=== PATIENT | female | born 1970 | race Caucasian/White ===

== ENCOUNTER 2020-04-03 06:41 | Outpatient (REF) | payer OTHER, SELFPAY | END 2020-04-03 06:42 | disposition home or self-care (01) | LOC: HO.LAB 06:41 | PROVIDERS: Visit Provider Internal Medicine | DX: Z20.828 Contact with and (suspected) exposure to other viral communicable diseases (principal) | CPT/HCPCS: C9803; U0003 ==

== ENCOUNTER 2020-08-16 10:03 | Outpatient (REF) | payer OTHER, SELFPAY ==
[2020-08-16 10:22] LABS: COVID-19 Test Negative (Negative); IDNOW Serial# 55D5AD1C
== END 2020-08-16 10:04 | disposition home or self-care (01) ==
LOC: HO.LAB 10:03
PROVIDERS: Visit Provider Internal Medicine
DX: Z20.822 Contact with and (suspected) exposure to COVID-19 (principal)
CPT/HCPCS: 36415; 87635; C9803

== ENCOUNTER 2020-08-17 08:47 | Outpatient (REF) | payer OTHER, SELFPAY | END 2020-08-17 08:48 | disposition home or self-care (01) | LOC: HO.LAB 08:47 | PROVIDERS: Visit Provider Internal Medicine | DX: Z20.822 Contact with and (suspected) exposure to COVID-19 (principal) | CPT/HCPCS: C9803; U0003; U0005 ==

== ENCOUNTER 2020-10-10 08:03 | Outpatient (REF) | payer OTHER, SELFPAY | END 2020-10-10 08:04 | disposition home or self-care (01) | LOC: HO.LAB 08:03 | PROVIDERS: PCP Internal Medicine; Visit Provider Internal Medicine | DX: Z20.822 Contact with and (suspected) exposure to COVID-19 (principal) | CPT/HCPCS: C9803; U0003; U0005 ==

== ENCOUNTER 2021-03-04 10:47 | Outpatient (REF) | payer MEDICARE, OTHER, SELFPAY ==
--- NOTE | ~2021-03-04 | XR_ITS ---
EXAMINATION: XR CHEST CLINICAL INFORMATION: Shortness of breath COMPARISON: 11/10/2017 TECHNIQUE: 2 views of the chest were obtained. FINDINGS: The lungs are well expanded. There is no focal consolidation, edema, or effusion. No pneumothorax. The cardiomediastinal silhouette is within normal limits. No acute osseous abnormality. Mild degenerative changes throughout the spine. XR/XR chest 2V IMPRESSION: No acute pulmonary finding.
== END 2021-03-04 10:48 | disposition home or self-care (01) ==
LOC: HO.XRAY 10:47
PROVIDERS: PCP Internal Medicine; Visit Provider Internal Medicine
DX: Z13.89 Encounter for screening for other disorder (principal)
CPT/HCPCS: 71046

== ENCOUNTER 2021-03-04 10:50 | Outpatient (REF) | payer MEDICARE, OTHER, SELFPAY ==
[2021-03-04 11:32] LABS: COVID-19 Test Negative (Negative)
== END 2021-03-04 10:51 | disposition home or self-care (01) ==
LOC: HO.LAB 10:50
PROVIDERS: PCP Internal Medicine; Visit Provider Internal Medicine
DX: Z20.822 Contact with and (suspected) exposure to COVID-19 (principal)
CPT/HCPCS: 36415; 71046; 87635; C9803

== ENCOUNTER 2021-05-14 10:01 | Outpatient (REF) | payer MEDICARE, OTHER, SELFPAY ==
--- NOTE | ~2021-05-14 | XR_ITS ---
EXAMINATION: XR CHEST CLINICAL INFORMATION: Cough COMPARISON: Previous chest x-rays most recent March 2021 TECHNIQUE: 2 views of the chest were obtained. FINDINGS: The cardiac and mediastinal contours are stable. There is new subsegmental atelectasis at the left lung base. The lungs are otherwise clear. There is no pleural effusion or pneumothorax. There are mild degenerative changes of the thoracic spine and increased kyphosis. XR/XR chest 2V IMPRESSION: New subsegmental atelectasis at the left lung base.
== END 2021-05-14 10:02 | disposition home or self-care (01) ==
LOC: HO.XRAY 10:01
PROVIDERS: PCP Internal Medicine; Visit Provider Internal Medicine
DX: R05.9 Cough, unspecified (principal); R06.02 Shortness of breath; Z86.16 Personal history of COVID-19
CPT/HCPCS: 71046

== ENCOUNTER 2021-05-20 10:46 | Outpatient (REF) | payer MEDICARE, OTHER, SELFPAY ==
--- NOTE | ~2021-05-20 | XR_ITS ---
EXAMINATION: XR CHEST CLINICAL INFORMATION: Follow-up pneumonia COMPARISON: 05/14/2021 TECHNIQUE: 2 views of the chest were obtained. FINDINGS: No significant interval change is noted involving the heart, lungs, mediastinum, bony thorax or soft tissues. XR/XR chest 2V IMPRESSION: Minor left-sided subsegmental atelectasis. No infiltrate.
== END 2021-05-20 10:47 | disposition home or self-care (01) ==
LOC: HO.XRAY 10:46
PROVIDERS: PCP Internal Medicine; Visit Provider Internal Medicine
DX: J18.9 Pneumonia, unspecified organism (principal)
CPT/HCPCS: 71046

== ENCOUNTER 2021-08-12 07:54 | Day surgery (SDC) | payer MEDICARE, OTHER, SELFPAY ==
[2021-08-06 16:50] VITALS: BMI 37.2
--- NOTE | 2021-08-08 14:18 | P.CONAN_ITS ---
Documented by User: Diya Wynne NP 08/08/21 14:19 HPI - Anesthesia Eval Consult details Narrative: 51yo F for Colonoscopy PMFSH Past Medical History Medical History Arthritis Asthma Fibromyalgia GERD (gastroesophageal reflux disease) Hypothyroidism Irritable bowel syndrome (IBS) Low back pain Osteoporosis Personal history of COVID-19 Smoker Surgical History Surgical History (Updated 08/06/21 @ 16:23 by Demetria Nagy RN) History of History of esophagogastroduodenoscopy (EGD) Hx of colonoscopy Social History Social History Are you a primary adult daycare coordinator to a significant other at home: No Patient Tobacco Use Status: Current everyday Tobacco user Tobacco use type: Cigarette Cigarettes Per Day: 10 Use of substances other than those prescribed or required for medical reasons: Yes Substance Use Frequency: Weekly Are you DNR?: No Advance Directives: No Advance Directives Information Provided: Yes Advance Directives on File: No Patient : No FDLMP: 03/30/2021 Meds Allergies Allergy/AdvReac Type Severity Reaction Status Date / Time No Known Allergies Allergy Verified 08/06/21 16:48 [No Known Allergies*] Home Medications Medication Instructions Recorded Confirmed Last Taken Type Flovent HFA DAILY 08/06/21 Unknown History albuterol sulfate 90 mcg/actuation 2 puff INHALATION Q4-6H PRN 08/06/21 08/06/21 08/12/21 History aerosol inhaler 2 puff dicyclomine 20 mg tablet 1 tab PO QID 08/06/21 08/06/21 Unknown History ibuprofen 800 mg tablet 800 mg PO TID PRN 08/06/21 08/06/21 Unknown History levofloxacin 500 mg tablet 1 tab PO DAILY 08/06/21 08/06/21 Unknown History omeprazole 20 mg tablet,delayed 20 mg PO BEDTIME 08/06/21 08/06/21 Unknown History release pregabalin 200 mg capsule 200 mg PO TID 08/06/21 08/06/21 08/12/21 History 200 mg Exam Exam Date and Time: August 08, 2021 1418 Height,Weight and Vital Signs: Height 5 ft 1 in Weight 89.358 kg Assessment and Plan Assessment Anesthesia Assessment: Chart Reviewed Documented by User: Mian Christian MD 08/12/21 09:21 [facility] Past Medical History Medical History Arthritis Asthma Fibromyalgia GERD (gastroesophageal reflux disease) Hypothyroidism Irritable bowel syndrome (IBS) Low back pain Osteoporosis Personal history of COVID-19 Smoker Family History Family history of problems with anesthesia: No Surgical History Surgical History (Updated 08/06/21 @ 16:23 by Demetria Nagy RN) History of History of esophagogastroduodenoscopy (EGD) Hx of colonoscopy History of Problems with Anesthesia: No Social History Social History Are you a primary adult daycare coordinator to a significant other at home: No Patient Tobacco Use Status: Current everyday Tobacco user Tobacco use type: Cigarette Cigarettes Per Day: 10 Use of substances other than those prescribed or required for medical reasons: Yes Substance Use Frequency: Weekly Are you DNR?: No Advance Directives: No Advance Directives Information Provided: Yes Advance Directives on File: No Patient : No FDLMP: 03/30/2021 Meds Allergies Allergy/AdvReac Type Severity Reaction Status Date / Time No Known Allergies Allergy Verified 08/06/21 16:48 [No Known Allergies*] Home Medications Medication Instructions Recorded Confirmed Last Taken Type Flovent HFA DAILY 08/06/21 Unknown History albuterol sulfate 90 mcg/actuation 2 puff INHALATION Q4-6H PRN 08/06/21 08/06/21 08/12/21 History aerosol inhaler 2 puff dicyclomine 20 mg tablet 1 tab PO QID 08/06/21 08/06/21 Unknown History ibuprofen 800 mg tablet 800 mg PO TID PRN 08/06/21 08/06/21 Unknown History levofloxacin 500 mg tablet 1 tab PO DAILY 08/06/21 08/06/21 Unknown History omeprazole 20 mg tablet,delayed 20 mg PO BEDTIME 08/06/21 08/06/21 Unknown History release pregabalin 200 mg capsule 200 mg PO TID 08/06/21 08/06/21 08/12/21 History 200 mg Exam Airway Mallampati Class: II TM Dist: >3cm Neck ROM: Full Loose/Missing/Broken Teeth: No Heart: [id number] Lungs: cta b/l Assessment and Plan Assessment Anesthesia Assessment: Anesthesia Plan Discussed Final Anesthetic Review Family History of Problems with Anesthesia: No History of Problems with Anesthesia: No NPO: Yes ASA Class: II Final Preanesthetic Review: No Changes in Pt Med Stat, Meds/Allgs Chart Reviewed, Consent Obtained/Reviewed and Anes Risks/Benef Reviewed Patient Risk: Intermediate Procedure Risk: Low Assessment/Block/Sedation in SS: Assess/Block/Sedation-SS Anesthetic Plan Anesthetic Plan: MAC: and Agree w/ Assess. and Plan Disposition: Standard PACU
[2021-08-12 08:48] VITALS: BP 145/78; PULSE 54; RESP 18; TEMP 36.2; O2SAT 96; BMI 37.2
[2021-08-12] MEDS: Lactated Ringers 1,000 ML 100 ML IVCONT (09:05)
[2021-08-12 10:25] VITALS: BP 98/50; PULSE 58; RESP 16; TEMP 36.1; O2SAT 97
--- NOTE | 2021-08-12 10:27 | PM.OP ---
Brief Operative Note Date of Service: 08/12/21 Pre-op diagnosis: Screening Post-op diagnosis: other (Colon polyp) Procedure: Colonoscopy to the cecum with hot snare polypectomy Surgeon: Brett Baker Anesthesia: MAC Was an Supervisor Throwing Department used for this Procedure?: No Estimated blood loss (mL): 0 Pathology: other (A. Polyp at 40cm) Condition: stable Disposition: PACU
[2021-08-12 10:40] VITALS: BP 119/74; PULSE 57; RESP 18; O2SAT 97
[2021-08-12 11:01] VITALS: BP 153/87; PULSE 48; RESP 18; TEMP 36.2; O2SAT 97
--- NOTE | 2021-08-12 12:59 | OP_ITS ---
SURGEON: Brett Baker MD INDICATIONS: The patient presents for evaluation of colorectal cancer screening. Full consent was obtained from her for this, including risks of bleeding and perforation. PREOPERATIVE DIAGNOSIS: Colorectal cancer screening. POSTOPERATIVE DIAGNOSIS: PROCEDURE PERFORMED: Colonoscopy to the cecum with hot snare polypectomy. ESTIMATED BLOOD LOSS: COMPLICATIONS: ANESTHESIA: Monitored anesthesia care. ASSISTANTS: SPECIMENS: POSTOPERATIVE DIAGNOSES: Colorectal cancer screening, colon polyp, diverticulosis and internal hemorrhoids. DESCRIPTION OF PROCEDURE: The patient was placed in the left lateral decubitus position. The digital rectal exam revealed no abnormalities. The Olympus video pediatric colonoscope was entered into the rectum and advanced easily to the cecum. Once in the cecum, I did identify normal-appearing cecal pouch with appendiceal orifice and a normal-appearing ileocecal valve. The entire cecum and ileocecal valve appeared normal. There was transillumination of light deep in the right lower quadrant. The scope was slowly withdrawn assessing all mucosal surfaces carefully. Preparation was excellent. At 40 cm was an approximately 10 mm grossly adenomatous polyp, which was removed with hot snare polypectomy. A small piece may have been recovered, although not completely cleared if it is polyp tissue. The polypectomy site appeared clean, without any sign of residual polyp nor bleeding. I did not visualize any other polyps, colitis, or angiodysplasia. There was a mild amount of sigmoid diverticulosis. In the rectum, scope was retroflexed visualizing internal hemorrhoids, but no other pathology. The rectal mucosa appeared normal. The scope was straightened and withdrawn from the patient. She tolerated the procedure well and was returned to the recovery area in stable condition. IMPRESSION: 1. Colon polyp, status post hot snare polypectomy. 2. Diverticulosis. 3. Internal hemorrhoids. PLAN: The results of the pathology will be checked. Even if there is no polyp tissue found, I would recommend a repeat colonoscopy in 5 years given its gross appearance. She was advised not to use any aspirin and NSAIDs for 1 week. She will otherwise see me on a p.r.n. basis. MD GIL Marin/KATHY / [id number]
== END 2021-08-12 11:46 | disposition home or self-care (01) ==
PROVIDERS: PCP Internal Medicine; Visit Provider Internal Medicine
PROC: 0DJD8ZZ Inspection of Lower Intestinal Tract, Via Natural or Artificial Opening Endoscopic (ICD-10-PCS; CPT 45378; principal; 2021-08-12 09:10)
DX: Z12.11 Encounter for screening for malignant neoplasm of colon (principal); K63.5 Polyp of colon; K57.30 Diverticulosis of large intestine without perforation or abscess without bleeding; K64.8 Other hemorrhoids; K58.0 Irritable bowel syndrome with diarrhea; E03.9 Hypothyroidism, unspecified; Z79.899 Other long term (current) drug therapy
CPT/HCPCS: 45385; 88305

== ENCOUNTER 2022-05-22 16:45 | Outpatient (REF) | payer MEDICARE, OTHER, SELFPAY ==
--- NOTE | ~2022-05-22 | XR_ITS ---
EXAMINATION: XR RIBS, RIGHT CLINICAL INFORMATION: Fell, injured ribs. COMPARISON: None TECHNIQUE: 3 views of the right ribs were obtained. Chest PA 1 view FINDINGS: Lungs are clear. No consolidation, pneumothorax, or pleural effusion. The cardiomediastinal silhouette and pulmonary vasculature are normal. No gross bony or the body. Multiple views of right ribs reveal no visible acute fracture or bony abnormality. XR/XR ribs RT min 3V w CXR1V IMPRESSION: 1. Unremarkable chest exam. 2. Unremarkable right rib exam.
== END 2022-05-22 16:46 | disposition home or self-care (01) ==
LOC: HO.XRAY 16:45
PROVIDERS: PCP Internal Medicine; Visit Provider Internal Medicine
DX: R07.81 Pleurodynia (principal); Z91.81 History of falling
CPT/HCPCS: 71101

== ENCOUNTER 2022-07-30 14:18 | Outpatient (REF) | payer MEDICARE, OTHER, SELFPAY ==
--- NOTE | ~2022-07-30 | XR_ITS ---
EXAMINATION: XR RIBS, RIGHT CLINICAL INFORMATION: Fall on Thursday. Right rib pain. COMPARISON: None available. TECHNIQUE: 3 views of the right ribs were obtained. FINDINGS: Chest: The lungs are well-expanded and clear. The heart size and pulmonary vascularity is normal. No gross bony abnormality seen. Multiple views of right ribs reveal mild deformity involving right posterior fifth, sixth and seventh ribs suspicious for nondisplaced fractures. XR/XR ribs RT min 3V w CXR1V IMPRESSION: 1. Unremarkable chest exam. 2. Suspect nondisplaced fractures involving right posterior fifth, sixth and seventh ribs.
== END 2022-07-30 14:19 | disposition home or self-care (01) ==
LOC: HO.XRAY 14:18
PROVIDERS: PCP Internal Medicine; Visit Provider Internal Medicine
DX: R07.81 Pleurodynia (principal); Z91.81 History of falling
CPT/HCPCS: 71101

== ENCOUNTER 2022-09-15 14:57 | Outpatient (REF) | payer MEDICARE, OTHER, SELFPAY ==
--- NOTE | ~2022-09-15 | XR_ITS ---
EXAMINATION: XR RIBS, RIGHT CLINICAL INFORMATION: Fall, trauma, pain COMPARISON: Chest and right ribs 07/30/2022, 05/22/2022 TECHNIQUE: Frontal view of the chest and 4 views of the right ribs are obtained for a total of 5 views. FINDINGS: As noted on prior exam, there are multiple right rib fractures, estimated at the posterior lateral sixth, seventh, eighth, and ninth ribs, possibly the 10th. There is no interval new right rib fractures seen from prior exam 07/30/2022. There is mild pleural reaction adjacent to the rib fractures. Probable trace right effusion. No pneumothorax. No interval airspace consolidation. Left lung clear. The cardiac and mediastinal contours are similar to prior exams. XR/XR ribs RT min 3V w CXR1V IMPRESSION: - Multiple right rib fractures as noted on prior exam, likely 6th - 9th, possibly 10th. - Interval smooth right pleural reaction with trace effusion. - No pneumothorax. No airspace consolidation.
== END 2022-09-15 14:58 | disposition home or self-care (01) ==
LOC: HO.XRAY 14:57
PROVIDERS: PCP Internal Medicine; Visit Provider Internal Medicine
DX: R07.81 Pleurodynia (principal); Z91.81 History of falling
CPT/HCPCS: 71101

== ENCOUNTER 2022-11-06 14:57 | Outpatient (REF) | payer MEDICARE, OTHER, SELFPAY | END 2022-11-06 14:58 | disposition home or self-care (01) | LOC: HO.HMGCX 14:57 | PROVIDERS: PCP Internal Medicine; Visit Provider Internal Medicine | DX: S22.31XA Fracture of one rib, right side, initial encounter for closed fracture (principal); M79.672 Pain in left foot | CPT/HCPCS: 71101; 73630 ==

== ENCOUNTER 2023-07-07 11:25 | Outpatient (REF) | payer MEDICARE, OTHER, SELFPAY ==
--- NOTE | ~2023-07-07 | US_ITS ---
EXAMINATION: US VENOUS ULTRASOUND WITH DOPPLER LOWER EXTREMITY, LEFT CLINICAL INFORMATION: Left leg pain. COMPARISON: None available. TECHNIQUE: Ultrasound of the deep veins is performed from the hip to the calf with compression sonography and color and pulse Doppler assessment. Spectral analysis with color-flow imaging is performed. FINDINGS: There is normal venous compression and respiratory variation and augmented flow. The visualized common femoral vein, superficial femoral vein, profunda femoral vein, popliteal vein, and the trifurcation region shows no evidence of deep venous thrombosis. The posterior tibial and peroneal veins are not visualized. There is no significant popliteal fossa cyst. If the patient's symptoms persist, followup ultrasound in 5 days 7 days might be of value to exclude proximal propagation from a non-visualized calf vein. US/US venous duplex LE IMPRESSION: No DVT demonstrated in the left lower extremity.
== END 2023-07-07 11:26 | disposition home or self-care (01) ==
LOC: HO.US 11:25
PROVIDERS: PCP Internal Medicine; Visit Provider Internal Medicine
DX: M79.605 Pain in left leg (principal); R60.0 Localized edema
CPT/HCPCS: 93971

== ENCOUNTER 2023-07-22 07:00 | Outpatient (REF) | payer MEDICARE, OTHER, SELFPAY ==
[2023-07-22 11:35] LABS: MANUAL DIFF FLAG NO
[2023-07-22 11:47] LABS: Basophils Percent Auto 0.6 % (0-2); Eosinophils Absolute Auto 0.4 X10*3/uL (0.0-0.4); Eosinophils Percent Auto 7.5 % (0-4); Hematocrit 37.8 % (37.0-47.0); Hemoglobin 12.1 g/dl (12.0-16.0); Imm Gran Abs Auto 0.01 X10*3/uL (0.00-0.03); Imm Gran Pct Auto 0.2 % (0.0-0.4); Lymphocytes Absolute Auto 1.9 X10*3/uL (1.2-4.9); Lymphocytes Percent Auto 40.3 % (20-40); Mean Corpuscular Hemoglobin 29.2 pg (27.0-33.0); Mean Corpuscular Volume 91.1 fL (80.0-98.0); Mean Platelet Volume 9.6 fL (9.4-12.3); Monocytes Absolute Auto 0.4 X10*3/uL (0.1-1.2); Monocytes Percent Auto 7.7 % (2-11); Neutrophils Absolute Auto 2.1 x10*3/uL (2.0-8.3); Neutrophils Percent Auto 43.7 % (45-73); Platelet Count 204 X10*3/uL (160-400); Red Blood Count 4.15 X10*6/uL (4.20-5.50); White Blood Count 4.7 X10*3/uL (4.8-10.8)
[2023-07-22 12:34] LABS: Alanine Aminotransferase 17 U/L (0-31); Albumin Level 3.3 g/dL (3.5-5.0); Alkaline Phosphatase 82 U/L (39-117); Anion Gap 9 (12-20); Aspartate Amino Transferase 20 U/L (5-31); Bilirubin Total 0.2 mg/dL (0.0-1.0); Blood Urea Nitrogen 12 mg/dL (9-16); Calcium 8.5 mg/dL (8.4-10.2); Carbon Dioxide 30 mmol/L (22-29); Chloride 105 mmol/L (96-108); Cholesterol 116 mg/dL (<200); Estimated Glomerular Filt Rate > 60; Glucose Fasting 116 mg/dL (60-99); HDL Cholesterol 43 mg/dL (>40); LDL Cholesterol Calculated 61 mg/dL (<100); Potassium 3.3 mmol/L (3.3-5.1); Sodium 141 mmol/L (135-145); Total Protein 6.6 g/dL (6.5-8.0); Triglycerides 63 mg/dL (<150)
[2023-07-22 12:40] LABS: Free T4 (Free Thyroxine) 0.82 ng/dL (0.71-1.85); Thyroid Stimulating Hormone 5.51 uIU/mL (0.32-4.0)
== END 2023-07-22 07:01 | disposition home or self-care (01) ==
LOC: HO.HMGCLDS 07:00
PROVIDERS: PCP Internal Medicine; Visit Provider Internal Medicine
DX: Z00.00 Encounter for general adult medical examination without abnormal findings (principal); R53.83 Other fatigue; E78.5 Hyperlipidemia, unspecified
CPT/HCPCS: 36415; 80053; 80061; 84439; 84443; 85025

== ENCOUNTER 2023-07-29 09:48 | Outpatient (REF) | payer MEDICARE, OTHER, SELFPAY ==
--- NOTE | ~2023-07-29 | XR_ITS ---
EXAMINATION: XR THORACIC SPINE, RIBS CLINICAL INFORMATION: Pain. COMPARISON: Ribs 11/06/2022, chest and ribs 09/15/2022, chest 05/20/2021. TECHNIQUE: 2 views of the chest. 4 views of bilateral ribs. FINDINGS: Thoracic Spine: Cardiac silhouette borderline enlarged. There is no gross pneumothorax. Advanced multilevel degenerative changes in the thoracic spine with dextroscoliosis. Bones are diffusely demineralized. Mild left pleural reaction/pleural effusion. Patchy left lower lung opacities may represent atelectasis and/or an infectious/inflammatory process. Bilateral Ribs: Redemonstration of multiple old right rib fractures involving at least ribs 5 through 10 and deformity along the posterior aspect of at least the left 10th rib characteristic of old fracture. There are multiple bilateral displaced fractures involving at least left ribs 5, 6, 7 and 8 and right ribs 5, 7, 8 and 9. XR/XR thoracic spine 2V IMPRESSION: Multiple bilateral rib fractures superimposed on background of old rib fractures. Mild left pleural reaction/pleural effusion. Patchy left lower lung opacities may represent atelectasis and/or an infectious/inflammatory process. Advanced multilevel degenerative changes in the thoracic spine with dextroscoliosis. This study was presented today 08/04/2023 for interpretation. STAT results provided at this time as requested by referring provider.
--- NOTE | ~2023-07-29 | XR_ITS ---
EXAMINATION: XR THORACIC SPINE, RIBS CLINICAL INFORMATION: Pain. COMPARISON: Ribs 11/06/2022, chest and ribs 09/15/2022, chest 05/20/2021. TECHNIQUE: 2 views of the chest. 4 views of bilateral ribs. FINDINGS: Thoracic Spine: Cardiac silhouette borderline enlarged. There is no gross pneumothorax. Advanced multilevel degenerative changes in the thoracic spine with dextroscoliosis. Bones are diffusely demineralized. Mild left pleural reaction/pleural effusion. Patchy left lower lung opacities may represent atelectasis and/or an infectious/inflammatory process. Bilateral Ribs: Redemonstration of multiple old right rib fractures involving at least ribs 5 through 10 and deformity along the posterior aspect of at least the left 10th rib characteristic of old fracture. There are multiple bilateral displaced fractures involving at least left ribs 5, 6, 7 and 8 and right ribs 5, 7, 8 and 9. XR/XR ribs BI 3V IMPRESSION: Multiple bilateral rib fractures superimposed on background of old rib fractures. Mild left pleural reaction/pleural effusion. Patchy left lower lung opacities may represent atelectasis and/or an infectious/inflammatory process. Advanced multilevel degenerative changes in the thoracic spine with dextroscoliosis. This study was presented today 08/04/2023 for interpretation. STAT results provided at this time as requested by referring provider.
== END 2023-07-29 09:49 | disposition home or self-care (01) ==
LOC: HO.HMGCX 09:48
PROVIDERS: PCP Internal Medicine; Visit Provider Internal Medicine
DX: R07.81 Pleurodynia (principal); M54.6 Pain in thoracic spine
CPT/HCPCS: 71110; 72070

== ENCOUNTER 2023-08-20 15:31 | Outpatient (AMB) | payer MEDICARE, OTHER, SELFPAY ==
--- NOTE | 2023-08-20 15:33 | A.OFFVIS_ITS ---
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 States she has a wound that started around July 18, says she was using a callous scraper on her foot and cut herself. Says she loses feeling in her left big toe where the wound is. 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 This has been present for some time. She reports it began as a callus and when she shaved it down a became an open ulcer. It has been slow to heal. She is quite concerned about this now presents to us for vascular evaluation. Of note she has a prior history of osteoporosis fibromyalgia and peripheral neuropathy. She is a nondiabetic and does have significant peripheral neuropathy. In addition she smokes about a half a pack per day. [facility] Medical History Smoker Arthritis Asthma Low back pain Osteoporosis GERD (gastroesophageal reflux disease) Irritable bowel syndrome (IBS) Hypothyroidism Fibromyalgia Personal history of COVID-19 Surgical History History of Hx of colonoscopy History of esophagogastroduodenoscopy (EGD) Social History Are you a primary rental boats caretaker to a significant other at home: No Patient Tobacco Use Status: Current everyday Tobacco user Tobacco use type: Cigarette Cigarettes Per Day: 10 Review of Systems Const All systems reviewed & are unremarkable except as noted in HPI and below Reports no additional complaints ENT Reports Normal hearing present Card Denies chest pain, Denies chest pain at rest, Denies chest pain with activity and Denies pedal edema Resp Denies cough GI Denies abdominal pain Musc Denies abnormal gait, Denies muscle cramps and Denies radiating pain into limb Skin/Breast Denies skin ulcer and Denies wounds Neuro Reports Normal hearing present and Denies abnormal gait Psych Reports no additional complaints Physical Exam Vital Signs: BMI result Body Mass Index 31.6 Const General: cooperative, healthy appearing and comfortable Orientation/consciousness: oriented to person, oriented to place and oriented to time HEENT Head: Yes normal to inspection Neck Neck: Yes normal visual inspection Carotids: no bruits Chest Chest palpation & inspection: normal inspection of the chest Resp Effort & Inspection: normal respiratory effort and able to speak in complete sentences Auscultation: clear to auscultation bilaterally, no crackles, no rales, no rhonchi and no wheezes Cardio Rate: regular rate Rhythm: regular rhythm Heart sounds: S1 normal heart sound present and S2 normal heart sound present Bruits: no carotid bruits Peripheral pulses: Peripheral pulses 2+ throughout GI Inspection: Yes normal to inspection Skin Other: Left great toe ulcer measuring 1 x 1.5 x 0.2 cm. Wounds: no wounds Hair: normal Neuro General: oriented to person, oriented to place and oriented to time Cranial nerves: Yes CN's II-XII intact bilaterally and Yes Normal hearing present Cognition (Neuro): normal cognition Motor exam (neuro): 5/5 motor strength present throughout Extrem Other: venous exam: No significant superficial varicosities or spider telangiectasias, minimal edema General: No clubbing, No cyanosis and No edema Psych Appearance: grossly normal Mental Status: mental status grossly normal Speech and movement: Normal speech and movement present Assessment & Plan Assessment & Plan (1) Varicose veins of left lower extremity with inflammation: Code(s): I83.12 - Varicose veins of left lower extremity with inflammation Category: Medical Plan: In short patient has significant swelling of the lower extremities. Unclear etiology of the swelling. I have taken the liberty of ordering venous insufficiency testing. I did review DVT study from 07/07/2023 which was negative for DVT. We will get reflux study and have her follow-up. 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 I do believe that some of this is pressure related secondary to her neuropathy. We did discuss offloading. In addition she will continue with Silvadene dressings. Should there be no significant improvement may need operative debridement. We will continue to monitor this as well. Thank you for allowing us to assist in her care. (3) Back pain: Code(s): M54.9 - Dorsalgia, unspecified Category: Medical Qualifiers: Back pain location: low back pain Chronicity: chronic Back pain laterality: bilateral Sciatica presence: unspecified whether sciatica present Qualified Code(s): M54.50 - Low back pain, unspecified; G89.29 - Other chronic pain Plan: In short patient has significant back issues. I do believe this may be contribu ting to her neuropathy. She on x-ray on 07/28 demonstrated multiple rib fractures along with multi-level degenerative spinal changes and dextroscoliosis. I do think evaluation by pain management might be helpful. Might need further evaluation and workup regarding this. Thank you for allowing us to assist in her care. If there are any questions or concerns please do not hesitate to contact us. Orders: Orders US venous insuf bilat 1 Week I83.12 - Varicose veins of left lower extremity with inflammation
[2023-08-20 15:39] VITALS: BMI 31.6
== END 2023-08-21 07:31 | disposition home or self-care (01) ==
PROVIDERS: PCP Internal Medicine; Visit Provider Surgery Vascular Surgery
DX: I83.12 Varicose veins of left lower extremity with inflammation (principal); L97.523 Non-pressure chronic ulcer of other part of left foot with necrosis of muscle; M54.50 Low back pain, unspecified; G89.29 Other chronic pain
CPT/HCPCS: 99204

== ENCOUNTER 2023-08-23 12:38 | Inpatient (IN) | payer MEDICARE, OTHER, SELFPAY ==
[2023-08-23] VITALS (8 sets, daily range): BP systolic 122–172; BP diastolic 71–96; PULSE 97–120; RESP 20–26; TEMP 36.8–38.7; O2SAT 88–95; BMI 29.3
--- NOTE | ~2023-08-23 | XR_ITS ---
EXAMINATION: XR FOOT, LEFT CLINICAL INFORMATION: Question osteomyelitis of great toe. COMPARISON: Radiographs dated 11/06/2022. TECHNIQUE: AP, lateral, and oblique views of the left foot. FINDINGS: Bony alignment and mineralization are normal. No fracture, dislocation or left ankle joint effusion is seen. Boehler's angle is normal. There are small posterior and plantar calcaneal spurs. There is soft tissue gas in the medial plantar aspect of the great toe. No adjacent periosteal thickening or cortical erosion is noted. No foreign body is seen. XR/XR foot LT 2V IMPRESSION: There is soft tissue gas in the medial plantar aspect of the left great toe, which can be associated with a soft tissue infection. No periosteal thickening or cortical erosion is seen of the great toe to suggest osteomyelitis. If a clinical suspicion of acute osteomyelitis persists, MRI evaluation can be performed as a more sensitive imaging modality.
--- NOTE | ~2023-08-23 | CT_ITS ---
EXAMINATION: CT HEAD WITHOUT CONTRAST CLINICAL INFORMATION: Mental status change. COMPARISON: None. TECHNIQUE: Contiguous axial imaging was performed from the skullbase to vertex without intravenous administration of contrast. This CT examination was performed using dose optimization techniques as appropriate, variously including the following: *Automated exposure control *Adjustment of mA and/or kV according to patient size (this includes techniques or standardized protocols for targeted exams where dose is matched to indication/reason for exam; i.e. extremities or head) *Use of iterative reconstruction technique DLP: 784 mGy-cm. FINDINGS: There is no evidence of acute intracranial hemorrhage or territorial infarction. No abnormal mass effect or midline shift is seen. Guillaume to white matter differentiation is well preserved. No extra-axial fluid collections are identified. No evidence of hydrocephalus. Mild to moderate bilateral temporoparietal lobe parenchymal volume loss noted. The osseous structures and soft tissues are normal. The mastoid air cells are well aerated. There is tghj-te-asjvedai mucosal thickening with aerosolized secretions in the maxillary sinuses. CT/CT head/brain wo IV con IMPRESSION: No acute intracranial pathology. Jocg-np-[id number] bilateral temporoparietal lobe volume loss. Nktj-uu-rhvmbkcn aerosolized mucosal secretions in the maxillary sinus cavities; correlate for any acute symptomatology.
--- NOTE | ~2023-08-23 | US_ITS ---
EXAMINATION: US VENOUS ULTRASOUND WITH DOPPLER LOWER EXTREMITY, LEFT CLINICAL INFORMATION: Left leg edema, erythema and tenderness COMPARISON: None available. TECHNIQUE: Ultrasound of the deep veins is performed from the hip to the calf with compression sonography and color and pulse Doppler assessment. Spectral analysis with color-flow imaging is performed. Technically Limited study. The patient was unable to tolerate compression. FINDINGS: There is respiratory variation and normal color flow. The visualized common femoral vein, superficial femoral vein, profunda femoral vein, popliteal vein, and the posterior tibial and peroneal veins shows no evidence of deep venous thrombosis. Benign-appearing lymph node at the left proximal thigh measures 2.4 x 1.0 x 4.2 cm. Marked edema was seen in the calf. US/US venous duplex LE LT IMPRESSION: No DVT demonstrated in the left lower extremity.
--- NOTE | ~2023-08-23 | XR_ITS ---
EXAMINATION: XR FOREARM, LEFT XR HAND, LEFT CLINICAL INFORMATION: Fall. Swelling. COMPARISON: None. TECHNIQUE: AP and lateral views of the left forearm. AP, oblique, and lateral views of the left hand. FINDINGS: Left forearm: Circumferential subcutaneous edema and soft tissue swelling. No acute fracture or dislocation. No cortical erosion or periosteal reaction. No abnormal soft tissue calcification. Left hand: Circumferential soft tissue swelling. No acute fracture or dislocation. Normal carpal alignment. Tiny marginal osteophytes at the triscaphe and first carpometacarpal joints. No osseous erosion. No abnormal soft tissue calcification. XR/XR forearm LT 2V IMPRESSION: LEFT FOREARM: Circumferential soft tissue swelling without acute osseous abnormality. LEFT HAND: Circumferential soft tissue swelling without acute osseous abnormality. Mild degenerative arthritis at the triscaphe and first carpometacarpal joints.
--- NOTE | ~2023-08-23 | CT_ITS ---
EXAMINATION: CT CHEST, ABDOMEN AND PELVIS WITHOUT CONTRAST. CLINICAL INFORMATION: mental status change with multiple rib fracture. COMPARISON: 07/29/2023 rib films and 07/16/2018 CT scan. TECHNIQUE: Multidetector volumetric imaging was performed from the thoracic inlet through the pubic symphysis without intravenous contrast. Sagittal and coronal reformatted images were obtained on the technologist workstation. This CT examination was performed using dose optimization techniques as appropriate, variously including the following: *Automated exposure control *Adjustment of mA and/or kV according to patient size (this includes techniques or standardized protocols for targeted exams where dose is matched to indication/reason for exam; i.e. extremities or head) *Use of iterative reconstruction technique DLP: 1432 mGy-cm FINDINGS: CHEST: Lungs: Dependent airspace changes more likely reflecting a component of atelectasis although infiltrate/aspiration could have a similar appearance especially in the left base. Clinical correlation will be needed. Small bilateral pleural effusions are noted. Mediastinum: Vascular structures are grossly unremarkable in this noncontrast study. No bulky adenopathy. Coronary Artery Calcification: Absent Pericardium/Pleura: Small left greater than right pleural effusions. No significant pericardial effusion Chest Wall/Axilla: No bulky axillary adenopathy. Asymmetric soft tissue along the inferomedial aspect of the right scapula difficult to separate from the adjacent soft tissues but this measures approximately 3.8 cm in diameter. This cannot be defined further on this noncontrast. Fibroblastoma dorsi could be seen in this location but that would be somewhat atypical in a 53-year-old patient. ABDOMEN/PELVIS: Peritoneal Space:No significant free air or free fluid identified. Liver, Gallbladder, Biliary Tree: The non contrast liver is normal in size, shape, and attenuation. No focal hepatic lesion or biliary ductal dilatation is present. The gallbladder is unremarkable with no evidence of radiopaque gallstones, gallbladder wall thickening, or obvious pericholecystic inflammatory changes. Pancreas: Unremarkable. Spleen: Unremarkable. Adrenal Glands: Unremarkable. Kidneys and Ureters: The kidneys are normal in size, shape, and attenuation. No hydronephrosis, hydroureter, or perinephric stranding. Tiny nonobstructing bilateral intrarenal calculi.. Bladder: Unremarkable. Gastrointestinal Tract: The small and large bowel are unremarkable. The appendix is unremarkable. Abdominal Wall: Colon is mostly decompressed which limits assessment for colonic wall thickening. No obstructive changes seen. Visualized small bowel unremarkable. Stomach is decompressed Lymphovascular Structures: Mild vascular calcification within the aorta iliac system. No bulky adenopathy in the retroperitoneum or mesentery. Prominent bilateral inguinal lymph nodes are seen measuring up to 1.4 cm on the left and 1.1 cm on the right.. Pelvic Viscera: Unremarkable. Osseus Structures: Extensive bilateral rib fractures are again noted. The study demonstrated evidence for interval healing with periosteal changes well-corticated irregularity at the fracture line. There are additional more chronic rib fractures at demonstrate near complete bony fusion. Right transverse process fractures of L1, L2, and L3 are noted. CT/CT abdomen pelvis wo IV con IMPRESSION: 1. Extensive bilateral rib fractures and right transverse process fractures are noted. There is evidence for interval healing with periosteal changes and well-corticated fracture lines with additional more chronic appearing healed fractures. 2. There is asymmetric soft tissue mass along the inferomedial aspect of the right scapula difficult to separate from the adjacent soft tissues but this measures approximately 3.8 cm in diameter. Fibroblastoma dorsi could be seen in this location but that would be somewhat atypical in a 53-year-old patient. This cannot be defined further on this noncontrast study. Clinical correlation would be needed. MRI would be more sensitive to evaluate this nonspecific soft tissue asymmetric mass further. 3. Small bilateral pleural effusions with dependent airspace changes more likely due to atelectasis although infiltrate/aspiration could have a similar appearance especially in the left base.
--- NOTE | ~2023-08-23 | XR_ITS ---
EXAMINATION: XR FOREARM, LEFT XR HAND, LEFT CLINICAL INFORMATION: Fall. Swelling. COMPARISON: None. TECHNIQUE: AP and lateral views of the left forearm. AP, oblique, and lateral views of the left hand. FINDINGS: Left forearm: Circumferential subcutaneous edema and soft tissue swelling. No acute fracture or dislocation. No cortical erosion or periosteal reaction. No abnormal soft tissue calcification. Left hand: Circumferential soft tissue swelling. No acute fracture or dislocation. Normal carpal alignment. Tiny marginal osteophytes at the triscaphe and first carpometacarpal joints. No osseous erosion. No abnormal soft tissue calcification. XR/XR hand LT min 3V IMPRESSION: LEFT FOREARM: Circumferential soft tissue swelling without acute osseous abnormality. LEFT HAND: Circumferential soft tissue swelling without acute osseous abnormality. Mild degenerative arthritis at the triscaphe and first carpometacarpal joints.
--- NOTE | ~2023-08-23 | CT_ITS ---
EXAMINATION: Procedure not performed INDICATION: Reason for Exam great toe tip ulcer, r o osteomyelitis COMPARISON: Left foot radiograph dated 08/23/2023 TECHNIQUE: Initial a p supervisor images were obtained through the left foot. During the administration of 41 mL of Omnipaque 350, difficulties with the IV access were experienced. Attempt to place a new IV access were unsuccessful. The patient refused to continue with the examination due to discomfort. No diagnostic CT images were obtained. The patient will try again tomorrow. CT/CT foot LT w IV con FINDINGS/ IMPRESSION: Examination performed due to difficulties with IV access and subsequent patient refusal to continue.
--- NOTE | ~2023-08-23 | US_ITS ---
EXAMINATION: US VENOUS WITH DOPPLER UPPER EXTREMITY, LEFT CLINICAL INFORMATION: Swelling. Evaluate for venous thrombosis. COMPARISON: Radiographs of the left hand and forearm from 08/27/2023. TECHNIQUE: Ultrasound of the left upper extremity is performed using compression sonography and color and pulse Doppler flow with assessment of augmentation of flow. There is also imaging and Doppler assessment of the jugular and subclavian veins. Spectral analysis with color-flow imaging is performed. FINDINGS: The left subclavian and internal jugular veins are normal. Normal pulsatile flow is seen within these vessels on color Doppler imaging. The left axillary, brachial and cephalic veins are normal. There is occlusive thrombus within the basilic vein in the lower aspect of the arm near the level of the elbow. The radial and ulnar veins within the forearm are compressible. US/US venous duplex UE LT IMPRESSION: * No evidence of deep vein thrombosis in the left upper extremity. * However, there is thrombosis of a superficial vein (the basilic vein) in the lower aspect of the arm near the level of the elbow.
--- NOTE | ~2023-08-23 | XR_ITS ---
EXAMINATION: XR CHEST CLINICAL INFORMATION: Hypoxia COMPARISON: Previous chest x-ray and chest CT 08/23/2023 TECHNIQUE: Frontal view of the chest was obtained. FINDINGS: The patient is rotated to the left. The cardiac and mediastinal contours are stable. There is patchy airspace disease greatest at the left lung base suggestive of pneumonia. This appears increased from prior exam. There are small bilateral pleural effusions or pleural thickening left greater than right. There is evidence of old bilateral rib fractures. XR/XR chest 1V IMPRESSION: Patchy airspace disease greatest at the left lung base suggestive of pneumonia.
--- NOTE | ~2023-08-23 | XR_ITS ---
EXAMINATION: XR CHEST CLINICAL INFORMATION: Altered mental status. COMPARISON: Prior radiographs, most recently chest and rib radiographs dated 07/29/2023. TECHNIQUE: 2 AP views of the chest were obtained. FINDINGS: There is stable mild cardiomegaly. Lung volumes are diminished. There is pulmonary vascular congestion, without overt congestive heart failure. There are again multiple bilateral rib fractures, with adjacent pleural thickening. There is mild linear atelectasis at the left base. No focal infiltrate is seen. There is no pleural effusion or pneumothorax. XR/XR chest 1V IMPRESSION: 1. Multiple bilateral rib fractures are redemonstrated. No pneumothorax or pleural effusion is seen. 2. There is mild left base linear atelectasis. 3. There is pulmonary vascular congestion, without overt congestive heart failure.
--- NOTE | ~2023-08-23 | CT_ITS ---
EXAMINATION: CT FOOT WITH CONTRAST, LEFT CLINICAL INFORMATION: Osteomyelitis. COMPARISON: Left foot radiographs dated 08/23/2023. TECHNIQUE: Contiguous axial CT images of the left foot were obtained following the IV administration of 85 mL Omnipaque 350 contrast. Multiplanar reformats were provided and reviewed. This CT examination was performed using dose optimization techniques as appropriate, variously including the following: *Automated exposure control *Adjustment of mA and/or kV according to patient size (this includes techniques or standardized protocols for targeted exams where dose is matched to indication/reason for exam; i.e. extremities or head) *Use of iterative reconstruction technique. DOSE: 173 mGy-cm. FINDINGS: Soft tissue ulceration along the plantar/medial aspect of the great toe, measuring approximately 1.4 x 1.2 cm (AP x ML). Adjacent skin thickening and subcutaneous edema, consistent with acute cellulitis. No definite abscess formation or peripherally enhancing fluid collection. No adjacent cortical erosion or periosteal reaction to suggest acute osteomyelitis. Early osteomyelitis may be occult on CT examination. No acute fracture or dislocation. No concerning lytic or blastic osseous lesion. Mild subchondral cystic change at the tibial plafond. No talar osteochondral lesion. The visualized flexor and extensor tendons are grossly intact; however, evaluation is limited on CT examination. No soft tissue mass. CT/CT foot LT w IV con IMPRESSION: Soft tissue ulceration along the plantar/medial aspect of the great toe, with adjacent skin thickening and subcutaneous edema, consistent with acute cellulitis. No definite abscess formation or peripherally enhancing fluid collection. No adjacent cortical erosion or periosteal reaction to suggest acute osteomyelitis. Early osteomyelitis may be occult on CT examination.
--- NOTE | 2023-08-23 12:48 | ECG_ITS ---
Test Reason : AMS Blood Pressure : / mmHG Vent. Rate : 118 BPM Atrial Rate : 118 BPM P-R Int : 134 ms QRS Dur : 062 ms QT Int : 326 ms P-R-T Axes : 090 041 022 degrees QTc Int : 456 ms Sinus tachycardia with Premature supraventricular complexes Low voltage QRS Borderline ECG No previous ECGs available Referred By: Loki Nunez Electronically Signed By:TORSTEN GROSS MD
--- NOTE | 2023-08-23 12:56 | ED_ITS ---
HPI - Altered Mental Status General Chief Complaint: Altered Mental Status Stated Complaint: AMS ALL MORNING PER HUSB,BLE WOUNDS PER EMS Time Seen by Provider: 08/23/23 12:47 Source: family ( significant other), EMS and old records reviewed Mode of arrival: EMS Limitations: altered mental status History of Present Illness HPI narrative: this is a 53-year-old female brought in by ambulance from home for acute mental status change, patient lives home with her significant other for 20 years who found her walking naked in the house acting in bizarre behavior that not typical for this patient, 2 days ago patient was evaluated by vascular surgeon for left great toe ulcer that is started by using a callus scraper, patient had lower extremity swelling with ultrasound to rule out DVT back in July, significant other who does not know much about her medical condition stated that patient had a 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 otherwise unable to obtain any further history from the patient. no photophobia, no neck stiffness. Related Data Home Medications ?Medication ?Instructions ?Recorded ?Confirmed Flovent HFA DAILY 08/06/21 albuterol sulfate 90 mcg/actuation 2 puff inhalation Q4-6H PRN 08/06/21 08/06/21 aerosol inhaler Shortness Of Breath Or Wheezing ibuprofen 800 mg tablet 800 mg PO TID PRN Pain 08/06/21 08/06/21 omeprazole 20 mg tablet,delayed 20 mg PO BEDTIME 08/06/21 08/06/21 release pregabalin 200 mg capsule 200 mg PO TID 08/06/21 08/06/21 Allergies Allergy/AdvReac Type Severity Reaction Status Date / Time No Known Allergies Allergy Verified 08/23/23 12:47 [No Known Allergies*] Review of Systems 2 Review of Systems: Yes Unobtainable due to mental status PMFSH Past Medical History Medical History Smoker Arthritis Asthma Low back pain Osteoporosis GERD (gastroesophageal reflux disease) Irritable bowel syndrome (IBS) Hypothyroidism Fibromyalgia Personal history of COVID-19 Surgical History History of Hx of colonoscopy History of esophagogastroduodenoscopy (EGD) Social History Social History Are you a primary lawn care professional to a significant other at home: No Patient Tobacco Use Status: Current everyday Tobacco user Tobacco use type: Cigarette Cigarettes Per Day: 10 Advance Directives: No Advance Directives Information Provided: No Physical Exam ED Vital Signs: Vital Signs - 24 hr 08/23/23 12:45 08/23/23 12:57 08/23/23 15:29 Temperature 101.4 F H 101.7 F H Pulse Rate 102 H 114 H Respiratory Rate 20 24 H Blood Pressure 150/83 H 145/75 H Pulse Oximetry 88 L 91 L Oxygen Delivery Method Room Air Nasal Cannula Oxygen Flow Rate 2 BMI result Body Mass Index 29.3 Vital signs have been reviewed and appear to be correct. Blood pressure elevated. Heart rate normal. Respiratory rate normal. Temperature normal. Oxygen saturation normal. Appearance: Alert, incoherent, No acute distress. Head: Normal external exam. Normocephalic. Atraumatic. No Harden signs noted. No raccoon eyes noted Eyes: PERRLA. EOMI. Conjunctiva and sclera normal. Eyelids normal. ENT: TM's Normal. Pharynx normal. Uvula midline. Moist mucous membranes. No trismus noted. No drooling noted. No muffled voice noted. Neck: Normal inspection. Neck supple. FROM. No adenopathy. Thyroid Normal. No meningeal signs. No neck mass noted. CVS: Normal heart rate and rhythm. Heart sound normal. No murmurs noted. Pulses normal throughout. Respiratory: No respiratory distress. Painless inspiration. Breath sounds normal. No wheezes/rales/rhonchi noted. Chest nontender. No accessory muscle usage noted or decreased air movement noted. Abdomen: Soft and nontender. Bowel sounds normal in all 4 quadrants. No distention noted. No organomegaly noted. No visible injury noted. Back: No CVA tenderness. Full range of motion noted. Skin: Skin warm and dry. Normal skin color. Normal skin turgor. No rashes/lesions/lacerations noted. Extremities: No lower extremity edema. Extremities exhibit normal range of motion. Extremities nontender. Neuro: Cranial nerve exam: II-XII are grossly intact No motor deficit. No sensory deficit. Reflexes normal. Course Reevaluation(s) Reevaluation #1: 53-year-old female came in initially for change in mental status and found to be febrile with meeting sepsis criteria, patient required multiple medication for sedation in order to get the workup done, patient initially received Zosyn and vancomycin for broad coverage antibiotic for left lower extremity cellulitis, x-ray of the left foot is raising suspicion soft tissue infection with the presence of gas in the medial plantar aspect of the left great toe finding will be discussed with Dr. Layton, chest x-ray is raising concern of multiple rib fracture which is old, unknown history of trauma however CT chest and abdomen was ordered to rule out intrathoracic or intra-abdominal injuries. Case was signed out to Dr. Leroy. Time: 16:13 Medications Administered Generic Name Dose Route Start Last Admin Trade Name Freq PRN Reason Stop Dose Admin Vancomycin HCl 1,000 mg/ 270 mls @ 270 mls/hr 08/23/23 15:28 08/23/23 15:48 Sodium Chloride IV 08/23/23 16:27 270 mls/hr ONCE ONE Administration Discontinued Medications Generic Name Dose Route Start Last Admin Trade Name Freq PRN Reason Stop Dose Admin Acetaminophen 650 mg 08/23/23 13:01 08/23/23 13:59 Acetaminophen Supp 650 Mg Supp.Rect AR 08/23/23 13:02 650 mg ONCE ONE Administration Sodium Chloride 1,000 mls @ 999 mls/hr 08/23/23 12:47 08/23/23 15:20 Ns IV 08/23/23 13:47 Infused .Q1H1M ONE Infusion Piperacillin Sod/Tazobactam 50 mls @ 100 mls/hr 08/23/23 12:50 08/23/23 15:20 Sod 3.375 gm/ Sodium Chloride IV 08/23/23 13:19 Infused ONCE ONE Infusion Ketamine HCl 50 mg 08/23/23 12:54 08/23/23 12:59 Ketamine Hcl/Ns 50 Mg/5 Ml Syringe IVPUSH 08/23/23 12:55 50 mg ONCE ONE Administration Lorazepam 2 mg 08/23/23 13:44 08/23/23 13:50 Lorazepam 2 Mg/Ml Vial IVPUSH 08/23/23 13:45 2 mg ONCE ONE Administration Medical Decision Making Differential Diagnosis Differential Diagnoses: The differential diagnosis associated with the presentation includes (Sepsis, left lower extremity cellulitis, multiple rib fracture, intracranial bleed, intrathoracic injury, intra-abdominal injuries, pneumonia, pneumothorax, drug intoxication,) Admission/Observation Consideration of admission/observation: Escalation of care including admission/observation considered Consult Healthcare Provider Management of the patient was discussed with: Hospitalist (Lauri) and Account Services Manager (Dr. Layton) Lab Data MDM Lab Attestation statement: I reviewed the patient's lab results. 08/23/23 13:34 08/23/23 13:34 Labs: Lab Results 08/23/23 08/23/23 08/23/23 Range/Units 13:34 13:36 14:09 WBC 11.9 H (4.8-10.8) X10*3/uL RBC 3.87 L (4.20-5.50) X10*6/uL Hgb 11.1 L (12.0-16.0) g/dl Hct 34.6 L (37.0-47.0) % MCV 89.4 (80.0-98.0) fL MCH 28.7 (27.0-33.0) pg MCHC 32.1 (31.0-35.0) g/dl RDW 14.5 (11.0-16.0) % Plt Count 155 L (160-400) X10*3/uL MPV 10.4 (9.4-12.3) fL Immature Gran % (Auto) Cancelled Neut % (Auto) Cancelled Lymph % (Auto) Cancelled [place] % (Auto) Cancelled Eos % (Auto) Cancelled Baso % (Auto) Cancelled Lymph # (Auto) Cancelled [place] # (Auto) Cancelled Eos # (Auto) Cancelled Baso # (Auto) Cancelled Abs Immat Gran (auto) Cancelled Absolute Neuts (auto) Cancelled Absolute Nucleated RBC 0.000 (0.0-0.012) X10*3/uL Nucleated RBC % (auto) 0.0 (0.0-0.2) /100WBC Neutrophils % (Manual) 66 (45-73) % Band Neutrophils % 30 H (3-5) % Lymphocytes % (Manual) 2 L (20-40) % Monocytes % (Manual) 2 (2-11) % Abs Neuts (Manual) 11.4 H (2.0-8.3) X10*3/uL Lymphocytes # (Manual) 0.2 L (1.2-4.9) X10*3/uL Monocytes # (Manual) 0.2 (0.1-1.2) X10*3/uL Toxic Vacuolation PRESENT Platelet Estimate SLIGHTLY DECREASED (NORMAL) Large Platelets PRESENT Plt Morphology Comment NOTED RBC Morphology NORMAL Sodium 140 (135-145) mmol/L Potassium 3.4 (3.3-5.1) mmol/L Chloride 102 (96-108) mmol/L Carbon Dioxide 28 (22-29) mmol/L Anion Gap 13 (12-20) BUN 16 (9-16) mg/dL Creatinine 0.65 (0.5-1.4) mg/dL Estim Creat Clear Calc 94.9 Estimated GFR > 60 Random Glucose 114 (60-115) mg/dL Lactic Acid 2.6 H* (0.5-2.0) mmol/L Calcium 8.7 (8.4-10.2) mg/dL Total Bilirubin 1.2 H (0.0-1.0) mg/dL Direct Bilirubin 0.6 H (0.0-0.5) mg/dL AST 266 H (5-31) U/L ALT 84 H (0-31) U/L Alkaline Phosphatase 36 L (39-117) U/L Ammonia 36 (13-55) umol/L Troponin I High Sens 71.5 H* (<3.5-17.0) ng/L B-Natriuretic Peptide 482 H (<100) pg/mL Total Protein 7.1 (6.5-8.0) g/dL Albumin 3.4 L (3.5-5.0) g/dL Lipase 5 L (8-78) U/L Urine Color Dark Yellow Urine Appearance Clear Urine pH 6.0 (5.0-9.0) Ur Specific [place] 1.025 (1.005-1.025) Urine Protein 100 (2+) H (Neg-Trace) mg/dL Urine Glucose (UA) Negative (Negative) mg/dL Urine Ketones 15 (Negative) mg/dL Urine Blood Large (3+) H (Negative) Urine Nitrite Negative (Negative) Ur Leukocyte Esterase Trace H (Negative) Urine RBC 11-20 H (0-2) /HPF Urine WBC 0-5 (0-5) /HPF Ur Squamous Epith Cells 0-2 (0-2) /HPF Urine Bacteria None Seen (None Seen) Hyaline Casts 0-2 (0-2) /LPF Ethyl Alcohol < 10 mg/dL Influenza Type A (PCR) NEGATIVE (Negative) Influenza Type B (PCR) NEGATIVE (Negative) RSV RNA Qual (PCR) NEGATIVE (Negative) SARS-CoV-2 RNA (RT-PCR) NEGATIVE (Negative) Independent Interpretation I performed an independent interpretation of an: Plain X-Ray ( Left foot:There is soft tissue gas in the medial plantar aspect of the left great toe, which can be associated with a soft tissue infection. No periosteal thickening or cortical erosion is seen of the great toe to suggest osteomyelitis. If a clinical suspicion of acute osteomyelitis persists, MRI ) and CT Scan ( head:No acute intracranial pathology. Sleg-iu-fjbsimcu bilateral temporoparietal lobe volume loss. Sqci-sz-igiqunyj aerosolized mucosal secretions in the maxillary sinus cavities; correlate for any acute symptomatology.) Interpretation: Abdomen and pelvis and chest CT without contrast has been ordered and to be followed up by Dr. Leroy. Radiology Impression Discussion of test interpretation with radiology: I have reviewed the radiologist's reading. Critical Care Time Critical Care Time Critical Care Time: Yes Total Critical Care Time: 60 Attestation: The patient was critically ill with a high probability of imminent or life- threatening deterioration. I spent greater than 30 minutes of discontinuous time evaluating the patient, delivering critical care at the bedside, discussing evaluating data with consultants. Critical care time does not include time spent performing separately billable procedures or teaching. Time spent performing critical care was 60 minutes. Discharge Plan Discharge Clinical Impression: Altered mental status, Cellulitis of left leg Patient Disposition: Admitted As Inpatient Prescriptions: No Action ibuprofen 800 mg Tablet 800 mg PO TID PRN (Reason: Pain) pregabalin 200 mg Capsule 200 mg PO TID omeprazole 20 mg Tablet,Delayed Release (Dr/Ec) 20 mg PO BEDTIME albuterol sulfate 90 mcg/actuation Hfa Aerosol Inhaler 2 puff INHALATION Q4-6H PRN (Reason: Shortness Of Breath Or Wheezing) Flovent HFA DAILY Print Language: Yoruba
[2023-08-23] MEDS: Ketamine HCl/NS 50 MG/5 ML SYRINGE IVPUSH (12:59)
--- NOTE | 2023-08-23 13:00 | PC.NURSE ---
PT FROM HOME VIA AMBULANCE ACCOMPANIED BY HER . PT'S REPORTED THAT HE GOT UP YESTERDAY MORNING AND FOUND HER ALTERED, WHICH IS NOT HER BASELINE. HE SAID SHE COULDN'T GET HERSELF UP FROM THE BED AND SHE KEPT SCREAMING AND YELLING WITHOUT CAUSE. PT INCOHERENT IN THE ED, SHE CONTINUED YELLING AND SCREAMING, NO ABILITY TO FOLLOW COMMANDS. PT WAS STRAIGHT CATH, 20G IV INSERTED RAC LABS DRAWN. ALL MEDS GIVEN ORDERED AND DOCUMENTED. PT'S REMAINS AT BEDSIDE.
[2023-08-23 13:44] LABS: Hemoglobin 11.1 g/dl (12.0-16.0)
[2023-08-23] MEDS: Piperacillin Sodium/Tazobactam 3.375 GM in 0.9 % Sodium Chloride 50 ML IV ×2 (13:50→20:20)
[2023-08-23] MEDS: LORazepam 2 MG/ML VIAL IVPUSH (13:50)
[2023-08-23] MEDS: 0.9 % Sodium Chloride 1,000 ML 999 ML IV (13:51)
[2023-08-23] MEDS: Acetaminophen Supp 650 MG SUPP.RECT PR (13:59)
[2023-08-23 14:02] LABS: Ammonia 36 umol/L (13-55)
[2023-08-23 14:04] LABS: Hematocrit 34.6 % (37.0-47.0); Mean Corpuscular HGB Conc 32.1 g/dl (31.0-35.0); Mean Corpuscular Hemoglobin 28.7 pg (27.0-33.0); Mean Corpuscular Volume 89.4 fL (80.0-98.0); Mean Platelet Volume 10.4 fL (9.4-12.3); Platelet Count 155 X10*3/uL (160-400); Red Blood Count 3.87 X10*6/uL (4.20-5.50); Red Cell Distribution Width 14.5 % (11.0-16.0); White Blood Count 11.9 X10*3/uL (4.8-10.8)
[2023-08-23 14:07] LABS: Lactic Acid 2.6 mmol/L (0.5-2.0)
[2023-08-23 14:08] LABS: Neutrophils Percent Manual 66 % (45-73)
[2023-08-23 14:09] LABS: Band Neutrophils Percent 30 % (3-5); Lymphocytes Absolute Manual 0.2 X10*3/uL (1.2-4.9); Lymphocytes Percent Manual 2 % (20-40); Monocytes Absolute Manual 0.2 X10*3/uL (0.1-1.2); Monocytes Percent Manual 2 % (2-11); Neutrophils Absolute Manual 11.4 X10*3/uL (2.0-8.3)
[2023-08-23 14:10] LABS: Large Platelet PRESENT; Platelet Estimate SLIGHTLY DECREASED (NORMAL); Platelet Morphology Comment NOTED; RBC Morphology NORMAL; Toxic Vacuolation PRESENT
[2023-08-23 14:15] LABS: Ethanol < 10 mg/dL
[2023-08-23 14:19] LABS: Appearance Urine Clear; Color Urine Dark Yellow; Glucose Urine UA Negative (Negative); Leukocyte Esterase Urine Trace (Negative); Nitrite Urine Negative (Negative); Specific Gravity - Urine 1.025 (1.005-1.025); UMIC TRIGGER UACC YES; Urine Blood Large (3+) (Negative); Urine Ketones 15 mg/dL (Negative); Urine Protein 100 (2+) mg/dL (Neg-Trace)
[2023-08-23 14:21] LABS: Alanine Aminotransferase 84 U/L (0-31); Albumin Level 3.4 g/dL (3.5-5.0); Alkaline Phosphatase 36 U/L (39-117); Anion Gap 13 (12-20); Aspartate Amino Transferase 266 U/L (5-31); Bilirubin Direct 0.6 mg/dL (0.0-0.5); Blood Urea Nitrogen 16 mg/dL (9-16); Calcium 8.7 mg/dL (8.4-10.2); Carbon Dioxide 28 mmol/L (22-29); Chloride 102 mmol/L (96-108); Creatinine Clr Calc Pharmacy 94.9; Estimated Glomerular Filt Rate > 60; Glucose Random 114 mg/dL (60-115); Lipase 5 U/L (8-78); Potassium 3.4 mmol/L (3.3-5.1); Sodium 140 mmol/L (135-145); Total Protein 7.1 g/dL (6.5-8.0)
[2023-08-23 14:22] LABS: Bacteria Urine None Seen (None Seen); Hyaline Casts Urine 0-2 /LPF (0-2); Squamous Epithelial Cell Urine 0-2 /HPF (0-2); WBC Urine 0-5 /HPF (0-5)
[2023-08-23 14:25] LABS: Troponin-I High Sensitivity 71.5 ng/L (<3.5-17.0)
[2023-08-23 14:32] LABS: Influenza A PCR NEGATIVE (Negative); Influenza B PCR NEGATIVE (Negative); Resp Syncy Virus RNA Qual PCR NEGATIVE (Negative); SARS COV2 PCR INHOUSE NEGATIVE (Negative)
[2023-08-23 14:38] LABS: Bilirubin Total 1.2 mg/dL (0.0-1.0)
[2023-08-23 14:39] LABS: B Type Natriuretic Peptide 482 pg/mL (<100)
--- NOTE | 2023-08-23 15:32 | MHC.EDTECH ---
THIS PCT ASSUMED CARE OF PATIENT AT 1500 ,VITALS TAKEN ,ANTONIO CALZADA IS AWARE OF PATIENT HIGH TEMP ,HIGH RESP AND LOW O2 SAT ,PATIENT SLEEPING ,FAMILY MEMBER AT BEDSIDE .,CALL AWAD WITHIN PATIENT REACH .
[2023-08-23 15:39] LABS: Reflex Lactate? Lactic Acid Added
[2023-08-23] MEDS: vancomycin HCL 1,000 MG in 0.9 % Sodium Chloride 250 ML 270 MG IV (15:48)
--- NOTE | 2023-08-23 15:55 | P.HPHOSP_ITS ---
History of Present Illness Date of Service: 08/23/23 Attending physician on admission: Hung Carreon Chief Complaint: AMS Pt is a 53-year-old female with a PMH significant for?IBS, GERD, osteoporosis, fibromyalgia, and peripheral neuropathy who presents to the ED for evaluation of altered mental status. Patient not alert or oriented and incapable of providing HPI, which is instead obtained from chart and provider review, as well as patient's partner who is at bedside. Patient's partner reports she was in her normal state of health on Thursday night. When she awoke on Thursday morning patient was altered, combative, and ?tsx-un-yxpcjqq?. Has been screaming, less communicative than normal, and difficult to control. At one point patient was found sitting on the ground having urinated and defecated all over the floor. Partner is unaware of any recent falls. Patient has chronic musculoskeletal pain, especially and back. Partner has not been aware of patient complaining of any new or different symptoms. Of note, patient has had nonhealing ulcer on left 1st digit of foot since around 07/18 when she attempted to scrape off a callus and cut herself. Saw Dr. Layton in vascular 3 days prior on 08/19 who believed it was secondary to neuropathy with no current surgical interventions warranted at this time. Patient also has had longstanding rib fractures of unclear etiology. Patient's partner denies any known history of falls or trauma to the area. Patient has had x-rays that show new rib fractures on 07/30/2022, 09/15/2022, and 07/29/2023. Apparently patient has a remote history of substance abuse, but partner unaware of any recent substance use.? In the ED pt was febrile up to 101.7, tachycardic up to 114, tachypneic up to 24, hypertensive up to 150/83, and hypoxic as low as 88% on RA. Labs were significant for leukocytosis of 11.9 with 30% bands, H&H 11.1/34.6, lactic acid 2.6, bilirubin 1.2, AST 266, ALT 84, alk-phos 36, initial troponin 71.5, and BNP 482. UA likely negative for UTI. Tox screen pending. CXR showed redemonstration of multiple bilateral rib fractures, mild left base linear atelectasis, and pulmonary vascular congestion without overt CHF. X-ray of left foot showed soft tissue gas suggestive of soft tissue infection without evidence acute osteomyelitis. CT?of head showed no acute intracranial pathology, but did show wona-lq-srwxivel bilateral temporoparietal lobe volume loss. CT of chest found extensive bilateral rib fractures and right transverse process fractures with evidence of interval healing as well as chronic fractures. 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 Additionally found small bilateral pleural effusions likely atelectasis, although infiltrate/aspiration can not be excluded. CT of abdomen/pelvis negative for acute abdomen. EKG demonstrated sinus tachycardia of 118 with PVCs and T-wave inversions in leads V1 and V2, but no evidence of ST elevations or depressions. Pt was treated with ketamine, lorazepam, IVF, Tylenol, Zosyn and vancomycin. Pt will be admitted to the hospital for treatment and further evaluation of acute metabolic encephalopathy in the setting of left lower leg cellulitis with sepsis. Review of Systems 2 Review of Systems: Unable obtain due to patient's mentation. [facility] Medical History Smoker Arthritis Asthma Low back pain Osteoporosis GERD (gastroesophageal reflux disease) Irritable bowel syndrome (IBS) Hypothyroidism Fibromyalgia Personal history of COVID-19 Surgical History History of Hx of colonoscopy History of esophagogastroduodenoscopy (EGD) Social History Household Members: Significant Other Housing: Unknown / Unable to assess Are you a primary home care giver to a significant other at home: No Do you presently have visiting nurse or other home services: No Patient Tobacco Use Status: Tobacco use Unknown Tobacco use type: Cigarette Cigarettes Per Day: 10 Use of substances other than those prescribed or required for medical reasons: Unknown Currently Displaying Signs/Symptoms of Drug Intoxication Withdrawal: No Advance Directives: No Advance Directives Information Provided: No Patient : No : No Poor oral hygiene: No service: No Meds Allergies Allergy/AdvReac Type Severity Reaction Status Date / Time No Known Allergies Allergy Verified 08/23/23 12:47 [No Known Allergies*] Active Medications: Current Medications Vancomycin HCl 1,000 mg/ (Sodium Chloride) 270 mls @ 270 mls/hr IV ONCE ONE Stop: 08/23/23 16:27 Home Medications ?Medication ?Instructions ?Recorded ?Confirmed ?Last Taken ?Type albuterol sulfate 90 mcg/actuation 2 puff inhalation Q6H PRN 08/06/21 08/23/23 08/12/21 History aerosol inhaler Shortness Of Breath Or Wheezing 2 puff ibuprofen 800 mg tablet 800 mg PO TID PRN Pain 08/06/21 08/23/23 Unknown History omeprazole 20 mg tablet,delayed 20 mg PO BEDTIME 08/06/21 08/23/23 08/21/23 History release pregabalin 200 mg capsule 200 mg PO TID 08/06/21 08/23/23 08/21/23 History alendronate 70 mg tablet 70 mg PO QWEEK 08/23/23 08/23/23 Unknown History escitalopram oxalate 10 mg tablet 10 mg PO DAILY 08/23/23 08/23/23 08/21/23 History escitalopram oxalate 20 mg tablet 20 mg PO DAILY 08/23/23 08/23/23 08/21/23 History levothyroxine 50 mcg tablet 50 mcg PO DAILY@0600 08/23/23 08/23/23 08/21/23 History silver sulfadiazine 1 % topical 1 appl topical DAILY 08/23/23 08/23/23 08/21/23 History cream Physical Exam 2 Vital Signs and Narrative: Vital Signs: Last Vital Signs Temp 101.7 F H 08/23/23 15:29 Pulse 114 H 08/23/23 15:29 Resp 24 H 08/23/23 15:29 BP 145/75 H 08/23/23 15:29 Pulse Ox 91 L 08/23/23 15:29 O2 Del Method Nasal Cannula 08/23/23 15:29 O2 Flow Rate 2 08/23/23 15:29 BMI result Body Mass Index 29.3 Constitutional: Pt obtunded, difficult to arouse. In no acute distress. Eyes: Pupils are equal, round, and reactive to light. Respiratory: Clear to auscultation bilaterally, though difficult to fully evaluate given pt's obtundation. Cardiovascular: S1, S2, tachy. No murmurs, rubs, or gallops. Gastrointestinal: Abdomen soft, non-tender, non-distended. Normal bowel sounds. Neurologic: Cranial nerves II-XII are grossly intact bilaterally. Moves all extremities spontaneously. Skin: Warm, dry. Extremities: 3+ bilateral pitting edema. Non-healing left great toe ulcer on pedal aspect, as pictured below. Area of erythema and warmth of left lower extremity, as pictured below. Results Labs 08/24/23 06:22 08/24/23 06:22 Labs: Laboratory Results - last 24 hr 08/23/23 08/23/23 08/23/23 13:34 13:36 14:09 MCV 89.4 MCH 28.7 MCHC 32.1 RDW 14.5 Plt Count 155 L MPV 10.4 Immature Gran % (Auto) Cancelled Neut % (Auto) Cancelled Lymph % (Auto) Cancelled [place] % (Auto) Cancelled Eos % (Auto) Cancelled Baso % (Auto) Cancelled Lymph # (Auto) Cancelled [place] # (Auto) Cancelled Eos # (Auto) Cancelled Baso # (Auto) Cancelled Abs Immat Gran (auto) Cancelled Absolute Neuts (auto) Cancelled Absolute Nucleated RBC 0.000 Nucleated RBC % (auto) 0.0 Neutrophils % (Manual) 66 Band Neutrophils % 30 H Lymphocytes % (Manual) 2 L Monocytes % (Manual) 2 Abs Neuts (Manual) 11.4 H Lymphocytes # (Manual) 0.2 L Monocytes # (Manual) 0.2 Toxic Vacuolation PRESENT Platelet Estimate SLIGHTLY DECREASED Large Platelets PRESENT Plt Morphology Comment NOTED RBC Morphology NORMAL Anion Gap 13 Estim Creat Clear Calc 94.9 Estimated GFR > 60 Random Glucose 114 Lactic Acid 2.6 H* Calcium 8.7 Total Bilirubin 1.2 H Direct Bilirubin 0.6 H AST 266 H ALT 84 H Alkaline Phosphatase 36 L Ammonia 36 Troponin I High Sens 71.5 H* B-Natriuretic Peptide 482 H Total Protein 7.1 Albumin 3.4 L Lipase 5 L Urine Color Dark Yellow Urine Appearance Clear Urine pH 6.0 Ur Specific [place] 1.025 Urine Protein 100 (2+) H Urine Glucose (UA) Negative Urine Ketones 15 Urine Blood Large (3+) H Urine Nitrite Negative Ur Leukocyte Esterase Trace H Urine RBC 11-20 H Urine WBC 0-5 Ur Squamous Epith Cells 0-2 Urine Bacteria None Seen Hyaline Casts 0-2 Ethyl Alcohol < 10 Influenza Type A (PCR) NEGATIVE Influenza Type B (PCR) NEGATIVE RSV RNA Qual (PCR) NEGATIVE SARS-CoV-2 RNA (RT-PCR) NEGATIVE Imaging Radiologist's Impressions: Impressions Head CT 08/23/23 13:24 IMPRESSION: No acute intracranial pathology. Xelw-lj-zbrpsvfk bilateral temporoparietal lobe volume loss. Lzto-aq-uljtgwyx aerosolized mucosal secretions in the maxillary sinus cavities; correlate for any acute symptomatology. Assessment and Plan (1) Cellulitis of left leg: Status: Acute (2) Sepsis: Status: Acute (3) Elevated troponin: Status: Acute (4) Gram-positive cocci bacteremia: Status: Acute (5) Altered mental status: Status: Acute Plan Pt is a 53-year-old female with a PMH significant for?IBS, GERD, osteoporosis, hypothyroidism, fibromyalgia, and peripheral neuropathy who presents to the ED for evaluation of altered mental status. Pt will be admitted to the hospital for treatment and further evaluation of acute metabolic encephalopathy in the setting of left lower leg cellulitis with sepsis. Left lower extremity cellulitis with nonhealing ulcer of left great toe with sepsis Ulcer appeared after callous scraping around 07/19/2023; unclear when erythema Left foot x-ray found soft tissue gas likely associated with soft tissue infection, but no evidence acute osteomyelitis No diagnosis of diabetes Pt meets sepsis criteria: fever, tachycardia, tachypnea; lactic acid 2.6 with repeat 1.1 Patient given IVF and started on broad-spectrum antibiotics in the ED Will treat with vancomycin and Zosyn, started 08/23/2023 Will check ESR, CRP, A1c Follow cultures Acute metabolic encephalopathy Patient with altered mental status, agitation, and combativeness since yesterday a.m. CT of head negative for acute intracranial pathology Likely in the setting of cellulitis with sepsis Treat as above Will check tox screen Consider lumbar puncture Monitor mentation Elevated troponins Initial troponin 71.5 with repeat 123.8 Patient not reported to have been complaining of chest pain or pressure EKG showing sinus tachycardia of 118 without evidence of significant ST elevations or depressions Will treat with therapeutic Lovenox for now Aspirin, statin Trend troponins Check lipid profile Echocardiogram Cardiology consult Monitor on telemetry Elevated BNP BNP elevated at 482; CT of chest with small bilateral pleural effusions; chronic bilateral pitting edema No hx of CHF Will treat with Lasix 20 mg IV daily for now Will get echocardiogram Follow Mag lópez, I/O Low-salt diet, daily weights Cardiology consult Monitor on telemetry Acute hypoxic respiratory failure Patient desatting to 88% on RA Current smoker of 1 pack daily, though no COPD or asthma diagnosis, not on home O2 Likely in the setting of above Check respiratory panel Titrate supplemental O2>92, wean as tolerated Monitor respiratory status Hypothyroidism Continue levothyroxine GERD PPI Peripheral neuropathy Continue pregabalin Mood disorder Continue home meds Full Code Attending:?Dr. Carreon DVT Prophylaxis: On therapeutic Lovenox Pt will require a hospitalization of at least two nights for treatment of?acute metabolic encephalopathy and acute hypoxic respiratory failure in the setting of lower leg cellulitis with sepsis. Patient will require hospitalization for the administration of IV antibiotics, supplemental oxygen, and therapeutic Lovenox, as well as close monitoring of cardiac and respiratory status, as well as labs. Patient will also require specialist consultation with Cardiology with additional workup for elevated troponins. Quality Stroke Does the patient have a stroke diagnosis?: No VTE Prior VTE?: No VTE Risk Level:: Medical - moderate - high VTE Device Contraindication: Treatment Not Indicated VTE Drug Contraindication: N/A - Med Ordered
--- NOTE | 2023-08-23 16:18 | MHC.EDTECH ---
PATIENT 2ND TROP AND REPEATED LACTIC DRAWN AND SENT TO LAB .
[2023-08-23 16:55] LABS: Troponin-I High Sensitivity 123.8 ng/L (<3.5-17.0); ~Lactic Acid-LAB USE ONLY 1.1 mmol/L (0.5-2.0)
[2023-08-23] MEDS: Enoxaparin Sodium 80 MG/0.8 ML SYRINGE SUBCUT (17:46)
--- NOTE | 2023-08-23 18:16 | MHC.EDTECH ---
1800 ROUNDING DONE ,VITALS TAKEN ,PT STILL ALTERED ,RECTAL TEMP TAKEN ,PTINR DRAWN AND SENT TO LAB ,PATIENT IS CLEAN AND DRY ,AND WAS REPOSITION IN BED ,CALL AWAD WITHIN PATIENT REACH .
--- NOTE | 2023-08-23 18:21 | PHA.MEDREC ---
Pharmacy Consult ? Medication Reconciliation Pharmacy has completed the medication reconciliation. Spoke to spouse on phone to confirm meds.
[2023-08-23 18:31] LABS: INTERNATIONAL NORM RATIO 2.7 (0.9-1.1); Prothrombin Time 33.2 SEC (11.1-13.3)
--- NOTE | 2023-08-23 18:31 | PC.NURSE ---
SWALLOW EVAL NOT DONE ON THIS SHIFT DUE TO PT NOT ABLE TO FOLLOW COMMANDS. WILL REPORT TO ONCOMING RN. PT RESTING QUIETLY AT THIS TIME.
[2023-08-23 18:33] LABS: Estimated Average Glucose 94 mg/dL; Hemoglobin A1c % 4.9 % (<6.0)
[2023-08-23 18:39] LABS: Amphetamine Screen Urine Not Detected (Not Detect); Barbiturates, Urine Not Detected (Not Detect); Benzodiazepines Screen Urine Not Detected (Not Detect); Buprenorphine Scr Positive (Not Detect); Cannabinoid Screen Urine Not Detected (Not Detect); Cocaine Screen Urine Not Detected (Not Detect); Fentanyl, urine Not Detected (Not Detect); Methadone Screen, Urine Not Detected (Not Detect); Opiate Screen Urine Not Detected (Not Detect); Oxycodone Screen Urine Not Detected (Not Detect); Phencyclidine Screen Urine Not Detected (Not Detect)
[2023-08-23 19:04] LABS: Erythrocyte Sedimentation Rate 44 MM/HR (0-20)
[2023-08-23 19:12] LABS: Cholesterol 106 mg/dL (<200); HDL Cholesterol 34 mg/dL (>40); LDL Cholesterol Calculated 51 mg/dL (<100); Triglycerides 108 mg/dL (<150)
--- NOTE | 2023-08-23 19:48 | PC.NURSE ---
ASSUMED CARE OF PATIENT AT 1945.. WORKLIST NOT COMPLETE BY PREVIOUS RN'S. PT ASLEEP RESTING COMFORTABLY ON STRETCHER. RESPIRATIONS EVEN AND UNLABORED. BED ASSIGNMENT GIVEN
[2023-08-23 20:12] LABS: Troponin-I High Sensitivity 100.5 ng/L (<3.5-17.0)
[2023-08-23] MEDS: Aspirin 300 MG SUPP.RECT PR (20:19)
[2023-08-23] MEDS: Furosemide 20 MG/2 ML VIAL IVPUSH (20:20)
--- NOTE | 2023-08-23 20:24 | PC.NURSE ---
pt medicated per mar with MA aspirin, iv zosyn, and iv lasix. pt awakes and arousable to verbal, physical stimuli but is very sleepy, lethargic , moaning, not answering questions appropriately. vital signs updated and entered. pt wearing 3L o2 via nasal cannula in no apparent respiratory distress.
[2023-08-23] MEDS: LORazepam 2 MG/ML VIAL 1 MG IVPUSH (21:24)
--- NOTE | 2023-08-23 22:06 | PM.EVENT ---
Event Note Date of Service: 08/24/23 Event Note: 9:08 pm - Contacted to notify patient is screaming and altered. I evaluated patient. She seems quite lethargic but opening eyes to verbal stimuli. Patient is able to tell me she has pain everywhere including her head and neck. VS remarkable for hypertension, tachycardia, tachypnea. On 3L/min of supplemental oxygen via nasal cannula with O2 sats of 90%. Left 1st toe: 1 cm plantar ulcer. Left leg: Erythematous, tender and erythematous. Cardiopulmonary exam showed tachycardia, poor expiratory effort and decreased sound at bases without crackles, wheezing or rhonchi. Abdomen is soft and nontender. Chart reviewed: Leukocytosis, markedly elevated CRP and mild thrombocytopenia. LFTs an INR elevated (normal last month). Troponin is elevated but trending down. BNP is 482. TSH was 5.51 last month. UA is remarkable for microscopic hematuria. Urine drug screen and alcohol level -nondetected. Viral testing for influenza, COVID-19 and RSV is negative. Head, chest, abdomen and pelvis CT scan results were reviewed. Blood cultures were obtained in ED. LP has not been obtained. Patient currently receiving empiric IV antibiotic therapy with Zosyn and vancomycin. Impressions: Acute encephalopathy likely sepsis 2/2 to left lower left cellulitis. Rule out osteomyelitis of the 1st left toe. ? Meningitis Interventions: -Isolation precautions. -Aspiration precautions. -Ativan and Dilaudid for comfort. -Check labs stat: venous blood gas, CBC, CMP, lactic acid, tick-borne disease panel, HIV, RPR and hepatitis profile. -Chest TSH and free T4. -Hold atorvastatin. -Start IVFs. -Will add tx with ceftriaxone 2 g IV q12h. -Dexamethasone has not been started as the pt already received IV antibiotic therapy. -Protonix for DVT prophylaxis. -ID consult. -LP unable to perform: elevated INR, pt received Lovenox recently. Time Spent With Patient Time: Total time managing care of this patient today ____ minutes.
[2023-08-23 22:13] LABS: Basophils Percent Auto 0.1 % (0-2); Eosinophils Percent Auto 0.1 % (0-4); Hematocrit 31.9 % (37.0-47.0); Hemoglobin 10.3 g/dl (12.0-16.0); Imm Gran Abs Auto 0.04 X10*3/uL (0.00-0.03); Imm Gran Pct Auto 0.4 % (0.0-0.4); Lymphocytes Absolute Auto 0.5 X10*3/uL (1.2-4.9); Lymphocytes Percent Auto 4.5 % (20-40); MANUAL DIFF FLAG SCAN; Mean Corpuscular HGB Conc 32.3 g/dl (31.0-35.0); Mean Corpuscular Hemoglobin 28.2 pg (27.0-33.0); Mean Corpuscular Volume 87.4 fL (80.0-98.0); Mean Platelet Volume 10.3 fL (9.4-12.3); Monocytes Absolute Auto 0.5 X10*3/uL (0.1-1.2); Monocytes Percent Auto 4.4 % (2-11); Neutrophils Absolute Auto 10.1 x10*3/uL (2.0-8.3); Neutrophils Percent Auto 90.5 % (45-73); Platelet Count 129 X10*3/uL (160-400); Red Blood Count 3.65 X10*6/uL (4.20-5.50); Red Cell Distribution Width 14.4 % (11.0-16.0); SCAN SMEAR FLAG 1; White Blood Count 11.1 X10*3/uL (4.8-10.8)
[2023-08-23 22:17] LABS: VBG Base Excess 6.2 mmol/L; VBG HCO3 29 mmol/L (22-26); VBG pCO2 36 mmHg; VBG pH 7.51 (7.32-7.43); VBG pO2 109 mmHg
[2023-08-23 22:22] LABS: Lactic Acid 0.9 mmol/L (0.5-2.0)
[2023-08-23 22:27] LABS: Venous Blood Gas Refer to POC result
[2023-08-23 22:34] LABS: SLIDE REVIEW VERIFIED
[2023-08-23 22:39] LABS: Alanine Aminotransferase 74 U/L (0-31); Albumin Level 2.9 g/dL (3.5-5.0); Alkaline Phosphatase 31 U/L (39-117); Anion Gap 10 (12-20); Aspartate Amino Transferase 199 U/L (5-31); Bilirubin Total 1.1 mg/dL (0.0-1.0); Blood Urea Nitrogen 14 mg/dL (9-16); Calcium 8.1 mg/dL (8.4-10.2); Carbon Dioxide 27 mmol/L (22-29); Chloride 106 mmol/L (96-108); Estimated Glomerular Filt Rate > 60; Glucose Random 102 mg/dL (60-115); Potassium 2.8 mmol/L (3.3-5.1); Sodium 140 mmol/L (135-145); Total Protein 5.9 g/dL (6.5-8.0)
[2023-08-23] MEDS: cefTRIAXone sodium 2 GM in 0.9 % Sodium Chloride 50 ML IV (23:07)
[2023-08-23 23:13] LABS: Free T4 (Free Thyroxine) 0.64 ng/dL (0.71-1.85); Thyroid Stimulating Hormone 2.03 uIU/mL (0.32-4.0)
[2023-08-23] MEDS: Potassium Chloride/H20 10 MEQ/100 ML PIGGYBACK 100 MEQ IV (23:46)
[2023-08-23] MEDS: 0.9 % Sodium Chloride Flush 3 ML SYRINGE IVFLUSH (23:47)
[2023-08-24] VITALS (7 sets, daily range): BP systolic 136–163; BP diastolic 67–96; PULSE 84–99; RESP 16–20; TEMP 36.1–36.8; O2SAT 94–98
[2023-08-24] MEDS: Potassium Chloride/H20 10 MEQ/100 ML PIGGYBACK 100 MEQ IV ×3 (00:54→03:39)
[2023-08-24 01:43] LABS: Gamma Glutamyl Transpeptidase 12 U/L (7-33)
[2023-08-24] MEDS: Piperacillin Sodium/Tazobactam 3.375 GM in 0.9 % Sodium Chloride 50 ML IV ×3 (02:23→13:16)
[2023-08-24] MEDS: Lactated Ringers 1,000 ML 125 ML IVCONT ×2 (03:39→13:56)
[2023-08-24] MEDS: Pantoprazole Sodium 40 MG/10 ML VIAL IVPUSH (05:34)
[2023-08-24] MEDS: vancomycin HCL 1,000 MG in 0.9 % Sodium Chloride 250 ML 270 MG IV ×3 (05:34→19:31)
[2023-08-24 06:41] LABS: Hemoglobin 10.6 g/dl (12.0-16.0); Mean Corpuscular HGB Conc 31.2 g/dl (31.0-35.0); Mean Corpuscular Hemoglobin 27.6 pg (27.0-33.0); Mean Corpuscular Volume 88.5 fL (80.0-98.0); Mean Platelet Volume 10.8 fL (9.4-12.3); Platelet Count 142 X10*3/uL (160-400); Red Blood Count 3.84 X10*6/uL (4.20-5.50); Red Cell Distribution Width 14.5 % (11.0-16.0); White Blood Count 11.2 X10*3/uL (4.8-10.8)
[2023-08-24 06:57] LABS: Anion Gap 9 (12-20); Blood Urea Nitrogen 14 mg/dL (9-16); Calcium 8.1 mg/dL (8.4-10.2); Carbon Dioxide 29 mmol/L (22-29); Chloride 106 mmol/L (96-108); Creatinine Clr Calc Pharmacy 131.2; Estimated Glomerular Filt Rate > 60; Glucose Random 87 mg/dL (60-115); Potassium 3.3 mmol/L (3.3-5.1); Sodium 141 mmol/L (135-145)
--- NOTE | 2023-08-24 07:00 | CA_ITS ---
Transthoracic Echocardiogram Patient (Last, First, Middle): Antoinette Jeter, Gender: Female Date of : 1970 Age: 53 Procedure Date: 08/24/2023 Procedure Type: Transthoracic [place] [facility] [place]: 160.02 cm Weight: 74.84 kg BSA: 1.78 m2 Heart Rate: 99 bpm BP: 145 / 78 mmHg Storage Wharfage Clerk: YEIMY Benson MD: Gary VILLA Desizing Machine Operator: Wyatt Hart MD Symptoms: Elevated BNP and troponins Study Quality: Adequate ECG Rhythm: Sinus Conclusions: - Essentially normal study Findings Left Ventricle Normal left ventricular size, thickness, and systolic function. The visually estimated ejection fraction is between 60-65%. Spectral Doppler is indicative of a normal filling pattern. There is mild septal asymmetric hypertrophy. Right Ventricle Normal right ventricular cavity size and systolic function. Atria Both atria are normal in size. There is lipomatous hypertrophy of the interatrial septum. There is no evidence of interatrial shunt. There is a prominent Chiari network. Aortic Valve Normal aortic valve structure and function. There is no aortic valve stenosis. There is no aortic valve regurgitation. Mitral Valve Normal mitral valve structure and function. There is trace mitral valve regurgitation. There is no mitral valve stenosis. Pulmonic Valve The pulmonic valve is likely normal. There is trace pulmonic valve regurgitation. Tricuspid Valve Normal tricuspid valve structure. There is mild tricuspid valve regurgitation. The right ventricular systolic pressure is normal. The right ventricular systolic pressure is 34 mmHg. Normal right atrial pressure. There is no evidence of pulmonary hypertension. Great Vessels All visible segments of the aorta are normal in size. The pulmonary artery was not well visualized. Pericardium/Pleural There is no evidence of pericardial effusion. Prior Study Comparison No prior study available for comparison. Measurements 2D Linear Measurements IVSd: 1.41 0.6-0.9/0.6-1.0 cm LVIDd: 4.33 3.9-5.3/4.2-5.9 cm LVIDd Index: 2.43 2.4-3.2/2.2-3.1 cm/m2 LVIDs: 2.73 2.0-3.6 cm LVPWd: 1.03 0.7-1.1 cm LA Diam: 3.10 2.7-3.8/3.0-4.0 cm LAIDs Index: 1.74 1.5-2.3 cm/m2 LV Mass: 238.27 67-162/88-224 g LV Mass Index: 133.86 43-95/49-115 g/m2 LVOT Diam: 2.00 3.0+(-)1.3 cm 2D Systolic Function EF 4C: 61.00 >55% EF 2C: 57.30 >55% EF BiP: 59.60 >55% Mitral Valve MV Pk E: 1.14 MV PK A: 0.81 MV Decel Time: 186.00 E/A: 1.40 E'Lateral: 10.80 E'Medial: 10.00 E/E' Med: 11.40 E/E' Lat: 10.60 PHT: 54.00 MVA PHT: 4.07 Decel [place]: 6.16 Aortic Valve AoV Pk Samir: 1.73 AoV Mn Samir: 1.20 AoV VTI: 0.29 AoV Pk Grad: 12.00 Aov Mn Grad: 6.00 SAL Cont.VTI: 2.72 LVOT LVOT Pk Samir: 1.42 LVOT Mn Samir: 0.92 LVOT VTI: 0.25 LVOT Pk Grad: 8.00 LVOT Mn Grad: 4.00 LVOT Diam: 2.00 LVOT Area: 3.14 Diastolic Function MV Pk E: 1.14 MV Pk A: 0.81 E/A: 1.40 E'Medial: 10.00 E/E' Med: 11.40 E' Laterial: 10.80 E/E' Lat: 10.60 Right Ventricle TAPSE (mm): 24.30 TVS' Samir: 16.60 Tricuspid Valve TR Pk Samir: 2.80 TR Pk Grad: 31.00 RA Press: 3.00 RVSP: 34.00 Great Vessels Aorta Sinus of Valsalva: 3.60 2.0-3.5 cm Ao Asc: 3.50 2.1-3.4 cm Pulmonary Valve PV Pk Samir: 1.13 Peak PV Grad: 5.00 Updated in Other Vendor System with Status of Final Wyatt Hart MD electronically signed on 08/24/2023 12:12:37 PM with status of Final
[2023-08-24 07:08] LABS: Troponin-I High Sensitivity 51.8 ng/L (<3.5-17.0)
[2023-08-24 07:17] LABS: HBS Num1 0.36 mIU/mL (0-7.99); HBc Num1 0.09 S/CO (0.00-0.79); HBsAGNum1 0.31 S/CO (0.00-0.99); Hepatitis A Antibody IgM 0.12 Index (0-0.79); Hepatitis B Core Antibody Nonreactive (Nonreactive); Hepatitis B Surface Antigen Negative (Negative); ~HepC Num1 0.14 S/CO (0.00-0.79); ~Hepatitis A Antibody IgM Nonreactive (Nonreactive); ~Hepatitis B Surface Antibody NONREACTIVE (Nonreactive); ~Hepatitis C Antibody Nonreactive (Nonreactive)
[2023-08-24 07:17] LABS: Syphilis Screen Nonreactive (Nonreactive)
[2023-08-24] MEDS: 0.9 % Sodium Chloride Flush 3 ML SYRINGE IVFLUSH (07:42)
[2023-08-24] MEDS: HYDROmorphone HCl 0.5 MG/0.5 ML SYRINGE IVPUSH ×3 (08:15→23:09)
[2023-08-24 08:45] LABS: INTERNATIONAL NORM RATIO 2.2 (0.9-1.1); Prothrombin Time 27.2 SEC (11.1-13.3)
--- NOTE | 2023-08-24 09:01 | HO.WOUND ---
Wound Consult: Initial 53yr old?F admitted to [facility] [place] on 08/23/23 - See progress notes and H&P for detailed history.? Wound consult placed for Left Great Toe wound.? Patient agreeable to assessment and photo documentation.? Left Great Toe Left Leg Etiology: ?Neuropathic wound per chart review - seen by Dr Layton outpatient recently Wound Bed: dry red pink wound bed Drainage / Odor: None Edges: ? unattached Zina wound: ? Intact No Induration, Fluctuance or Warmth noted Of Note Left leg has scattered areas of dried scabbed cuts, intact dark purple nonblanchable tissue, swelling and warmth noted. Pain: painful and tender to touch Goals of Treatment: ? xeroform and gauze to allow for moist wound healing Recommendations: 1. Turn and Reposition every 2 hours and as needed for patient comfort.? Use pillows or wedges to support off loading positions. 2. Off Load all bony prominences with use of pillows and heel boots if needed.? Apply Preventative foams where needed. ? 3. Monitor for incontinence and moisture control, use barrier creams when needed for prevention and treatment. 4. Provide adequate and supplemental nutrition.? 5. When applicable maintain blood glucose levels per Providers order. 6. Left Great Toe - Cleanse with NS wash, pat dry. Lightly pack with xeroform gauze, cover with dry gauze and wrap. Change Daily. Re-consult wound care Nurse for wound deterioration or wound changes.
[2023-08-24 10:13] LABS: Total Protein 5.8 g/dL (6.5-8.0)
[2023-08-24 10:15] LABS: Alanine Aminotransferase 67 U/L (0-31); Albumin Level 2.7 g/dL (3.5-5.0); Alkaline Phosphatase 34 U/L (39-117); Aspartate Amino Transferase 154 U/L (5-31); Bilirubin Direct 0.4 mg/dL (0.0-0.5); Bilirubin Total 0.8 mg/dL (0.0-1.0)
--- NOTE | 2023-08-24 10:49 | PM.CNCAR ---
History of Present Illness History of Present Illness Date of Service: 08/24/23 Requesting physician: Hung Carreon Consult reason: troponin elevation Chief complaint: AMS, left lower extremity cellulitis with sepsis Narrative: I was consulted to see Antoinette in cardiology consultation today for elevated cardiac biomarkers. She is a 53-year-old female brought to the hospital with altered mental status and foot ulcer and cellulitis. She came in and was noted to be tachycardic and febrile with sepsis syndrome. Subsequently manage aggressively for sepsis syndrome with IV fluids, antibiotics. Subsequent blood cultures showing Gram-positive cocci bacteremia. Cardiology consult was sought as troponins were drawn for her for unclear reason. There is clear rise and fall of troponins. Also elevated BNP. No cardiac symptoms reported. EKG shows sinus tachycardia without acute ST T wave changes. Patient currently not giving much history. History obtained from the chart. Patient is moaning. Significant other present bedside says she has fibromyalgia and diffuse muscle pain. She is denying any chest pain at this point time. Echocardiogram is pending. Review of Systems Review of Systems: Yes Unobtainable due to mental status Neurologic: Reports confusion Psychiatric: Psychiatric: Reports confusion [facility] Past Medical History Medical History Smoker Arthritis Asthma Low back pain Osteoporosis GERD (gastroesophageal reflux disease) Irritable bowel syndrome (IBS) Hypothyroidism Fibromyalgia Personal history of COVID-19 Surgical History Surgical History History of Hx of colonoscopy History of esophagogastroduodenoscopy (EGD) Social History Social History Household Members: Significant Other Housing: Unknown / Unable to assess Are you a primary care director rn to a significant other at home: No Do you presently have visiting nurse or other home services: No Patient Tobacco Use Status: Tobacco use Unknown Tobacco use type: Cigarette Cigarettes Per Day: 10 Use of substances other than those prescribed or required for medical reasons: Unknown Currently Displaying Signs/Symptoms of Drug Intoxication Withdrawal: No Advance Directives: No Advance Directives Information Provided: No Patient : No : No Poor oral hygiene: No Meds Allergies Allergy/AdvReac Type Severity Reaction Status Date / Time No Known Allergies Allergy Verified 08/23/23 12:47 [No Known Allergies*] Active Medications: Current Medications Albuterol Sulfate (Albuterol Sulfate 90 Mcg 8 Gm Inhaler) 2 puff INHALE Q6H PRN PRN Reason: Shortness Of Breath Or Wheezing Aspirin (Aspirin Enteric Coated 81 Mg Tablet.Dr) 81 mg PO DAILY [facility] Last Admin: 08/24/23 10:06 Dose: Not Given Benzonatate (Benzonatate 100 Mg Capsule) 100 mg PO TID PRN PRN Reason: Cough Docusate Sodium (Docusate Sodium 100 Mg Capsule) 100 mg PO DAILY PRN PRN Reason: Constipation Escitalopram Oxalate (Escitalopram Oxalate 10 Mg Tablet) 10 mg PO DAILY [facility] Last Admin: 08/24/23 10:06 Dose: Not Given Escitalopram Oxalate (Escitalopram Oxalate 20 Mg Tablet) 20 mg PO DAILY [facility] Last Admin: 08/24/23 10:06 Dose: Not Given Furosemide (Furosemide 20 Mg/2 Ml Vial) 20 mg IVPUSH DAILY [facility]; Protocol Last Admin: 08/24/23 10:06 Dose: Not Given Hydromorphone HCl (Hydromorphone Hcl 0.5 Mg/0.5 Ml Syringe) 0.5 mg IVPUSH Q4H PRN; Protocol PRN Reason: Pain, Severe (Pain Scale 7-10) Last Admin: 08/24/23 08:15 Dose: 0.5 mg Piperacillin Sod/Tazobactam (Sod 3.375 gm/ Sodium Chloride) 50 mls @ 100 mls/hr IV Q6H [facility] Last Infusion: 08/24/23 08:16 Dose: Infused Vancomycin HCl 1,000 mg/ (Sodium Chloride) 270 mls @ 270 mls/hr IV Q12H [facility] Last Infusion: 08/24/23 06:34 Dose: Infused Lactated Ringer's (Lr) 1,000 mls @ 125 mls/hr IVCONT .Q8H [facility] Last Admin: 08/24/23 06:56 Dose: Not Given Ceftriaxone Sodium 2 gm/ (Sodium Chloride) 50 mls @ 100 mls/hr IV Q12H [facility] Last Infusion: 08/23/23 23:37 Dose: Infused Ibuprofen (Ibuprofen 800 Mg Tablet) 800 mg PO TID PRN PRN Reason: Pain, Mild (Pain Scale 1-3) Levothyroxine Sodium (Levothyroxine Sodium 50 Mcg Tablet) 50 mcg PO DAILY@0600 [facility] Last Admin: 08/24/23 05:35 Dose: Not Given Melatonin (Melatonin 3 Mg Tablet) 6 mg PO BEDTIME PRN PRN Reason: Insomnia Ondansetron HCl (Ondansetron Hcl 4 Mg/2 Ml Vial) 4 mg IVPUSH Q8H PRN PRN Reason: Nausea and Vomiting Pantoprazole Sodium (Pantoprazole Sodium 40 Mg/10 Ml Vial) 40 mg IVPUSH DAILY@0630 [facility] Last Admin: 08/24/23 05:50 Dose: Not Given Pharmacy Consult (Consult Rx Vancomycin Dosing) 1 each MISCELLANE DAILY PRN PRN Reason: Consult order Pregabalin (Pregabalin 200 Mg Capsule) 200 mg PO TID [facility] Last Admin: 08/24/23 10:07 Dose: Not Given Silver Sulfadiazine (Silver Sulfadiazine 1 % Cream 20 Gm Tube) 1 appl TOPICAL DAILY [facility] Last Admin: 08/24/23 10:08 Dose: Not Given Sodium Chloride (0.9 % Sodium Chloride Flush 3 Ml Syringe) 3 ml IVFLUSH QSHIFT [facility] Last Admin: 08/24/23 07:42 Dose: 3 ml Home Medications ?Medication ?Instructions ?Recorded ?Confirmed ?Last Taken ?Type albuterol sulfate 90 mcg/actuation 2 puff inhalation Q6H PRN 08/06/21 08/23/23 08/12/21 History aerosol inhaler Shortness Of Breath Or Wheezing 2 puff ibuprofen 800 mg tablet 800 mg PO TID PRN Pain 08/06/21 08/23/23 Unknown History omeprazole 20 mg tablet,delayed 20 mg PO BEDTIME 08/06/21 08/23/23 08/21/23 History release pregabalin 200 mg capsule 200 mg PO TID 08/06/21 08/23/23 08/21/23 History alendronate 70 mg tablet 70 mg PO QWEEK 08/23/23 08/23/23 Unknown History escitalopram oxalate 10 mg tablet 10 mg PO DAILY 08/23/23 08/23/23 08/21/23 History escitalopram oxalate 20 mg tablet 20 mg PO DAILY 08/23/23 08/23/23 08/21/23 History levothyroxine 50 mcg tablet 50 mcg PO DAILY@0600 08/23/23 08/23/23 08/21/23 History silver sulfadiazine 1 % topical 1 appl topical DAILY 08/23/23 08/23/23 08/21/23 History cream Physical Exam Vital Signs: Vital Signs: Last Vital Signs Temp 97.2 F 08/24/23 07:37 Pulse 97 08/24/23 07:37 Resp 20 08/24/23 07:37 BP 163/96 H 08/24/23 07:37 Pulse Ox 96 08/24/23 07:37 O2 Del Method Nasal Cannula 08/24/23 07:37 O2 Flow Rate 3 08/24/23 07:37 BMI result Body Mass Index 29.3 Const: General: cooperative, no acute distress, alert, awake, confusion and other (Morning) Nutritional Appearance: overweight Orientation/consciousness: confusion HEENT: Head: Yes normocephalic and Yes atraumatic Neck: Neck: Yes trachea midline, Yes supple and Yes no JVD Resp: Effort & Inspection: decreased respiratory effort Auscultation: clear to auscultation bilaterally Cardio: Jugular venous distension: no JVD Rate: regular rate Rhythm: regular rhythm Heart sounds: S1 normal heart sound present, S2 normal heart sound present, no click, no gallops, no murmurs and no rubs GI: Auscultation: normal bowel sounds Skin: General skin exam: no rashes or lesions noted Neuro: General: no focal motor deficits and confusion Extrem: General: Yes no clubbing, cyanosis or edema Objective Labs and Meds 08/24/23 06:22 08/24/23 06:22 Lab results: Laboratory Results - last 24 hr 08/23/23 08/23/23 08/23/23 13:34 13:36 14:09 WBC 11.9 H RBC 3.87 L Hgb 11.1 L Hct 34.6 L MCV 89.4 MCH 28.7 MCHC 32.1 RDW 14.5 Plt Count 155 L MPV 10.4 Immature Gran % (Auto) Cancelled Neut % (Auto) Cancelled Lymph % (Auto) Cancelled [place] % (Auto) Cancelled Eos % (Auto) Cancelled Baso % (Auto) Cancelled Lymph # (Auto) Cancelled [place] # (Auto) Cancelled Eos # (Auto) Cancelled Baso # (Auto) Cancelled Abs Immat Gran (auto) Cancelled Absolute Neuts (auto) Cancelled Absolute Nucleated RBC 0.000 Nucleated RBC % (auto) 0.0 Neutrophils % (Manual) 66 Band Neutrophils % 30 H Lymphocytes % (Manual) 2 L Monocytes % (Manual) 2 Abs Neuts (Manual) 11.4 H Lymphocytes # (Manual) 0.2 L Monocytes # (Manual) 0.2 Toxic Vacuolation PRESENT Platelet Estimate SLIGHTLY DECREASED Large Platelets PRESENT Plt Morphology Comment NOTED RBC Morphology NORMAL Smear Tech's Comments ESR 44 H PT INR VBG pH VBG pCO2 VBG pO2 VBG HCO3 VBG O2 Saturation VBG Base Excess Sodium 140 Potassium 3.4 Chloride 102 Carbon Dioxide 28 Anion Gap 13 BUN 16 Creatinine 0.65 Estim Creat Clear Calc 94.9 Estimated GFR > 60 Random Glucose 114 Estimat Average Glucose 94 Hemoglobin A1c % 4.9 Lactic Acid 2.6 H* Lactic Acid F/U @ 2Hr Calcium 8.7 Total Bilirubin 1.2 H Direct Bilirubin 0.6 H GGT AST 266 H ALT 84 H Alkaline Phosphatase 36 L Ammonia 36 Troponin I High Sens 71.5 H* C-Reactive Protein 26.60 H B-Natriuretic Peptide 482 H Total Protein 7.1 Albumin 3.4 L Triglycerides 108 Cholesterol 106 LDL Cholesterol, Calc 51 HDL Cholesterol 34 L Lipase 5 L TSH Free T4 Urine Color Dark Yellow Urine Appearance Clear Urine pH 6.0 Ur Specific [place] 1.025 Urine Protein 100 (2+) H Urine Glucose (UA) Negative Urine Ketones 15 Urine Blood Large (3+) H Urine Nitrite Negative Ur Leukocyte Esterase Trace H Urine RBC 11-20 H Urine WBC 0-5 Ur Squamous Epith Cells 0-2 Urine Bacteria None Seen Hyaline Casts 0-2 Urine Opiates Screen Not Detected Ur Buprenorphine Scrn Positive Ur Oxycodone Screen Not Detected Urine Methadone Screen Not Detected Urine Fentanyl Screen Not Detected Ur Barbiturates Screen Not Detected Ur Phencyclidine Scrn Not Detected Ur Amphetamines Screen Not Detected U Benzodiazepines Scrn Not Detected Urine Cocaine Screen Not Detected U Marijuana (THC) Screen Not Detected Ethyl Alcohol < 10 T.pallidum Ab (EIA) Hepatitis A IgM Ab Hep Bs Antigen Hep Bs Antibody Hep B Core Total Ab Hepatitis C Ab (EIA) Influenza Type A (PCR) NEGATIVE Influenza Type B (PCR) NEGATIVE RSV RNA Qual (PCR) NEGATIVE SARS-CoV-2 RNA (RT-PCR) NEGATIVE 08/23/23 08/23/23 08/23/23 16:16 18:16 19:31 WBC RBC Hgb Hct MCV MCH MCHC RDW Plt Count MPV Immature Gran % (Auto) Neut % (Auto) Lymph % (Auto) [place] % (Auto) Eos % (Auto) Baso % (Auto) Lymph # (Auto) [place] # (Auto) Eos # (Auto) Baso # (Auto) Abs Immat Gran (auto) Absolute Neuts (auto) Absolute Nucleated RBC Nucleated RBC % (auto) Neutrophils % (Manual) Band Neutrophils % Lymphocytes % (Manual) Monocytes % (Manual) Abs Neuts (Manual) Lymphocytes # (Manual) Monocytes # (Manual) Toxic Vacuolation Platelet Estimate Large Platelets Plt Morphology Comment RBC Morphology Smear Tech's Comments ESR PT 33.2 H INR 2.7 H VBG pH VBG pCO2 VBG pO2 VBG HCO3 VBG O2 Saturation VBG Base Excess Sodium Potassium Chloride Carbon Dioxide Anion Gap BUN Creatinine Estim Creat Clear Calc Estimated GFR Random Glucose Estimat Average Glucose Hemoglobin A1c % Lactic Acid Lactic Acid F/U @ 2Hr 1.1 Calcium Total Bilirubin Direct Bilirubin GGT AST ALT Alkaline Phosphatase Ammonia Troponin I High Sens 123.8 H* D 100.5 H* C-Reactive Protein B-Natriuretic Peptide Total Protein Albumin Triglycerides Cholesterol LDL Cholesterol, Calc HDL Cholesterol Lipase TSH Free T4 Urine Color Urine Appearance Urine pH Ur Specific [place] Urine Protein Urine Glucose (UA) Urine Ketones Urine Blood Urine Nitrite Ur Leukocyte Esterase Urine RBC Urine WBC Ur Squamous Epith Cells Urine Bacteria Hyaline Casts Urine Opiates Screen Ur Buprenorphine Scrn Ur Oxycodone Screen Urine Methadone Screen Urine Fentanyl Screen Ur Barbiturates Screen Ur Phencyclidine Scrn Ur Amphetamines Screen U Benzodiazepines Scrn Urine Cocaine Screen U Marijuana (THC) Screen Ethyl Alcohol T.pallidum Ab (EIA) Hepatitis A IgM Ab Hep Bs Antigen Hep Bs Antibody Hep B Core Total Ab Hepatitis C Ab (EIA) Influenza Type A (PCR) Influenza Type B (PCR) RSV RNA Qual (PCR) SARS-CoV-2 RNA (RT-PCR) 08/23/23 08/23/23 08/24/23 22:07 22:12 06:22 WBC 11.1 H 11.2 H RBC 3.65 L 3.84 L Hgb 10.3 L 10.6 L Hct 31.9 L 34.0 L MCV 87.4 88.5 MCH 28.2 27.6 MCHC 32.3 31.2 RDW 14.4 14.5 Plt Count 129 L 142 L MPV 10.3 10.8 Immature Gran % (Auto) 0.4 Neut % (Auto) 90.5 H Lymph % (Auto) 4.5 L [place] % (Auto) 4.4 Eos % (Auto) 0.1 Baso % (Auto) 0.1 Lymph # (Auto) 0.5 L [place] # (Auto) 0.5 Eos # (Auto) 0.0 Baso # (Auto) 0.0 Abs Immat Gran (auto) 0.04 H Absolute Neuts (auto) 10.1 H Absolute Nucleated RBC 0.000 0.000 Nucleated RBC % (auto) 0.0 0.0 Neutrophils % (Manual) Band Neutrophils % Lymphocytes % (Manual) Monocytes % (Manual) Abs Neuts (Manual) Lymphocytes # (Manual) Monocytes # (Manual) Toxic Vacuolation Platelet Estimate Large Platelets Plt Morphology Comment RBC Morphology Smear Tech's Comments VERIFIED ESR PT INR VBG pH 7.51 H VBG pCO2 36 VBG pO2 109 VBG HCO3 29 H VBG O2 Saturation 99.0 VBG Base Excess 6.2 Sodium 140 141 Potassium 2.8 L* 3.3 Chloride 106 106 Carbon Dioxide 27 29 Anion Gap 10 L 9 L BUN 14 14 Creatinine 0.51 0.47 L Estim Creat Clear Calc 121.0 131.2 Estimated GFR > 60 > 60 Random Glucose 102 87 Estimat Average Glucose Hemoglobin A1c % Lactic Acid 0.9 Lactic Acid F/U @ 2Hr Calcium 8.1 L D 8.1 L Total Bilirubin 1.1 H 0.8 Direct Bilirubin 0.4 GGT 12 AST 199 H 154 H ALT 74 H 67 H Alkaline Phosphatase 31 L 34 L Ammonia Troponin I High Sens 51.8 H* C-Reactive Protein B-Natriuretic Peptide Total Protein 5.9 L 5.8 L Albumin 2.9 L 2.7 L Triglycerides Cholesterol LDL Cholesterol, Calc HDL Cholesterol Lipase TSH 2.03 Free T4 0.64 L Urine Color Urine Appearance Urine pH Ur Specific [place] Urine Protein Urine Glucose (UA) Urine Ketones Urine Blood Urine Nitrite Ur Leukocyte Esterase Urine RBC Urine WBC Ur Squamous Epith Cells Urine Bacteria Hyaline Casts Urine Opiates Screen Ur Buprenorphine Scrn Ur Oxycodone Screen Urine Methadone Screen Urine Fentanyl Screen Ur Barbiturates Screen Ur Phencyclidine Scrn Ur Amphetamines Screen U Benzodiazepines Scrn Urine Cocaine Screen U Marijuana (THC) Screen Ethyl Alcohol T.pallidum Ab (EIA) Nonreactive Hepatitis A IgM Ab Hep Bs Antigen Hep Bs Antibody Hep B Core Total Ab Hepatitis C Ab (EIA) Influenza Type A (PCR) Influenza Type B (PCR) RSV RNA Qual (PCR) SARS-CoV-2 RNA (RT-PCR) 08/24/23 08/24/23 06:23 08:20 WBC RBC Hgb Hct MCV MCH MCHC RDW Plt Count MPV Immature Gran % (Auto) Neut % (Auto) Lymph % (Auto) [place] % (Auto) Eos % (Auto) Baso % (Auto) Lymph # (Auto) [place] # (Auto) Eos # (Auto) Baso # (Auto) Abs Immat Gran (auto) Absolute Neuts (auto) Absolute Nucleated RBC Nucleated RBC % (auto) Neutrophils % (Manual) Band Neutrophils % Lymphocytes % (Manual) Monocytes % (Manual) Abs Neuts (Manual) Lymphocytes # (Manual) Monocytes # (Manual) Toxic Vacuolation Platelet Estimate Large Platelets Plt Morphology Comment RBC Morphology Smear Tech's Comments ESR PT 27.2 H INR 2.2 H VBG pH VBG pCO2 VBG pO2 VBG HCO3 VBG O2 Saturation VBG Base Excess Sodium Potassium Chloride Carbon Dioxide Anion Gap BUN Creatinine Estim Creat Clear Calc Estimated GFR Random Glucose Estimat Average Glucose Hemoglobin A1c % Lactic Acid Lactic Acid F/U @ 2Hr Calcium Total Bilirubin Direct Bilirubin GGT AST ALT Alkaline Phosphatase Ammonia Troponin I High Sens C-Reactive Protein B-Natriuretic Peptide Total Protein Albumin Triglycerides Cholesterol LDL Cholesterol, Calc HDL Cholesterol Lipase TSH Free T4 Urine Color Urine Appearance Urine pH Ur Specific [place] Urine Protein Urine Glucose (UA) Urine Ketones Urine Blood Urine Nitrite Ur Leukocyte Esterase Urine RBC Urine WBC Ur Squamous Epith Cells Urine Bacteria Hyaline Casts Urine Opiates Screen Ur Buprenorphine Scrn Ur Oxycodone Screen Urine Methadone Screen Urine Fentanyl Screen Ur Barbiturates Screen Ur Phencyclidine Scrn Ur Amphetamines Screen U Benzodiazepines Scrn Urine Cocaine Screen U Marijuana (THC) Screen Ethyl Alcohol T.pallidum Ab (EIA) Hepatitis A IgM Ab Nonreactive Hep Bs Antigen Negative Hep Bs Antibody NONREACTIVE Hep B Core Total Ab Nonreactive Hepatitis C Ab (EIA) Nonreactive Influenza Type A (PCR) Influenza Type B (PCR) RSV RNA Qual (PCR) SARS-CoV-2 RNA (RT-PCR) Imaging Radiologist's impression: Impressions Head CT 08/23/23 13:24 IMPRESSION: No acute intracranial pathology. [id number] bilateral temporoparietal lobe volume loss. [id number] aerosolized mucosal secretions in the maxillary sinus cavities; correlate for any acute symptomatology. Chest X-Ray 08/23/23 14:57 IMPRESSION: 1. Multiple bilateral rib fractures are redemonstrated. No pneumothorax or pleural effusion is seen. 2. There is mild left base linear atelectasis. 3. There is pulmonary vascular congestion, without overt congestive heart failure. Foot X-Ray 08/23/23 14:57 IMPRESSION: There is soft tissue gas in the medial plantar aspect of the left great toe, which can be associated with a soft tissue infection. No periosteal thickening or cortical erosion is seen of the great toe to suggest osteomyelitis. If a clinical suspicion of acute osteomyelitis persists, MRI evaluation can be performed as a more sensitive imaging modality. Abdomen/Pelvis CT 08/23/23 17:02 IMPRESSION: 1. Extensive bilateral rib fractures and right transverse process fractures are noted. There is evidence for interval healing with periosteal changes and well-corticated fracture lines with additional more chronic appearing healed fractures. 2. There is asymmetric soft tissue mass along the inferomedial aspect of the right scapula difficult to separate from the adjacent soft tissues but this measures approximately 3.8 cm in diameter. Fibroblastoma dorsi could be seen in this location but that would be somewhat atypical in a 53-year-old patient. This cannot be defined further on this noncontrast study. Clinical correlation would be needed. MRI would be more sensitive to evaluate this nonspecific soft tissue asymmetric mass further. 3. Small bilateral pleural effusions with dependent airspace changes more likely due to atelectasis although infiltrate/aspiration could have a similar appearance especially in the left base. Chest CT 08/23/23 17:02 IMPRESSION: 1. Extensive bilateral rib fractures and right transverse process fractures are noted. There is evidence for interval healing with periosteal changes and well-corticated fracture lines with additional more chronic appearing healed fractures. 2. There is asymmetric soft tissue mass along the inferomedial aspect of the right scapula difficult to separate from the adjacent soft tissues but this measures approximately 3.8 cm in diameter. Fibroblastoma dorsi could be seen in this location but that would be somewhat atypical in a 53-year-old patient. This cannot be defined further on this noncontrast study. Clinical correlation would be needed. MRI would be more sensitive to evaluate this nonspecific soft tissue asymmetric mass further. 3. Small bilateral pleural effusions with dependent airspace changes more likely due to atelectasis although infiltrate/aspiration could have a similar appearance especially in the left base. Assessment and Plan (1) Elevated troponin: Status: Acute Elevated troponin as well as BNP in this middle-aged woman admitted with severe sepsis related to gram-positive bacteremia. This could represent secondary SC related to sepsis and/or stress-induced cardiomyopathy. Either way the management is conservative and medical. Echocardiogram to be performed to evaluate for LV systolic function and regional wall motion abnormality. There is no indication for anticoagulation therapy. Would prescribe her aspirin statins. Continue treat her underlying medical condition aggressively. Beta-blockers can be used to reduce myocardial demand and stress. No other workup is indicated from cardiac perspective. Will follow with you as need be. Thank you for allowing me to partake in her care Procedures Date of Service Date of Service: 08/24/23
[2023-08-24] MEDS: Morphine Sulfate 2 MG/ML CARTRIDGE IVPUSH (10:59)
[2023-08-24] MEDS: cefTRIAXone sodium 2 GM in 0.9 % Sodium Chloride 50 ML IV ×2 (11:39→23:17)
[2023-08-24 12:02] LABS: Adenovirus PCR Not Detected (Not Detect.); Bordetella parapertussis PCR Not Detected (Not Detect.); Bordetella pertussis PCR Not Detected (Not Detect.); Chlamydia pneumoniae PCR Not Detected (Not Detect.); Coronavirus 229E PCR Not Detected (Not Detect.); Coronavirus HKU1 PCR Not Detected (Not Detect.); Coronavirus NL63 PCR Not Detected (Not Detect.); Coronavirus OC43 PCR Not Detected (Not Detect.); Human metapneumovirus PCR Not Detected (Not Detect.); Influenza A PCR Not Detected (Not Detect.); Influenza B PCR Not Detected (Not Detect.); Mycoplasma pneumoniae PCR Not Detected (Not Detect.); Parainfluenza 1 PCR Not Detected (Not Detect.); Parainfluenza 2 PCR Not Detected (Not Detect.); Parainfluenza 3 PCR Not Detected (Not Detect.); Parainfluenza 4 PCR Not Detected (Not Detect.); RSV PCR Not Detected (Not Detect.); Rhino/Enterovirus PCR Not Detected (Not Detect.)
--- NOTE | 2023-08-24 12:31 | PC.NURSE ---
Patient unable to void, bladder scanned at 1045 for 415cc. MD notified. New order to insert awllace catheter. 16 swazi catheter inserted at 1230. Patient yelling, screaming intermittently, resistive to care. Significant other at bedside. Patient repositioned and resting comfortably in bed at this time.
[2023-08-24 12:36] LABS: SARS-CoV-2 PCR Not Detected (Not Detect.)
--- NOTE | 2023-08-24 13:37 | P.PNIM_ITS ---
Subjective Subjective Date of Service: 08/24/23 Interval History: Seen and evaluated this morning difficult to arouse had difficulties overnight with agitation No fever since last night urine retention >400cc Review of Systems Review of Systems: Yes Unobtainable due to mental status Physical Exam 2 Vital Signs: Vital Signs: Last Vital Signs Temp 97.0 F 08/24/23 13:11 Pulse 95 08/24/23 13:11 Resp 20 08/24/23 13:11 BP 162/91 H 08/24/23 13:11 Pulse Ox 97 08/24/23 13:11 O2 Del Method Nasal Cannula 08/24/23 13:11 O2 Flow Rate 4 08/24/23 13:11 BMI result Body Mass Index 29.3 Const: Other: Constitutional : altered, not in distress Neck : Normal inspection, Supple Cardiovascular : RRR, no JVP, no lower extremity edema Respiratory : good bilateral air entry, no crackles, wheezes or rhonchi Gastrointestinal: soft, lax, Normal bowel sounds, Non tender Skin : Warm, Dry, LLE cellultis with multiple scratch like wounds bilateral lower extremities , tip of toe ulcer with no drainage. Neurological : Obtunded, GCS 9, unable to assess orientation, moves all extremities Objective Data Active Medications Albuterol Sulfate (Albuterol Sulfate 90 Mcg 8 Gm Inhaler) 2 puff INHALE Q6H PRN PRN Reason: Shortness Of Breath Or Wheezing Aspirin (Aspirin Enteric Coated 81 Mg Tablet.Dr) 81 mg PO DAILY [facility] Last Admin: 08/24/23 10:06 Dose: Not Given Documented By: SOPHIE Non-Admin Reason: NPO Benzonatate (Benzonatate 100 Mg Capsule) 100 mg PO TID PRN PRN Reason: Cough Docusate Sodium (Docusate Sodium 100 Mg Capsule) 100 mg PO DAILY PRN PRN Reason: Constipation Escitalopram Oxalate (Escitalopram Oxalate 10 Mg Tablet) 10 mg PO DAILY [facility] Last Admin: 08/24/23 10:06 Dose: Not Given Documented By: SOPHIE Non-Admin Reason: NPO Escitalopram Oxalate (Escitalopram Oxalate 20 Mg Tablet) 20 mg PO DAILY [facility] Last Admin: 08/24/23 10:06 Dose: Not Given Documented By: SOPHIE Non-Admin Reason: NPO Furosemide (Furosemide 20 Mg/2 Ml Vial) 20 mg IVPUSH DAILY [facility]; Protocol Last Admin: 08/24/23 10:06 Dose: Not Given Documented By: SOPHIE Non-Admin Reason: NPO Hydromorphone HCl (Hydromorphone Hcl 0.5 Mg/0.5 Ml Syringe) 0.5 mg IVPUSH Q4H PRN; Protocol PRN Reason: Pain, Severe (Pain Scale 7-10) Last Admin: 08/24/23 08:15 Dose: 0.5 mg Documented By: SOPHIE Piperacillin Sod/Tazobactam (Sod 3.375 gm/ Sodium Chloride) 50 mls @ 100 mls/hr IV Q6H [facility] Last Admin: 08/24/23 13:16 Dose: 100 mls/hr Documented By: SOPHIE Vancomycin HCl 1,000 mg/ (Sodium Chloride) 270 mls @ 270 mls/hr IV Q12H [facility] Last Infusion: 08/24/23 06:34 Dose: Infused Documented By: STEF Lactated Ringer's (Lr) 1,000 mls @ 125 mls/hr IVCONT .Q8H [facility] Last Admin: 08/24/23 11:39 Dose: Not Given Documented By: SOPHIE Non-Admin Reason: IV Running Ceftriaxone Sodium 2 gm/ (Sodium Chloride) 50 mls @ 100 mls/hr IV Q12H [facility] Last Infusion: 08/24/23 12:24 Dose: Infused Documented By: SOPHIE Ibuprofen (Ibuprofen 800 Mg Tablet) 800 mg PO TID PRN PRN Reason: Pain, Mild (Pain Scale 1-3) Levothyroxine Sodium (Levothyroxine Sodium 50 Mcg Tablet) 50 mcg PO DAILY@0600 [facility] Last Admin: 08/24/23 05:35 Dose: Not Given Documented By: STEF Non-Admin Reason: NPO Melatonin (Melatonin 3 Mg Tablet) 6 mg PO BEDTIME PRN PRN Reason: Insomnia Ondansetron HCl (Ondansetron Hcl 4 Mg/2 Ml Vial) 4 mg IVPUSH Q8H PRN PRN Reason: Nausea and Vomiting Pantoprazole Sodium (Pantoprazole Sodium 40 Mg/10 Ml Vial) 40 mg IVPUSH DAILY@0630 [facility] Last Admin: 08/24/23 05:50 Dose: Not Given Documented By: STEF Non-Admin Reason: See Note Pharmacy Consult (Consult Rx Vancomycin Dosing) 1 each MISCELLANE DAILY PRN PRN Reason: Consult order Pregabalin (Pregabalin 200 Mg Capsule) 200 mg PO TID [facility] Last Admin: 08/24/23 13:08 Dose: Not Given Documented By: SOPHIE Non-Admin Reason: NPO Silver Sulfadiazine (Silver Sulfadiazine 1 % Cream 20 Gm Tube) 1 appl TOPICAL DAILY [facility] Last Admin: 08/24/23 10:08 Dose: Not Given Documented By: SOPHIE Non-Admin Reason: wound dressing changed by wound nurse Sodium Chloride (0.9 % Sodium Chloride Flush 3 Ml Syringe) 3 ml IVFLUSH QSHIFT [facility] Last Admin: 08/24/23 07:42 Dose: 3 ml Documented By: SOPHIE Labs 08/24/23 06:22 08/24/23 06:22 Labs: Laboratory Results - last 24 hr 08/23/23 08/23/23 08/23/23 13:34 13:36 14:09 MCV 89.4 MCH 28.7 MCHC 32.1 RDW 14.5 Plt Count 155 L MPV 10.4 Immature Gran % (Auto) Cancelled Neut % (Auto) Cancelled Lymph % (Auto) Cancelled [place] % (Auto) Cancelled Eos % (Auto) Cancelled Baso % (Auto) Cancelled Lymph # (Auto) Cancelled [place] # (Auto) Cancelled Eos # (Auto) Cancelled Baso # (Auto) Cancelled Abs Immat Gran (auto) Cancelled Absolute Neuts (auto) Cancelled Absolute Nucleated RBC 0.000 Nucleated RBC % (auto) 0.0 Neutrophils % (Manual) 66 Band Neutrophils % 30 H Lymphocytes % (Manual) 2 L Monocytes % (Manual) 2 Abs Neuts (Manual) 11.4 H Lymphocytes # (Manual) 0.2 L Monocytes # (Manual) 0.2 Toxic Vacuolation PRESENT Platelet Estimate SLIGHTLY DECREASED Large Platelets PRESENT Plt Morphology Comment NOTED RBC Morphology NORMAL Smear Tech's Comments ESR 44 H PT INR VBG pH VBG pCO2 VBG pO2 VBG HCO3 VBG O2 Saturation VBG Base Excess Anion Gap 13 Estim Creat Clear Calc 94.9 Estimated GFR > 60 Random Glucose 114 Estimat Average Glucose 94 Hemoglobin A1c % 4.9 Lactic Acid 2.6 H* Lactic Acid F/U @ 2Hr Calcium 8.7 Total Bilirubin 1.2 H Direct Bilirubin 0.6 H GGT AST 266 H ALT 84 H Alkaline Phosphatase 36 L Ammonia 36 Troponin I High Sens 71.5 H* C-Reactive Protein 26.60 H B-Natriuretic Peptide 482 H Total Protein 7.1 Albumin 3.4 L Triglycerides 108 Cholesterol 106 LDL Cholesterol, Calc 51 HDL Cholesterol 34 L Lipase 5 L TSH Free T4 Urine Color Dark Yellow Urine Appearance Clear Urine pH 6.0 Ur Specific [place] 1.025 Urine Protein 100 (2+) H Urine Glucose (UA) Negative Urine Ketones 15 Urine Blood Large (3+) H Urine Nitrite Negative Ur Leukocyte Esterase Trace H Urine RBC 11-20 H Urine WBC 0-5 Ur Squamous Epith Cells 0-2 Urine Bacteria None Seen Hyaline Casts 0-2 Urine Opiates Screen Not Detected Ur Buprenorphine Scrn Positive Ur Oxycodone Screen Not Detected Urine Methadone Screen Not Detected Urine Fentanyl Screen Not Detected Ur Barbiturates Screen Not Detected Ur Phencyclidine Scrn Not Detected Ur Amphetamines Screen Not Detected U Benzodiazepines Scrn Not Detected Urine Cocaine Screen Not Detected U Marijuana (THC) Screen Not Detected Ethyl Alcohol < 10 Respiratory Panel [place] T.pallidum Ab (EIA) Adenovirus (Rapid PCR) B.pert (TEM-PCR) B.parapertussis DNA PCR C. pneumoniae DNA (PCR) Coronavirus OC43 (PCR) Coronavirus HKU1 (PCR) Coronavirus 229E (PCR) Coronavirus NL63 (PCR) Hepatitis A IgM Ab Hep Bs Antigen Hep Bs Antibody Hep B Core Total Ab Hepatitis C Ab (EIA) Human Metapneumovir PCR Influenza A (RT-PCR) Influenza Type A (PCR) NEGATIVE Influenza B (RT-PCR) Influenza Type B (PCR) NEGATIVE M. pneumoniae (PCR) Parainfluenza 1 (PCR) Parainfluenza 2 (PCR) Parainfluenza 3 (PCR) Parainfluenza 4 (PCR) RSV (PCR) RSV RNA Qual (PCR) NEGATIVE Entero/Rhino (PCR) SARS-CoV-2 RNA (RT-PCR) NEGATIVE 08/23/23 08/23/23 08/23/23 16:16 18:16 19:31 MCV MCH MCHC RDW Plt Count MPV Immature Gran % (Auto) Neut % (Auto) Lymph % (Auto) [place] % (Auto) Eos % (Auto) Baso % (Auto) Lymph # (Auto) [place] # (Auto) Eos # (Auto) Baso # (Auto) Abs Immat Gran (auto) Absolute Neuts (auto) Absolute Nucleated RBC Nucleated RBC % (auto) Neutrophils % (Manual) Band Neutrophils % Lymphocytes % (Manual) Monocytes % (Manual) Abs Neuts (Manual) Lymphocytes # (Manual) Monocytes # (Manual) Toxic Vacuolation Platelet Estimate Large Platelets Plt Morphology Comment RBC Morphology Smear Tech's Comments ESR PT 33.2 H INR 2.7 H VBG pH VBG pCO2 VBG pO2 VBG HCO3 VBG O2 Saturation VBG Base Excess Anion Gap Estim Creat Clear Calc Estimated GFR Random Glucose Estimat Average Glucose Hemoglobin A1c % Lactic Acid Lactic Acid F/U @ 2Hr 1.1 Calcium Total Bilirubin Direct Bilirubin GGT AST ALT Alkaline Phosphatase Ammonia Troponin I High Sens 123.8 H* D 100.5 H* C-Reactive Protein B-Natriuretic Peptide Total Protein Albumin Triglycerides Cholesterol LDL Cholesterol, Calc HDL Cholesterol Lipase TSH Free T4 Urine Color Urine Appearance Urine pH Ur Specific [place] Urine Protein Urine Glucose (UA) Urine Ketones Urine Blood Urine Nitrite Ur Leukocyte Esterase Urine RBC Urine WBC Ur Squamous Epith Cells Urine Bacteria Hyaline Casts Urine Opiates Screen Ur Buprenorphine Scrn Ur Oxycodone Screen Urine Methadone Screen Urine Fentanyl Screen Ur Barbiturates Screen Ur Phencyclidine Scrn Ur Amphetamines Screen U Benzodiazepines Scrn Urine Cocaine Screen U Marijuana (THC) Screen Ethyl Alcohol Respiratory Panel [place] T.pallidum Ab (EIA) Adenovirus (Rapid PCR) B.pert (TEM-PCR) B.parapertussis DNA PCR C. pneumoniae DNA (PCR) Coronavirus OC43 (PCR) Coronavirus HKU1 (PCR) Coronavirus 229E (PCR) Coronavirus NL63 (PCR) Hepatitis A IgM Ab Hep Bs Antigen Hep Bs Antibody Hep B Core Total Ab Hepatitis C Ab (EIA) Human Metapneumovir PCR Influenza A (RT-PCR) Influenza Type A (PCR) Influenza B (RT-PCR) Influenza Type B (PCR) M. pneumoniae (PCR) Parainfluenza 1 (PCR) Parainfluenza 2 (PCR) Parainfluenza 3 (PCR) Parainfluenza 4 (PCR) RSV (PCR) RSV RNA Qual (PCR) Entero/Rhino (PCR) SARS-CoV-2 RNA (RT-PCR) 08/23/23 08/23/23 08/23/23 22:07 22:12 Unknown MCV 87.4 MCH 28.2 MCHC 32.3 RDW 14.4 Plt Count 129 L MPV 10.3 Immature Gran % (Auto) 0.4 Neut % (Auto) 90.5 H Lymph % (Auto) 4.5 L [place] % (Auto) 4.4 Eos % (Auto) 0.1 Baso % (Auto) 0.1 Lymph # (Auto) 0.5 L [place] # (Auto) 0.5 Eos # (Auto) 0.0 Baso # (Auto) 0.0 Abs Immat Gran (auto) 0.04 H Absolute Neuts (auto) 10.1 H Absolute Nucleated RBC 0.000 Nucleated RBC % (auto) 0.0 Neutrophils % (Manual) Band Neutrophils % Lymphocytes % (Manual) Monocytes % (Manual) Abs Neuts (Manual) Lymphocytes # (Manual) Monocytes # (Manual) Toxic Vacuolation Platelet Estimate Large Platelets Plt Morphology Comment RBC Morphology Smear Tech's Comments VERIFIED ESR PT INR VBG pH 7.51 H VBG pCO2 36 VBG pO2 109 VBG HCO3 29 H VBG O2 Saturation 99.0 VBG Base Excess 6.2 Anion Gap 10 L Estim Creat Clear Calc 121.0 Estimated GFR > 60 Random Glucose 102 Estimat Average Glucose Hemoglobin A1c % Lactic Acid 0.9 Lactic Acid F/U @ 2Hr Calcium 8.1 L D Total Bilirubin 1.1 H Direct Bilirubin GGT 12 AST 199 H ALT 74 H Alkaline Phosphatase 31 L Ammonia Troponin I High Sens C-Reactive Protein B-Natriuretic Peptide Total Protein 5.9 L Albumin 2.9 L Triglycerides Cholesterol LDL Cholesterol, Calc HDL Cholesterol Lipase TSH 2.03 Free T4 0.64 L Urine Color Urine Appearance Urine pH Ur Specific [place] Urine Protein Urine Glucose (UA) Urine Ketones Urine Blood Urine Nitrite Ur Leukocyte Esterase Urine RBC Urine WBC Ur Squamous Epith Cells Urine Bacteria Hyaline Casts Urine Opiates Screen Ur Buprenorphine Scrn Ur Oxycodone Screen Urine Methadone Screen Urine Fentanyl Screen Ur Barbiturates Screen Ur Phencyclidine Scrn Ur Amphetamines Screen U Benzodiazepines Scrn Urine Cocaine Screen U Marijuana (THC) Screen Ethyl Alcohol Respiratory Panel [place] See Note T.pallidum Ab (EIA) Adenovirus (Rapid PCR) Not Detected B.pert (TEM-PCR) Not Detected B.parapertussis DNA PCR Not Detected C. pneumoniae DNA (PCR) Not Detected Coronavirus OC43 (PCR) Not Detected Coronavirus HKU1 (PCR) Not Detected Coronavirus 229E (PCR) Not Detected Coronavirus NL63 (PCR) Not Detected Hepatitis A IgM Ab Hep Bs Antigen Hep Bs Antibody Hep B Core Total Ab Hepatitis C Ab (EIA) Human Metapneumovir PCR Not Detected Influenza A (RT-PCR) Not Detected Influenza Type A (PCR) Influenza B (RT-PCR) Not Detected Influenza Type B (PCR) M. pneumoniae (PCR) Not Detected Parainfluenza 1 (PCR) Not Detected Parainfluenza 2 (PCR) Not Detected Parainfluenza 3 (PCR) Not Detected Parainfluenza 4 (PCR) Not Detected RSV (PCR) Not Detected RSV RNA Qual (PCR) Entero/Rhino (PCR) Not Detected SARS-CoV-2 RNA (RT-PCR) Not Detected 08/24/23 08/24/23 08/24/23 06:22 06:23 08:20 MCV 88.5 MCH 27.6 MCHC 31.2 RDW 14.5 Plt Count 142 L MPV 10.8 Immature Gran % (Auto) Neut % (Auto) Lymph % (Auto) [place] % (Auto) Eos % (Auto) Baso % (Auto) Lymph # (Auto) [place] # (Auto) Eos # (Auto) Baso # (Auto) Abs Immat Gran (auto) Absolute Neuts (auto) Absolute Nucleated RBC 0.000 Nucleated RBC % (auto) 0.0 Neutrophils % (Manual) Band Neutrophils % Lymphocytes % (Manual) Monocytes % (Manual) Abs Neuts (Manual) Lymphocytes # (Manual) Monocytes # (Manual) Toxic Vacuolation Platelet Estimate Large Platelets Plt Morphology Comment RBC Morphology Smear Tech's Comments ESR PT 27.2 H INR 2.2 H VBG pH VBG pCO2 VBG pO2 VBG HCO3 VBG O2 Saturation VBG Base Excess Anion Gap 9 L Estim Creat Clear Calc 131.2 Estimated GFR > 60 Random Glucose 87 Estimat Average Glucose Hemoglobin A1c % Lactic Acid Lactic Acid F/U @ 2Hr Calcium 8.1 L Total Bilirubin 0.8 Direct Bilirubin 0.4 GGT AST 154 H ALT 67 H Alkaline Phosphatase 34 L Ammonia Troponin I High Sens 51.8 H* C-Reactive Protein B-Natriuretic Peptide Total Protein 5.8 L Albumin 2.7 L Triglycerides Cholesterol LDL Cholesterol, Calc HDL Cholesterol Lipase TSH Free T4 Urine Color Urine Appearance Urine pH Ur Specific [place] Urine Protein Urine Glucose (UA) Urine Ketones Urine Blood Urine Nitrite Ur Leukocyte Esterase Urine RBC Urine WBC Ur Squamous Epith Cells Urine Bacteria Hyaline Casts Urine Opiates Screen Ur Buprenorphine Scrn Ur Oxycodone Screen Urine Methadone Screen Urine Fentanyl Screen Ur Barbiturates Screen Ur Phencyclidine Scrn Ur Amphetamines Screen U Benzodiazepines Scrn Urine Cocaine Screen U Marijuana (THC) Screen Ethyl Alcohol Respiratory Panel [place] T.pallidum Ab (EIA) Nonreactive Adenovirus (Rapid PCR) B.pert (TEM-PCR) B.parapertussis DNA PCR C. pneumoniae DNA (PCR) Coronavirus OC43 (PCR) Coronavirus HKU1 (PCR) Coronavirus 229E (PCR) Coronavirus NL63 (PCR) Hepatitis A IgM Ab Nonreactive Hep Bs Antigen Negative Hep Bs Antibody NONREACTIVE Hep B Core Total Ab Nonreactive Hepatitis C Ab (EIA) Nonreactive Human Metapneumovir PCR Influenza A (RT-PCR) Influenza Type A (PCR) Influenza B (RT-PCR) Influenza Type B (PCR) M. pneumoniae (PCR) Parainfluenza 1 (PCR) Parainfluenza 2 (PCR) Parainfluenza 3 (PCR) Parainfluenza 4 (PCR) RSV (PCR) RSV RNA Qual (PCR) Entero/Rhino (PCR) SARS-CoV-2 RNA (RT-PCR) Microbiology Microbiology Results: Microbiology 08/23/23 13:39 Blood Culture - Preliminary Blood - Venous Prelim: GPC Gram Stain only 08/23/23 13:34 Blood Culture - Preliminary Blood - Venous Prelim: GPC Gram Stain only Assessment and Plan (1) Sepsis: Status: Acute (2) Gram-positive cocci bacteremia: Status: Acute (3) Elevated troponin: Status: Acute (4) Cellulitis of left leg: Status: Acute Plan Pt is a 53-year-old female with a PMH significant for?IBS, GERD, osteoporosis, hypothyroidism, fibromyalgia, and peripheral neuropathy who presents to the ED for evaluation of altered mental status. Pt will be admitted to the hospital for treatment and further evaluation of acute metabolic encephalopathy in the setting of left lower leg cellulitis with sepsis. Sepsis 2/2 LLE cellulitis with nonhealing ulcer of left great toe complicated by GPC bacteremia No fever PEnding final cultures, to repeat 08/23 Continue IVF Continue vancomycin and Zosyn, started 08/23/2023 ID consult Follow cultures Acute Toxic/metabolic encephalopathy likely 2/2 bacteremia still altered mental status,with reported combativeness overnight CT of head negative for acute intracranial pathology Treat underlying infx tox screen positive for Buperonorphine Monitor mentation Elevated troponins 2/2 Type 2 NSTEMI Initial troponin 71.5 with repeat 123.8 then trended down Start Aspirin, statin Pending Echocardiogram Cardiology input appreciated, medical management Monitor on telemetry Elevated BNP BNP elevated at 482; CT of chest with small bilateral pleural effusions; chronic bilateral pitting edema No hx of CHF Lasix 20 mg IV daily for now echocardiogram Low-salt diet, daily weights Acute hypoxic respiratory failure in settong of Sepsis Current smoker of 1 pack daily, though no COPD or asthma diagnosis, not on home O2 negative respiratory panel Titrate supplemental O2>92, wean as tolerated Monitor respiratory status Hypothyroidism Continue levothyroxine GERD PPI Peripheral neuropathy Continue pregabalin Mood disorder Continue home meds Full Code DVT Prophylaxis: On therapeutic Lovenox Pt will require a hospitalization overnight for treatment of?acute metabolic encephalopathy and acute hypoxic respiratory failure in the setting of lower leg cellulitis with bacteremia.. Patient will require hospitalization for the administration of IV antibiotics, supplemental oxygen, as well as close monitoring of cardiac and respiratory status, as well as labs. Patient will also require specialist consultation Quality Stroke Does the patient have a stroke diagnosis?: No VTE Prior VTE?: No VTE Risk Level:: Medical - moderate - high VTE Device Contraindication: Treatment Not Indicated VTE Drug Contraindication: N/A - Med Ordered
[2023-08-24] MEDS: Metoprolol Tartrate 5 MG/5 ML VIAL 2.5 MG IVPUSH ×2 (13:56→19:33)
--- NOTE | 2023-08-24 14:56 | MHC.CM.PN ---
IMM 08/24/23 Patient lives with S.O.. She is independent with equipment. She uses a cane+ tub bench. Patient has a substance abuse history. She is receiving IV ABX. DP home with services vs STR via BLS.
--- NOTE | 2023-08-24 16:45 | W.PM.IDCN ---
History of Present Illness Data of Consult Service Date: 08/24/23 Requesting physician: Hung Carreon Primary Care Provider: Doug Santos MD HPI Reason for consult: sepsis Yesterday she was found at home walking around house naked and urinating and defecating. She johnson fever and tachycardia. Blood cultures gram positive cocci x 2, She has wound left great toe scraped two days ago at visit. Review of Systems Review of Systems: Yes Unobtainable due to mental status PMFSH Past Medical History Medical History Smoker Arthritis Asthma Low back pain Osteoporosis GERD (gastroesophageal reflux disease) Irritable bowel syndrome (IBS) Hypothyroidism Fibromyalgia Personal history of COVID-19 Family History Family history: reviewed and not pertinent Surgical History Surgical History History of Hx of colonoscopy History of esophagogastroduodenoscopy (EGD) Social History Social History Household Members: Significant Other Housing: Unknown / Unable to assess Are you a primary acute care nursing assistant to a significant other at home: No Do you presently have visiting nurse or other home services: No Patient Tobacco Use Status: Tobacco use Unknown Tobacco use type: Cigarette Cigarettes Per Day: 10 Use of substances other than those prescribed or required for medical reasons: Unknown Currently Displaying Signs/Symptoms of Drug Intoxication Withdrawal: No Advance Directives: No Advance Directives Information Provided: No Patient : No : No Poor oral hygiene: No service: No Meds Allergies Allergy/AdvReac Type Severity Reaction Status Date / Time No Known Allergies Allergy Verified 08/23/23 12:47 [No Known Allergies*] Active Medications: Current Medications Albuterol Sulfate (Albuterol Sulfate 90 Mcg 8 Gm Inhaler) 2 puff INHALE Q6H PRN PRN Reason: Shortness Of Breath Or Wheezing Aspirin (Aspirin Enteric Coated 81 Mg Tablet.Dr) 81 mg PO DAILY [facility] Last Admin: 08/24/23 10:06 Dose: Not Given Atorvastatin Calcium (Atorvastatin Calcium 40 Mg Tablet) 40 mg PO BEDTIME [facility] Benzonatate (Benzonatate 100 Mg Capsule) 100 mg PO TID PRN PRN Reason: Cough Docusate Sodium (Docusate Sodium 100 Mg Capsule) 100 mg PO DAILY PRN PRN Reason: Constipation Escitalopram Oxalate (Escitalopram Oxalate 10 Mg Tablet) 10 mg PO DAILY [facility] Last Admin: 08/24/23 10:06 Dose: Not Given Escitalopram Oxalate (Escitalopram Oxalate 20 Mg Tablet) 20 mg PO DAILY [facility] Last Admin: 08/24/23 10:06 Dose: Not Given Furosemide (Furosemide 20 Mg/2 Ml Vial) 20 mg IVPUSH DAILY [facility]; Protocol Last Admin: 08/24/23 10:06 Dose: Not Given Hydromorphone HCl (Hydromorphone Hcl 0.5 Mg/0.5 Ml Syringe) 0.5 mg IVPUSH Q4H PRN; Protocol PRN Reason: Pain, Severe (Pain Scale 7-10) Last Admin: 08/24/23 16:16 Dose: 0.5 mg Piperacillin Sod/Tazobactam (Sod 3.375 gm/ Sodium Chloride) 50 mls @ 100 mls/hr IV Q6H [facility] Last Infusion: 08/24/23 13:43 Dose: Infused Vancomycin HCl 1,000 mg/ (Sodium Chloride) 270 mls @ 270 mls/hr IV Q12H [facility] Last Infusion: 08/24/23 06:34 Dose: Infused Lactated Ringer's (Lr) 1,000 mls @ 125 mls/hr IVCONT .Q8H [facility] Last Admin: 08/24/23 13:56 Dose: 125 mls/hr Ceftriaxone Sodium 2 gm/ (Sodium Chloride) 50 mls @ 100 mls/hr IV Q12H [facility] Last Infusion: 08/24/23 12:24 Dose: Infused Ibuprofen (Ibuprofen 800 Mg Tablet) 800 mg PO TID PRN PRN Reason: Pain, Mild (Pain Scale 1-3) Levothyroxine Sodium (Levothyroxine Sodium 50 Mcg Tablet) 50 mcg PO DAILY@0600 [facility] Last Admin: 08/24/23 05:35 Dose: Not Given Melatonin (Melatonin 3 Mg Tablet) 6 mg PO BEDTIME PRN PRN Reason: Insomnia Metoprolol Tartrate (Metoprolol Tartrate 5 Mg/5 Ml Vial) 2.5 mg IVPUSH Q6H [facility]; Protocol Last Admin: 08/24/23 13:56 Dose: 2.5 mg Ondansetron HCl (Ondansetron Hcl 4 Mg/2 Ml Vial) 4 mg IVPUSH Q8H PRN PRN Reason: Nausea and Vomiting Pantoprazole Sodium (Pantoprazole Sodium 40 Mg/10 Ml Vial) 40 mg IVPUSH DAILY@0630 [facility] Last Admin: 08/24/23 05:50 Dose: Not Given Pharmacy Consult (Consult Rx Vancomycin Dosing) 1 each MISCELLANE DAILY PRN PRN Reason: Consult order Pregabalin (Pregabalin 200 Mg Capsule) 200 mg PO TID [facility] Last Admin: 08/24/23 13:08 Dose: Not Given Silver Sulfadiazine (Silver Sulfadiazine 1 % Cream 20 Gm Tube) 1 appl TOPICAL DAILY [facility] Last Admin: 08/24/23 10:08 Dose: Not Given Sodium Chloride (0.9 % Sodium Chloride Flush 3 Ml Syringe) 3 ml IVFLUSH QSHIFT [facility] Last Admin: 08/24/23 16:02 Dose: Not Given Home Medications ?Medication ?Instructions ?Recorded ?Confirmed ?Last Taken ?Type albuterol sulfate 90 mcg/actuation 2 puff inhalation Q6H PRN 08/06/21 08/23/23 08/12/21 History aerosol inhaler Shortness Of Breath Or Wheezing 2 puff ibuprofen 800 mg tablet 800 mg PO TID PRN Pain 08/06/21 08/23/23 Unknown History omeprazole 20 mg tablet,delayed 20 mg PO BEDTIME 08/06/21 08/23/23 08/21/23 History release pregabalin 200 mg capsule 200 mg PO TID 08/06/21 08/23/23 08/21/23 History alendronate 70 mg tablet 70 mg PO QWEEK 08/23/23 08/23/23 Unknown History escitalopram oxalate 10 mg tablet 10 mg PO DAILY 08/23/23 08/23/23 08/21/23 History escitalopram oxalate 20 mg tablet 20 mg PO DAILY 08/23/23 08/23/23 08/21/23 History levothyroxine 50 mcg tablet 50 mcg PO DAILY@0600 08/23/23 08/23/23 08/21/23 History silver sulfadiazine 1 % topical 1 appl topical DAILY 08/23/23 08/23/23 08/21/23 History cream Physical Exam Vital Signs: Vital Signs: Last Vital Signs Temp 98.3 F 08/24/23 15:10 Pulse 93 08/24/23 15:10 Resp 16 08/24/23 15:10 BP 152/67 H 08/24/23 15:10 Pulse Ox 98 08/24/23 15:10 O2 Del Method Nasal Cannula 08/24/23 15:10 O2 Flow Rate 4 08/24/23 15:10 BMI result Body Mass Index 29.3 Const: General: cooperative HEENT: Head: Yes normal to inspection Face and sinus: Yes normal facial exam Mouth: Normal oral and palatal mucosa present Teeth and gingiva: dentition normal Eyes: General: appearance normal, both eyes and all related structures Pupils: Equal, round and reactive pupils present Resp: Effort & Inspection: normal respiratory effort Cardio: Rate: regular rate Rhythm: regular rhythm GI: Palpation (GI): Soft to palpation and nontender : General: Yes no CVA tenderness Back/Spine/Pelvis: Back: no CVA tenderness Skin: General skin exam: no rashes or lesions noted Neuro: General: moves all extremities Cranial nerves: Yes Equal, round and reactive pupils present Extrem: Other: left great toe .5 cm plantar ulcer bilateral leg scabs,patient denies picking at them Psych: Other: confused Results Labs 08/24/23 06:22 08/24/23 06:22 Labs: Short CBC 08/23/23 08/24/23 Range/Units 22:07 06:22 WBC 11.1 H 11.2 H (4.8-10.8) X10*3/uL Hgb 10.3 L 10.6 L (12.0-16.0) g/dl Hct 31.9 L 34.0 L (37.0-47.0) % Plt Count 129 L 142 L (160-400) X10*3/uL BMP 08/23/23 08/24/23 22:07 06:22 Sodium 140 141 Potassium 2.8 L* 3.3 Chloride 106 106 Carbon Dioxide 27 29 BUN 14 14 Creatinine 0.51 0.47 L Calcium 8.1 L D 8.1 L Liver Function 08/23/23 08/24/23 Range/Units 22:07 06:22 Total Bilirubin 1.1 H 0.8 (0.0-1.0) mg/dL Direct Bilirubin 0.4 (0.0-0.5) mg/dL GGT 12 (7-33) U/L AST 199 H 154 H (5-31) U/L ALT 74 H 67 H (0-31) U/L Alkaline Phosphatase 31 L 34 L (39-117) U/L Albumin 2.9 L 2.7 L (3.5-5.0) g/dL Microbiology Microbiology Results: Microbiology 08/23/23 13:39 Blood - Venous Blood Culture - Preliminary Prelim: GPC Gram Stain only 08/23/23 13:34 Blood - Venous Blood Culture - Preliminary Prelim: GPC Gram Stain only Assessment and Plan (1) Sepsis: Status: Acute (2) Gram-positive cocci bacteremia: Status: Acute (3) Cellulitis of left leg: Status: Acute Plan Continue Vancomycin. Stop piperacillin/tazobactam. Check imaging CT or MRI left great toe. Echo if not done. Await blood cultures.
--- NOTE | 2023-08-24 16:51 | PM.EVENT ---
Event Note Date of Service: 08/24/23 Event Note: continue Ceftriaxone 2 g IV every 12 hours cover possible strep pneumonia meningitis and add steroids per protocol iif strep pneumonia. Consider CT chest with contrast and MRI brain tomorrow Time Spent With Patient Time: Total time managing care of this patient today ____ minutes.
[2023-08-24 18:22] LABS: INTERNATIONAL NORM RATIO 1.9 (0.9-1.1); Prothrombin Time 22.9 SEC (11.1-13.3); Vancomycin Random 5.7 mcg/mL (15-20)
--- NOTE | 2023-08-24 19:00 | HE.PHANOTE ---
Re: Vanco Patient's trough came back at 5.7 mg/L. Renal function has improved. Dose has changed to 1,000 mg Q8H, with a predicted AUC 496 mg/L, and predicted trough 14.8 md/L. Next trough to be drawn 08/24 at 1700.
[2023-08-25] VITALS (8 sets, daily range): BP systolic 140–161; BP diastolic 80–93; PULSE 71–91; RESP 16–22; TEMP 36.2–37.1; O2SAT 91–96
[2023-08-25] MEDS: Lactated Ringers 1,000 ML 125 ML IVCONT ×2 (00:28→11:18)
[2023-08-25] MEDS: 0.9 % Sodium Chloride Flush 3 ML SYRINGE IVFLUSH ×3 (00:28→14:39)
[2023-08-25] MEDS: Metoprolol Tartrate 5 MG/5 ML VIAL 2.5 MG IVPUSH ×4 (02:46→20:00)
[2023-08-25] MEDS: vancomycin HCL 1,000 MG in 0.9 % Sodium Chloride 250 ML 270 MG IV ×2 (02:46→11:19)
[2023-08-25] MEDS: Pantoprazole Sodium 40 MG/10 ML VIAL IVPUSH (06:22)
[2023-08-25 06:54] LABS: Hematocrit 31.8 % (37.0-47.0); Hemoglobin 9.9 g/dl (12.0-16.0); Mean Corpuscular HGB Conc 31.1 g/dl (31.0-35.0); Mean Corpuscular Hemoglobin 27.6 pg (27.0-33.0); Mean Corpuscular Volume 88.6 fL (80.0-98.0); Mean Platelet Volume 10.6 fL (9.4-12.3); Platelet Count 146 X10*3/uL (160-400); Red Blood Count 3.59 X10*6/uL (4.20-5.50); Red Cell Distribution Width 14.6 % (11.0-16.0); White Blood Count 12.6 X10*3/uL (4.8-10.8)
[2023-08-25 07:00] LABS: INTERNATIONAL NORM RATIO 1.6 (0.9-1.1); Prothrombin Time 19.1 SEC (11.1-13.3)
[2023-08-25 07:14] LABS: Alanine Aminotransferase 59 U/L (0-31); Albumin Level 2.6 g/dL (3.5-5.0); Alkaline Phosphatase 39 U/L (39-117); Anion Gap 12 (12-20); Aspartate Amino Transferase 86 U/L (5-31); Bilirubin Direct 0.2 mg/dL (0.0-0.5); Bilirubin Total 0.6 mg/dL (0.0-1.0); Blood Urea Nitrogen 15 mg/dL (9-16); C Reactive Protein 25.91 mg/dL (< or = 0.50); Calcium 8.4 mg/dL (8.4-10.2); Carbon Dioxide 26 mmol/L (22-29); Chloride 106 mmol/L (96-108); Creatinine Clr Calc Pharmacy 143.4; Estimated Glomerular Filt Rate > 60; Glucose Random 97 mg/dL (60-115); Potassium 3.1 mmol/L (3.3-5.1); Sodium 141 mmol/L (135-145); Total Protein 5.7 g/dL (6.5-8.0)
[2023-08-25 07:34] LABS: Erythrocyte Sedimentation Rate 82 MM/HR (0-20)
[2023-08-25] MEDS: Pregabalin 200 MG CAPSULE PO ×3 (07:37→22:26)
[2023-08-25] MEDS: Escitalopram Oxalate 20 MG TABLET PO (07:38)
[2023-08-25] MEDS: Escitalopram Oxalate 10 MG TABLET PO (07:38)
[2023-08-25] MEDS: Furosemide 20 MG/2 ML VIAL IVPUSH (07:45)
[2023-08-25] MEDS: Aspirin Enteric Coated 81 MG TABLET.DR PO (07:46)
[2023-08-25] MEDS: Potassium Chloride ER 20 MEQ TAB.ER.PRT PO (08:59)
[2023-08-25] MEDS: Silver Sulfadiazine 1 % Cream 20 GM TUBE 1 APPL TOPICAL (09:48)
[2023-08-25] MEDS: cefTRIAXone sodium 2 GM in 0.9 % Sodium Chloride 50 ML IV (11:22)
--- NOTE | 2023-08-25 11:36 | P.CDIM_ITS ---
PROVIDER RESPONSE TEXT: To clarify, the appropriate diagnosis supported by the clinical indicators: Hypokalemia: resolved QUERY TEXT: PHYSICIAN'S DOCUMENTATION REQUEST Date of Query: 08/25/2023 06:47 AM EDT Patient Name: Antoinette Jeter Admit Date: 08/23/2023 Dear Hung Carreon, A review of the medical record indicates additional documentation may be needed. Please review below and update the documentation accordingly. Clinical Indicators: LAB FINDINGS: 08/22 - potassium 2.8 L Fluids Based on the above, is there a diagnosis that correlates with the above lab findings: Hypokalemia resolved, possible, suspected Labs indicate a diagnosis of (please specify) Other (explain) Clinically unable to determine (explain) Thank you, Genny Hudson, CCS, CDIS Use of terms such as suspected, likely, concern for, or probable (associated with a specific diagnosi s that is being evaluated, monitored, or treated as if it exists) are acceptable and can be coded in the inpatient se tting, when documented at the time of discharge. Please use your independent medical judgment in providing your response. THIS QUERY IS PART OF THE PERMANENT MEDICAL RECORD
[2023-08-25] MEDS: Nicotine 7 MG PATCH.TD24 TRANSDERMA (12:04)
[2023-08-25] MEDS: HYDROmorphone HCl 0.5 MG/0.5 ML SYRINGE IVPUSH ×3 (13:17→22:40)
--- NOTE | 2023-08-25 13:33 | P.PNIM_ITS ---
Subjective Subjective Date of Service: 08/25/23 Interval History: Seen and evaluated this morning more alert and interactive but falls back to sleep reported on overnight with agitation No fever since >24 hours Review of Systems Review of Systems: Yes all other systems are reviewed and are negative Physical Exam 2 Vital Signs: Vital Signs: Last Vital Signs Temp 98.4 F 08/25/23 11:07 Pulse 77 08/25/23 11:07 Resp 20 08/25/23 11:07 BP 152/81 H 08/25/23 11:07 Pulse Ox 94 08/25/23 11:07 O2 Del Method Nasal Cannula 08/25/23 11:07 O2 Flow Rate 2 08/25/23 11:07 BMI result Body Mass Index 29.3 Const: Other: Constitutional : altered, not in distress Neck : Normal inspection, Supple Cardiovascular : RRR, no JVP, no lower extremity edema Respiratory : good bilateral air entry, no crackles, wheezes or rhonchi Gastrointestinal: soft, lax, Normal bowel sounds, Non tender Skin : Warm, Dry, LLE cellultis with multiple scratch like wounds bilateral lower extremities , tip of toe ulcer with no drainage. Neurological : alert with stimulation, oriented to self and place, moves all extremities Objective Data Active Medications Albuterol Sulfate (Albuterol Sulfate 90 Mcg 8 Gm Inhaler) 2 puff INHALE Q6H PRN PRN Reason: Shortness Of Breath Or Wheezing Aspirin (Aspirin Enteric Coated 81 Mg Tablet.) 81 mg PO DAILY [facility] [place] Last Admin: 08/25/23 07:46 Dose: 81 mg Documented By: LISA Atorvastatin Calcium (Atorvastatin Calcium 40 Mg Tablet) 40 mg PO BEDTIME [facility] [place] Last Admin: 08/24/23 22:58 Dose: Not Given Documented By: STEF Non-Admin Reason: Patient Condition Contraindication Benzonatate (Benzonatate 100 Mg Capsule) 100 mg PO TID PRN PRN Reason: Cough Docusate Sodium (Docusate Sodium 100 Mg Capsule) 100 mg PO DAILY PRN PRN Reason: Constipation Escitalopram Oxalate (Escitalopram Oxalate 10 Mg Tablet) 10 mg PO DAILY [facility] [place] Last Admin: 08/25/23 07:38 Dose: 10 mg Documented By: LISA Escitalopram Oxalate (Escitalopram Oxalate 20 Mg Tablet) 20 mg PO DAILY [facility] [place] Last Admin: 08/25/23 07:38 Dose: 20 mg Documented By: LISA Furosemide (Furosemide 20 Mg/2 Ml Vial) 20 mg IVPUSH DAILY [facility] [place]; Protocol Last Admin: 08/25/23 07:45 Dose: 20 mg Documented By: LISA Hydromorphone HCl (Hydromorphone Hcl 0.5 Mg/0.5 Ml Syringe) 0.5 mg IVPUSH Q4H PRN; Protocol PRN Reason: Pain, Severe (Pain Scale 7-10) Last Admin: 08/25/23 13:17 Dose: 0.5 mg Documented By: LISA Lactated Ringer's (Lr) 1,000 mls @ 125 mls/hr IVCONT .Q8H [facility] Last Admin: 08/25/23 11:18 Dose: 125 mls/hr Documented By: LISA Ceftriaxone Sodium 2 gm/ (Sodium Chloride) 50 mls @ 100 mls/hr IV Q12H [facility] [place] Last Infusion: 08/25/23 11:52 Dose: Infused Documented By: LISA Vancomycin HCl 1,000 mg/ (Sodium Chloride) 270 mls @ 270 mls/hr IV Q8H [facility] [place] Last Admin: 08/25/23 11:19 Dose: 270 mls/hr Documented By: LISA Ibuprofen (Ibuprofen 800 Mg Tablet) 800 mg PO TID PRN PRN Reason: Pain, Mild (Pain Scale 1-3) Levothyroxine Sodium (Levothyroxine Sodium 50 Mcg Tablet) 50 mcg PO DAILY@0600 [facility] [place] Last Admin: 08/25/23 06:27 Dose: Not Given Documented By: STEF Non-Admin Reason: Patient Condition Contraindication Melatonin (Melatonin 3 Mg Tablet) 6 mg PO BEDTIME PRN PRN Reason: Insomnia Metoprolol Tartrate (Metoprolol Tartrate 5 Mg/5 Ml Vial) 2.5 mg IVPUSH Q6H [facility] [place]; Protocol Last Admin: 08/25/23 13:16 Dose: 2.5 mg Documented By: LISA Nicotine (Nicotine 7 Mg Patch.Td24) 7 mg TRANSDERMA DAILY [facility] [place] Last Admin: 08/25/23 12:04 Dose: 7 mg Documented By: LISA Ondansetron HCl (Ondansetron Hcl 4 Mg/2 Ml Vial) 4 mg IVPUSH Q8H PRN PRN Reason: Nausea and Vomiting Pantoprazole Sodium (Pantoprazole Sodium 40 Mg/10 Ml Vial) 40 mg IVPUSH DAILY@0630 [facility] [place] Last Admin: 08/25/23 06:22 Dose: 40 mg Documented By: STEF Pharmacy Consult (Consult Rx Vancomycin Dosing) 1 each MISCELLANE DAILY PRN PRN Reason: Consult order Pregabalin (Pregabalin 200 Mg Capsule) 200 mg PO TID [facility] [place] Last Admin: 08/25/23 07:37 Dose: 200 mg Documented By: LISA Silver Sulfadiazine (Silver Sulfadiazine 1 % Cream 20 Gm Tube) 1 appl TOPICAL DAILY [facility] [place] Last Admin: 08/25/23 09:48 Dose: 1 appl Documented By: LISA Sodium Chloride (0.9 % Sodium Chloride Flush 3 Ml Syringe) 3 ml IVFLUSH QSHIFT [facility] [place] Last Admin: 08/25/23 07:46 Dose: 3 ml Documented By: LISA Labs 08/25/23 06:20 08/25/23 06:20 Labs: Laboratory Results - last 24 hr 08/24/23 08/25/23 17:54 06:20 MCV 88.6 MCH 27.6 MCHC 31.1 RDW 14.6 Plt Count 146 L MPV 10.6 Absolute Nucleated RBC 0.000 Nucleated RBC % (auto) 0.0 ESR 82 H PT 22.9 H 19.1 H INR 1.9 H 1.6 H Anion Gap 12 Estim Creat Clear Calc 143.4 Estimated GFR > 60 Random Glucose 97 Calcium 8.4 Total Bilirubin 0.6 Direct Bilirubin 0.2 AST 86 H ALT 59 H Alkaline Phosphatase 39 C-Reactive Protein 25.91 H Total Protein 5.7 L Albumin 2.6 L Random Vancomycin 5.7 L Microbiology Microbiology Results: Microbiology 08/23/23 13:39 Blood Culture - Final Blood - Venous Streptococcus pyogenes (Grp A) 08/23/23 13:34 Blood Culture - Preliminary Blood - Venous Streptococcus pyogenes (Grp A) 08/24/23 08:32 Blood Culture - Preliminary Blood - Venous No growth after 24 hours. 08/24/23 08:20 Blood Culture - Preliminary Blood - Venous No growth after 24 hours. Assessment and Plan (1) Sepsis: Status: Acute (2) Elevated troponin: Status: Acute (3) Gram-positive cocci bacteremia: Status: Acute Plan Pt is a 53-year-old female with a PMH significant for?IBS, GERD, osteoporosis, hypothyroidism, fibromyalgia, and peripheral neuropathy who presents to the ED for evaluation of altered mental status. Pt will be admitted to the hospital for treatment and further evaluation of acute metabolic encephalopathy in the setting of left lower leg cellulitis with sepsis. Sepsis 2/2 LLE cellulitis with nonhealing ulcer of left great toe complicated by Group A Strep bacteremia No fever >24 hrs final cultures growing Grp A Strep, to repeat 08/23 Continue IVF DC vancomycin and Zosyn, started 08/23/2023 Continue Ceftriaxone 2 gm daily Start Clindamycin 600mg Q6 ID consult appreciated Follow cultures Acute Toxic/metabolic encephalopathy likely 2/2 bacteremia mild improvement in altered mental status,with reported combativeness overnight CT of head negative for acute intracranial pathology Treat underlying infx tox screen positive for Buperonorphine but patient and denies any recent prescription Monitor mentation Elevated troponins 2/2 Type 2 NSTEMI trended down Aspirin, statin Echocardiogram not showing any WMA , normal EF Cardiology input appreciated, medical management Monitor on telemetry Elevated BNP CT of chest with small bilateral pleural effusions; chronic bilateral pitting edema No hx of CHF NORMAL Echo DC Lasix Low-salt diet, daily weights Acute hypoxic respiratory failure in settong of Sepsis Current smoker of 1 pack daily, though no COPD or asthma diagnosis, not on home O2 negative respiratory panel Titrate supplemental O2>92, wean as tolerated Monitor respiratory status Hypothyroidism Continue levothyroxine GERD PPI Peripheral neuropathy Continue pregabalin Mood disorder Continue home meds Full Code DVT Prophylaxis: On therapeutic Lovenox Pt will require a hospitalization overnight for treatment of?acute metabolic encephalopathy and acute hypoxic respiratory failure in the setting of lower leg cellulitis with bacteremia.. Patient will require hospitalization for the administration of IV antibiotics, supplemental oxygen, as well as close monitoring of cardiac and respiratory status, as well as labs. Patient will also require specialist consultation Quality Stroke Does the patient have a stroke diagnosis?: No VTE Prior VTE?: No VTE Risk Level:: Medical - moderate - high VTE Device Contraindication: Treatment Not Indicated VTE Drug Contraindication: N/A - Med Ordered
[2023-08-25] MEDS: Clindamycin Phosphate/D5W 600 MG/50 ML PIGGYBACK 100 MG IV ×2 (14:38→20:00)
[2023-08-25] MEDS: Atorvastatin Calcium 40 MG TABLET PO (22:26)
[2023-08-25] MEDS: Lactated Ringers 1,000 ML 80 ML IVCONT (22:40)
[2023-08-26] VITALS (7 sets, daily range): BP systolic 109–178; BP diastolic 57–87; PULSE 75–86; RESP 16–20; TEMP 36.5–37.3; O2SAT 93–99
[2023-08-26] MEDS: Clindamycin Phosphate/D5W 600 MG/50 ML PIGGYBACK 100 MG IV ×4 (02:08→20:25)
[2023-08-26] MEDS: Metoprolol Tartrate 5 MG/5 ML VIAL 2.5 MG IVPUSH ×4 (02:08→20:25)
[2023-08-26] MEDS: Pantoprazole Sodium 40 MG/10 ML VIAL IVPUSH (05:02)
[2023-08-26] MEDS: HYDROmorphone HCl 0.5 MG/0.5 ML SYRINGE IVPUSH ×3 (05:03→22:08)
[2023-08-26] MEDS: Levothyroxine Sodium 50 MCG TABLET PO (05:03)
[2023-08-26] MEDS: Potassium Chloride/H20 10 MEQ/100 ML PIGGYBACK 100 MEQ IV ×4 (06:33→11:16)
[2023-08-26] MEDS: Nicotine 7 MG PATCH.TD24 TRANSDERMA (07:51)
[2023-08-26] MEDS: Escitalopram Oxalate 20 MG TABLET PO (07:51)
[2023-08-26] MEDS: Pregabalin 200 MG CAPSULE PO ×3 (07:51→20:25)
[2023-08-26] MEDS: Aspirin Enteric Coated 81 MG TABLET.DR PO (07:52)
[2023-08-26] MEDS: Escitalopram Oxalate 10 MG TABLET PO (07:52)
[2023-08-26] MEDS: 0.9 % Sodium Chloride Flush 3 ML SYRINGE IVFLUSH ×4 (07:59→20:26)
[2023-08-26 08:02] LABS: Hematocrit 31.3 % (37.0-47.0); Mean Corpuscular HGB Conc 31.9 g/dl (31.0-35.0); Mean Corpuscular Hemoglobin 27.6 pg (27.0-33.0); Mean Corpuscular Volume 86.5 fL (80.0-98.0); Mean Platelet Volume 10.3 fL (9.4-12.3); Platelet Count 173 X10*3/uL (160-400); Red Blood Count 3.62 X10*6/uL (4.20-5.50); Red Cell Distribution Width 14.8 % (11.0-16.0); White Blood Count 13.4 X10*3/uL (4.8-10.8)
[2023-08-26 08:12] LABS: Anion Gap 10 (12-20); Blood Urea Nitrogen 8 mg/dL (9-16); Calcium 8.1 mg/dL (8.4-10.2); Carbon Dioxide 31 mmol/L (22-29); Chloride 101 mmol/L (96-108); Creatinine Clr Calc Pharmacy 146.9; Estimated Glomerular Filt Rate > 60; Glucose Random 110 mg/dL (60-115); Magnesium 1.5 mg/dL (1.6-2.6); Potassium 3.3 mmol/L (3.3-5.1); Sodium 139 mmol/L (135-145)
[2023-08-26] MEDS: Silver Sulfadiazine 1 % Cream 20 GM TUBE 1 APPL TOPICAL (09:29)
[2023-08-26] MEDS: cefTRIAXone sodium 2 GM in 0.9 % Sodium Chloride 50 ML IV (14:41)
--- NOTE | 2023-08-26 15:28 | P.CDIM_ITS ---
PROVIDER RESPONSE TEXT: To clarify, the appropriate diagnosis supported by the clinical indicators: Acute lactic acidosis: resolved QUERY TEXT: PHYSICIAN'S DOCUMENTATION REQUEST Date of Query: 08/26/2023 07:34 AM EDT Patient Name: Antoinette Jeter Admit Date: 08/23/2023 Dear Hung Carreon, A review of the medical record indicates additional documentation may be needed. Please review below and update the documentation accordingly. Clinical Indicators: LAB FINDINGS: Lactic acid 2.6 H 0.9 Fluids Based on the above, is there a diagnosis that correlates with these lab findings: Acute lactic acidosis resolved, possible, probable, suspected Labs indicate a diagnosis of (please specify) Other (explain) Clinically unable to determine (explain) Thank you, Genny Hudson, CCS, CDIS Use of terms such as suspected, likely, concern for, or probable (associated with a specific diagnosi s that is being evaluated, monitored, or treated as if it exists) are acceptable and can be coded in the inpatient se tting, when documented at the time of discharge. Please use your independent medical judgment in providing your response. THIS QUERY IS PART OF THE PERMANENT MEDICAL RECORD
--- NOTE | 2023-08-26 15:29 | P.PNIM_ITS ---
Subjective Subjective Date of Service: 08/26/23 Interval History: Seen and evaluated this morning more alert and interactive but still not back to baseline reported on overnight with restlessness repeated cultures remain negative No fever since >48 hours Review of Systems Review of Systems: Yes all other systems are reviewed and are negative Physical Exam 2 Vital Signs: Vital Signs: Last Vital Signs Temp 98.1 F 08/26/23 10:50 Pulse 76 08/26/23 10:50 Resp 20 08/26/23 10:50 BP 161/81 H 08/26/23 10:50 Pulse Ox 99 08/26/23 10:50 O2 Del Method Nasal Cannula 08/26/23 10:50 O2 Flow Rate 4 08/26/23 10:50 BMI result Body Mass Index 29.3 Const: Other: Constitutional : altered, not in distress Neck : Normal inspection, Supple Cardiovascular : RRR, no JVP, no lower extremity edema Respiratory : good bilateral air entry, no crackles, wheezes or rhonchi Gastrointestinal: soft, lax, Normal bowel sounds, Non tender Skin : Warm, Dry, LLE cellultis with multiple scratch like wounds bilateral lower extremities , tip of toe ulcer with no drainage. Neurological : alert with stimulation, oriented to self and place, moves all extremities Objective Data Active Medications Albuterol Sulfate (Albuterol Sulfate 90 Mcg 8 Gm Inhaler) 2 puff INHALE Q6H PRN PRN Reason: Shortness Of Breath Or Wheezing Aspirin (Aspirin Enteric Coated 81 Mg Tablet.) 81 mg PO DAILY [facility] Last Admin: 08/26/23 07:52 Dose: 81 mg Documented By: JOSE CRUZ Atorvastatin Calcium (Atorvastatin Calcium 40 Mg Tablet) 40 mg PO BEDTIME [facility] Last Admin: 08/25/23 22:26 Dose: 40 mg Documented By: STEF Benzonatate (Benzonatate 100 Mg Capsule) 100 mg PO TID PRN PRN Reason: Cough Docusate Sodium (Docusate Sodium 100 Mg Capsule) 100 mg PO DAILY PRN PRN Reason: Constipation Escitalopram Oxalate (Escitalopram Oxalate 10 Mg Tablet) 10 mg PO DAILY [facility] Last Admin: 08/26/23 07:52 Dose: 10 mg Documented By: JOSE CRUZ Escitalopram Oxalate (Escitalopram Oxalate 20 Mg Tablet) 20 mg PO DAILY [facility] Last Admin: 08/26/23 07:51 Dose: 20 mg Documented By: JOSE CRUZ Hydromorphone HCl (Hydromorphone Hcl 0.5 Mg/0.5 Ml Syringe) 0.5 mg IVPUSH Q4H PRN; Protocol PRN Reason: Pain, Severe (Pain Scale 7-10) Last Admin: 08/26/23 05:03 Dose: 0.5 mg Documented By: STEF Ceftriaxone Sodium 2 gm/ (Sodium Chloride) 50 mls @ 100 mls/hr IV Q24H [facility] Last Admin: 08/26/23 14:41 Dose: 100 mls/hr Documented By: JOSE CRUZ Clindamycin Phosphate (Cleocin) 600 mg in 50 mls @ 100 mls/hr IV Q6H [facility] Last Admin: 08/26/23 14:41 Dose: 100 mls/hr Documented By: JOSE CRUZ Ibuprofen (Ibuprofen 800 Mg Tablet) 800 mg PO TID PRN PRN Reason: Pain, Mild (Pain Scale 1-3) Levothyroxine Sodium (Levothyroxine Sodium 50 Mcg Tablet) 50 mcg PO DAILY@0600 [facility] Last Admin: 08/26/23 05:03 Dose: 50 mcg Documented By: STEF Melatonin (Melatonin 3 Mg Tablet) 6 mg PO BEDTIME PRN PRN Reason: Insomnia Metoprolol Tartrate (Metoprolol Tartrate 5 Mg/5 Ml Vial) 2.5 mg IVPUSH Q6H [facility]; Protocol Last Admin: 08/26/23 14:41 Dose: 2.5 mg Documented By: JOSE CRUZ Nicotine (Nicotine 7 Mg Patch.Td24) 7 mg TRANSDERMA DAILY [facility] Last Admin: 08/26/23 07:51 Dose: 7 mg Documented By: JOSE CRUZ Ondansetron HCl (Ondansetron Hcl 4 Mg/2 Ml Vial) 4 mg IVPUSH Q8H PRN PRN Reason: Nausea and Vomiting Pantoprazole Sodium (Pantoprazole Sodium 40 Mg/10 Ml Vial) 40 mg IVPUSH DAILY@0630 [facility] Last Admin: 08/26/23 05:02 Dose: 40 mg Documented By: STEF Pregabalin (Pregabalin 200 Mg Capsule) 200 mg PO TID [facility] Last Admin: 08/26/23 14:41 Dose: 200 mg Documented By: JOSE CRUZ Silver Sulfadiazine (Silver Sulfadiazine 1 % Cream 20 Gm Tube) 1 appl TOPICAL DAILY [facility] Last Admin: 08/26/23 09:29 Dose: 1 appl Documented By: JOSE CRUZ Sodium Chloride (0.9 % Sodium Chloride Flush 3 Ml Syringe) 3 ml IVFLUSH QSHIFT [facility] Last Admin: 08/26/23 14:42 Dose: 3 ml Documented By: JOSE CRUZ Labs 08/26/23 07:39 08/26/23 07:39 Labs: Laboratory Results - last 24 hr 08/26/23 07:39 MCV 86.5 MCH 27.6 MCHC 31.9 RDW 14.8 Plt Count 173 MPV 10.3 Absolute Nucleated RBC 0.000 Nucleated RBC % (auto) 0.0 Anion Gap 10 L Estim Creat Clear Calc 146.9 Estimated GFR > 60 Random Glucose 110 Calcium 8.1 L Magnesium 1.5 L Microbiology Microbiology Results: Microbiology 08/24/23 08:32 Blood Culture - Preliminary Blood - Venous No growth after 48 hours. 08/24/23 08:20 Blood Culture - Preliminary Blood - Venous No growth after 48 hours. 08/23/23 13:34 Blood Culture - Final Blood - Venous Streptococcus pyogenes (Grp A) 08/23/23 13:39 Blood Culture - Final Blood - Venous Streptococcus pyogenes (Grp A) Assessment and Plan (1) Sepsis: Status: Acute (2) Elevated troponin: Status: Acute (3) Gram-positive cocci bacteremia: Status: Acute (4) Cellulitis of left leg: Status: Acute Plan Pt is a 53-year-old female with a PMH significant for?IBS, GERD, osteoporosis, hypothyroidism, fibromyalgia, and peripheral neuropathy who presents to the ED for evaluation of altered mental status. Pt will be admitted to the hospital for treatment and further evaluation of acute metabolic encephalopathy in the setting of left lower leg cellulitis with sepsis. Sepsis 2/2 LLE cellulitis with nonhealing ulcer of left great toe complicated by Group A Strep bacteremia No fever >48 hrs final cultures growing Grp A Strep, the repeat pending 08/23 dc IVF DC vancomycin and Zosyn, started 08/23/2023 Continue Ceftriaxone 2 gm daily and Clindamycin 600mg Q6 (for 1 more day) ID consult appreciated Could not MRI of foot in 3 days, she is claustrophobic today. to do CT w Contrast Follow cultures to Place Mid\PICC after images for terminal superintendent Abx Acute Toxic/metabolic encephalopathy likely 2/[address] of head negative for acute intracranial pathology Treat underlying infx tox screen positive for Buperonorphine but patient and denies any recent prescription, False positive? Monitor mentation Elevated troponins 2/2 Type 2 NSTEMI trended down Echocardiogram not showing any WMA , normal EF Aspirin, statin per cardiology Cardiology input appreciated, medical management Monitor on telemetry Elevated BNP CT of chest with small bilateral pleural effusions; chronic bilateral pitting edema No hx of CHF normal Echo DC Lasix Low-salt diet, daily weights Acute hypoxic respiratory failure in settong of Sepsis Current smoker of 1 pack daily, though no COPD or asthma diagnosis, not on home O2 negative respiratory panel Titrate supplemental O2>92, wean as tolerated Monitor respiratory status Hypothyroidism Continue levothyroxine GERD PPI Peripheral neuropathy Continue pregabalin Mood disorder Continue home meds Full Code DVT Prophylaxis: On therapeutic Lovenox Pt will require a hospitalization overnight for treatment of?acute metabolic encephalopathy and acute hypoxic respiratory failure in the setting of lower leg cellulitis with bacteremia.. Patient will require hospitalization for the administration of IV antibiotics, supplemental oxygen, as well as close monitoring of cardiac and respiratory status, as well as labs. Patient will also require specialist consultation Quality Stroke Does the patient have a stroke diagnosis?: No VTE Prior VTE?: No VTE Risk Level:: Medical - moderate - high VTE Device Contraindication: Treatment Not Indicated VTE Drug Contraindication: N/A - Med Ordered
--- NOTE | 2023-08-26 15:40 | HO.WOUND ---
Wound Consult: Follow up 53yr old?F admitted to [facility] on 08/23/23 - See progress notes and H&P for detailed history.? Wound consult placed for Left Great Toe wound.? Last assessment 08/24/23. Patient agreeable to assessment and photo documentation.? Left Great Toe 08/24/23 Left Great Toe 08/26/23 Etiology: ?Neuropathic wound per chart review - seen by Dr Layton outpatient recently Wound Bed: dry red pink wound bed Drainage / Odor: None Edges: ? unattached Zina wound: ? Intact No Induration, Fluctuance or Warmth noted Of Note Left leg has scattered areas of dried scabbed cuts, intact dark purple nonblanchable tissue, swelling and warmth noted. Pain: painful and tender to touch Goals of Treatment: ? xeroform and gauze to allow for moist wound healing Recommendations: 1. Turn and Reposition every 2 hours and as needed for patient comfort.? Use pillows or wedges to support off loading positions. 2. Off Load all bony prominences with use of pillows and heel boots if needed.? Apply Preventative foams where needed. ? 3. Monitor for incontinence and moisture control, use barrier creams when needed for prevention and treatment. 4. Provide adequate and supplemental nutrition.? 5. When applicable maintain blood glucose levels per Providers order. 6. Left Great Toe - Cleanse with NS wash, pat dry. Lightly pack with [employer], cover with dry gauze and wrap. Change every other day. Recommend follow up out patient Wound Clinic at [address] [place] [id number] and to call for an appointment at time of discharge. [phone].? Re-consult wound care Nurse for wound deterioration or wound changes.
[2023-08-26] MEDS: Atorvastatin Calcium 40 MG TABLET PO (20:25)
[2023-08-26] MEDS: Melatonin 3 MG TABLET 6 MG PO (20:25)
[2023-08-26] MEDS: Docusate Sodium 100 MG CAPSULE PO (20:33)
[2023-08-27] MEDS: Clindamycin Phosphate/D5W 600 MG/50 ML PIGGYBACK 100 MG IV ×4 (02:32→19:47)
[2023-08-27] MEDS: Metoprolol Tartrate 5 MG/5 ML VIAL 2.5 MG IVPUSH ×2 (02:36→09:47)
[2023-08-27 02:42] VITALS: BP 166/71; PULSE 71; RESP 18; TEMP 36.4; O2SAT 97
[2023-08-27] MEDS: HYDROmorphone HCl 0.5 MG/0.5 ML SYRINGE IVPUSH ×3 (03:15→19:58)
[2023-08-27] MEDS: Levothyroxine Sodium 50 MCG TABLET PO (05:13)
[2023-08-27 08:00] VITALS: BP 190/94; PULSE 84; RESP 18; TEMP 36.2; O2SAT 92
[2023-08-27 08:45] LABS: Anion Gap 10 (12-20); Blood Urea Nitrogen 5 mg/dL (9-16); Carbon Dioxide 32 mmol/L (22-29); Chloride 101 mmol/L (96-108); Creatinine Clr Calc Pharmacy 150.5; Estimated Glomerular Filt Rate > 60; Glucose Random 110 mg/dL (60-115); Potassium 3.4 mmol/L (3.3-5.1); Sodium 140 mmol/L (135-145)
[2023-08-27] MEDS: Escitalopram Oxalate 10 MG TABLET PO (09:46)
[2023-08-27] MEDS: Escitalopram Oxalate 20 MG TABLET PO (09:46)
[2023-08-27] MEDS: Pregabalin 200 MG CAPSULE PO ×3 (09:47→19:47)
[2023-08-27] MEDS: Aspirin Enteric Coated 81 MG TABLET.DR PO (09:47)
[2023-08-27] MEDS: Nicotine 7 MG PATCH.TD24 TRANSDERMA ×2 (09:47→09:53)
[2023-08-27 09:50] VITALS: RESP 18
[2023-08-27] MEDS: 0.9 % Sodium Chloride Flush 3 ML SYRINGE IVFLUSH ×2 (09:54→19:47)
[2023-08-27] MEDS: Silver Sulfadiazine 1 % Cream 20 GM TUBE 1 APPL TOPICAL (10:32)
[2023-08-27 10:47] LABS: Hemoglobin 9.1 g/dl (12.0-16.0)
[2023-08-27 10:48] LABS: Hematocrit 26.9 % (37.0-47.0)
[2023-08-27 10:49] LABS: Mean Corpuscular HGB Conc 33.8 g/dl (31.0-35.0); Mean Corpuscular Hemoglobin 28.4 pg (27.0-33.0); Mean Corpuscular Volume 84.1 fL (80.0-98.0)
[2023-08-27 10:50] LABS: Platelet Count 224 X10*3/uL (160-400); Red Cell Distribution Width 14.6 % (11.0-16.0)
[2023-08-27 10:51] LABS: Mean Platelet Volume 11.8 fL (9.4-12.3)
[2023-08-27 11:40] VITALS: BP 160/90; PULSE 76; RESP 18; TEMP 36; O2SAT 96
--- NOTE | 2023-08-27 12:28 | HO.PM.IMPN ---
Subjective Subjective Date of Service: 08/27/23 Interval History: c/o L hand/wrist pain/swelling; thinks she may have fallen on it at home LLE painful no fever Review of Systems Review of Systems: Yes all other systems are reviewed and are negative Physical Exam Vital Signs: Vital Signs: Last Vital Signs Temp 96.8 F 08/27/23 11:40 Pulse 76 08/27/23 11:40 Resp 18 08/27/23 11:40 BP 160/90 H 08/27/23 11:40 Pulse Ox 96 08/27/23 11:40 O2 Del Method Nasal Cannula 08/27/23 11:40 O2 Flow Rate 4 08/27/23 11:40 BMI result Body Mass Index 29.3 Gen: in no acute distress HEENT: sclera anicteric, moist mucus membranes Neck: supple Lungs: clear to auscultation bilaterally Heart: regular rate and rhythm, no murmurs Abd: soft, non-tender, non-distended Ext: LLE with residual erythema, ulcer on great toe, L wrist + hand swollen/tender Skin: warm/well-perfused Neuro: alert and oriented x3, no focal findings Psych: appropriate affect Objective Data Active Medications Albuterol Sulfate (Albuterol Sulfate 90 Mcg 8 Gm Inhaler) 2 puff INHALE Q6H PRN PRN Reason: Shortness Of Breath Or Wheezing Aspirin (Aspirin Enteric Coated 81 Mg Tablet.) 81 mg PO DAILY [facility] Last Admin: 08/27/23 09:47 Dose: 81 mg Documented By: MARLIN Atorvastatin Calcium (Atorvastatin Calcium 40 Mg Tablet) 40 mg PO BEDTIME [facility] Last Admin: 08/26/23 20:25 Dose: 40 mg Documented By: CHI Benzonatate (Benzonatate 100 Mg Capsule) 100 mg PO TID PRN PRN Reason: Cough Docusate Sodium (Docusate Sodium 100 Mg Capsule) 100 mg PO DAILY PRN PRN Reason: Constipation Last Admin: 08/26/23 20:33 Dose: 100 mg Documented By: CHI Escitalopram Oxalate (Escitalopram Oxalate 10 Mg Tablet) 10 mg PO DAILY [facility] Last Admin: 08/27/23 09:46 Dose: 10 mg Documented By: MARLIN Escitalopram Oxalate (Escitalopram Oxalate 20 Mg Tablet) 20 mg PO DAILY [facility] Last Admin: 08/27/23 09:46 Dose: 20 mg Documented By: MARLIN Hydromorphone HCl (Hydromorphone Hcl 0.5 Mg/0.5 Ml Syringe) 0.5 mg IVPUSH Q4H PRN; Protocol PRN Reason: Pain, Severe (Pain Scale 7-10) Last Admin: 08/27/23 09:50 Dose: 0.5 mg Documented By: MARLIN Ceftriaxone Sodium 2 gm/ (Sodium Chloride) 50 mls @ 100 mls/hr IV Q24H [facility] Last Infusion: 08/26/23 15:39 Dose: Infused Documented By: JOSE CRUZ Clindamycin Phosphate (Cleocin) 600 mg in 50 mls @ 100 mls/hr IV Q6H [facility] Last Admin: 08/27/23 10:31 Dose: 100 mls/hr Documented By: MARLIN Ibuprofen (Ibuprofen 800 Mg Tablet) 800 mg PO TID PRN PRN Reason: Pain, Mild (Pain Scale 1-3) Levothyroxine Sodium (Levothyroxine Sodium 50 Mcg Tablet) 50 mcg PO DAILY@0600 [facility] Last Admin: 08/27/23 05:13 Dose: 50 mcg Documented By: CHI Melatonin (Melatonin 3 Mg Tablet) 6 mg PO BEDTIME PRN PRN Reason: Insomnia Last Admin: 08/26/23 20:25 Dose: 6 mg Documented By: CHI Metoprolol Tartrate (Metoprolol Tartrate 5 Mg/5 Ml Vial) 2.5 mg IVPUSH Q6H [facility]; Protocol Last Admin: 08/27/23 09:47 Dose: 2.5 mg Documented By: MARLIN Nicotine (Nicotine 7 Mg Patch.Td24) 7 mg TRANSDERMA DAILY [facility] Last Admin: 08/27/23 09:53 Dose: 7 mg Documented By: MARLIN Ondansetron HCl (Ondansetron Hcl 4 Mg/2 Ml Vial) 4 mg IVPUSH Q8H PRN PRN Reason: Nausea and Vomiting Pregabalin (Pregabalin 200 Mg Capsule) 200 mg PO TID [facility] Last Admin: 08/27/23 09:47 Dose: 200 mg Documented By: MARLIN Silver Sulfadiazine (Silver Sulfadiazine 1 % Cream 20 Gm Tube) 1 appl TOPICAL DAILY [facility] Last Admin: 08/27/23 10:32 Dose: 1 appl Documented By: MARLIN Sodium Chloride (0.9 % Sodium Chloride Flush 3 Ml Syringe) 3 ml IVFLUSH QSHIFT [facility] Last Admin: 08/27/23 09:54 Dose: 3 ml Documented By: MARLIN Labs 08/27/23 08:01 08/27/23 08:01 Labs: Laboratory Results - last 24 hr 08/27/23 08:01 MCV 84.1 MCH 28.4 MCHC 33.8 RDW 14.6 Plt Count 224 D MPV 11.8 Absolute Nucleated RBC 0.000 Nucleated RBC % (auto) 0.0 Anion Gap 10 L Estim Creat Clear Calc 150.5 Estimated GFR > 60 Random Glucose 110 Calcium 8.0 L Microbiology Microbiology Results: Microbiology 08/24/23 08:32 Blood Culture - Preliminary Blood - Venous Prelim: GPC Gram Stain only 08/24/23 08:20 Blood Culture - Preliminary Blood - Venous No growth after 48 hours. Assessment and Plan (1) Sepsis: Status: Acute (2) Elevated troponin: Status: Acute (3) Gram-positive cocci bacteremia: Status: Acute (4) Cellulitis of left leg: Status: Acute Plan d5 53yo F with IBS, FM, IBS, GERD, osteoporosis, hypothyroidism, neuropathy presenting with AMS, admitted for sepsis from LLE cellulitis sepsis due to LLE cellulitis with neuropathic ulcer of L great toe and GAS bacteremia - 1 of 2 BCx from 08/23 with GPCs, repeat BCx tomorrow - vanc + pip-manjinder 08/22-08/26, ceftriaxone 08/23-, clindamycin 08/24-, ID following and to determine length of therapy after imaging studies and clearance of bacteremia - Did not tolerate MRI, will get CT with contrast of LLE L hand/wrist swelling - plain films and also US to f/o DVT AHRF due to sepsis - wean O2 as tolerated. smokes 1 ppd but no COPD/asthma diagnosis. acute encephalopathy due to infection - resolved. tox screen + for buprenorphine but pt denies any usage- false positive? demand ischemia - TTE normal; Cardiology consulted; ASA + statin, no further workup hypothyroidism - continue LT4 GERD - PPI neuropathy - pregabalin mood disorder - escitalopram tobacco abuse - NRT VTE ppx: LMWH dispo: PT eval pending In my clinical judgment, the patient requires continued inpatient hospitalization for the following reasons: IV ABX, bacteremia, infection workup with additional imaging studies pending Total time managing care of this patient today: 45 minutes. Quality Stroke Does the patient have a stroke diagnosis?: No VTE Prior VTE?: No VTE Risk Level:: Medical - moderate - high VTE Device Contraindication: Treatment Not Indicated VTE Drug Contraindication: N/A - Med Ordered
[2023-08-27 12:59] LABS: Magnesium 1.6 mg/dL (1.6-2.6)
[2023-08-27] MEDS: cefTRIAXone sodium 2 GM in 0.9 % Sodium Chloride 50 ML IV (15:08)
[2023-08-27] MEDS: Enoxaparin Sodium 40 MG/0.4 ML SYRINGE SUBCUT (15:09)
[2023-08-27 15:45] VITALS: BP 159/84; PULSE 74; RESP 20; TEMP 36.7; O2SAT 95
[2023-08-27 19:12] LABS: HIV RNA PCR Qn Copies Not Detected Copies/mL; HIV RNA PCR Qn Log Copies Not Detected Log cps/mL
[2023-08-27 19:39] VITALS: BP 169/72; PULSE 71; RESP 16; TEMP 36.2; O2SAT 95
[2023-08-27] MEDS: Atorvastatin Calcium 40 MG TABLET PO (19:47)
[2023-08-27] MEDS: Melatonin 3 MG TABLET 6 MG PO (19:47)
[2023-08-27] MEDS: Docusate Sodium 100 MG CAPSULE PO (19:49)
[2023-08-28] VITALS (7 sets, daily range): BP systolic 123–164; BP diastolic 71–100; PULSE 72–82; RESP 16–20; TEMP 36.1–36.7; O2SAT 94–98
[2023-08-28] MEDS: Clindamycin Phosphate/D5W 600 MG/50 ML PIGGYBACK 100 MG IV ×2 (01:58→08:58)
[2023-08-28] MEDS: 0.9 % Sodium Chloride Flush 3 ML SYRINGE IVFLUSH ×4 (01:58→20:11)
[2023-08-28] MEDS: Levothyroxine Sodium 50 MCG TABLET PO (05:29)
[2023-08-28] MEDS: HYDROmorphone HCl 0.5 MG/0.5 ML SYRINGE IVPUSH ×4 (05:29→20:10)
[2023-08-28 07:21] LABS: Hematocrit 34.1 % (37.0-47.0); Hemoglobin 10.6 g/dl (12.0-16.0); Mean Corpuscular HGB Conc 31.1 g/dl (31.0-35.0); Mean Corpuscular Hemoglobin 27.2 pg (27.0-33.0); Mean Corpuscular Volume 87.4 fL (80.0-98.0); Mean Platelet Volume 10.2 fL (9.4-12.3); Platelet Count 284 X10*3/uL (160-400); Red Cell Distribution Width 14.9 % (11.0-16.0); White Blood Count 9.3 X10*3/uL (4.8-10.8)
[2023-08-28] MEDS: Nicotine 7 MG PATCH.TD24 TRANSDERMA (08:54)
[2023-08-28] MEDS: Aspirin Enteric Coated 81 MG TABLET.DR PO (08:55)
[2023-08-28] MEDS: Escitalopram Oxalate 20 MG TABLET PO (08:55)
[2023-08-28] MEDS: Pregabalin 200 MG CAPSULE PO ×3 (08:55→20:10)
[2023-08-28] MEDS: Escitalopram Oxalate 10 MG TABLET PO (08:55)
[2023-08-28] MEDS: HYDROmorphone HCl 1 MG/ML SYRINGE IVPUSH (10:22)
--- NOTE | 2023-08-28 10:56 | MHC.CM.PN ---
PER MD ROUNDS, PLAN IS FOR CT OF LEGS LIKELY WILL NEED STR UPON DC
--- NOTE | 2023-08-28 14:34 | HO.PM.IMPN ---
Subjective Subjective Date of Service: 08/28/23 Interval History: C/o L foot pain No fever Review of Systems Review of Systems: Yes all other systems are reviewed and are negative Physical Exam Vital Signs: Vital Signs: Last Vital Signs Temp 97.4 F 08/28/23 11:31 Pulse 78 08/28/23 11:31 Resp 20 08/28/23 11:31 BP 132/76 08/28/23 11:31 Pulse Ox 95 08/28/23 11:31 O2 Del Method Room Air 08/28/23 11:31 O2 Flow Rate 3 08/28/23 11:31 BMI result Body Mass Index 29.3 Gen: in no acute distress HEENT: sclera anicteric, moist mucus membranes Neck: supple Lungs: clear to auscultation bilaterally Heart: regular rate and rhythm, no murmurs Abd: soft, non-tender, non-distended Ext: L foot with residual erythema, ulcer on great toe, L wrist + hand swollen/tender Skin: warm/well-perfused Neuro: alert and oriented x3, no focal findings Psych: appropriate affect Objective Data Active Medications Albuterol Sulfate (Albuterol Sulfate 90 Mcg 8 Gm Inhaler) 2 puff INHALE Q6H PRN PRN Reason: Shortness Of Breath Or Wheezing Aspirin (Aspirin Enteric Coated 81 Mg Tablet.Dr) 81 mg PO DAILY [facility] Last Admin: 08/28/23 08:55 Dose: 81 mg Documented By: MARCELO Atorvastatin Calcium (Atorvastatin Calcium 40 Mg Tablet) 40 mg PO BEDTIME [facility] Last Admin: 08/27/23 19:47 Dose: 40 mg Documented By: CHI Benzonatate (Benzonatate 100 Mg Capsule) 100 mg PO TID PRN PRN Reason: Cough Clindamycin HCl (Clindamycin Hcl 300 Mg Capsule) 300 mg PO Q6H [facility] Docusate Sodium (Docusate Sodium 100 Mg Capsule) 100 mg PO DAILY PRN PRN Reason: Constipation Last Admin: 08/27/23 19:49 Dose: 100 mg Documented By: CHI Enoxaparin Sodium (Enoxaparin Sodium 40 Mg/0.4 Ml Syringe) 40 mg SUBCUT Q24H [facility] Last Admin: 08/27/23 15:09 Dose: 40 mg Documented By: MARLIN Escitalopram Oxalate (Escitalopram Oxalate 10 Mg Tablet) 10 mg PO DAILY [facility] Last Admin: 08/28/23 08:55 Dose: 10 mg Documented By: MARCELO Escitalopram Oxalate (Escitalopram Oxalate 20 Mg Tablet) 20 mg PO DAILY [facility] Last Admin: 08/28/23 08:55 Dose: 20 mg Documented By: MARCELO Hydromorphone HCl (Hydromorphone Hcl 0.5 Mg/0.5 Ml Syringe) 0.5 mg IVPUSH Q4H PRN; Protocol PRN Reason: Pain, Severe (Pain Scale 7-10) Last Admin: 08/28/23 09:38 Dose: 0.5 mg Documented By: MARCELO Ceftriaxone Sodium 2 gm/ (Sodium Chloride) 50 mls @ 100 mls/hr IV Q24H [facility] Last Infusion: 08/27/23 16:10 Dose: Infused Documented By: MARLIN Ibuprofen (Ibuprofen 800 Mg Tablet) 800 mg PO TID PRN PRN Reason: Pain, Mild (Pain Scale 1-3) Levothyroxine Sodium (Levothyroxine Sodium 50 Mcg Tablet) 50 mcg PO DAILY@0600 [facility] Last Admin: 08/28/23 05:29 Dose: 50 mcg Documented By: CHI Melatonin (Melatonin 3 Mg Tablet) 6 mg PO BEDTIME PRN PRN Reason: Insomnia Last Admin: 08/27/23 19:47 Dose: 6 mg Documented By: CHI Nicotine (Nicotine 7 Mg Patch.Td24) 7 mg TRANSDERMA DAILY [facility] Last Admin: 08/28/23 08:54 Dose: 7 mg Documented By: MARCELO Ondansetron HCl (Ondansetron Hcl 4 Mg/2 Ml Vial) 4 mg IVPUSH Q8H PRN PRN Reason: Nausea and Vomiting Pregabalin (Pregabalin 200 Mg Capsule) 200 mg PO TID [facility] Last Admin: 08/28/23 08:55 Dose: 200 mg Documented By: MARCELO Silver Sulfadiazine (Silver Sulfadiazine 1 % Cream 20 Gm Tube) 1 appl TOPICAL DAILY [facility] Last Admin: 08/28/23 12:59 Dose: Not Given Documented By: MARCELO Non-Admin Reason: waiting on pharmacy Sodium Chloride (0.9 % Sodium Chloride Flush 3 Ml Syringe) [facility] Last Admin: 08/28/23 09:04 Dose: 3 ml Documented By: MARCELO Labs 08/28/23 06:50 08/27/23 08:01 Labs: Laboratory Results - last 24 hr 08/24/23 08/28/23 06:22 06:50 MCV 87.4 MCH 27.2 MCHC 31.1 RDW 14.9 Plt Count 284 D MPV 10.2 Absolute Nucleated RBC 0.000 Nucleated RBC % (auto) 0.0 HIV-1 RNA copies/mL Not Detected HIV-1 RNA logcopies/mL Not Detected HIV Genotype TNP Microbiology Microbiology Results: Microbiology 08/24/23 08:32 Blood Culture - Final Blood - Venous Coag negative Staphylococcus Assessment and Plan (1) Sepsis: Status: Acute (2) Elevated troponin: Status: Acute (3) Gram-positive cocci bacteremia: Status: Acute (4) Cellulitis of left leg: Status: Acute Plan d6 53yo F with IBS, FM, IBS, GERD, osteoporosis, hypothyroidism, neuropathy presenting with AMS, admitted for sepsis from LLE cellulitis sepsis due to LLE cellulitis with neuropathic ulcer of L great toe and GAS bacteremia - BCx cleared as of 08/23 [1 Cx with coag-neg staph] - vanc + pip-manjinder 08/22-08/26, ceftriaxone 08/23-, clindamycin 08/24-, ID following and to determine length of therapy after imaging studies - Did not tolerate MRI, will get CT with contrast of LLE. Rescheduled for tomorrow as pt needed a new IV. L basilic vein superficial thrombosis - ice packs AHRF due to sepsis - wean O2 as tolerated. smokes 1 ppd but no COPD/asthma diagnosis. acute encephalopathy due to infection - resolved. tox screen + for buprenorphine but pt denies any usage- false positive? demand ischemia - TTE normal; Cardiology consulted; ASA + statin, no further workup hypothyroidism - continue LT4 GERD - PPI neuropathy - pregabalin mood disorder - escitalopram tobacco abuse - NRT VTE ppx: LMWH dispo: PT eval pending In my clinical judgment, the patient requires continued inpatient hospitalization for the following reasons: IV ABX, bacteremia, infection workup with additional imaging studies pending Total time managing care of this patient today: 35 minutes. Quality Stroke Does the patient have a stroke diagnosis?: No VTE Prior VTE?: No VTE Risk Level:: Medical - moderate - high VTE Device Contraindication: Treatment Not Indicated VTE Drug Contraindication: N/A - Med Ordered
[2023-08-28] MEDS: cefTRIAXone sodium 2 GM in 0.9 % Sodium Chloride 50 ML IV (15:01)
[2023-08-28] MEDS: Enoxaparin Sodium 40 MG/0.4 ML SYRINGE SUBCUT (15:04)
[2023-08-28] MEDS: Clindamycin HCL 300 MG CAPSULE PO ×2 (16:08→20:10)
[2023-08-28] MEDS: Atorvastatin Calcium 40 MG TABLET PO (20:10)
[2023-08-28] MEDS: Melatonin 3 MG TABLET 6 MG PO (20:10)
[2023-08-29] VITALS (7 sets, daily range): BP systolic 142–156; BP diastolic 73–86; PULSE 72–85; RESP 16–20; TEMP 36.1–37.2; O2SAT 95–96
[2023-08-29] MEDS: HYDROmorphone HCl 0.5 MG/0.5 ML SYRINGE IVPUSH ×3 (00:31→20:07)
[2023-08-29] MEDS: Clindamycin HCL 300 MG CAPSULE PO ×4 (02:58→20:07)
[2023-08-29 07:15] LABS: Hematocrit 33.2 % (37.0-47.0); Hemoglobin 10.2 g/dl (12.0-16.0); Mean Corpuscular HGB Conc 30.7 g/dl (31.0-35.0); Mean Corpuscular Hemoglobin 26.9 pg (27.0-33.0); Mean Corpuscular Volume 87.6 fL (80.0-98.0); Mean Platelet Volume 9.9 fL (9.4-12.3); Platelet Count 352 X10*3/uL (160-400); Red Blood Count 3.79 X10*6/uL (4.20-5.50); Red Cell Distribution Width 15.3 % (11.0-16.0); White Blood Count 8.3 X10*3/uL (4.8-10.8)
[2023-08-29 07:41] LABS: Anion Gap 12 (12-20); Blood Urea Nitrogen 6 mg/dL (9-16); Carbon Dioxide 34 mmol/L (22-29); Chloride 98 mmol/L (96-108); Creatinine Clr Calc Pharmacy 131.2; Estimated Glomerular Filt Rate > 60; Glucose Random 105 mg/dL (60-115); Potassium 3.1 mmol/L (3.3-5.1); Sodium 141 mmol/L (135-145)
[2023-08-29 08:24] LABS: Magnesium 1.7 mg/dL (1.6-2.6)
[2023-08-29] MEDS: Nicotine 7 MG PATCH.TD24 TRANSDERMA (09:21)
[2023-08-29] MEDS: Potassium Chloride ER 20 MEQ TAB.ER.PRT 40 MEQ PO (09:22)
[2023-08-29] MEDS: Escitalopram Oxalate 10 MG TABLET PO (09:23)
[2023-08-29] MEDS: Aspirin Enteric Coated 81 MG TABLET.DR PO (09:23)
[2023-08-29] MEDS: Escitalopram Oxalate 20 MG TABLET PO (09:23)
[2023-08-29] MEDS: Pregabalin 200 MG CAPSULE PO ×3 (09:23→20:07)
[2023-08-29] MEDS: 0.9 % Sodium Chloride Flush 3 ML SYRINGE IVFLUSH ×3 (09:26→20:07)
--- NOTE | 2023-08-29 11:35 | P.PNIM_ITS ---
Subjective Subjective Date of Service: 08/29/23 Interval History: L foot pain improving CT aborted yesterday due to blown IV Review of Systems Review of Systems: Yes all other systems are reviewed and are negative Physical Exam 2 Vital Signs: Vital Signs: Last Vital Signs Temp 96.9 F 08/29/23 11:24 Pulse 85 08/29/23 11:24 Resp 20 08/29/23 11:24 BP 146/86 H 08/29/23 11:24 Pulse Ox 96 08/29/23 11:24 O2 Del Method Nasal Cannula 08/29/23 11:24 O2 Flow Rate 3 08/29/23 11:24 BMI result Body Mass Index 29.3 Gen: in no acute distress HEENT: sclera anicteric, moist mucus membranes Neck: supple Lungs: clear to auscultation bilaterally Heart: regular rate and rhythm, no murmurs Abd: soft, non-tender, non-distended Ext: L foot with residual erythema, ulcer on great toe, L wrist + hand swollen/tender Skin: warm/well-perfused Neuro: alert and oriented x3, no focal findings Psych: appropriate affect Objective Data Active Medications Albuterol Sulfate (Albuterol Sulfate 90 Mcg 8 Gm Inhaler) 2 puff INHALE Q6H PRN PRN Reason: Shortness Of Breath Or Wheezing Aspirin (Aspirin Enteric Coated 81 Mg Tablet.) 81 mg PO DAILY [facility] Last Admin: 08/29/23 09:23 Dose: 81 mg Documented By: JOSE CRUZ Atorvastatin Calcium (Atorvastatin Calcium 40 Mg Tablet) 40 mg PO BEDTIME [facility] Last Admin: 08/28/23 20:10 Dose: 40 mg Documented By: JUAN ANTONIO Benzonatate (Benzonatate 100 Mg Capsule) 100 mg PO TID PRN PRN Reason: Cough Clindamycin HCl (Clindamycin Hcl 300 Mg Capsule) 300 mg PO Q6H [facility] Last Admin: 08/29/23 09:22 Dose: 300 mg Documented By: JOSE CRUZ Docusate Sodium (Docusate Sodium 100 Mg Capsule) 100 mg PO DAILY PRN PRN Reason: Constipation Last Admin: 08/27/23 19:49 Dose: 100 mg Documented By: CHI Enoxaparin Sodium (Enoxaparin Sodium 40 Mg/0.4 Ml Syringe) 40 mg SUBCUT Q24H [facility] Last Admin: 08/28/23 15:04 Dose: 40 mg Documented By: MARCELO Escitalopram Oxalate (Escitalopram Oxalate 10 Mg Tablet) 10 mg PO DAILY [facility] Last Admin: 08/29/23 09:23 Dose: 10 mg Documented By: JOSE CRUZ Escitalopram Oxalate (Escitalopram Oxalate 20 Mg Tablet) 20 mg PO DAILY [facility] Last Admin: 08/29/23 09:23 Dose: 20 mg Documented By: JOSE CRUZ Hydromorphone HCl (Hydromorphone Hcl 0.5 Mg/0.5 Ml Syringe) 0.5 mg IVPUSH Q4H PRN; Protocol PRN Reason: Pain, Severe (Pain Scale 7-10) Last Admin: 08/29/23 10:01 Dose: 0.5 mg Documented By: JOSE CRUZ Ceftriaxone Sodium 2 gm/ (Sodium Chloride) 50 mls @ 100 mls/hr IV Q24H [facility] Last Infusion: 08/28/23 16:10 Dose: Infused Documented By: MARCELO Ibuprofen (Ibuprofen 800 Mg Tablet) 800 mg PO TID PRN PRN Reason: Pain, Mild (Pain Scale 1-3) Levothyroxine Sodium (Levothyroxine Sodium 50 Mcg Tablet) 50 mcg PO DAILY@0600 [facility] Last Admin: 08/29/23 09:20 Dose: Not Given Documented By: JOSE CRUZ Non-Admin Reason: prev shift Melatonin (Melatonin 3 Mg Tablet) 6 mg PO BEDTIME PRN PRN Reason: Insomnia Last Admin: 08/28/23 20:10 Dose: 6 mg Documented By: JUAN ANTONIO Nicotine (Nicotine 7 Mg Patch.Td24) 7 mg TRANSDERMA DAILY [facility] Last Admin: 08/29/23 09:21 Dose: 7 mg Documented By: JOSE CRUZ Ondansetron HCl (Ondansetron Hcl 4 Mg/2 Ml Vial) 4 mg IVPUSH Q8H PRN PRN Reason: Nausea and Vomiting Pregabalin (Pregabalin 200 Mg Capsule) 200 mg PO TID [facility] Last Admin: 08/29/23 09:23 Dose: 200 mg Documented By: JOSE CRUZ Silver Sulfadiazine (Silver Sulfadiazine 1 % Cream 20 Gm Tube) 1 appl TOPICAL DAILY [facility] Last Admin: 08/29/23 10:05 Dose: Not Given Documented By: JOSE CRUZ Non-Admin Reason: Med Not Available Sodium Chloride (0.9 % Sodium Chloride Flush 3 Ml Syringe) 3 ml IVFLUSH QSHIFT [facility] Last Admin: 08/29/23 09:26 Dose: 3 ml Documented By: JOSE CRUZ Labs 08/29/23 06:51 08/29/23 06:51 Labs: Laboratory Results - last 24 hr 08/29/23 06:51 MCV 87.6 MCH 26.9 L MCHC 30.7 L RDW 15.3 Plt Count 352 MPV 9.9 Absolute Nucleated RBC 0.000 Nucleated RBC % (auto) 0.0 Anion Gap 12 Estim Creat Clear Calc 131.2 Estimated GFR > 60 Random Glucose 105 Calcium 8.0 L Magnesium 1.7 C-Reactive Protein 9.80 H Microbiology Microbiology Results: Microbiology 08/24/23 08:20 Blood Culture - Final Blood - Venous No growth after 5 days. 08/28/23 06:50 Blood Culture - Preliminary Blood - Venous No growth after 24 hours. 08/28/23 06:50 Blood Culture - Preliminary Blood - Venous No growth after 24 hours. 08/24/23 08:32 Blood Culture - Final Blood - Venous Coag negative Staphylococcus Assessment and Plan (1) Sepsis: Status: Acute (2) Elevated troponin: Status: Acute (3) Gram-positive cocci bacteremia: Status: Acute (4) Cellulitis of left leg: Status: Acute Plan d7 53yo F with IBS, FM, IBS, GERD, osteoporosis, hypothyroidism, neuropathy presenting with AMS, admitted for sepsis from LLE cellulitis sepsis due to LLE cellulitis with neuropathic ulcer of L great toe and GAS bacteremia - BCx cleared as of 08/23 [1 Cx with coag-neg staph] - vanc + pip-manjinder 08/22-08/26, ceftriaxone 08/23-, clindamycin 08/24-, ID following and to determine length of therapy after imaging studies - Did not tolerate MRI, will get CT with contrast of L foot today. L basilic vein superficial thrombosis - ice packs AHRF due to sepsis - wean O2 as tolerated. smokes 1 ppd but no COPD/asthma diagnosis. acute encephalopathy due to infection - resolved. tox screen + for buprenorphine but pt denies any usage- false positive? demand ischemia - TTE normal; Cardiology consulted; ASA + statin, no further workup hypothyroidism - continue LT4 GERD - PPI neuropathy - pregabalin mood disorder - escitalopram tobacco abuse - NRT VTE ppx: LMWH dispo: PT eval pending In my clinical judgment, the patient requires continued inpatient hospitalization for the following reasons: IV ABX, bacteremia, infection workup with additional imaging studies pending Total time managing care of this patient today: 35 minutes. Quality Stroke Does the patient have a stroke diagnosis?: No VTE Prior VTE?: No VTE Risk Level:: Medical - moderate - high VTE Device Contraindication: Treatment Not Indicated VTE Drug Contraindication: N/A - Med Ordered
[2023-08-29] MEDS: HYDROmorphone HCl 1 MG/ML SYRINGE IVPUSH (12:14)
[2023-08-29] MEDS: cefTRIAXone sodium 2 GM in 0.9 % Sodium Chloride 50 ML IV (14:00)
[2023-08-29] MEDS: Enoxaparin Sodium 40 MG/0.4 ML SYRINGE SUBCUT (14:00)
[2023-08-29] MEDS: iohexoL 350 MG/ML 75 ML INFUS..BTL 85 ML IV (14:12)
[2023-08-29] MEDS: Atorvastatin Calcium 40 MG TABLET PO (20:07)
[2023-08-30] VITALS (7 sets, daily range): BP systolic 143–180; BP diastolic 73–100; PULSE 72–86; RESP 18–20; TEMP 36.2–36.7; O2SAT 95–98
[2023-08-30] MEDS: HYDROmorphone HCl 0.5 MG/0.5 ML SYRINGE IVPUSH ×3 (01:00→09:36)
[2023-08-30] MEDS: Clindamycin HCL 300 MG CAPSULE PO ×2 (03:40→09:36)
[2023-08-30] MEDS: Levothyroxine Sodium 50 MCG TABLET PO (05:40)
[2023-08-30 07:24] LABS: Anion Gap 12 (12-20); Blood Urea Nitrogen 6 mg/dL (9-16); Calcium 8.3 mg/dL (8.4-10.2); Carbon Dioxide 32 mmol/L (22-29); Chloride 101 mmol/L (96-108); Estimated Glomerular Filt Rate > 60; Glucose Random 111 mg/dL (60-115); Potassium 3.7 mmol/L (3.3-5.1); Sodium 141 mmol/L (135-145)
[2023-08-30] MEDS: Escitalopram Oxalate 20 MG TABLET PO (09:36)
[2023-08-30] MEDS: Aspirin Enteric Coated 81 MG TABLET.DR PO (09:36)
[2023-08-30] MEDS: Escitalopram Oxalate 10 MG TABLET PO (09:36)
[2023-08-30] MEDS: Pregabalin 200 MG CAPSULE PO ×3 (09:36→20:40)
[2023-08-30] MEDS: Silver Sulfadiazine 1 % Cream 20 GM TUBE 1 APPL TOPICAL (09:37)
[2023-08-30] MEDS: Nicotine 7 MG PATCH.TD24 TRANSDERMA (09:38)
[2023-08-30] MEDS: 0.9 % Sodium Chloride Flush 3 ML SYRINGE IVFLUSH ×3 (09:39→20:40)
--- NOTE | 2023-08-30 11:21 | HO.PM.IMPN ---
Subjective Subjective Date of Service: 08/30/23 Interval History: pain of foot improving no fever Review of Systems Review of Systems: Yes all other systems are reviewed and are negative Physical Exam Vital Signs: Vital Signs: Last Vital Signs Temp 97.4 F 08/30/23 08:00 Pulse 76 08/30/23 08:00 Resp 18 08/30/23 08:00 BP 143/73 H 08/30/23 08:00 Pulse Ox 97 08/30/23 08:00 O2 Del Method Nasal Cannula 08/30/23 08:00 O2 Flow Rate 3 08/30/23 08:00 BMI result Body Mass Index 29.3 Gen: in no acute distress HEENT: sclera anicteric, moist mucus membranes Neck: supple Lungs: clear to auscultation bilaterally Heart: regular rate and rhythm, no murmurs Abd: soft, non-tender, non-distended Ext: L foot without any erythema, ulcer on base of great toe, L wrist + hand swollen/tender Skin: warm/well-perfused Neuro: alert and oriented x3, no focal findings Psych: appropriate affect Objective Data Active Medications Albuterol Sulfate (Albuterol Sulfate 90 Mcg 8 Gm Inhaler) 2 puff INHALE Q6H PRN PRN Reason: Shortness Of Breath Or Wheezing Aspirin (Aspirin Enteric Coated 81 Mg Tablet.) 81 mg PO DAILY [facility] Last Admin: 08/30/23 09:36 Dose: 81 mg Documented By: ISABELL Atorvastatin Calcium (Atorvastatin Calcium 40 Mg Tablet) 40 mg PO BEDTIME [facility] Last Admin: 08/29/23 20:07 Dose: 40 mg Documented By: JUAN ANTONIO Benzonatate (Benzonatate 100 Mg Capsule) 100 mg PO TID PRN PRN Reason: Cough Clindamycin HCl (Clindamycin Hcl 300 Mg Capsule) 300 mg PO Q6H [facility] Last Admin: 08/30/23 09:36 Dose: 300 mg Documented By: ISABELL Docusate Sodium (Docusate Sodium 100 Mg Capsule) 100 mg PO DAILY PRN PRN Reason: Constipation Last Admin: 08/27/23 19:49 Dose: 100 mg Documented By: CHI Enoxaparin Sodium (Enoxaparin Sodium 40 Mg/0.4 Ml Syringe) 40 mg SUBCUT Q24H [facility] Last Admin: 08/29/23 14:00 Dose: 40 mg Documented By: JOSE CRUZ Escitalopram Oxalate (Escitalopram Oxalate 10 Mg Tablet) 10 mg PO DAILY [facility] Last Admin: 08/30/23 09:36 Dose: 10 mg Documented By: ISABELL Escitalopram Oxalate (Escitalopram Oxalate 20 Mg Tablet) 20 mg PO DAILY [facility] Last Admin: 08/30/23 09:36 Dose: 20 mg Documented By: ISABELL Hydromorphone HCl (Hydromorphone Hcl 0.5 Mg/0.5 Ml Syringe) 0.5 mg IVPUSH Q4H PRN; Protocol PRN Reason: Pain, Severe (Pain Scale 7-10) Last Admin: 08/30/23 09:36 Dose: 0.5 mg Documented By: ISABELL Ceftriaxone Sodium 2 gm/ (Sodium Chloride) 50 mls @ 100 mls/hr IV Q24H [facility] Last Infusion: 08/29/23 14:38 Dose: Infused Documented By: JOSE CRUZ Ibuprofen (Ibuprofen 800 Mg Tablet) 800 mg PO TID PRN PRN Reason: Pain, Mild (Pain Scale 1-3) Levothyroxine Sodium (Levothyroxine Sodium 50 Mcg Tablet) 50 mcg PO DAILY@0600 [facility] Last Admin: 08/30/23 05:40 Dose: 50 mcg Documented By: JUAN ANTONIO Melatonin (Melatonin 3 Mg Tablet) 6 mg PO BEDTIME PRN PRN Reason: Insomnia Last Admin: 08/28/23 20:10 Dose: 6 mg Documented By: JUAN ANTONIO Nicotine (Nicotine 7 Mg Patch.Td24) 7 mg TRANSDERMA DAILY [facility] Last Admin: 08/30/23 09:38 Dose: 7 mg Documented By: ISABELL Ondansetron HCl (Ondansetron Hcl 4 Mg/2 Ml Vial) 4 mg IVPUSH Q8H PRN PRN Reason: Nausea and Vomiting Pregabalin (Pregabalin 200 Mg Capsule) 200 mg PO TID [facility] Last Admin: 08/30/23 09:36 Dose: 200 mg Documented By: ISABELL Silver Sulfadiazine (Silver Sulfadiazine 1 % Cream 20 Gm Tube) 1 appl TOPICAL DAILY [facility] Last Admin: 08/30/23 09:37 Dose: 1 appl Documented By: ISABELL Sodium Chloride (0.9 % Sodium Chloride Flush 3 Ml Syringe) 3 ml IVFLUSH QSHIFT [facility] Last Admin: 08/30/23 09:39 Dose: 3 ml Documented By: ISABELL Labs 08/29/23 06:51 08/30/23 06:41 Labs: Laboratory Results - last 24 hr 08/30/23 06:41 Hold Purple Top SEE NOTE Anion Gap 12 Estim Creat Clear Calc 121.0 Estimated GFR > 60 Random Glucose 111 Calcium 8.[address] 08/29/23 14:13 IMPRESSION: Soft tissue ulceration along the plantar/medial aspect of the great toe, with adjacent skin thickening and subcutaneous edema, consistent with acute cellulitis. No definite abscess formation or peripherally enhancing fluid collection. No adjacent cortical erosion or periosteal reaction to suggest acute osteomyelitis. Early osteomyelitis may be occult on CT examination. Microbiology Microbiology Results: Microbiology 08/28/23 06:50 Blood Culture - Preliminary Blood - Venous No growth after 48 hours. 08/28/23 06:50 Blood Culture - Preliminary Blood - Venous No growth after 48 hours. 08/24/23 08:20 Blood Culture - Final Blood - Venous No growth after 5 days. Assessment and Plan (1) Sepsis: Status: Acute (2) Elevated troponin: Status: Acute (3) Gram-positive cocci bacteremia: Status: Acute (4) Cellulitis of left leg: Status: Acute Plan d8 53yo F with IBS, FM, IBS, GERD, osteoporosis, hypothyroidism, neuropathy presenting with AMS, admitted for sepsis from LLE cellulitis sepsis due to LLE cellulitis with neuropathic ulcer of L great toe and GAS bacteremia - BCx cleared as of 08/23 [1 Cx with coag-neg staph] - vanc + pip-manjinder 08/22-08/26, ceftriaxone 08/23-, clindamycin 08/24-,08/29 - no evidence of osteomyelitis on CT. per ID: 21 days of cephalexin 500 mg qid. will continue ceftriaxone for now and change to cephalexin upon discharge L basilic vein superficial thrombosis - ice packs, remove IV from L AC AHRF due to sepsis - wean O2 as tolerated. smokes 1 ppd but no COPD/asthma diagnosis. acute encephalopathy due to infection - resolved. tox screen + for buprenorphine but pt denies any usage- false positive? demand ischemia - TTE normal; Cardiology consulted; ASA + statin, no further workup hypothyroidism - continue LT4 GERD - PPI neuropathy - pregabalin mood disorder - escitalopram tobacco abuse - NRT VTE ppx: LMWH dispo: PT eval pending In my clinical judgment, the patient requires continued inpatient hospitalization for the following reasons: IV ABX, bacteremia, placement Total time managing care of this patient today: 35 minutes. Quality Stroke Does the patient have a stroke diagnosis?: No VTE Prior VTE?: No VTE Risk Level:: Medical - moderate - high VTE Device Contraindication: Treatment Not Indicated VTE Drug Contraindication: N/A - Med Ordered
[2023-08-30] MEDS: Enoxaparin Sodium 40 MG/0.4 ML SYRINGE SUBCUT (12:44)
[2023-08-30] MEDS: cefTRIAXone sodium 2 GM in 0.9 % Sodium Chloride 50 ML IV (12:44)
[2023-08-30] MEDS: Atorvastatin Calcium 40 MG TABLET PO (20:40)
[2023-08-31] VITALS (7 sets, daily range): BP systolic 144–168; BP diastolic 72–98; PULSE 70–92; RESP 16–20; TEMP 36.1–36.7; O2SAT 95–100
[2023-08-31] MEDS: HYDROmorphone HCl 0.5 MG/0.5 ML SYRINGE IVPUSH ×4 (04:48→19:58)
[2023-08-31] MEDS: Levothyroxine Sodium 50 MCG TABLET PO (05:22)
[2023-08-31 06:51] LABS: Venous Blood Gas Refer to POC result
[2023-08-31 06:52] LABS: VBG Base Excess 7.1 mmol/L; VBG HCO3 31 mmol/L (22-26); VBG pCO2 44 mmHg; VBG pH 7.45 (7.32-7.43); VBG pO2 100 mmHg
[2023-08-31 07:06] LABS: Hematocrit 33.8 % (37.0-47.0); Hemoglobin 10.6 g/dl (12.0-16.0); Mean Corpuscular HGB Conc 31.4 g/dl (31.0-35.0); Mean Corpuscular Hemoglobin 27.4 pg (27.0-33.0); Mean Corpuscular Volume 87.3 fL (80.0-98.0); Mean Platelet Volume 9.6 fL (9.4-12.3); Platelet Count 431 X10*3/uL (160-400); Red Blood Count 3.87 X10*6/uL (4.20-5.50); Red Cell Distribution Width 15.1 % (11.0-16.0); White Blood Count 8.7 X10*3/uL (4.8-10.8)
[2023-08-31 07:24] LABS: Anion Gap 11 (12-20); Blood Urea Nitrogen 7 mg/dL (9-16); C Reactive Protein 6.59 mg/dL (< or = 0.50); Calcium 8.3 mg/dL (8.4-10.2); Carbon Dioxide 28 mmol/L (22-29); Chloride 102 mmol/L (96-108); Estimated Glomerular Filt Rate > 60; Glucose Random 110 mg/dL (60-115); Potassium 3.7 mmol/L (3.3-5.1); Sodium 137 mmol/L (135-145)
[2023-08-31] MEDS: Nicotine 7 MG PATCH.TD24 TRANSDERMA (09:55)
[2023-08-31] MEDS: Aspirin Enteric Coated 81 MG TABLET.DR PO (09:56)
[2023-08-31] MEDS: Escitalopram Oxalate 20 MG TABLET PO (09:56)
[2023-08-31] MEDS: Pregabalin 200 MG CAPSULE PO ×3 (09:56→19:58)
[2023-08-31] MEDS: Escitalopram Oxalate 10 MG TABLET PO (09:56)
[2023-08-31] MEDS: 0.9 % Sodium Chloride Flush 3 ML SYRINGE IVFLUSH ×3 (09:56→19:58)
[2023-08-31] MEDS: Silver Sulfadiazine 1 % Cream 20 GM TUBE 1 APPL TOPICAL (10:13)
[2023-08-31] MEDS: Enoxaparin Sodium 40 MG/0.4 ML SYRINGE SUBCUT (11:18)
[2023-08-31] MEDS: amLODIPine Besylate 5 MG TABLET PO (11:18)
--- NOTE | 2023-08-31 13:09 | MHC.CM.PN ---
PT is recommending STR. This CM met with pt to discuss DCP, she states she doesn't want to to go to STR, but wants to go home with [facility]NA in a day or 2. Hospitalist updated.
--- NOTE | 2023-08-31 13:13 | HO.PM.IMPN ---
Subjective Subjective Date of Service: 08/31/23 Interval History: c/o L foot pain, generalized weakness no fever Review of Systems Review of Systems: Yes all other systems are reviewed and are negative Physical Exam Vital Signs: Vital Signs: Last Vital Signs Temp 97.2 F 08/31/23 11:01 Pulse 83 08/31/23 11:01 Resp 20 08/31/23 11:01 BP 166/98 H 08/31/23 11:01 Pulse Ox 95 08/31/23 11:01 O2 Del Method Nasal Cannula 08/31/23 11:01 O2 Flow Rate 2 08/31/23 11:01 BMI result Body Mass Index 29.3 Gen: in no acute distress HEENT: sclera anicteric, moist mucus membranes Neck: supple Lungs: clear to auscultation bilaterally Heart: regular rate and rhythm, no murmurs Abd: soft, non-tender, non-distended Ext: L foot without any erythema, ulcer on base of great toe, L wrist + hand swollen/tender Skin: warm/well-perfused Neuro: alert and oriented x3, no focal findings Psych: appropriate affect Objective Data Active Medications Albuterol Sulfate (Albuterol Sulfate 90 Mcg 8 Gm Inhaler) 2 puff INHALE Q6H PRN PRN Reason: Shortness Of Breath Or Wheezing Amlodipine Besylate (Amlodipine Besylate 5 Mg Tablet) 5 mg PO DAILY [facility]; Protocol Last Admin: 08/31/23 11:18 Dose: 5 mg Documented By: MARLIN Aspirin (Aspirin Enteric Coated 81 Mg Tablet.) 81 mg PO DAILY [facility] Last Admin: 08/31/23 09:56 Dose: 81 mg Documented By: MARLIN Atorvastatin Calcium (Atorvastatin Calcium 40 Mg Tablet) 40 mg PO BEDTIME [facility] Last Admin: 08/30/23 20:40 Dose: 40 mg Documented By: ROBER Benzonatate (Benzonatate 100 Mg Capsule) 100 mg PO TID PRN PRN Reason: Cough Docusate Sodium (Docusate Sodium 100 Mg Capsule) 100 mg PO DAILY PRN PRN Reason: Constipation Last Admin: 08/27/23 19:49 Dose: 100 mg Documented By: CHI Enoxaparin Sodium (Enoxaparin Sodium 40 Mg/0.4 Ml Syringe) 40 mg SUBCUT Q24H [facility] Last Admin: 08/31/23 11:18 Dose: 40 mg Documented By: MARLIN Escitalopram Oxalate (Escitalopram Oxalate 10 Mg Tablet) 10 mg PO DAILY [facility] Last Admin: 08/31/23 09:56 Dose: 10 mg Documented By: MARLIN Escitalopram Oxalate (Escitalopram Oxalate 20 Mg Tablet) 20 mg PO DAILY [facility] Last Admin: 08/31/23 09:56 Dose: 20 mg Documented By: MARLIN Hydromorphone HCl (Hydromorphone Hcl 0.5 Mg/0.5 Ml Syringe) 0.5 mg IVPUSH Q4H PRN; Protocol PRN Reason: Pain, Severe (Pain Scale 7-10) Last Admin: 08/31/23 09:56 Dose: 0.5 mg Documented By: MARLIN Ceftriaxone Sodium 2 gm/ (Sodium Chloride) 50 mls @ 100 mls/hr IV Q24H [facility] Last Infusion: 08/30/23 13:25 Dose: Infused Documented By: ISABELL Ibuprofen (Ibuprofen 800 Mg Tablet) 800 mg PO TID PRN PRN Reason: Pain, Mild (Pain Scale 1-3) Levothyroxine Sodium (Levothyroxine Sodium 50 Mcg Tablet) 50 mcg PO DAILY@0600 [facility] Last Admin: 08/31/23 05:22 Dose: 50 mcg Documented By: MAI Melatonin (Melatonin 3 Mg Tablet) 6 mg PO BEDTIME PRN PRN Reason: Insomnia Last Admin: 08/28/23 20:10 Dose: 6 mg Documented By: JUAN ANTONIO Nicotine (Nicotine 7 Mg Patch.Td24) 7 mg TRANSDERMA DAILY [facility] Last Admin: 08/31/23 09:55 Dose: 7 mg Documented By: MARLIN Ondansetron HCl (Ondansetron Hcl 4 Mg/2 Ml Vial) 4 mg IVPUSH Q8H PRN PRN Reason: Nausea and Vomiting Pregabalin (Pregabalin 200 Mg Capsule) 200 mg PO TID [facility] Last Admin: 08/31/23 09:56 Dose: 200 mg Documented By: MARLIN Silver Sulfadiazine (Silver Sulfadiazine 1 % Cream 20 Gm Tube) 1 appl TOPICAL DAILY [facility] Last Admin: 08/31/23 10:13 Dose: 1 appl Documented By: MARLIN Sodium Chloride (0.9 % Sodium Chloride Flush 3 Ml Syringe) 3 ml IVFLUSH QSHIFT [facility] Last Admin: 08/31/23 09:56 Dose: 3 ml Documented By: MARLIN Labs 08/31/23 06:38 08/31/23 06:38 Labs: Laboratory Results - last 24 hr 08/31/23 08/31/23 06:38 06:43 MCV 87.3 MCH 27.4 MCHC 31.4 RDW 15.1 Plt Count 431 H MPV 9.6 Absolute Nucleated RBC 0.000 Nucleated RBC % (auto) 0.0 VBG pH 7.45 H VBG pCO2 44 VBG pO2 100 VBG HCO3 31 H VBG O2 Saturation 99.0 VBG Base Excess 7.1 Anion Gap 11 L Estim Creat Clear Calc 137.0 Estimated GFR > 60 Random Glucose 110 Calcium 8.3 L C-Reactive Protein 6.59 H Assessment and Plan (1) Sepsis: Status: Acute (2) Elevated troponin: Status: Acute (3) Gram-positive cocci bacteremia: Status: Acute (4) Cellulitis of left leg: Status: Acute Plan d9 53yo F with IBS, FM, IBS, GERD, osteoporosis, hypothyroidism, neuropathy presenting with AMS, admitted for sepsis from LLE cellulitis sepsis due to LLE cellulitis with neuropathic ulcer of L great toe and GAS bacteremia - BCx cleared as of 08/23 [1 Cx with coag-neg staph] - vanc + pip-manjinder 08/22-08/26, ceftriaxone 08/23-, clindamycin 08/24-08/29 - no evidence of osteomyelitis on CT. per ID: 21 days of cephalexin 500 mg qid. will continue ceftriaxone for now and change to cephalexin upon discharge L basilic vein superficial thrombosis - ice packs, removed IV from L AC AHRF due to sepsis - wean O2 as tolerated. smokes 1 ppd but no COPD/asthma diagnosis. acute encephalopathy due to infection - resolved. tox screen + for buprenorphine but pt denies any usage- false positive? demand ischemia - TTE normal; Cardiology consulted; ASA + statin, no further workup hypothyroidism - continue LT4 GERD - PPI neuropathy - pregabalin mood disorder - escitalopram tobacco abuse - NRT VTE ppx: LMWH dispo: qualifies for STR per PT but pt declines In my clinical judgment, the patient requires continued inpatient hospitalization for the following reasons: IV ABX, bacteremia, placement Total time managing care of this patient today: 35 minutes. Quality Stroke Does the patient have a stroke diagnosis?: No VTE Prior VTE?: No VTE Risk Level:: Medical - moderate - high VTE Device Contraindication: Treatment Not Indicated VTE Drug Contraindication: N/A - Med Ordered
[2023-08-31] MEDS: cefTRIAXone sodium 2 GM in 0.9 % Sodium Chloride 50 ML IV (15:22)
[2023-08-31] MEDS: Atorvastatin Calcium 40 MG TABLET PO (19:58)
[2023-09-01] VITALS: BP 147/76; PULSE 76; RESP 19; TEMP 36.6; O2SAT 96
[2023-09-01] MEDS: HYDROmorphone HCl 0.5 MG/0.5 ML SYRINGE IVPUSH ×3 (04:49→15:58)
[2023-09-01] MEDS: Levothyroxine Sodium 50 MCG TABLET PO (05:53)
[2023-09-01 07:13] VITALS: BP 166/81; PULSE 83; RESP 20; TEMP 36.1; O2SAT 93
[2023-09-01] MEDS: Nicotine 7 MG PATCH.TD24 TRANSDERMA (08:24)
[2023-09-01] MEDS: Pregabalin 200 MG CAPSULE PO ×2 (08:25→15:59)
[2023-09-01] MEDS: Escitalopram Oxalate 10 MG TABLET PO (08:25)
[2023-09-01] MEDS: amLODIPine Besylate 5 MG TABLET PO (08:25)
[2023-09-01] MEDS: Escitalopram Oxalate 20 MG TABLET PO (08:25)
[2023-09-01] MEDS: Aspirin Enteric Coated 81 MG TABLET.DR PO (08:25)
[2023-09-01] MEDS: Silver Sulfadiazine 1 % Cream 20 GM TUBE 1 APPL TOPICAL (08:29)
[2023-09-01] MEDS: 0.9 % Sodium Chloride Flush 3 ML SYRINGE IVFLUSH ×2 (08:31→16:00)
--- NOTE | 2023-09-01 09:34 | MHC.CM.PN ---
Addendum entered by Nica London RN 09/01/23 13:55: PT DISCHARGING TO [facility] TODAY AT 5:30PM [facility]IA [facility] FOR BLS TRANSPORT Original Note: IMM 09/01/23 DELIVERED TO BEDSIDE, PT NOW REPORTING SHE DOES NEED STR AND PREFERRED SNF IS [facility], IF UNABLE TO GET IN TO [facility] PT WOULD LIKE FACILITY CLOSE TO [place] SO IT IS EASY FOR PT'S TO VISIT.
[2023-09-01 10:49] VITALS: BP 159/84; PULSE 87; RESP 20; TEMP 36.2; O2SAT 92
--- NOTE | 2023-09-01 12:44 | HO.PM.IMPN ---
Subjective Subjective Date of Service: 09/01/23 Interval History: off O2 c/o L foot pain but improving agrees to STR now. very weak/deconditioned Review of Systems Review of Systems: Yes all other systems are reviewed and are negative Physical Exam Vital Signs: Vital Signs: Last Vital Signs Temp 97.1 F 09/01/23 10:49 Pulse 87 09/01/23 10:49 Resp 20 09/01/23 10:49 BP 159/84 H 09/01/23 10:49 Pulse Ox 92 09/01/23 10:49 O2 Del Method Room Air 09/01/23 10:49 O2 Flow Rate 2 09/01/23 07:13 BMI result Body Mass Index 29.3 Gen: in no acute distress HEENT: sclera anicteric, moist mucus membranes Neck: supple Lungs: clear to auscultation bilaterally Heart: regular rate and rhythm, no murmurs Abd: soft, non-tender, non-distended Ext: L foot without any erythema, ulcer on base of great toe, L wrist + hand swollen/tender Skin: warm/well-perfused Neuro: alert and oriented x3, no focal findings Psych: appropriate affect Objective Data Active Medications Albuterol Sulfate (Albuterol Sulfate 90 Mcg 8 Gm Inhaler) 2 puff INHALE Q6H PRN PRN Reason: Shortness Of Breath Or Wheezing Amlodipine Besylate (Amlodipine Besylate 5 Mg Tablet) 5 mg PO DAILY [facility]; Protocol Last Admin: 09/01/23 08:25 Dose: 5 mg Documented By: MARLIN Aspirin (Aspirin Enteric Coated 81 Mg Tablet.) 81 mg PO DAILY [facility] Last Admin: 09/01/23 08:25 Dose: 81 mg Documented By: MARLIN Atorvastatin Calcium (Atorvastatin Calcium 40 Mg Tablet) 40 mg PO BEDTIME [facility] Last Admin: 08/31/23 19:58 Dose: 40 mg Documented By: KAYCEE Benzonatate (Benzonatate 100 Mg Capsule) 100 mg PO TID PRN PRN Reason: Cough Docusate Sodium (Docusate Sodium 100 Mg Capsule) 100 mg PO DAILY PRN PRN Reason: Constipation Last Admin: 08/27/23 19:49 Dose: 100 mg Documented By: CHI Enoxaparin Sodium (Enoxaparin Sodium 40 Mg/0.4 Ml Syringe) 40 mg SUBCUT Q24H [facility] Last Admin: 08/31/23 11:18 Dose: 40 mg Documented By: MARLIN Escitalopram Oxalate (Escitalopram Oxalate 10 Mg Tablet) 10 mg PO DAILY [facility] Last Admin: 09/01/23 08:25 Dose: 10 mg Documented By: MARLIN Escitalopram Oxalate (Escitalopram Oxalate 20 Mg Tablet) 20 mg PO DAILY [facility] Last Admin: 09/01/23 08:25 Dose: 20 mg Documented By: MARLIN Hydromorphone HCl (Hydromorphone Hcl 0.5 Mg/0.5 Ml Syringe) 0.5 mg IVPUSH Q4H PRN; Protocol PRN Reason: Pain, Severe (Pain Scale 7-10) Last Admin: 09/01/23 08:27 Dose: 0.5 mg Documented By: MARLIN Ceftriaxone Sodium 2 gm/ (Sodium Chloride) 50 mls @ 100 mls/hr IV Q24H [facility] Last Infusion: 08/31/23 17:55 Dose: Infused Documented By: MARLIN Ibuprofen (Ibuprofen 800 Mg Tablet) 800 mg PO TID PRN PRN Reason: Pain, Mild (Pain Scale 1-3) Levothyroxine Sodium (Levothyroxine Sodium 50 Mcg Tablet) 50 mcg PO DAILY@0600 [facility] Last Admin: 09/01/23 05:53 Dose: 50 mcg Documented By: KAYCEE Melatonin (Melatonin 3 Mg Tablet) 6 mg PO BEDTIME PRN PRN Reason: Insomnia Last Admin: 08/28/23 20:10 Dose: 6 mg Documented By: JUAN ANTONIO Nicotine (Nicotine 7 Mg Patch.Td24) 7 mg TRANSDERMA DAILY [facility] Last Admin: 09/01/23 08:24 Dose: 7 mg Documented By: MARLIN Ondansetron HCl (Ondansetron Hcl 4 Mg/2 Ml Vial) 4 mg IVPUSH Q8H PRN PRN Reason: Nausea and Vomiting Pregabalin (Pregabalin 200 Mg Capsule) 200 mg PO TID [facility] Last Admin: 09/01/23 08:25 Dose: 200 mg Documented By: MARLIN Silver Sulfadiazine (Silver Sulfadiazine 1 % Cream 20 Gm Tube) 1 appl TOPICAL DAILY [facility] Last Admin: 09/01/23 08:29 Dose: 1 appl Documented By: MARLIN Sodium Chloride (0.9 % Sodium Chloride Flush 3 Ml Syringe) 3 ml IVFLUSH QSHIFT [facility] Last Admin: 09/01/23 08:31 Dose: 3 ml Documented By: MARLIN Labs 08/31/23 06:38 08/31/23 06:38 Assessment and Plan (1) Sepsis: Status: Acute (2) Elevated troponin: Status: Acute (3) Gram-positive cocci bacteremia: Status: Acute (4) Cellulitis of left leg: Status: Acute Plan d10 53yo F with IBS, FM, IBS, GERD, osteoporosis, hypothyroidism, neuropathy presenting with AMS, admitted for sepsis from LLE cellulitis sepsis due to LLE cellulitis with neuropathic ulcer of L great toe and GAS bacteremia - BCx cleared as of 08/23 [1 Cx with coag-neg staph] - vanc + pip-manjinder 08/22-08/26, ceftriaxone 08/23-, clindamycin 08/24-08/29 - no evidence of osteomyelitis on CT. per ID: 21 days of cephalexin 500 mg qid. will continue ceftriaxone for now and change to cephalexin upon discharge L basilic vein superficial thrombosis - ice packs, removed IV from L AC AHRF due to sepsis - resolved. smokes 1 ppd but no COPD/asthma diagnosis. acute encephalopathy due to infection - resolved. tox screen + for buprenorphine but pt denies any usage- false positive? demand ischemia - TTE normal; Cardiology consulted; ASA + statin, no further workup hypothyroidism - continue LT4 GERD - PPI neuropathy - pregabalin mood disorder - escitalopram tobacco abuse - NRT VTE ppx: LMWH dispo: STR In my clinical judgment, the patient requires continued inpatient hospitalization for the following reasons: STr placement Total time managing care of this patient today: 35 minutes. Quality Stroke Does the patient have a stroke diagnosis?: No VTE Prior VTE?: No VTE Risk Level:: Medical - moderate - high VTE Device Contraindication: Treatment Not Indicated VTE Drug Contraindication: N/A - Med Ordered
--- NOTE | 2023-09-01 13:35 | PM.DS ---
DS: Providers Provider Date of Service: 09/01/23 Date of admission: 08/23/23 16:49 Date of discharge: 09/01/23 Primary care physician: Doug Santos MD Consults: 08/23/23 17:09 Consult to Cardiology Routine Consulting Provider: [facility] Reason for consultation: Elevated trops w/delta 08/23/23 21:55 Consult to Infectious Diseases Routine Consulting Provider: [facility] Reason for consultation: altered mental status, fever Has provider been notified: No 08/24/23 05:09 Consult to Wound Care Routine Reason for consultation: wound to L great toe DS: Diagnosis Discharge Diagnosis (1) Sepsis: Status: Acute (2) Elevated troponin: Status: Acute (3) Cellulitis of left leg: Status: Acute (4) Demand ischemia: Status: Acute (5) Streptococcal bacteremia: Status: Acute (6) Encephalopathy due to infection: Status: Acute (7) Neuropathic ulcer: Status: Acute (8) Acute hypoxic respiratory failure: Status: Acute (9) Basilic vein thrombosis: Status: Acute DS: Summary Hospital Course Hospital Course: From the history and physical by the admitting hospitalist, DAISY Alfred, 08/23/23: Pt is a 53-year-old female with a PMH significant for?IBS, GERD, osteoporosis, fibromyalgia, and peripheral neuropathy who presents to the ED for evaluation of altered mental status. Patient not alert or oriented and incapable of providing HPI, which is instead obtained from chart and provider review, as well as patient's partner who is at bedside. Patient's partner reports she was in her normal state of health on Thursday night. When she awoke on Thursday morning patient was altered, combative, and ?[id number]?. Has been screaming, less communicative than normal, and difficult to control. At one point patient was found sitting on the ground having urinated and defecated all over the floor. Partner is unaware of any recent falls. Patient has chronic musculoskeletal pain, especially and back. Partner has not been aware of patient complaining of any new or different symptoms. Of note, patient has had nonhealing ulcer on left 1st digit of foot since around 07/18 when she attempted to scrape off a callus and cut herself. Saw Dr. Layton in vascular 3 days prior on 08/19 who believed it was secondary to neuropathy with no current surgical interventions warranted at this time. Patient also has had longstanding rib fractures of unclear etiology. Patient's partner denies any known history of falls or trauma to the area. Patient has had x-rays that show new rib fractures on 07/30/2022, 09/15/2022, and 07/29/2023. Apparently patient has a remote history of substance abuse, but partner unaware of any recent substance use.? In the ED pt was febrile up to 101.7, tachycardic up to 114, tachypneic up to 24, hypertensive up to 150/83, and hypoxic as low as 88% on RA. Labs were significant for leukocytosis of 11.9 with 30% bands, H&H 11.1/34.6, lactic acid 2.6, bilirubin 1.2, AST 266, ALT 84, alk-phos 36, initial troponin 71.5, and BNP 482. UA likely negative for UTI. Tox screen pending. CXR showed redemonstration of multiple bilateral rib fractures, mild left base linear atelectasis, and pulmonary vascular congestion without overt CHF. X-ray of left foot showed soft tissue gas suggestive of soft tissue infection without evidence acute osteomyelitis. CT?of head showed no acute intracranial pathology, but did show [id number] bilateral temporoparietal lobe volume loss. CT of chest found extensive bilateral rib fractures and right transverse process fractures with evidence of interval healing as well as chronic fractures. 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 Additionally found small bilateral pleural effusions likely atelectasis, although infiltrate/aspiration can not be excluded. CT of abdomen/pelvis negative for acute abdomen. EKG demonstrated sinus tachycardia of 118 with PVCs and T-wave inversions in leads V1 and V2, but no evidence of ST elevations or depressions. Pt was treated with ketamine, lorazepam, IVF, Tylenol, Zosyn and vancomycin. Pt will be admitted to the hospital for treatment and further evaluation of acute metabolic encephalopathy in the setting of left lower leg cellulitis with sepsis. 53yo F with IBS, FM, IBS, GERD, osteoporosis, hypothyroidism, and neuropathy presenting with altered mental status and admitted for sepsis from LLE cellulitis with neuropathic ulcer of L 1st toe. Ultimately found to have group A streptococcal bacteremia. Hospital course by problem: sepsis due to LLE cellulitis with neuropathic ulcer of L great toe and GAS bacteremia - Initially given vancomycin + piperacillin-tazobactam 08/22-08/26, then narrowed to ceftriaxone 08/23-08/31 Got clindamycin 08/24-08/29 for anti-toxin effect. BCx cleared as of 08/23. TTE negative for vegetations. - No evidence of osteomyelitis on CT. Per Infectious Disease, discharged on 21 days of cephalexin 500 mg qid in case of early osteomyelitis not apparent radiographically [did not tolerate an MRI, which is more sensitive]. - Wound care consulted, recommended: Left Great Toe - Cleanse with NS wash, pat dry. Lightly pack with Durafibger AG, cover with dry gauze and wrap. Change every other day. Recommend follow up out patient Wound Clinic at [address] [place] [address] and to call for an appointment at time of discharge. [phone]. L basilic vein superficial thrombosis - Related to IV placement. Given ice packs and analgesics. acute hypoxia due to sepsis - Resolved. Smokes 1 ppd but no COPD/asthma diagnosis. No evidence of pneumonia. acute encephalopathy due to infection - Resolved. Tox screen positive for buprenorphine but pt denies any recent prescription. Was not given any buprenorphine this admission and no prescription is anticipated moving forward. demand ischemia - TTE normal; Cardiology consulted and attributed the high troponin to sepsis. Started ASA + statin; no further workup indicated. She was discharged to [facility] for short-term rehab; anticipated length of stay less than 30 days. Time Attestation Discharge Coordination Time (in mins): 45 Quality: Safe Use of Opioids Does Pt have an Active Cancer Diagnosis on the Problem List?: No Quality: Stroke Does the patient have a stroke diagnosis?: No Physical Exam Vital Signs: Vital Signs: Last Vital Signs Temp 97.1 F 09/01/23 10:49 Pulse 87 09/01/23 10:49 Resp 20 09/01/23 10:49 BP 159/84 H 09/01/23 10:49 Pulse Ox 92 09/01/23 10:49 O2 Del Method Room Air 09/01/23 10:49 O2 Flow Rate 2 09/01/23 07:13 BMI result Body Mass Index 29.3 Gen: in no acute distress HEENT: sclera anicteric, moist mucus membranes Neck: supple Lungs: clear to auscultation bilaterally Heart: regular rate and rhythm, no murmurs Abd: soft, non-tender, non-distended Ext: L foot without any erythema, ulcer on base of great toe, L wrist + hand swollen/tender Skin: warm/well-perfused Neuro: alert and oriented x3, no focal findings Psych: appropriate affect DS: Data Data Completed and Pending Completed studies during hospitalization [Text1]: Laboratory Results WBC 8.7 X10*3/uL (4.8-10.8) 08/31/23 06:38 RBC 3.87 X10*6/uL (4.20-5.50) L 08/31/23 06:38 Hgb 10.6 g/dl (12.0-16.0) L 08/31/23 06:38 Hct 33.8 % (37.0-47.0) L 08/31/23 06:38 MCV 87.3 fL (80.0-98.0) 08/31/23 06:38 MCH 27.4 pg (27.0-33.0) 08/31/23 06:38 MCHC 31.4 g/dl (31.0-35.0) 08/31/23 06:38 RDW 15.1 % (11.0-16.0) 08/31/23 06:38 Plt Count 431 X10*3/uL (160-400) H 08/31/23 06:38 MPV 9.6 fL (9.4-12.3) 08/31/23 06:38 Immature Gran % (Auto) 0.4 % (0.0-0.4) 08/23/23 22:07 Neut % (Auto) 90.5 % (45-73) H 08/23/23 22:07 Lymph % (Auto) 4.5 % (20-40) L 08/23/23 22:07 [place] % (Auto) 4.4 % (2-11) 08/23/23 22:07 Eos % (Auto) 0.1 % (0-4) 08/23/23 22:07 Baso % (Auto) 0.1 % (0-2) 08/23/23 22:07 Lymph # (Auto) 0.5 X10*3/uL (1.2-4.9) L 08/23/23 22:07 [place] # (Auto) 0.5 X10*3/uL (0.1-1.2) 08/23/23 22:07 Eos # (Auto) 0.0 X10*3/uL (0.0-0.4) 08/23/23 22:07 Baso # (Auto) 0.0 X10*3/uL (0.0-0.2) 08/23/23 22:07 Abs Immat Gran (auto) 0.04 X10*3/uL (0.00-0.03) H 08/23/23 22:07 Absolute Neuts (auto) 10.1 x10*3/uL (2.0-8.3) H 08/23/23 22:07 Absolute Nucleated RBC 0.000 X10*3/uL (0.0-0.012) 08/31/23 06:38 Nucleated RBC % (auto) 0.0 /100WBC (0.0-0.2) 08/31/23 06:38 Neutrophils % (Manual) 66 % (45-73) 08/23/23 13:34 Band Neutrophils % 30 % (3-5) H 08/23/23 13:34 Lymphocytes % (Manual) 2 % (20-40) L 08/23/23 13:34 Monocytes % (Manual) 2 % (2-11) 08/23/23 13:34 Abs Neuts (Manual) 11.4 X10*3/uL (2.0-8.3) H 08/23/23 13:34 Lymphocytes # (Manual) 0.2 X10*3/uL (1.2-4.9) L 08/23/23 13:34 Monocytes # (Manual) 0.2 X10*3/uL (0.1-1.2) 08/23/23 13:34 Toxic Vacuolation PRESENT 08/23/23 13:34 Platelet Estimate SLIGHTLY DECREASED (NORMAL) 08/23/23 13:34 Large Platelets PRESENT 08/23/23 13:34 Plt Morphology Comment NOTED 08/23/23 13:34 RBC Morphology NORMAL 08/23/23 13:34 Smear Tech's Comments VERIFIED 08/23/23 22:07 ESR 82 MM/HR (0-20) H 08/25/23 06:20 Hold Purple Top SEE NOTE 08/30/23 06:41 PT 19.1 SEC (11.1-13.3) H 08/25/23 06:20 INR 1.6 (0.9-1.1) H 08/25/23 06:20 VBG pH 7.45 (7.32-7.43) H 08/31/23 06:43 VBG pCO2 44 mmHg 08/31/23 06:43 VBG pO2 100 mmHg 08/31/23 06:43 VBG HCO3 31 mmol/L (22-26) H 08/31/23 06:43 VBG O2 Saturation 99.0 % 08/31/23 06:43 VBG Base Excess 7.1 mmol/L 08/31/23 06:43 Sodium 137 mmol/L (135-145) 08/31/23 06:38 Potassium 3.7 mmol/L (3.3-5.1) 08/31/23 06:38 Chloride 102 mmol/L (96-108) 08/31/23 06:38 Carbon Dioxide 28 mmol/L (22-29) 08/31/23 06:38 Anion Gap 11 (12-20) L 08/31/23 06:38 BUN 7 mg/dL (9-16) L 08/31/23 06:38 Creatinine 0.45 mg/dL (0.5-1.4) L 08/31/23 06:38 Estim Creat Clear Calc 137.0 08/31/23 06:38 Estimated GFR > 60 08/31/23 06:38 Random Glucose 110 mg/dL (60-115) 08/31/23 06:38 Estimat Average Glucose 94 mg/dL 08/23/23 13:34 Hemoglobin A1c % 4.9 % (<6.0) 08/23/23 13:34 Lactic Acid 0.9 mmol/L (0.5-2.0) 08/23/23 22:07 Lactic Acid F/U @ 2Hr 1.1 mmol/L (0.5-2.0) 08/23/23 16:16 Calcium 8.3 mg/dL (8.4-10.2) L 08/31/23 06:38 Magnesium 1.7 mg/dL (1.6-2.6) 08/29/23 06:51 Total Bilirubin 0.6 mg/dL (0.0-1.0) 08/25/23 06:20 Direct Bilirubin 0.2 mg/dL (0.0-0.5) 08/25/23 06:20 GGT 12 U/L (7-33) 08/23/23 22:07 AST 86 U/L (5-31) H 08/25/23 06:20 ALT 59 U/L (0-31) H 08/25/23 06:20 Alkaline Phosphatase 39 U/L (39-117) 08/25/23 06:20 Ammonia 36 umol/L (13-55) 08/23/23 13:34 Troponin I High Sens 51.8 ng/L (<3.5-17.0) H* 08/24/23 06:22 C-Reactive Protein 6.59 mg/dL (< or = 0.50) H 08/31/23 06:38 B-Natriuretic Peptide 482 pg/mL (<100) H 08/23/23 13:34 Total Protein 5.7 g/dL (6.5-8.0) L 08/25/23 06:20 Albumin 2.6 g/dL (3.5-5.0) L 08/25/23 06:20 Triglycerides 108 mg/dL (<150) 08/23/23 13:34 Cholesterol 106 mg/dL (<200) 08/23/23 13:34 LDL Cholesterol, Calc 51 mg/dL (<100) 08/23/23 13:34 HDL Cholesterol 34 mg/dL (>40) L 08/23/23 13:34 Lipase 5 U/L (8-78) L 08/23/23 13:34 TSH 2.03 uIU/mL (0.32-4.0) 08/23/23 22:07 Free T4 0.64 ng/dL (0.71-1.85) L 08/23/23 22:07 Urine Color Dark Yellow 08/23/23 14:09 Urine Appearance Clear 08/23/23 14:09 Urine pH 6.0 (5.0-9.0) 08/23/23 14:09 Ur Specific [place] 1.025 (1.005-1.025) 08/23/23 14:09 Urine Protein 100 (2+) mg/dL (Neg-Trace) H 08/23/23 14:09 Urine Glucose (UA) Negative mg/dL (Negative) 08/23/23 14:09 Urine Ketones 15 mg/dL (Negative) 08/23/23 14:09 Urine Blood Large (3+) (Negative) H 08/23/23 14:09 Urine Nitrite Negative (Negative) 08/23/23 14:09 Ur Leukocyte Esterase Trace (Negative) H 08/23/23 14:09 Urine RBC 11-20 /HPF (0-2) H 08/23/23 14:09 Urine WBC 0-5 /HPF (0-5) 08/23/23 14:09 Ur Squamous Epith Cells 0-2 /HPF (0-2) 08/23/23 14:09 Urine Bacteria None Seen (None Seen) 08/23/23 14:09 Hyaline Casts 0-2 /LPF (0-2) 08/23/23 14:09 Random Vancomycin 5.7 mcg/mL (15-20) L 08/24/23 17:54 Urine Opiates Screen Not Detected (Not Detect) 08/23/23 14:09 Ur Buprenorphine Scrn Positive ng/mL (Not Detect) 08/23/23 14:09 Ur Oxycodone Screen Not Detected ng/mL (Not Detect) 08/23/23 14:09 Urine Methadone Screen Not Detected ng/mL (Not Detect) 08/23/23 14:09 Urine Fentanyl Screen Not Detected (Not Detect) 08/23/23 14:09 Ur Barbiturates Screen Not Detected (Not Detect) 08/23/23 14:09 Ur Phencyclidine Scrn Not Detected (Not Detect) 08/23/23 14:09 Ur Amphetamines Screen Not Detected (Not Detect) 08/23/23 14:09 U Benzodiazepines Scrn Not Detected (Not Detect) 08/23/23 14:09 Urine Cocaine Screen Not Detected (Not Detect) 08/23/23 14:09 U Marijuana (THC) Screen Not Detected (Not Detect) 08/23/23 14:09 Ethyl Alcohol < 10 mg/dL 08/23/23 13:34 Respiratory Panel [place] See Note 08/23/23 Unknown T.pallidum Ab (EIA) Nonreactive (Nonreactive) 08/24/23 06:22 Adenovirus (Rapid PCR) Not Detected (Not Detect.) 08/23/23 Unknown B.pert (TEM-PCR) Not Detected (Not Detect.) 08/23/23 Unknown B.parapertussis DNA PCR Not Detected (Not Detect.) 08/23/23 Unknown C. pneumoniae DNA (PCR) Not Detected (Not Detect.) 08/23/23 Unknown Coronavirus OC43 (PCR) Not Detected (Not Detect.) 08/23/23 Unknown Coronavirus HKU1 (PCR) Not Detected (Not Detect.) 08/23/23 Unknown Coronavirus 229E (PCR) Not Detected (Not Detect.) 08/23/23 Unknown Coronavirus NL63 (PCR) Not Detected (Not Detect.) 08/23/23 Unknown Hepatitis A IgM Ab Nonreactive (Nonreactive) 08/24/23 06:23 Hep Bs Antigen Negative (Negative) 08/24/23 06:23 Hep Bs Antibody NONREACTIVE (Nonreactive) 08/24/23 06:23 Hep B Core Total Ab Nonreactive (Nonreactive) 08/24/23 06:23 Hepatitis C Ab (EIA) Nonreactive (Nonreactive) 08/24/23 06:23 HIV-1 RNA copies/mL Not Detected Copies/mL 08/24/23 06:22 HIV-1 RNA logcopies/mL Not Detected Log cps/mL 08/24/23 06:22 HIV Genotype TNP 08/24/23 06:22 Human Metapneumovir PCR Not Detected (Not Detect.) 08/23/23 Unknown Influenza A (RT-PCR) Not Detected (Not Detect.) 08/23/23 Unknown Influenza Type A (PCR) NEGATIVE (Negative) 08/23/23 13:36 Influenza B (RT-PCR) Not Detected (Not Detect.) 08/23/23 Unknown Influenza Type B (PCR) NEGATIVE (Negative) 08/23/23 13:36 M. pneumoniae (PCR) Not Detected (Not Detect.) 08/23/23 Unknown Parainfluenza 1 (PCR) Not Detected (Not Detect.) 08/23/23 Unknown Parainfluenza 2 (PCR) Not Detected (Not Detect.) 08/23/23 Unknown Parainfluenza 3 (PCR) Not Detected (Not Detect.) 08/23/23 Unknown Parainfluenza 4 (PCR) Not Detected (Not Detect.) 08/23/23 Unknown RSV (PCR) Not Detected (Not Detect.) 08/23/23 Unknown RSV RNA Qual (PCR) NEGATIVE (Negative) 08/23/23 13:36 Entero/Rhino (PCR) Not Detected (Not Detect.) 08/23/23 Unknown SARS-CoV-2 RNA (RT-PCR) Not Detected (Not Detect.) 08/23/[address] 08/23/23 13:24 IMPRESSION: No acute intracranial pathology. [id number] bilateral temporoparietal lobe volume loss. Kgan-kn-hjrkapfw aerosolized mucosal secretions in the maxillary sinus cavities; correlate for any acute symptomatology. Foot X-Ray 08/23/23 14:57 IMPRESSION: There is soft tissue gas in the medial plantar aspect of the left great toe, which can be associated with a soft tissue infection. No periosteal thickening or cortical erosion is seen of the great toe to suggest osteomyelitis. If a clinical suspicion of acute osteomyelitis persists, MRI evaluation can be performed as a more sensitive imaging modality. Abdomen/Pelvis CT 08/23/23 17:02 IMPRESSION: 1. Extensive bilateral rib fractures and right transverse process fractures are noted. There is evidence for interval healing with periosteal changes and well-corticated fracture lines with additional more chronic appearing healed fractures. 2. There is asymmetric soft tissue mass along the inferomedial aspect of the right scapula difficult to separate from the adjacent soft tissues but this measures approximately 3.8 cm in diameter. Fibroblastoma dorsi could be seen in this location but that would be somewhat atypical in a 53-year-old patient. This cannot be defined further on this noncontrast study. Clinical correlation would be needed. MRI would be more sensitive to evaluate this nonspecific soft tissue asymmetric mass further. 3. Small bilateral pleural effusions with dependent airspace changes more likely due to atelectasis although infiltrate/aspiration could have a similar appearance especially in the left base. Chest CT 08/23/23 17:02 IMPRESSION: 1. Extensive bilateral rib fractures and right transverse process fractures are noted. There is evidence for interval healing with periosteal changes and well-corticated fracture lines with additional more chronic appearing healed fractures. 2. There is asymmetric soft tissue mass along the inferomedial aspect of the right scapula difficult to separate from the adjacent soft tissues but this measures approximately 3.8 cm in diameter. Fibroblastoma dorsi could be seen in this location but that would be somewhat atypical in a 53-year-old patient. This cannot be defined further on this noncontrast study. Clinical correlation would be needed. MRI would be more sensitive to evaluate this nonspecific soft tissue asymmetric mass further. 3. Small bilateral pleural effusions with dependent airspace changes more likely due to atelectasis although infiltrate/aspiration could have a similar appearance especially in the left base. Chest X-Ray 08/26/23 09:30 IMPRESSION: Patchy airspace disease greatest at the left lung base suggestive of pneumonia. Forearm X-Ray 08/27/23 12:23 IMPRESSION: LEFT FOREARM: Circumferential soft tissue swelling without acute osseous abnormality. LEFT HAND: Circumferential soft tissue swelling without acute osseous abnormality. Mild degenerative arthritis at the triscaphe and first carpometacarpal joints. Hand X-Ray 08/27/23 12:23 IMPRESSION: LEFT FOREARM: Circumferential soft tissue swelling without acute osseous abnormality. LEFT HAND: Circumferential soft tissue swelling without acute osseous abnormality. Mild degenerative arthritis at the triscaphe and first carpometacarpal joints. Venous Duplex 08/27/23 13:00 IMPRESSION: * No evidence of deep vein thrombosis in the left upper extremity. * However, there is thrombosis of a superficial vein (the basilic vein) in the lower aspect of the arm near the level of the elbow. Foot CT 08/29/23 14:13 IMPRESSION: Soft tissue ulceration along the plantar/medial aspect of the great toe, with adjacent skin thickening and subcutaneous edema, consistent with acute cellulitis. No definite abscess formation or peripherally enhancing fluid collection. No adjacent cortical erosion or periosteal reaction to suggest acute osteomyelitis. Early osteomyelitis may be occult on CT examination. Labs on day of discharge: Discharge Plan Discharge Anticipated Discharge Date/Time: 09/01/23 13:30 Patient Disposition: [facility] Discharge Diagnosis: Group A streptococcal bacteremia, cellulitis, foot ulcer L basilic vein superficial thrombosis demand ischemia hypertension Referrals: [facility] [Outside] - 1 Day (SHORT TERM REHAB) Doug Santos MD [Primary Care Provider] - 1 Week Discharge Medications: New atorvastatin 40 mg Tablet 40 mg PO BEDTIME Qty: 1 0RF amlodipine 5 mg Tablet 5 mg PO DAILY Qty: 1 0RF Protocol: Hold for SBP< HOLD for SBP < : 90 aspirin 81 mg Tablet,Delayed Release (Dr/Ec) 81 mg PO DAILY Qty: 1 0RF nicotine 7 mg/24 hr Patch 24 Hour 7 mg transdermal DAILY Qty: 1 0RF oxycodone 5 mg tablet 5 mg PO Q6H PRN (Reason: severe pain (scale score 7-10)) Qty: 12 0RF Rx Instructions: Partial Fill upon patient request. cephalexin 500 mg capsule 500 mg PO QID Qty: 63 0RF Continued ibuprofen 800 mg Tablet 800 mg PO TID PRN (Reason: Pain) pregabalin 200 mg Capsule 200 mg PO TID omeprazole 20 mg Tablet,Delayed Release (Dr/Ec) 20 mg PO BEDTIME albuterol sulfate 90 mcg/actuation Hfa Aerosol Inhaler 2 puff INHALATION Q6H PRN (Reason: Shortness Of Breath Or Wheezing) silver sulfadiazine 1 % cream 1 appl topical DAILY alendronate 70 mg tablet 70 mg PO QWEEK levothyroxine 50 mcg tablet 50 mcg PO DAILY@0600 escitalopram oxalate 10 mg tablet 10 mg PO DAILY Rx Instructions: with 20mg; tdd 30 mg escitalopram oxalate 20 mg tablet 20 mg PO DAILY Rx Instructions: with 10mg; tdd 30 mg Discharge Orders: Discharge Order (Routine); Ordered 09/01/23 Ordered By: Vipul Carranza Diet: Advance to usual diet Activity on Discharge: As tolerated Stand Alone Forms: Patient Portal Discharge page Print Language: Danish Activity Restrictions/Additional Instructions: Topical Wound care recommendations: Left Great Toe - Cleanse with NS wash, pat dry. Lightly pack with Durafibger AG, cover with dry gauze and wrap. Change every other day. Recommend follow up out patient Wound Clinic at [address] [place] [address] and to call for an appointment at time of discharge. [phone].? Care Plan Goals: Cure of infection Health Concerns: Group A streptococcal bacteremia, cellulitis, foot ulcer Plan of Treatment: Group A streptococcal bacteremia, cellulitis, foot ulcer - Wound care as above; follow up with [facility] 1 week - Take cephalexin 500 mg 4x a day for 3 days L basilic vein superficial thrombosis - Ice packs; acetaminophen; oxycodone for severe pain demand ischemia - Atorvastatin, aspirin hypertension - Amlodipine Please follow up with your primary care doctor within 1 week of discharge from SNF. Return to the hospital if you experience recurrent or worsening symptoms. Assessment: See Discharge Summary.
[2023-09-01 15:06] VITALS: BP 163/85; PULSE 101; RESP 20; TEMP 36.1; O2SAT 92
[2023-09-01] MEDS: cefTRIAXone sodium 2 GM in 0.9 % Sodium Chloride 50 ML IV (15:55)
[2023-09-01] MEDS: Enoxaparin Sodium 40 MG/0.4 ML SYRINGE SUBCUT (15:58)
== END 2023-09-01 17:45 | disposition skilled nursing facility (03) | DRG 871 ==
LOC: HO.ED 16:37 → HO.EDOVER 17:58 → HO.IMC 19:41
PROVIDERS: Internal Medicine; Student in an Organized Health Care Education/Training Program; Admitting Provider Student in an Organized Health Care Education/Training Program; Emergency Provider Emergency Medicine; PCP Internal Medicine; Visit Provider Family Medicine
DX: A41.9 Sepsis, unspecified organism (principal); G92.8 Other toxic encephalopathy; J96.01 Acute respiratory failure with hypoxia; I21.A1 Myocardial infarction type 2; L03.116 Cellulitis of left lower limb; E87.21 Acute metabolic acidosis; I82.612 Acute embolism and thrombosis of superficial veins of left upper extremity; B95.0 Streptococcus, group A, as the cause of diseases classified elsewhere; L97.529 Non-pressure chronic ulcer of other part of left foot with unspecified severity; R65.20 Severe sepsis without septic shock; E03.9 Hypothyroidism, unspecified; G62.9 Polyneuropathy, unspecified; M79.7 Fibromyalgia; E87.6 Hypokalemia; Z20.822 Contact with and (suspected) exposure to COVID-19; Z79.890 Hormone replacement therapy; Z79.899 Other long term (current) drug therapy
CPT/HCPCS: 0241U; 36415; 70450; 71045; 71250; 73090; 73130; 73620; 73701; 74176; 80048; 80053; 80061; 80076; 80202; 80307; 81001; 82140; 82803; 82977; 83036; 83605; 83690; 83735; 83880; 84439; 84443; 84484; 85007; 85025; 85027; 85610; 85652; 86140; 86704; 86706; 86709; 86780; 86803; 87040; 87147; 87205; 87340; 87536; 87633; 87900; 93005; 93306; 93971; 97162; 99202; 99285; C1758; C9113; J0696; J0736; J1170; J1650; J1940; J2060; J2270; J2543; J3370; J3480; J7120; Q9957; Q9967

== ENCOUNTER → 2023-08-23 12:48 | Outpatient (BNV) | payer MEDICARE, OTHER, SELFPAY | PROVIDERS: Admitting Provider Student in an Organized Health Care Education/Training Program; Emergency Provider Emergency Medicine; PCP Internal Medicine; Visit Provider Internal Medicine Cardiovascular Disease | DX: R00.0 Tachycardia, unspecified (principal); R41.82 Altered mental status, unspecified | CPT/HCPCS: 93010 ==

== ENCOUNTER 2023-08-23 16:49 | Outpatient (BNV) | payer MEDICARE, OTHER, SELFPAY | END 2023-08-24 07:00 | PROVIDERS: Admitting Provider Student in an Organized Health Care Education/Training Program; Emergency Provider Emergency Medicine; PCP Internal Medicine; Visit Provider Internal Medicine Cardiovascular Disease | DX: I36.1 Nonrheumatic tricuspid (valve) insufficiency (principal) | CPT/HCPCS: 93306 ==

== ENCOUNTER → 2023-08-23 16:49 | Outpatient (BNV) | payer MEDICARE, OTHER, SELFPAY | PROVIDERS: Admitting Provider Student in an Organized Health Care Education/Training Program; Emergency Provider Emergency Medicine; PCP Internal Medicine; Visit Provider Internal Medicine Cardiovascular Disease | DX: R79.89 Other specified abnormal findings of blood chemistry (principal) | CPT/HCPCS: 99222 ==

== ENCOUNTER → 2023-08-23 16:49 | Outpatient (BNV) | payer MEDICARE, OTHER, SELFPAY | PROVIDERS: Admitting Provider Student in an Organized Health Care Education/Training Program; Emergency Provider Emergency Medicine; PCP Internal Medicine; Visit Provider Internal Medicine | DX: A41.9 Sepsis, unspecified organism (principal); R79.89 Other specified abnormal findings of blood chemistry; L03.116 Cellulitis of left lower limb; I24.89 Other forms of acute ischemic heart disease; R78.81 Bacteremia; B95.5 Unspecified streptococcus as the cause of diseases classified elsewhere; G93.49 Other encephalopathy; B99.9 Unspecified infectious disease; L98.499 Non-pressure chronic ulcer of skin of other sites with unspecified severity; J96.01 Acute respiratory failure with hypoxia; I82.619 Acute embolism and thrombosis of superficial veins of unspecified upper extremity | CPT/HCPCS: 99223; 99232; 99233; 99239; 99499 ==

== ENCOUNTER → 2023-08-23 16:49 | Outpatient (BNV) | payer MEDICARE, OTHER, SELFPAY | PROVIDERS: Admitting Provider Student in an Organized Health Care Education/Training Program; Emergency Provider Emergency Medicine; PCP Internal Medicine; Visit Provider Internal Medicine | DX: A41.9 Sepsis, unspecified organism (principal); R78.81 Bacteremia; L03.116 Cellulitis of left lower limb | CPT/HCPCS: 99222; 99499 ==

== ENCOUNTER 2023-10-16 13:57 | Outpatient (REF) | payer MEDICARE, OTHER, SELFPAY ==
--- NOTE | ~2023-10-16 | XR_ITS ---
EXAMINATION: XR HAND/WRIST, LEFT CLINICAL INFORMATION: Trauma COMPARISON: Previous x-ray August 2023 TECHNIQUE: PA, lateral, and oblique views of the left hand and wrist. FINDINGS: The bones are osteopenic. No fracture or dislocation. Mild degenerative changes at the first FPC and trapezoid trapezium scaphoid joints. Soft tissues are unremarkable. XR/XR hand wrist LT IMPRESSION: Osteopenia and mild degenerative changes. No fracture seen.
--- NOTE | ~2023-10-16 | XR_ITS ---
EXAMINATION: XR FOREARM, LEFT CLINICAL INFORMATION: Trauma COMPARISON: Previous exam August 2023 TECHNIQUE: AP and lateral views of the left forearm were obtained. FINDINGS: The bones and soft tissues are normal. No fracture. Imaged portions of the elbow and wrist are unremarkable. XR/XR forearm LT 2V IMPRESSION: No fracture or dislocation.
== END 2023-10-16 13:58 | disposition home or self-care (01) ==
LOC: HO.HMGCX 13:57
PROVIDERS: PCP Internal Medicine; Visit Provider Internal Medicine
DX: M25.532 Pain in left wrist (principal); M79.642 Pain in left hand
CPT/HCPCS: 73090; 73110; 73130

== ENCOUNTER 2023-12-01 14:52 | Outpatient (REF) | payer MEDICARE, OTHER, SELFPAY ==
--- NOTE | ~2023-12-01 | XR_ITS ---
EXAMINATION: XR WRIST, LEFT CLINICAL INFORMATION: Left wrist pain rule out fracture. COMPARISON: None available. TECHNIQUE: PA, lateral, and oblique views of the left wrist. FINDINGS: The bones and soft tissues are normal. No fracture. Alignment is anatomic with normal joint spaces. There is negative ulnar variance No erosions seen. There is mild soft tissue swelling surrounding the left wrist. XR/XR wrist LT min 3V IMPRESSION: Mild soft tissue swelling surrounding the left wrist. No visible acute fracture, dislocation or subluxation seen.
== END 2023-12-01 14:53 | disposition home or self-care (01) ==
LOC: HO.HMGCX 14:52
PROVIDERS: PCP Internal Medicine; Visit Provider Internal Medicine
DX: R60.0 Localized edema (principal); M25.532 Pain in left wrist
CPT/HCPCS: 73110

== ENCOUNTER 2024-03-15 11:31 | Outpatient (AMB) | payer MEDICARE, OTHER, SELFPAY ==
[2024-03-15 11:35] VITALS: BMI 29.3
--- NOTE | 2024-03-15 11:35 | MHC.OFFVIS ---
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 Patient reports that she was being admitted to [facility] for [facility]. She explains that she does not remember much of this time - she was told that she injured her arm but not sure how. Currently she explains that she has pain all the time, she is unable to lift things, she has pain with any and all movement. Pain radiates up the arm to the elbow. She has snapping and clicking of the thumb and limited ROM of the fingers. She had imaging taken at the hospital including an US - she states that this showed a Blood Clot. Patient reports that she took a fall this morning and hit her head on the coffee table. Noticible swelling. 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 The patient reports that at that time, she was admitted to the hospital for a toe infection, but states that she injured her wrist, although she is unable to recall how, as she was ?delirious? while she was in the hospital. The patient states that her was not told what her injury was, but was told to stay away from her wrist. Patient states that since that time, she has had significant difficulty with range of motion or any activity with her left hand and wrist, and states that this is worst with lifting or attempting to reach for something. Patient states that this pain has been baseline since she was in the hospital. Patient denies any numbness or tingling in the left hand. No other acute complaints or concerns at this time. [facility] Medical History Sepsis Elevated troponin Gram-positive cocci bacteremia Cellulitis of left leg Altered mental status Smoker Arthritis Asthma Low back pain Osteoporosis GERD (gastroesophageal reflux disease) Irritable bowel syndrome (IBS) Hypothyroidism Fibromyalgia Personal history of COVID-19 Surgical History History of Hx of colonoscopy History of esophagogastroduodenoscopy (EGD) Social History Household Members: Significant Other Housing: Unknown / Unable to assess Are you a primary progressive care nurse to a significant other at home: No Do you presently have visiting nurse or other home services: No Patient Tobacco Use Status: Tobacco use Unknown Tobacco use type: Cigarette Cigarettes Per Day: 10 service: No Review of Systems Const All systems reviewed & are unremarkable except as noted in HPI and below Physical Exam Vital Signs: BMI result Body Mass Index 29.3 Extrem Other: Patient is alert, oriented, and in no acute distress. Neuro: Normal sensation of the tips of all digits of the left hand at this time Vascular: Cap refill brisk Pain: Patient reports diffuse tenderness to palpation of the left hand and wrist, but this is worst to palpation of the radial styloid and 1st dorsal compartment No tenderness to palpation of the scaphoid tubercle or anatomical snuffbox Positive Eliel test on the left ROM: Patient was unable to make a closed fist due to pain Skin: No lacerations or abrasions. General: No ecchymosis, erythema, or evidence of infection. Psych: Appears grossly normal Affect normal Attitude cooperative Office Procedures AMB Tendon Injection Tendon Injection 86650-[id number] Tendon Sheath Injection All charges added?: Procedure code (CPT) selection complete Assessment & Plan Assessment & Plan (1) De Quervain's tenosynovitis, left: Code(s): M65.4 - Radial styloid tenosynovitis [de Quervain] Category: Medical Plan 1. De Quervain tenosynovitis, left Patient is educated about this condition and the treatment options available, namely conservative management with bracing and OT, steroid injection, and eventual surgery if these prove ineffective Patient would like to proceed with steroid injection at this time Injection #1: The risks and benefits of a steroid injection including but not limited to risk of damage to blood vessels, nerves, tendons, infection, skin bleaching, failure to improve symptoms, increased pain, and possible need for further injections or other intervention were discussed with the patient and the patient wishes to proceed with the steroid injection. Once consent was obtained, I sterilely prepped the area over the 1st dorsal compartment of the left thumb. I then injected the 1st dorsal compartment with a combination of 1 mL of dexamethasone (4mg/ml), and 1% lidocaine. The patient tolerated the procedure well with no complications and good resolution of their symptoms prior to leaving clinic. Patient is also provided with a comfort cool thumb spica brace to wear with daytime activities Patient is encouraged to continue working on range of motion of the left hand If the patient continues to have pain 6-8 weeks following this injection, they may call to schedule appointment to discuss alternative treatment options Coding Level of Care Code New Pt Level 3 (38283) Diagnoses De Quervain's tenosynovitis, left M65.4 CPT Codes Tendon Injection - Tendon Injection 1: [id number] Tendon Sheath Injection ([id number])
== END 2024-03-15 12:51 | disposition home or self-care (01) ==
PROVIDERS: PCP Internal Medicine
DX: M65.4 Radial styloid tenosynovitis [de Quervain] (principal)
CPT/HCPCS: 20550; 99203

== ENCOUNTER → 2024-03-15 11:31 | Outpatient (BNVA) | payer MEDICARE, OTHER, SELFPAY | PROVIDERS: PCP Internal Medicine | DX: M65.4 Radial styloid tenosynovitis [de Quervain] (principal) | CPT/HCPCS: 20550; 99202; J1100; J2003 ==

== ENCOUNTER 2024-05-03 10:20 | Outpatient (AMB) | payer MEDICARE, OTHER, SELFPAY ==
--- NOTE | 2024-05-03 10:32 | A.OFFVIS_ITS ---
Intake Visit Reasons: OV-LT hand dequervain s/p inj 03/15/24 Intake Note: Antoinette 53 yr old left hand dominant female presents today for a follow up visit for her left hand dequervain s/p injection with Mary Ahn on 03/15/24. Patient was also given a brace which gave her relief. States injection did not help and would like to discuss other treatment options. Allergies No Known Allergies [No Known Allergies*] Allergy (Verified 05/03/24 10:32) HPI HPI OV-LT hand dequervain s/p inj 03/15/24: Details: The patient is a 53-year-old left-hand dominant woman seen today complaining of left wrist and hand pain. She had some difficulty today localizing exactly where the pain is. She pointed to the MCP joint of her thumb and some over the dorsal ulnar aspect of her wrist. She was last seen by Jimy on 03/15/2024 and he gave her an injection for de Quervain tenosynovitis. She feels like it did not help her. She does have a wrist brace that she says she wears sometimes, but does not have it today. [facility] Medical History Sepsis Elevated troponin Gram-positive cocci bacteremia Cellulitis of left leg Altered mental status Smoker Arthritis Asthma Low back pain Osteoporosis GERD (gastroesophageal reflux disease) Irritable bowel syndrome (IBS) Hypothyroidism Fibromyalgia Personal history of COVID-19 Surgical History History of Hx of colonoscopy History of esophagogastroduodenoscopy (EGD) Social History Household Members: Significant Other Housing: Unknown / Unable to assess Are you a primary acute care assistant to a significant other at home: No Do you presently have visiting nurse or other home services: No Patient Tobacco Use Status: Tobacco use Unknown Tobacco use type: Cigarette Cigarettes Per Day: 10 service: No Physical Exam Extrem Other: The patient was alert oriented and in no acute distress. She was somewhat sleepy today however. She ambulates with a walker. When asked to demonstrate where she has the most pain, she pointed to the dorsal aspect of the left thumb MCP joint. On exam she could make a fist and extend all of her digits with no locking or catching. Sensation was intact to the tips of all digits and she had good cap refill. She was tender in several areas. She was not particularly tender over the MCP joint of the thumb. She had some tenderness over the dorsal aspect of the DRUJ and just distal to the DRUJ in the dorsal ulnar aspect of the wrist joint. She also had some tenderness, which she felt was more tender, over the left 1st dorsal compartment. She had a negative Eliel test on the right. She had difficulty doing a Eliel test on the left, and said she could not do it. Office Procedures AMB Fracture Care Details: No fracture, injection Fracture Billing Code: Fracture Billing Code Assessment & Plan Assessment & Plan (1) De Quervain's tenosynovitis, left: Code(s): M65.4 - Radial styloid tenosynovitis [de Quervain] Category: Medical Plan Assessment and plan: 1. Left generalized hand/wrist discomfort. 2. Left de Quervain tenosynovitis Status post injection 03/15/2024 without improvement I educated her about these conditions. I 1st recommended OT hand therapy, but she did not want to participate in therapy. She says that she has tried it in the past. I am recommending that we try another steroid injection for de Quervain tenosynovitis to see if she gets some improvement from this. I also educated her about the importance of activity modification. She reports that she has a left wrist splint that she likes to wear but it is at home. Injection #1: The risks and benefits of a steroid injection including but not limited to risk of damage to blood vessels, nerves, tendons, infection, skin bleaching, failure to improve symptoms, increased pain, and possible need for further injections or other intervention were discussed with the patient and the patient wishes to proceed with the steroid injection. Once consent was obtained, I sterilely prepped the area over the left 1st dorsal compartment. I then injected the left 1st dorsal compartment with a combination of 1 mL of dexamethasone (4mg/ml), and 1% lidocaine. The patient tolerated the procedure well with no complications. She had some very good early relief of her symptoms before leaving clinic If the patient continues to have locking and catching 4-6 weeks following this injection, they may call to schedule appointment to be seen for possible A1 disha release. 3. Left ring finger tip pain X1 week She thinks she might have gotten a small piece of metal or something in the finger. Did not see anything on exam today. Coding Level of Care Code Est Pt Level 4 (04470) Diagnoses De Quervain's tenosynovitis, left M65.4 CPT Codes Fracture Care - Fracture Billing Code: Fracture Billing Code ([id number])
== END 2024-05-03 11:37 | disposition home or self-care (01) ==
PROVIDERS: PCP Internal Medicine; Visit Provider Orthopaedic Surgery
DX: M65.4 Radial styloid tenosynovitis [de Quervain] (principal)
CPT/HCPCS: 20550; 99214

== ENCOUNTER → 2024-05-03 10:20 | Outpatient (BNVA) | payer MEDICARE, OTHER, SELFPAY | PROVIDERS: PCP Internal Medicine; Visit Provider Orthopaedic Surgery | DX: M65.4 Radial styloid tenosynovitis [de Quervain] (principal) | CPT/HCPCS: 20550; 99212; J1100; J2003 ==

== ENCOUNTER 2024-05-31 00:21 | Inpatient (IN) | payer MEDICARE, OTHER, SELFPAY ==
[2024-05-31] VITALS (17 sets, daily range): BP systolic 128–162; BP diastolic 63–101; PULSE 78–102; RESP 13–20; TEMP 36.3–37; O2SAT 83–97; BMI 30.3; BMI 31.6
--- NOTE | 2024-05-31 | ECG_ITS ---
Test Reason : SOB Blood Pressure : */* mmHG Vent. Rate : 66 BPM Atrial Rate : 66 BPM P-R Int : 146 ms QRS Dur : 62 ms QT Int : 396 ms P-R-T Axes : 78 28 32 degrees QTcB Int : 415 ms Sinus rhythm with Premature atrial complexes Otherwise normal ECG When compared with ECG of 23-Aug-2023 13:50, Vent. rate has decreased by 52 bpm Referred By: Generic ED Physician Electronically Signed By: ANNA CARRANZA
--- NOTE | ~2024-05-31 | XR_ITS ---
CLINICAL HISTORY: dyspnea cough congestion 2 view chest x-ray. Comparison: CR/SR - XR CHEST 1V - 08/26/23 09:[address]/SR - CT CHEST WO IV CON - 08/23/23 16:35 EDT Findings: There is faint opacity in the right lower lung likely mild atelectasis or infiltrate. Lungs appear otherwise clear. Cardiomediastinal silhouette is within normal limits. There are multiple bilateral chronic rib fractures. IMPRESSION: Faint opacity in the right lower lung likely mild atelectasis or infiltrate. This document has been electronically signed by: Diomedes Arthur MD on 05/31/2024 02:43:03
[2024-05-31 00:48] LABS: MANUAL DIFF FLAG NO
[2024-05-31 00:50] LABS: Basophils Percent Auto 0.3 % (0-2); Eosinophils Absolute Auto 0.1 X10*3/uL (0.0-0.4); Eosinophils Percent Auto 1.1 % (0-4); Hematocrit 35.8 % (37.0-47.0); Hemoglobin 11.5 g/dl (12.0-16.0); Imm Gran Abs Auto 0.02 X10*3/uL (0.00-0.03); Imm Gran Pct Auto 0.3 % (0.0-0.4); Lymphocytes Absolute Auto 1.2 X10*3/uL (1.2-4.9); Lymphocytes Percent Auto 18.4 % (20-40); Mean Corpuscular HGB Conc 32.1 g/dl (31.0-35.0); Mean Corpuscular Hemoglobin 28.5 pg (27.0-33.0); Mean Corpuscular Volume 88.6 fL (80.0-98.0); Monocytes Absolute Auto 0.4 X10*3/uL (0.1-1.2); Monocytes Percent Auto 6.3 % (2-11); Neutrophils Absolute Auto 4.6 x10*3/uL (2.0-8.3); Neutrophils Percent Auto 73.6 % (45-73); Platelet Count 182 X10*3/uL (160-400); Red Blood Count 4.04 X10*6/uL (4.20-5.50); White Blood Count 6.2 X10*3/uL (4.8-10.8)
[2024-05-31 00:53] LABS: VBG Base Excess 7.5 mmol/L; VBG HCO3 34 mmol/L (22-26); VBG pCO2 59 mmHg; VBG pH 7.36 (7.32-7.43); VBG pO2 59 mmHg
[2024-05-31 00:56] LABS: Venous Blood Gas Refer to POC result
[2024-05-31 01:14] LABS: Troponin-I High Sensitivity 3.6 ng/L (<3.5-17.0)
[2024-05-31 01:18] LABS: Alanine Aminotransferase 12 U/L (0-31); Albumin Level 3.7 g/dL (3.5-5.0); Anion Gap 11 (12-20); Aspartate Amino Transferase 26 U/L (5-31); Bilirubin Total 0.5 mg/dL (0.0-1.0); Blood Urea Nitrogen 7 mg/dL (9-16); Calcium 8.4 mg/dL (8.4-10.2); Carbon Dioxide 29 mmol/L (22-29); Chloride 103 mmol/L (96-108); Creatinine Clr Calc Pharmacy 95.9; Estimated Glomerular Filt Rate > 60; Glucose Random 106 mg/dL (60-115); Lipase 6 U/L (8-78); Magnesium 1.6 mg/dL (1.6-2.6); Potassium 3.6 mmol/L (3.3-5.1); Sodium 139 mmol/L (135-145); Total Protein 7.2 g/dL (6.5-8.0)
--- NOTE | 2024-05-31 01:19 | ED_ITS ---
HPI - SOB/Dyspnea General Chief Complaint: Dyspnea Stated Complaint: low O2 Time Seen by Provider: 05/31/24 01:04 Source: patient Mode of arrival: ambulatory Limitations: no limitations History of Present Illness ED Provider: DR. Nunez HPI Narrative: 53-year-old female with past medical history significant for IBS, GERD, osteoporosis, fibromyalgia, peripheral neuropathy, asthma, active smoker,? COPD. No O2 home therapy. Came in for evaluation of upper respiratory symptoms and difficulty breathing, productive cough with green sputum, subjective fever patient was exposed to her who is also having same symptoms. On arrival patient found to be hypoxic 80s% on room air. Related Data Home Medications ?Medication ?Instructions ?Recorded ?Confirmed albuterol sulfate 90 mcg/actuation 2 puff inhalation Q6H PRN 08/06/21 08/23/23 aerosol inhaler Shortness Of Breath Or Wheezing ibuprofen 800 mg tablet 800 mg PO TID PRN Pain 08/06/21 08/23/23 omeprazole 20 mg tablet,delayed 20 mg PO BEDTIME 08/06/21 08/23/23 release pregabalin 200 mg capsule 200 mg PO TID 08/06/21 08/23/23 alendronate 70 mg tablet 70 mg PO QWEEK 08/23/23 08/23/23 escitalopram oxalate 10 mg tablet 10 mg PO DAILY 08/23/23 08/23/23 escitalopram oxalate 20 mg tablet 20 mg PO DAILY 08/23/23 08/23/23 levothyroxine 50 mcg tablet 50 mcg PO DAILY@0600 08/23/23 08/23/23 silver sulfadiazine 1 % topical 1 appl topical DAILY 08/23/23 08/23/23 cream Previous Rx's ?Medication ?Instructions ?Recorded amlodipine 5 mg tablet 5 mg PO DAILY #1 tab 09/01/23 aspirin 81 mg tablet,delayed 81 mg PO DAILY #1 tab 09/01/23 release atorvastatin 40 mg tablet 40 mg PO BEDTIME #1 tab 09/01/23 cephalexin 500 mg capsule 500 mg PO QID #63 caps 09/01/23 nicotine 7 mg/24 hr daily 7 mg transdermal DAILY #1 ea 09/01/23 transdermal patch oxycodone 5 mg tablet 5 mg PO Q6H PRN severe pain (scale 09/01/23 score 7-10) #12 tabs Allergies Allergy/AdvReac Type Severity Reaction Status Date / Time No Known Allergies Allergy Verified 05/31/24 00:26 [No Known Allergies*] Review of Systems 2 Review of Systems: All other systems are reviewed and are negative Constitutional: Reports as per HPI and Reports no additional constitutional complaints Eyes: Reports as per HPI and Reports no additional eye complaints Reports system reviewed and no additional complaints, except as documented Cardiovascular: Reports as per HPI and Reports no additional cardiovascular complaints Respiratory: Reports as per HPI and Reports no additional respiratory complaints Gastrointestinal: Reports as per HPI and Reports no additional gastrointestinal complaints Genitourinary: Reports no additional female genitourinary complaints Musculoskeletal: Reports no additional musculoskeletal complaints Skin/Breast: Reports system reviewed and no additional complaints, except as docu Psychiatric: Reports no additional psychiatric complaints Endocrine: Reports no additional endocrine complaints Hematologic/Lymphatic: Reports no additional hematologic/lymphatic complaints Allergic/Immunologic: Reports no additional allergic/immunologic complaints Reports system reviewed and no additional complaints, except as documented and Reports Abnormal speech present [facility] Past Medical History Medical History Sepsis Elevated troponin Gram-positive cocci bacteremia Cellulitis of left leg Altered mental status Smoker Arthritis Asthma Low back pain Osteoporosis GERD (gastroesophageal reflux disease) Irritable bowel syndrome (IBS) Hypothyroidism Fibromyalgia Personal history of COVID-19 Surgical History History of Hx of colonoscopy History of esophagogastroduodenoscopy (EGD) Social History Social History Household Members: Significant Other Housing: Unknown / Unable to assess Are you a primary rn intensive care unit to a significant other at home: No Do you presently have visiting nurse or other home services: No Patient Tobacco Use Status: Tobacco use Unknown Tobacco use type: Cigarette Cigarettes Per Day: 10 Smoked in Last 30 Days: Yes Advance Directives: No Advance Directives Information Provided: Yes Do you have a plan to hurt others: No Plan Patient : No service: No Physical Exam 2 Vital Signs: Vital Signs: Last Vital Signs Temp 97.6 F 05/31/24 03:14 Pulse 102 H 05/31/24 03:14 Resp 13 05/31/24 03:14 BP 145/81 H 05/31/24 03:14 Pulse Ox 83 L 05/31/24 03:15 O2 Del Method Nasal Cannula 05/31/24 03:14 O2 Flow Rate 2 05/31/24 03:14 BMI result Body Mass Index 30.3 Vital signs have been reviewed and appear to be correct. Blood pressure elevated. Heart rate normal. Respiratory rate normal. Temperature normal. Oxygen Low. Appearance: Alert. Oriented X3. No acute distress. Head: Normal external exam. Normocephalic. Atraumatic. No Harden signs noted. No raccoon eyes noted Eyes: PERRLA. EOMI. Conjunctiva and sclera normal. Eyelids normal. ENT: TM's Normal. Pharynx normal. Uvula midline. Moist mucous membranes. No trismus noted. No drooling noted. No muffled voice noted. Neck: Normal inspection. Neck supple. FROM. No adenopathy. Thyroid Normal. No meningeal signs. No neck mass noted. CVS: Normal heart rate and rhythm. Heart sound normal. No murmurs noted. Pulses normal throughout. Respiratory: No respiratory distress. Painless inspiration. Diffuse bilateral diffuse expiratory wheezing with prolonged expiration. No accessory muscle usage noted or decreased air movement noted. Abdomen: Soft and nontender. Bowel sounds normal in all 4 quadrants. No distention noted. No organomegaly noted. No visible injury noted. Back: No CVA tenderness. Full range of motion noted. Skin: Skin warm and dry. Normal skin color. Normal skin turgor. No rashes/lesions/lacerations noted. Extremities: No lower extremity edema. Extremities exhibit normal range of motion. Extremities nontender. Neuro: Oriented X 3. Cranial nerve exam: II-XII are grossly intact No motor deficit. No sensory deficit. Reflexes normal. Course Reevaluation(s) Reevaluation #1: infection is suspected now levofloxacin was administrated. Patient meet criteria for SIRS. lactic acid and blood culture was ordered, no septic shock, no severe sepsis. Time: 03:36 Medications Administered Discontinued Medications Generic Name Dose Route Start Last Admin Trade Name Freq PRN Reason Stop Dose Admin Albuterol Sulfate 2.5 mg/ 0 mg 05/31/24 01:33 05/31/24 01:36 Albuterol/Ipratropium 3 ml INHALE 05/31/24 01:34 1 dose ONCE ONE Administration Methylprednisolone Sodium Succinate 125 mg 05/31/24 01:19 05/31/24 01:57 Methylprednisolone Sod Succ 125 Mg/2 Ml Vial IVPUSH 05/31/24 01:20 125 mg ONCE ONE Administration Medical Decision Making Lab Data 05/31/24 00:35 05/31/24 00:35 Labs: Lab Results 05/31/24 05/31/24 Range/Units 00:35 00:46 WBC 6.2 (4.8-10.8) X10*3/uL RBC 4.04 L (4.20-5.50) X10*6/uL Hgb 11.5 L (12.0-16.0) g/dl Hct 35.8 L (37.0-47.0) % MCV 88.6 (80.0-98.0) fL MCH 28.5 (27.0-33.0) pg MCHC 32.1 (31.0-35.0) g/dl RDW 14.0 (11.0-16.0) % Plt Count 182 D (160-400) X10*3/uL MPV 9.0 L (9.4-12.3) fL Immature Gran % (Auto) 0.3 (0.0-0.4) % Neut % (Auto) 73.6 H (45-73) % Lymph % (Auto) 18.4 L (20-40) % [place] % (Auto) 6.3 (2-11) % Eos % (Auto) 1.1 (0-4) % Baso % (Auto) 0.3 (0-2) % Lymph # (Auto) 1.2 (1.2-4.9) X10*3/uL [place] # (Auto) 0.4 (0.1-1.2) X10*3/uL Eos # (Auto) 0.1 (0.0-0.4) X10*3/uL Baso # (Auto) 0.0 (0.0-0.2) X10*3/uL Abs Immat Gran (auto) 0.02 (0.00-0.03) X10*3/uL Absolute Neuts (auto) 4.6 (2.0-8.3) x10*3/uL Absolute Nucleated RBC 0.000 (0.0-0.012) X10*3/uL Nucleated RBC % (auto) 0.0 (0.0-0.2) /100WBC VBG pH 7.36 (7.32-7.43) VBG pCO2 59 mmHg VBG pO2 59 mmHg VBG HCO3 34 H (22-26) mmol/L VBG O2 Saturation 90.0 % VBG Base Excess 7.5 mmol/L Sodium 139 (135-145) mmol/L Potassium 3.6 (3.3-5.1) mmol/L Chloride 103 (96-108) mmol/L Carbon Dioxide 29 (22-29) mmol/L Anion Gap 11 L (12-20) BUN 7 L (9-16) mg/dL Creatinine 0.58 (0.5-1.4) mg/dL Estim Creat Clear Calc 95.9 Estimated GFR > 60 Random Glucose 106 (60-115) mg/dL Calcium 8.4 (8.4-10.2) mg/dL Magnesium 1.6 (1.6-2.6) mg/dL Total Bilirubin 0.5 (0.0-1.0) mg/dL AST 26 (5-31) U/L ALT 12 (0-31) U/L Alkaline Phosphatase 55 (39-117) U/L Troponin I High Sens 3.6 D (<3.5-17.0) ng/L Total Protein 7.2 (6.5-8.0) g/dL Albumin 3.7 (3.5-5.0) g/dL Lipase 6 L (8-78) U/L Influenza Type A (PCR) NEGATIVE (Negative) Influenza Type B (PCR) NEGATIVE (Negative) RSV RNA Qual (PCR) NEGATIVE (Negative) SARS-CoV-2 RNA (RT-PCR) NEGATIVE (Negative) Discharge Plan Discharge Clinical Impression: Hypoxia, Pneumonia Patient Disposition: Admitted As Inpatient Print Language: Pashto
[2024-05-31 01:28] LABS: Influenza A PCR NEGATIVE (Negative); Influenza B PCR NEGATIVE (Negative); Resp Syncy Virus RNA Qual PCR NEGATIVE (Negative); SARS COV2 PCR INHOUSE NEGATIVE (Negative)
[2024-05-31] MEDS: Albuterol Sulfate 2.5 MG, Albuterol/Iprat 2.5/0.5MG 3 ML 3 ML INHALE (01:36)
[2024-05-31] MEDS: methylPREDNISolone Sod Succ 125 MG/2 ML VIAL IVPUSH (01:57)
[2024-05-31 02:32] LABS: Alkaline Phosphatase 55 U/L (39-117)
--- NOTE | 2024-05-31 03:15 | PC.NURSE ---
patient ambulated to bathroom, RA 02 83 % placed on 2L 95%
--- NOTE | 2024-05-31 03:53 | PM.IMHP ---
History of Present Illness Date of Service: 05/31/24 Chief Complaint: sob 53F PMH mood disorder, fibromyalgia, htn, osteoporosis, gerd, hypothryoid, copd/mild intermittent asthma presented with sob. patient states she has had a cold for several days, her has similar symptoms. reports rhinorhea, congestion, productive cough with yellow sputum, sob, low grade fevers. denies chest pain, nausea, vomitting, abd pain. in ED noted to be hypoxic to 83% on room air, cxr with faint opacity RLL atelectasis vs infiltrate. Review of Systems Review of Systems: Yes all other systems are reviewed and are negative [facility] Medical History Sepsis Elevated troponin Gram-positive cocci bacteremia Cellulitis of left leg Altered mental status Smoker Arthritis Asthma Low back pain Osteoporosis GERD (gastroesophageal reflux disease) Irritable bowel syndrome (IBS) Hypothyroidism Fibromyalgia Personal history of COVID-19 Surgical History History of Hx of colonoscopy History of esophagogastroduodenoscopy (EGD) Social History Household Members: Significant Other Housing: Unknown / Unable to assess Are you a primary rehab care assistant to a significant other at home: No Do you presently have visiting nurse or other home services: No Patient Tobacco Use Status: Tobacco use Unknown Tobacco use type: Cigarette Cigarettes Per Day: 10 Smoked in Last 30 Days: Yes Advance Directives: No Advance Directives Information Provided: Yes Do you have a plan to hurt others: No Plan Patient : No service: No Meds Allergies Allergy/AdvReac Type Severity Reaction Status Date / Time No Known Allergies Allergy Verified 05/31/24 00:26 [No Known Allergies*] Active Medications: Current Medications Albuterol/Ipratropium (Albuterol/Iprat 2.5/0.5mg 3 Ml Ampul.Neb) 3 ml INHALE RQ4H WHILE AWAKE [facility] Amlodipine Besylate (Amlodipine Besylate 5 Mg Tablet) 5 mg PO DAILY [facility]; Protocol Azithromycin (Azithromycin 500 Mg Tablet) 500 mg PO Q24H [facility] Escitalopram Oxalate (Escitalopram Oxalate 10 Mg Tablet) 10 mg PO DAILY [facility] Gabapentin (Gabapentin 600 Mg Tablet) 600 mg PO TID [facility] Levofloxacin (Levaquin) 750 mg in 150 mls @ 100 mls/hr IV ONCE ONE Stop: 05/31/24 04:57 Sodium Chloride (Ns) 1,000 mls @ 999 mls/hr IV .Q1H1M ONE Stop: 05/31/24 04:37 Levothyroxine Sodium (Levothyroxine Sodium 50 Mcg Tablet) 50 mcg PO DAILY@0600 [facility] Methylprednisolone Sodium Succinate (Methylprednisolone Sod Succ 40 Mg/Ml Vial) 40 mg IVPUSH Q12H [facility] Omeprazole (Omeprazole 20 Mg Capsule.Dr) 20 mg PO DAILY@0630 [facility] Home Medications ?Medication ?Instructions ?Recorded ?Confirmed ?Last Taken ?Type albuterol sulfate 90 mcg/actuation 2 puff inhalation Q6H PRN 08/06/21 08/23/23 08/12/21 History aerosol inhaler Shortness Of Breath Or Wheezing 2 puff ibuprofen 800 mg tablet 800 mg PO TID PRN Pain 08/06/21 08/23/23 Unknown History omeprazole 20 mg tablet,delayed 20 mg PO BEDTIME 08/06/21 08/23/23 08/21/23 History release pregabalin 200 mg capsule 200 mg PO TID 08/06/21 08/23/23 08/21/23 History alendronate 70 mg tablet 70 mg PO QWEEK 08/23/23 08/23/23 Unknown History escitalopram oxalate 10 mg tablet 10 mg PO DAILY 08/23/23 08/23/23 08/21/23 History escitalopram oxalate 20 mg tablet 20 mg PO DAILY 08/23/23 08/23/23 08/21/23 History levothyroxine 50 mcg tablet 50 mcg PO DAILY@0600 08/23/23 08/23/23 08/21/23 History silver sulfadiazine 1 % topical 1 appl topical DAILY 08/23/23 08/23/23 08/21/23 History cream Physical Exam Vital Signs and Narrative: Vital Signs: Last Vital Signs Temp 97.6 F 05/31/24 03:14 Pulse 102 H 05/31/24 03:14 Resp 13 05/31/24 03:14 BP 145/81 H 05/31/24 03:14 Pulse Ox 83 L 05/31/24 03:15 O2 Del Method Nasal Cannula 05/31/24 03:14 O2 Flow Rate 2 05/31/24 03:14 BMI result Body Mass Index 30.3 General: AO X 3, no acute distress Resp: diminished with exp wheezes bilateral, no accessory muscles used CVS: S1,S2,RRR GI: soft, non tender, non distended Neuro: motor grossly intact, alert Psych: appropriate affect, appropriate insight Results Labs 05/31/24 00:35 05/31/24 00:35 Labs: Laboratory Results - last 24 hr 05/31/24 05/31/24 00:35 00:46 MCV 88.6 MCH 28.5 MCHC 32.1 RDW 14.0 Plt Count 182 D MPV 9.0 L Immature Gran % (Auto) 0.3 Neut % (Auto) 73.6 H Lymph % (Auto) 18.4 L [place] % (Auto) 6.3 Eos % (Auto) 1.1 Baso % (Auto) 0.3 Lymph # (Auto) 1.2 [place] # (Auto) 0.4 Eos # (Auto) 0.1 Baso # (Auto) 0.0 Abs Immat Gran (auto) 0.02 Absolute Neuts (auto) 4.6 Absolute Nucleated RBC 0.000 Nucleated RBC % (auto) 0.0 VBG pH 7.36 VBG pCO2 59 VBG pO2 59 VBG HCO3 34 H VBG O2 Saturation 90.0 VBG Base Excess 7.5 Anion Gap 11 L Estim Creat Clear Calc 95.9 Estimated GFR > 60 Random Glucose 106 Calcium 8.4 Magnesium 1.6 Total Bilirubin 0.5 AST 26 ALT 12 Alkaline Phosphatase 55 Troponin I High Sens 3.6 D Total Protein 7.2 Albumin 3.7 Lipase 6 L Influenza Type A (PCR) NEGATIVE Influenza Type B (PCR) NEGATIVE RSV RNA Qual (PCR) NEGATIVE SARS-CoV-2 RNA (RT-PCR) NEGATIVE Assessment and Plan (1) Acute hypoxic respiratory failure: Status: Acute Plan 53F PMH mood disorder, fibromyalgia, htn, osteoporosis, gerd, hypothryoid, copd/mild intermittent asthma presented with sob acute hypoxic respiratory failure due to copd/mild intermittent asthma with acute decompensation due to viral URTI vs pneumonia steroid, nebs, empiric rocpehin, azithro wean o2 no sepsis - tachy due to nebs mood disorder lexapro fibromyalgia gabapentin htn amlodipine osteoporosis hold bisphosphonate inpatient gerd ppi hypothryoid levothryroxine dvt prophylaxis - lovenox full code patient with copd exacerbation leading to acute hypoxia, expected to require atleast 2 midnights inpatient until recovered. Quality Stroke Does the patient have a stroke diagnosis?: No VTE Prior VTE?: No VTE Risk Level:: Medical - moderate - high VTE Device Contraindication: Treatment Not Indicated VTE Drug Contraindication: N/A - Med Ordered
--- NOTE | 2024-05-31 04:12 | PC.NURSE ---
O2 895 on 2 L while patient sleeping NC placed on 3.5 L 92%
[2024-05-31] MEDS: 0.9 % Sodium Chloride 1,000 ML 999 ML IV (04:13)
[2024-05-31] MEDS: levoFLOXacin/D5W 750 MG/150 ML PIGGYBACK 100 MG IV (04:15)
--- NOTE | 2024-05-31 04:16 | MHC.EDTECH ---
Lactic acid and both sets of blood culture drawn from different sites and sent to lab ,Patient was re vital ,Patient resting with her eyes closed ,Call [facility] within Pt reach .
[2024-05-31 04:17] LABS: Lactic Acid 0.5 mmol/L (0.5-2.0)
[2024-05-31] MEDS: Levothyroxine Sodium 50 MCG TABLET PO (05:43)
[2024-05-31] MEDS: Omeprazole 20 MG CAPSULE.DR PO (05:43)
--- NOTE | 2024-05-31 08:25 | PHA.MEDREC ---
Addendum entered by Brandi Barron RPh 05/31/24 08:51: reviewed by [facility]. Original Note: Pharmacy Consult ? Medication Reconciliation Pharmacy has completed the medication reconciliation. Spoke with patient and she was a little sleepy but was able to confirm her medications at this time. She confirmed she takes her Alendronate 70mg tab once a week on Fridays and confirmed she took it last Thursday. She confirmed she took the last dose of her medications yesterday around lunch time.
[2024-05-31] MEDS: amLODIPine Besylate 5 MG TABLET PO (09:12)
[2024-05-31] MEDS: Gabapentin 600 MG TABLET PO (09:12)
[2024-05-31] MEDS: Escitalopram Oxalate 10 MG TABLET PO (09:12)
[2024-05-31] MEDS: cefTRIAXone sodium 1 GM VIAL IVPUSH (09:12)
[2024-05-31] MEDS: 0.9 % Sodium Chloride Flush 3 ML SYRINGE IVFLUSH ×3 (09:12→20:13)
[2024-05-31] MEDS: Enoxaparin Sodium 40 MG/0.4 ML SYRINGE SUBCUT (09:13)
--- NOTE | 2024-05-31 10:58 | PM.EVENT ---
Event Note Date of Service: 05/31/24 Event Note: Seen and evaluated Feels little better Continue Nebs, Abx and steroids Wean O2 down as tolerated Time Spent With Patient Time: Total time managing care of this patient today ____ minutes.
[2024-05-31 12:52] LABS: ABG Base Excess 5.2 mmol/L; ABG HCO3 31 mmol/L (22-26); ABG pCO2 53 mmHg (32-45); ABG pH 7.37 (7.35-7.45); ABG pO2 68 mmHg (83-108)
[2024-05-31 13:23] LABS: ABG Refer to POC result
[2024-05-31] MEDS: Albuterol/Iprat 2.5/0.5MG 3 ML AMPUL.NEB INHALE (15:30)
[2024-05-31] MEDS: Azithromycin 500 MG TABLET PO (20:13)
[2024-06-01] VITALS (8 sets, daily range): BP systolic 122–145; BP diastolic 65–97; PULSE 59–95; RESP 16–21; TEMP 36.1–36.8; O2SAT 67–97
[2024-06-01] MEDS: Levothyroxine Sodium 50 MCG TABLET PO (06:12)
[2024-06-01] MEDS: Omeprazole 20 MG CAPSULE.DR PO (06:12)
[2024-06-01 06:49] LABS: Hematocrit 37.2 % (37.0-47.0); Hemoglobin 11.8 g/dl (12.0-16.0); Mean Corpuscular HGB Conc 31.7 g/dl (31.0-35.0); Mean Corpuscular Hemoglobin 28.2 pg (27.0-33.0); Mean Platelet Volume 9.6 fL (9.4-12.3); Platelet Count 201 X10*3/uL (160-400); Red Blood Count 4.18 X10*6/uL (4.20-5.50); Red Cell Distribution Width 14.1 % (11.0-16.0); White Blood Count 6.6 X10*3/uL (4.8-10.8)
[2024-06-01 07:04] LABS: Anion Gap 10 (12-20); Blood Urea Nitrogen 10 mg/dL (9-16); Calcium 8.7 mg/dL (8.4-10.2); Carbon Dioxide 29 mmol/L (22-29); Chloride 105 mmol/L (96-108); Creatinine Clr Calc Pharmacy 107.2; Estimated Glomerular Filt Rate > 60; Glucose Random 92 mg/dL (60-115); Sodium 140 mmol/L (135-145)
[2024-06-01] MEDS: Enoxaparin Sodium 40 MG/0.4 ML SYRINGE SUBCUT (08:09)
[2024-06-01] MEDS: cefTRIAXone sodium 1 GM VIAL IVPUSH (08:09)
[2024-06-01] MEDS: methylPREDNISolone Sod Succ 40 MG/ML VIAL IVPUSH ×2 (08:09→20:43)
[2024-06-01] MEDS: 0.9 % Sodium Chloride Flush 3 ML SYRINGE IVFLUSH ×3 (08:09→20:43)
[2024-06-01] MEDS: amLODIPine Besylate 5 MG TABLET PO (08:10)
[2024-06-01] MEDS: Escitalopram Oxalate 10 MG TABLET PO (08:10)
[2024-06-01] MEDS: Albuterol/Iprat 2.5/0.5MG 3 ML AMPUL.NEB INHALE ×3 (08:14→20:40)
--- NOTE | 2024-06-01 08:52 | MHC.CM.PN ---
IMM 06/01/24, Pt lives with her , she does not have home care services at this time. She was in this hosp. a last August, was DC'd to [facility] for STR. She said she did have a VNA following that, but could not remember the name of the agency. For DME, she has a wheeled walker, grab bars and tub bench in bathroom. She is able to arrange a ride home at [place]. DCP: home with services. CM to follow for DC needs.
--- NOTE | 2024-06-01 12:55 | HO.PM.IMPN ---
Subjective Subjective Date of Service: 06/01/24 Interval History: seen and examined still sob and on o2 attempted to wean o2 and dropped to 80s on RA, placed back on 3L Review of Systems Negative except HPI/interval history. Physical Exam Vital Signs: Vital Signs: Last Vital Signs Temp 96.9 F 06/01/24 07:41 Pulse 94 06/01/24 08:14 Resp 20 06/01/24 08:14 BP 143/96 H 06/01/24 07:41 Pulse Ox 97 06/01/24 07:41 O2 Del Method Nasal Cannula 06/01/24 07:41 O2 Flow Rate 3 06/01/24 07:41 BMI result Body Mass Index 31.6 Const: Other: General - no acute distress, appears comfortable at rest Cardiovascular - regular rate and rhythm, S1-S2 Lungs - coarse sounds Abdomen - soft, nontender, no rebound or guarding Extremities - no edema bilaterally Neuro - awake and alert, no focal deficits Objective Data Active Medications Acetaminophen (Acetaminophen 325 Mg Tablet) 650 mg PO Q6H PRN PRN Reason: Pain, Mild 1-3,fever,headache Albuterol/Ipratropium (Albuterol/Iprat 2.5/0.5mg 3 Ml Ampul.Neb) 3 ml INHALE RQ4H WHILE AWAKE [facility] Last Admin: 06/01/24 12:02 Dose: Not Given Documented By: PAULETTE Non-Admin Reason: Patient Refused Amlodipine Besylate (Amlodipine Besylate 5 Mg Tablet) 5 mg PO DAILY [facility]; Protocol Last Admin: 06/01/24 08:10 Dose: 5 mg Documented By: JULISSA Azithromycin (Azithromycin 500 Mg Tablet) 500 mg PO Q24H [facility] Last Admin: 05/31/24 20:13 Dose: 500 mg Documented By: RIANNA Calcium Carbonate (Calcium Carbonate 750 Mg Tab.Chew) 750 mg PO Q4H PRN PRN Reason: Heartburn Ceftriaxone Sodium (Ceftriaxone Sodium 1 Gm Vial) 1 gm IVPUSH Q24H [facility] Last Admin: 06/01/24 08:09 Dose: 1 gm Documented By: JULISSA Enoxaparin Sodium (Enoxaparin Sodium 40 Mg/0.4 Ml Syringe) 40 mg SUBCUT Q24H [facility] Last Admin: 06/01/24 08:09 Dose: 40 mg Documented By: JULISSA Escitalopram Oxalate (Escitalopram Oxalate 10 Mg Tablet) 10 mg PO DAILY [facility] Last Admin: 06/01/24 08:10 Dose: 10 mg Documented By: JULISSA Gabapentin (Gabapentin 600 Mg Tablet) 600 mg PO TID [facility] Last Admin: 05/31/24 09:12 Dose: 600 mg Documented By: NUBIA Levothyroxine Sodium (Levothyroxine Sodium 50 Mcg Tablet) 50 mcg PO DAILY@0600 [facility] Last Admin: 06/01/24 06:12 Dose: 50 mcg Documented By: RIANNA Magnesium Hydroxide (Milk Of Magnesia 30 Ml Oral.Susp) 30 ml PO DAILY PRN PRN Reason: Constipation Melatonin (Melatonin 3 Mg Tablet) 6 mg PO BEDTIME PRN PRN Reason: Insomnia Methylprednisolone Sodium Succinate (Methylprednisolone Sod Succ 40 Mg/Ml Vial) 40 mg IVPUSH Q12H [facility] Last Admin: 06/01/24 08:09 Dose: 40 mg Documented By: JULISSA Omeprazole (Omeprazole 20 Mg Capsule.Dr) 20 mg PO DAILY@0630 [facility] Last Admin: 06/01/24 06:12 Dose: 20 mg Documented By: RIANNA Sodium Chloride (0.9 % Sodium Chloride Flush 3 Ml Syringe) 3 ml IVFLUSH QSHIFT [facility] Last Admin: 06/01/24 08:09 Dose: 3 ml Documented By: JULISSA Labs 06/01/24 06:24 06/01/24 06:24 Labs: Laboratory Results - last 24 hr 06/01/24 06:24 MCV 89.0 MCH 28.2 MCHC 31.7 RDW 14.1 Plt Count 201 MPV 9.6 Absolute Nucleated RBC 0.000 Nucleated RBC % (auto) 0.0 Anion Gap 10 L Estim Creat Clear Calc 107.2 Estimated GFR > 60 Random Glucose 92 Calcium 8.7 Microbiology Microbiology Results: Microbiology 05/31/24 04:07 Blood Culture - Preliminary Blood - Venous No growth after 24 hours. 05/31/24 03:57 Blood Culture - Preliminary Blood - Venous No growth after 24 hours. Assessment and Plan (1) Pneumonia: Status: Acute Plan 53F with a PMH of mood disorder, fibromyalgia, htn, osteoporosis, gerd, hypothryoid, copd/mild intermittent asthma presented with sob acute hypoxic respiratory failure due to copd/mild intermittent asthma with acute decompensation due to viral URI and bacterial pneumonia steroid, nebs, empiric rocpehin, azithro wean o2 - failed today, continue o2 f/u cultures mood disorder lexapro fibromyalgia gabapentin htn amlodipine osteoporosis hold bisphosphonate inpatient gerd ppi hypothryoid levothryroxine dvt prophylaxis - lovenox full code Quality Stroke Does the patient have a stroke diagnosis?: No VTE Prior VTE?: No VTE Risk Level:: Medical - moderate - high VTE Device Contraindication: Treatment Not Indicated VTE Drug Contraindication: N/A - Med Ordered
[2024-06-01] MEDS: Azithromycin 500 MG TABLET PO (20:43)
[2024-06-02 03:34] VITALS: BP 151/87; PULSE 77; RESP 16; TEMP 36.5; O2SAT 96
[2024-06-02] MEDS: Omeprazole 20 MG CAPSULE.DR PO (04:08)
[2024-06-02] MEDS: Acetaminophen 325 MG TABLET 650 MG PO (04:08)
[2024-06-02] MEDS: Levothyroxine Sodium 50 MCG TABLET PO (04:08)
[2024-06-02 07:17] VITALS: BP 144/72; PULSE 83; RESP 20; TEMP 36.8; O2SAT 96
[2024-06-02 08:17] VITALS: PULSE 83; RESP 20; O2SAT 97
[2024-06-02] MEDS: Albuterol/Iprat 2.5/0.5MG 3 ML AMPUL.NEB INHALE ×3 (08:17→15:13)
[2024-06-02] MEDS: cefTRIAXone sodium 1 GM VIAL IVPUSH (08:46)
[2024-06-02] MEDS: amLODIPine Besylate 5 MG TABLET PO (08:46)
[2024-06-02] MEDS: Escitalopram Oxalate 10 MG TABLET PO (08:46)
[2024-06-02] MEDS: methylPREDNISolone Sod Succ 40 MG/ML VIAL IVPUSH (08:47)
[2024-06-02] MEDS: Enoxaparin Sodium 40 MG/0.4 ML SYRINGE SUBCUT (08:47)
[2024-06-02] MEDS: 0.9 % Sodium Chloride Flush 3 ML SYRINGE IVFLUSH (08:47)
--- NOTE | 2024-06-02 12:13 | HO.PM.IMPN ---
Subjective Subjective Date of Service: 06/02/24 Interval History: seen and examined doing better but still taylor attempted to wean, but desaturated to 80s -- now on 1L Review of Systems Negative except HPI/interval history. Physical Exam Vital Signs: Vital Signs: Last Vital Signs Temp 98.3 F 06/02/24 07:17 Pulse 83 06/02/24 08:17 Resp 20 06/02/24 08:17 BP 144/72 H 06/02/24 07:17 Pulse Ox 96 06/02/24 07:17 O2 Del Method Nasal Cannula 06/02/24 07:17 O2 Flow Rate 4 06/02/24 07:17 BMI result Body Mass Index 31.6 Const: Other: General - no acute distress, appears comfortable Cardiovascular - regular rate and rhythm, S1-S2 Lungs - no wheezing but dim sounds globally Abdomen - soft, nontender, no rebound or guarding Extremities - no edema bilaterally Neuro - awake and alert, no focal deficits Objective Data Active Medications Acetaminophen (Acetaminophen 325 Mg Tablet) 650 mg PO Q6H PRN PRN Reason: Pain, Mild 1-3,fever,headache Last Admin: 06/02/24 04:08 Dose: 650 mg Documented By: SARAH Albuterol/Ipratropium (Albuterol/Iprat 2.5/0.5mg 3 Ml Ampul.Neb) 3 ml INHALE RQ4H WHILE AWAKE [facility] Last Admin: 06/02/24 12:13 Dose: 3 ml Documented By: KALYANI Amlodipine Besylate (Amlodipine Besylate 5 Mg Tablet) 5 mg PO DAILY [facility]; Protocol Last Admin: 06/02/24 08:46 Dose: 5 mg Documented By: MARLIN Azithromycin (Azithromycin 500 Mg Tablet) 500 mg PO Q24H [facility] Last Admin: 06/01/24 20:43 Dose: 500 mg Documented By: SARAH Calcium Carbonate (Calcium Carbonate 750 Mg Tab.Chew) 750 mg PO Q4H PRN PRN Reason: Heartburn Ceftriaxone Sodium (Ceftriaxone Sodium 1 Gm Vial) 1 gm IVPUSH Q24H [facility] Last Admin: 06/02/24 08:46 Dose: 1 gm Documented By: MARLIN Enoxaparin Sodium (Enoxaparin Sodium 40 Mg/0.4 Ml Syringe) 40 mg SUBCUT Q24H [facility] Last Admin: 06/02/24 08:47 Dose: 40 mg Documented By: MARLIN Escitalopram Oxalate (Escitalopram Oxalate 10 Mg Tablet) 10 mg PO DAILY [facility] Last Admin: 06/02/24 08:46 Dose: 10 mg Documented By: MARLIN Gabapentin (Gabapentin 600 Mg Tablet) 600 mg PO TID [facility] Last Admin: 05/31/24 09:12 Dose: 600 mg Documented By: NUBIA Levothyroxine Sodium (Levothyroxine Sodium 50 Mcg Tablet) 50 mcg PO DAILY@0600 [facility] Last Admin: 06/02/24 04:08 Dose: 50 mcg Documented By: ALIYAHZEIrma Magnesium Hydroxide (Milk Of Magnesia 30 Ml Oral.Susp) 30 ml PO DAILY PRN PRN Reason: Constipation Melatonin (Melatonin 3 Mg Tablet) 6 mg PO BEDTIME PRN PRN Reason: Insomnia Methylprednisolone Sodium Succinate (Methylprednisolone Sod Succ 40 Mg/Ml Vial) 40 mg IVPUSH Q12H [facility] Last Admin: 06/02/24 08:47 Dose: 40 mg Documented By: MARLIN Omeprazole (Omeprazole 20 Mg Capsule.Dr) 20 mg PO DAILY@0630 [facility] Last Admin: 06/02/24 04:08 Dose: 20 mg Documented By: SARAH Sodium Chloride (0.9 % Sodium Chloride Flush 3 Ml Syringe) 3 ml IVFLUSH QSHIFT [facility] Last Admin: 06/02/24 08:47 Dose: 3 ml Documented By: MARLIN Labs 06/01/24 06:24 06/01/24 06:24 Microbiology Microbiology Results: Microbiology 05/31/24 04:07 Blood Culture - Preliminary Blood - Venous No growth after 48 hours. 05/31/24 03:57 Blood Culture - Preliminary Blood - Venous No growth after 48 hours. Assessment and Plan (1) Pneumonia: Status: Acute Plan 53F with a PMH of mood disorder, fibromyalgia, htn, osteoporosis, gerd, hypothryoid, copd/mild intermittent asthma presented with sob acute hypoxic respiratory failure due to copd/mild intermittent asthma with acute decompensation due to viral URI and bacterial pneumonia steroid, nebs, empiric rocpehin, azithro wean o2 - failed to wean again today, but now requiring only 1L to maintain sats above 90 f/u cultures mood disorder lexapro fibromyalgia gabapentin htn amlodipine osteoporosis hold bisphosphonate inpatient gerd ppi hypothryoid levothryroxine dvt prophylaxis - lovenox full code dispo: likely home tomorrow if able to be weaned Quality Stroke Does the patient have a stroke diagnosis?: No VTE Prior VTE?: No VTE Risk Level:: Medical - moderate - high VTE Device Contraindication: Treatment Not Indicated VTE Drug Contraindication: N/A - Med Ordered
[2024-06-02 12:14] VITALS: PULSE 89; RESP 18; O2SAT 92
[2024-06-02 15:13] VITALS: PULSE 100; RESP 18; O2SAT 90
[2024-06-02 15:40] VITALS: BP 125/69; PULSE 94; RESP 18; TEMP 36.2; O2SAT 100
--- NOTE | 2024-06-02 16:29 | PM.EVENT ---
Event Note Date of Service: 06/02/24 Event Note: Informed by RN pt is feeling better and has been stable off O2, requesting discharge home. Pt re-evaluated; sats in the 90s on RA; did not desat below 90% while ambulating to and from bathroom feeling better and requesting d/c Will send home this afternoon. Time Spent With Patient Time: Total time managing care of this patient today ____ minutes.
--- NOTE | 2024-06-02 16:33 | PM.DS ---
DS: Providers Provider Date of Service: 06/02/24 Date of admission: 05/31/24 03:52 Date of discharge: 06/02/24 Primary care physician: Doug Santos MD DS: Diagnosis Discharge Diagnosis (1) Pneumonia: Status: Acute (2) Hypoxia: Status: Acute DS: Summary Hospital Course Hospital Course: HPI From admission H&P: 53F PMH mood disorder, fibromyalgia, htn, osteoporosis, gerd, hypothryoid, copd/mild intermittent asthma presented with sob. patient states she has had a cold for several days, her has similar symptoms. reports rhinorhea, congestion, productive cough with yellow sputum, sob, low grade fevers. denies chest pain, nausea, vomitting, abd pain. in ED noted to be hypoxic to 83% on room air, cxr with faint opacity RLL atelectasis vs infiltrate. Hospital Course: Patient was started on IV antibiotics, IV fluids and IV steroids for her pneumonia and COPD. She was placed on supplemental oxygen for her respiratory failure. Over the course of her hospitalization, the patient's symptoms have improved. She is tolerating room air. Her cultures negative to date. She is requesting discharge and given her stability, she will be sent home on 5 more days of prednisone and 5 more days of antibiotics. In regards to her chronic health conditions, they remained stable in the hospital. Final discharge diagnoses 1. Acute respiratory failure with hypoxia 2. Community-acquired pneumonia 3. COPD exacerbation 4. Mood disorder 5. Fibromyalgia 6. Hypertension 7. GERD 8. Hypothyroidism Time Attestation Discharge Coordination Time (in mins): 35 Quality: Safe Use of Opioids Does Pt have an Active Cancer Diagnosis on the Problem List?: No Quality: Stroke Does the patient have a stroke diagnosis?: No Physical Exam Vital Signs: Vital Signs: Last Vital Signs Temp 97.1 F 06/02/24 15:40 Pulse 94 06/02/24 15:40 Resp 18 06/02/24 15:40 BP 125/69 06/02/24 15:40 Pulse Ox 100 06/02/24 15:40 O2 Del Method Room Air 06/02/24 15:40 O2 Flow Rate 4 06/02/24 07:17 BMI result Body Mass Index 31.6 DS: Data Data Completed and Pending Labs on day of discharge: Preliminary micro results at discharge 05/31/24 04:07 Blood Culture - Preliminary Blood - Venous No growth after 48 hours. 05/31/24 03:57 Blood Culture - Preliminary Blood - Venous No growth after 48 hours. Discharge Plan Discharge Anticipated Discharge Date/Time: 06/02/24 16:30 Patient Disposition: Home, Self-Care Discharge Diagnosis: pneumonia, copd Referrals: Doug Santos MD [Primary Care Provider] - 1 Week Discharge Medications: New prednisone 20 mg tablet 40 mg PO DAILY Qty: 10 0RF cefuroxime axetil 500 mg tablet 500 mg PO Q12H Qty: 10 0RF doxycycline hyclate 100 mg capsule 100 mg PO BID Qty: 10 0RF Continued omeprazole 20 mg Tablet,Delayed Release (Dr/Ec) 20 mg PO DAILY@0630 albuterol sulfate 90 mcg/actuation Hfa Aerosol Inhaler 2 puff INHALATION Q6H PRN (Reason: Shortness Of Breath Or Wheezing) gabapentin 600 mg tablet 600 mg PO TID alendronate 70 mg tablet 70 mg PO FR levothyroxine 50 mcg tablet 50 mcg PO DAILY@0600 escitalopram oxalate 10 mg tablet 10 mg PO DAILY Rx Instructions: with 20mg; tdd 30 mg escitalopram oxalate 20 mg tablet 20 mg PO DAILY Rx Instructions: with 10mg; tdd 30 mg atorvastatin 40 mg Tablet 40 mg PO BEDTIME Qty: 1 0RF amlodipine 5 mg Tablet 5 mg PO DAILY Qty: 1 0RF Protocol: Hold for SBP< HOLD for SBP < : 90 Discharge Orders: Discharge Order (Routine); Ordered 06/02/24 Ordered By: Case Majano Diet: Advance to usual diet Activity on Discharge: As tolerated Stand Alone Forms: Patient Portal Discharge page Print Language: Vietnamese Care Plan Goals: To stay healthy and out of the hospital. Health Concerns: see d/c summary Plan of Treatment: see d/c summary Assessment: see d/c summary
== END 2024-06-02 17:47 | disposition home or self-care (01) | DRG 193 ==
LOC: HO.ED 03:35 → HO.EDOVER 05:08 → HO.IMC 16:29
PROVIDERS: Student in an Organized Health Care Education/Training Program; Admitting Provider Internal Medicine; Emergency Provider Emergency Medicine; PCP Internal Medicine; Visit Provider Family Medicine
DX: J15.9 Unspecified bacterial pneumonia (principal); J96.01 Acute respiratory failure with hypoxia; J44.0 Chronic obstructive pulmonary disease with (acute) lower respiratory infection; J44.1 Chronic obstructive pulmonary disease with (acute) exacerbation; J45.21 Mild intermittent asthma with (acute) exacerbation; M81.0 Age-related osteoporosis without current pathological fracture; F17.210 Nicotine dependence, cigarettes, uncomplicated; I10 Essential (primary) hypertension; F39 Unspecified mood [affective] disorder; M79.7 Fibromyalgia; Z71.6 Tobacco abuse counseling; E03.9 Hypothyroidism, unspecified; Z20.822 Contact with and (suspected) exposure to COVID-19; Z79.83 Long term (current) use of bisphosphonates; Z79.890 Hormone replacement therapy; Z79.899 Other long term (current) drug therapy
CPT/HCPCS: 0241U; 36415; 36600; 71046; 80048; 80053; 82803; 83605; 83690; 83735; 84484; 85025; 85027; 87040; 93005; 94640; 99285; J0696; J1650; J1956; J2919

== ENCOUNTER → 2024-05-31 00:50 | Outpatient (BNV) | payer MEDICARE, OTHER, SELFPAY | PROVIDERS: Admitting Provider Internal Medicine; Emergency Provider Emergency Medicine; PCP Internal Medicine; Visit Provider Internal Medicine | DX: I49.1 Atrial premature depolarization (principal) | CPT/HCPCS: 93010 ==

== ENCOUNTER → 2024-05-31 01:09 | Outpatient (BNV) | payer MEDICARE, OTHER, SELFPAY | PROVIDERS: Emergency Provider Emergency Medicine; PCP Internal Medicine; Visit Provider Radiology Diagnostic Radiology | DX: R06.09 Other forms of dyspnea (principal); R05.9 Cough, unspecified | CPT/HCPCS: 71046 ==

== ENCOUNTER → 2024-05-31 02:18 | Outpatient (BNV) | payer MEDICARE, OTHER, SELFPAY | PROVIDERS: Emergency Provider Emergency Medicine; PCP Internal Medicine; Visit Provider Internal Medicine | DX: J18.9 Pneumonia, unspecified organism (principal) | CPT/HCPCS: 99232 ==

== ENCOUNTER 2024-07-15 09:53 | Outpatient (REF) | payer MEDICARE, OTHER, SELFPAY ==
--- NOTE | ~2024-07-15 | XR_ITS ---
EXAMINATION: XR LUMBAR SPINE 2-3 VIEWS HISTORY: LOW BACK PAIN COMPARISON: Comparison is made with the prior examination dated 06/13/2017. FINDINGS: AP, lateral, and coned down views of the lumbar spine are submitted. Osseous mineralization is normal. There is mild to moderate dextroscoliosis which is new from the prior study. The vertebral bodies maintain normal height without evidence of fracture or listhesis. There is moderate degenerative disc disease at the L1-2 level with disc space narrowing and osteophyte formation. Milder degenerative changes are noted at the remaining levels. The posterior elements are intact. There is calcification of the abdominal aorta. XR/XR lumbar spine 2-3V IMPRESSION: There are mild to moderate dextroscoliosis. Moderate degenerative disc disease at L1-2 with milder changes at the remaining levels. Electronically signed by: Brett Clay MD 07/15/2024 02:31 PM EDT
--- OUTSIDE RECORDS SUMMARY | 2024-07-15 11:06 | XMS_ITS | Patient Health Record ---
Author Organization [facility] Address [address] [place] [address] Care Team Providers Care Line Crewman Name Role Phone Doug Santos MD Primary Care Provider Brett Freeman Unavailable [phone] Allergies Allergen (clinical drug ingredient) Drug/Non Drug Allergy documented on EMR Reaction Allergy Type Onset Date Status NyQuil Unknown Drug Allergy Active Reason For Referral No Information Medications Medication SIG (Take, Route, Frequency, Duration) Notes Start Date End Date Status Dicyclomine HCl 20 MG TAKE 1 CAPSULE BY MOUTH FOUR TIMES A DAY Orally Four times a day Active Ibuprofen 800 MG TAKE 1 TABLET BY BHAVNA TH THREE TIMES A DAY Oral for 30 Active Omeprazole 20 MG TAKE 1 CAPSULE BY MOUTH EVERY DAY Oral for 90 Active Pregabalin 200 MG TAKE 1 CAPSULE BY MOUTH 3 TIMES A DAY Oral for 30 Active Levothyroxine Sodium 50 MCG TAKE 1 TABLET BY MOUTH EVERY DAY Oral for 90 Active levoFLOXacin 500 MG TAKE 1 TABLET BY BHAVNA TH EVERY DAY Oral for 5 Not-Taking Immunizations Vaccine Route Administration Date Status Comme nts Influenza Unknown 06/19/2021 Refused Social History Tobacco Use: Social History Observation Description Date Details (start date - stop date) Current Smoker NA - NA Tobacco Use/Smoking Question Answer Notes Patient is a current smoker How often do you smoke cigarettes? every day How many cigarettes a day do you smoke? 11-20 Alcohol Screen Question Answer Notes Did you have a drink containing alcohol in the p ast year? No Points 0 Interpretation Negative Section Notes: Smoker 1/2 ppd; no sig alcoh ol Problems Problem Type SNOMED Code ICD Code Onset Dates Problem Status W/U Status Risk Notes Problem 810841028 Encounter for screening for malignant neoplasm of colon (Z12.11) Active confirmed Problem 313241225 Irritable bowel syndrome with diarrhea (K58.0) Active confirmed Problem 547156328 Gastroesophageal reflux disease without esophagitis (K21.9) Active confirmed Problem 559392266178176 Preprocedural examination (Z01.818) Active confirmed Problem Diverticulosis of colon (138364622) Diverticulosis of colon (K57.30) Active confirmed Plan Of Treatment Pending Test Test Name Order Date Pathology 08/12/2021 Future Test Test Name Order Date COLONOSCOPY 06/19/2021 Insurance Providers Payer Name Payer Address Payer Phone Subscriber Number Group Number Insured Name Patient Relationship to Insured Coverage Start Date Coverage End Date MEDICARE OF [place] [address] [place] [address] [phone] [id number] GISELLE TALBOT Self - patient is the insured [facility] [address] [place] [address] [id number] GISELLE TALBOT Self - patient is the insured Medical (General) History Medical History History ICD Code COVID-pneumonia 04/2021 Fibromyalgia Hypothyroidism IBS-doing well on dicyclomin e as of the 06/2021 office visit-normal dudoenal biopsies without celiac disease in EGD GERD-EGD 2009-neg. for [place] tt's or esophagitis, small hiatal hernia was noted Denies [place],DM,CVA,Lung disease,renal dise ase Colonoscopy 2009--negative for polyps, I BD, microscopic colitis Surgical History Surgery Date(Month/Year)
== END 2024-07-15 09:54 | disposition home or self-care (01) ==
LOC: HO.HMGCX 09:53
PROVIDERS: PCP Internal Medicine; Visit Provider Internal Medicine
DX: M54.50 Low back pain, unspecified (principal)
CPT/HCPCS: 72100

== ENCOUNTER → 2024-07-15 09:58 | Outpatient (BNV) | payer MEDICARE, OTHER, SELFPAY | PROVIDERS: PCP Internal Medicine; Visit Provider Radiology Diagnostic Radiology | DX: M54.50 Low back pain, unspecified (principal); M41.86 Other forms of scoliosis, lumbar region; M51.369 Other intervertebral disc degeneration, lumbar region without mention of lumbar back pain or lower extremity pain | CPT/HCPCS: 72100 ==

== ENCOUNTER 2024-08-18 14:27 | Outpatient (REF) | payer MEDICARE, OTHER, SELFPAY ==
--- NOTE | ~2024-08-18 | XR_ITS ---
EXAMINATION: XR ANKLE 3 OR MORE VIEWS LEFT, XR FOOT 3 OR MORE VIEWS LEFT HISTORY: R/O DJD, FX COMPARISON: Comparison is made with the prior examination of the left foot dated 08/23/2023. FINDINGS: Five views of the left foot and ankle are submitted. Osseous mineralization is normal. There is no fracture or dislocation. There is mild osteoarthritis of the 1st MTP joint, with joint space narrowing. The remaining joint spaces are maintained. There is a small plantar calcaneal spur. There is soft tissue swelling about the ankle. XR/XR ankle LT min 3V IMPRESSION: Soft tissue swelling about the ankle. Mild osteoarthritis of the 1st MTP joint. Electronically signed by: Brett Clay MD 08/19/2024 07:25 AM EDT
--- NOTE | ~2024-08-18 | XR_ITS ---
EXAMINATION: XR ANKLE 3 OR MORE VIEWS LEFT, XR FOOT 3 OR MORE VIEWS LEFT HISTORY: R/O DJD, FX COMPARISON: Comparison is made with the prior examination of the left foot dated 08/23/2023. FINDINGS: Five views of the left foot and ankle are submitted. Osseous mineralization is normal. There is no fracture or dislocation. There is mild osteoarthritis of the 1st MTP joint, with joint space narrowing. The remaining joint spaces are maintained. There is a small plantar calcaneal spur. There is soft tissue swelling about the ankle. XR/XR foot LT min 3V IMPRESSION: Soft tissue swelling about the ankle. Mild osteoarthritis of the 1st MTP joint. Electronically signed by: Brett Clay MD 08/19/2024 07:25 AM EDT
--- NOTE | ~2024-08-18 | XR_ITS ---
EXAMINATION: XR CHEST 2 VIEWS HISTORY: COUGH, R/O PNEUMONIA COMPARISON: Comparison is made with the prior examination dated 05/31/2024. FINDINGS: PA and lateral views of the chest are submitted. The lungs are expanded and clear. There is no pleural effusion, pneumothorax, or pulmonary vascular congestion. The heart is enlarged. There is degenerative disc disease of the spine. There are multiple old healed bilateral rib fractures. XR/XR chest 2V IMPRESSION: Cardiomegaly. No acute cardiopulmonary abnormality. Electronically signed by: Brett Clay MD 08/19/2024 07:28 AM EDT
--- OUTSIDE RECORDS SUMMARY | 2024-08-18 17:32 | XMS_ITS | Patient Health Record ---
Author Organization [facility] Address [address] [place] [address] Care Team Providers Care Rolling Mill Operator Helper Name Role Phone Doug Santos MD Primary Care Provider Brett Freeman Unavailable [phone] Allergies Allergen (clinical drug ingredient) Drug/Non Drug [...] Problem Status W/U Status Risk Notes Problem 242302833 Encounter for screening for malignant neoplasm of colon (Z12.11) Active confirmed Problem 118940247 Irritable bowel syndrome with diarrhea (K58.0) Active confirmed Problem 049216508 Gastroesophageal reflux disease without esophagitis (K21.9) Active confirmed Problem 649759282491752 Preprocedural examination (Z01.818) Active confirmed Problem Diverticulosis of colon (770971773) Diverticulosis of colon (K57.30) Active confirmed Plan Of Treatment Pending Test Test Name Order Date Pathology 08/12/2021 Future Test Test Name Order Date COLONOSCOPY 06/19/2021 Insurance Providers Payer Name Payer Address Payer Phone Subscriber Number Group Number Insured Name Patient Relationship to Insured Coverage Start Date Coverage End Date MEDICARE OF [place] [address] [place] [address] [id number] GISELLE TALBOT Self - patient is the insured [facility] [address] [place] [address] [id number] GISELLE TALBOT Self - patient is the insured Medical (General) History Medical History History ICD Code COVID-pneumonia 04/2021 Fibromyalgia Hypothyroidism IBS-doing well on dicyclomin e as of the 06/2021 office visit-normal dudoenal biopsies without celiac disease in EGD GERD-EGD 2009-neg. for [place] tt's or esophagitis, small hiatal hernia was noted Denies [place],DM,CVA,Lung disease,renal dise ase Colonoscopy 2009--negative for polyps, I BD, microscopic colitis Surgical History Surgery Date(Month/Year)
== END 2024-08-18 14:28 | disposition home or self-care (01) ==
LOC: HO.HMGCX 14:27
PROVIDERS: PCP Internal Medicine; Visit Provider Internal Medicine
DX: R05.9 Cough, unspecified (principal); M79.672 Pain in left foot; M25.572 Pain in left ankle and joints of left foot
CPT/HCPCS: 71046; 73610; 73630

== ENCOUNTER → 2024-08-18 14:32 | Outpatient (BNV) | payer MEDICARE, OTHER, SELFPAY | PROVIDERS: PCP Internal Medicine; Visit Provider Radiology Diagnostic Radiology | DX: I51.7 Cardiomegaly (principal); R05.9 Cough, unspecified; M70.972 Unspecified soft tissue disorder related to use, overuse and pressure, left ankle and foot | CPT/HCPCS: 71046; 73610; 73630 ==

== ENCOUNTER 2024-09-13 10:32 | Outpatient (AMB) | payer MEDICARE, OTHER, SELFPAY ==
--- NOTE | 2024-09-13 10:51 | MHC.OFFVIS ---
Intake Visit Reasons: OV-LT hand dequervain s/p inj 05/03/24 Intake Note: Antoinette 53 yr old left hand dominant female presents today for a follow up visit for her left hand dequervain s/p injection with Mary Ahn on 05/03/24. States injection helped and would like to repeat injection today. Allergies No Known Allergies [No Known Allergies*] Allergy (Verified 09/13/24 10:53) HPI HPI OV-LT hand dequervain s/p inj 05/03/24: Details: Antoinette is a 54 year old right hand dominant woman who returns with complaints of left hand pain. She was last seen for De Quervains tenosynovitis, and injected on 05/03/24. She says this was helpful and she would like to repeat today. Her chief complaint today is of an aching pain in her whole hand , and says that a few days ago she had this ache extend up her forearm to her shoulder. She says she felt an urge to stretch her arm out . She also complains of ongoing left radial-sided wrist pain, worse with pinching & gripping activities. She wears her brace as needed with daily activities. She says she was very sick over the winter months, and was hospitalized twice for pneumonia. She says she has been dealing with an injury to her foot for ~1 year now. She says this went septic in the past. This has been managed by Dr. Santos, her PCP, and she denies any current infection, she does says that she still has pain with weight-bearing, and she says it feels weird. [facility] Medical History Sepsis Elevated troponin Gram-positive cocci bacteremia Cellulitis of left leg Altered mental status Smoker Arthritis Asthma Low back pain Osteoporosis GERD (gastroesophageal reflux disease) Irritable bowel syndrome (IBS) Hypothyroidism Fibromyalgia Personal history of COVID-19 Surgical History History of Hx of colonoscopy History of esophagogastroduodenoscopy (EGD) Social History Household Members: Significant Other Housing: House Are you a primary career services director to a significant other at home: No Do you presently have visiting nurse or other home services: No Patient Tobacco Use Status: Current everyday Tobacco user Tobacco use type: Cigarette Cigarette Packs Per Day: 0.5 Cigarettes Per Day: 10.0 e-Cigarette/Vaping Use: Never Used Substance Use Type: Marijuana service: No Review of Systems Const All systems reviewed & are unremarkable except as noted in HPI and below Physical Exam Const General: no acute distress and alert Orientation/consciousness: patient oriented x3 Neuro General: patient oriented x3 Extrem Other: Evaluation of Left Upper Extremity: The patient is alert, oriented, and in no acute distress She ambulates with a walker. She looks very tired today, and like she is just not doing very well. Neuro: Median, Ulnar, Radial nerves motor and sensory intact and sensation is normal to the tips of all digits Vascular: Cap refill brisk ROM: She could make a fist and extend all of her digits with no locking or catching. She had a negative Eliel test on the right. Positive Eliel test on the left Mild tenderness over the 1st dorsal compartment She demonstrates pain from the dorsum of her hand extending through the dorsal forearm & up to shoulder Extensor origin NTTP No pain with resisted finger extension Psych Appearance: grossly normal Affect: normal affect Attitude: cooperative Assessment & Plan Assessment & Plan (1) De Quervain's tenosynovitis, left: Code(s): M65.4 - Radial styloid tenosynovitis [de Quervain] Category: Medical Plan Assessment and plan: 1. Left de Quervain tenosynovitis, S/P injections Date of injections: 09/13/24, 05/03/24, with relief 03/15/24 without improvement I educated her about this condition I discussed operative and non-operative treatment options The patient would like to proceed with a repeat injection I discussed activity modification, they should limit or avoid any heavy or repetitive pinching or gripping activities Injection #1: The risks and benefits of a steroid injection including but not limited to risk of damage to blood vessels, nerves, tendons, infection, skin bleaching, failure to improve symptoms, increased pain, and possible need for further injections or other intervention were discussed with the patient and the patient wishes to proceed with the steroid injection. Once consent was obtained, I sterilely prepped the area over the left 1st dorsal compartment. I then injected the left 1st dorsal compartment with a combination of 1 mL of dexamethasone (4mg/ml), and 1% lidocaine. The patient tolerated the procedure well with no complications. She had some very good early relief of her symptoms before leaving clinic If the patient continues to have locking and catching 4-6 weeks following this injection, they may call to schedule appointment to be seen for possible A1 disha release. 2. Left generalized hand/wrist pain 3. Left ring finger tip pain No complaints today Follow up PRN Scribed for Yady Shankar MD by Gold Urbina, medical insurance coder, on 09/13/24 at 11:05 AM, EST. Coding Level of Care Code Est Pt Level 3 (08003) Diagnoses De Quervain's tenosynovitis, left M65.4
--- OUTSIDE RECORDS SUMMARY | 2024-09-13 11:43 | XMS_ITS ---
Author Organization [facility] Care Team Providers Care Business Development Officer Name Role Phone Mattie Perez Unavailable Unavailable Doug Santos Unavailable Unavailable Allergies and adverse reactions No Known Allergies Care Team Name Role Address Phone Organization Dates Mattie Perez PCP [address] [place] [address] [address], [place], [address], [place] (Office): : [facility] 09/01/2023 - 09/04/2023 Doug Santos [address] [place] [address], [address], [facility] (Office): : [facility] 09/01/2023 - 09/04/2023 Immunizations Immunization Status Vaccine Details Vaccine Code CodeSystem Date Notes Covid-19 [id number] cancelled SARS-COV-2 (COVID-19) vaccine, mRNA, spike protein, LNP, preservative free, 50 mcg/0.5 mL dose 312 CVX created date: 09/03/2023 consent date: 09/03/2023 PVC20 cancelled Pneumococcal conjugate vaccine 20-valent (PCV20), polysaccharide [id number] conjugate, adjuvant, preservative free 216 CVX created date: 09/03/2023 consent date: 09/03/2023 Influenza, high dose seasonal cancelled Influenza, high-dose, split virus, trivalent, injectable, preservative free 135 CVX created date: 09/03/2023 consent date: 09/03/2023 Medications Section Medication Name Status Code CodeSystem Dose Route Frequency Admin Type Sig Text Start Date End Date Atorvastatin Calcium Oral Tablet 40 MG active 868995 RXNORM 1 tablet Oral at bedtime Routine Give 1 tablet by mouth at bedtim e for HLD 2023 - Escitalopram Oxalate Oral Tablet 20 MG active 844134 RXNORM 1 tablet Oral one time a day Routine Give 1 tablet by mouth one time a day for depres shaina give with 10mg tab td-30m g 2023 - Ibuprofen Oral Tablet 800 MG active 857061 RXNORM 1 tablet Oral as needed PRN Give 1 tablet by mouth every 8 hours as needed for pain 2023 - Albuterol Sulfate HFA Inhalation Aerosol Solution 108 (90 Base) MCG/ACT active 736373 RXNORM 2 puff Inhalat ion as needed PRN 2 puff inhale orally every 6 hours as needed for sob/wh eezing 2023 - amLODIPine Besylate Oral Tablet 5 MG active 766773 RXNORM 1 tablet Oral one time a day Routine Give 1 tablet by mouth one time a day for HTN hold for SBP <90 2023 - Cephalexin Oral Capsule 500 MG active 841146 RXNORM 1 capsul e Oral four times a day Routine Give 1 capsul e by mouth four times a day for wound infect ion 2023 - Silver sulfADIAZINE External Cream 1 % active 455098 RXNORM n/a n/a Topical every day shift Routine Apply to left great toe topica lly every day shift for wound care 2023 - Levothyroxine Sodium Oral Tablet 50 MCG active 007277 RXNORM 1 tablet Oral one time a day Routine Give 1 tablet by mouth one time a day for hypoth yroid 2023 - Alendronate Sodium Oral Tablet 70 MG active 646066 RXNORM 1 tablet Oral one time a day Routine Give 1 tablet by mouth one time a day every Sat for osteop orosis 2023 - Fleet Enema Enema 7-19 GM/118ML active 147127 RXNORM 1 dose Rectal as needed PRN Insert 1 dose rectal ly as needed for Consti pation (Step 3) as needed if no bowel moveme nt for 8 hours after bisaco dyl suppos itory. 2023 - Milk of Magnesia Suspension 400 MG/5ML active 628223 RXNORM 30 ml Oral as needed PRN Give 30 ml by mouth as needed for Consti pation (Step 1) As needed if no bowel moveme nt for three days. (Do not use for Hemodi alysis patien ts). 2023 - Acetaminophen Tablet 325 MG active 330584 RXNORM 2 tablet Oral as needed PRN Give 2 tablet by mouth every 6 hours as needed for Pain Pain Total dosage for acetam inophe n and medica tions that contai n acetam inophe n should not exceed 3 grams / 24 hours. AND Give 2 tablet by mouth every 6 hours as needed for Fever greate r than 100.0F Total dosage for acetam inophe n and medica tions that contai n acetam inophe n should not exceed 3 grams / 24 hours. 2023 - 802355 RXNORM 2 tablet Oral as needed PRN Give 2 tablet by mouth every 6 hours as needed for Pain Pain Total dosage for acetam inophe n and medica tions that contai n acetam inophe n should not exceed 3 grams / 24 hours. AND Give 2 tablet by mouth every 6 hours as needed for Fever greate r than 100.0F Total dosage for acetam inophe n and medica tions that contai n acetam inophe n should not exceed 3 grams / 24 hours. 2023 - oxyCODONE HCl Oral Tablet 5 MG active 7826887 RXNORM 1 tablet Oral as needed PRN Give 1 tablet by mouth every 6 hours as needed for severe pain 7-10 2023 - Pregabalin Oral Capsule 200 MG active 710061 RXNORM 1 capsul e Oral every 8 hours Routine Give 1 capsul e by mouth every 8 hours for neurop athy 2023 - Omeprazole Oral Capsule Delayed Release 20 MG active 709864 RXNORM 1 capsul e Oral at bedtime Routine Give 1 capsul e by mouth at bedtim e for gerd 2023 - Bisacodyl Suppository 10 MG active RXNORM 1 suppos itory Rectal as needed PRN Insert 1 suppos itory rectal ly as needed for If no bowel moveme nt for 8 hours after Milk of Magnes ia 2023 - Aspirin 81 Oral Tablet Delayed Release active 1 tablet Oral one time a day Routine Give 1 tablet by mouth one time a day for dvt px 2023 - Escitalopram Oxalate Oral Tablet 10 MG active 330759 RXNORM 1 tablet Oral one time a day Routine Give 1 tablet by mouth one time a day for depres shaina give with 20mg tab td-30m g 2023 - Ambien Oral Tablet 5 MG active 291002 RXNORM 1 tablet Oral as needed PRN Give 1 tablet by mouth every 24 hours as needed for sleep 2023 - Problems Problem # Description Date of onset Resolved Date Code CodeSystem Concern Status 1 BACTEREMIA 09/01/[address] active 2 CELLULITIS OF LEFT LOWER LIMB 09/01/[address] active 3 MUSCLE WEAKNESS (GENERALIZED) 09/01/[address] active 4 OTHER ABNORMALITIES OF GAIT AND MOBILITY 09/01/[address] active 5 OTHER REDUCED MOBILITY 09/01/[address] active 6 OTHER SPECIFIED SEPSIS 09/01/[address] active 7 UNSPECIFIED LACK OF COORDINATION 09/01/[address] active Reason for Referral No Reasons for Referral Entered Social History Social History Observation Description Start Date End Date Code Code System Current Smoking Status Tobacco smoking consumption unknown 715859844 SNOMED CT Sex Assigned At Female 1970 00411-1 [facility] Gender Identity Vital Signs Code Code System Vitals Name Values and Units Timing Information 39747-0 LOINC Pain Level Value=1.0 09/04/2023 9279-1 LOINC Respiratory Rate Value=18.0 Units=/m in 09/04/2023 8462-4 LOINC Blood Pressure-Diastolic Value=88 Un its=mmHg 09/04/2023 8480-6 LOINC Blood Pressure-Systolic Iwxhp=311 Un its=mmHg 09/04/2023 8310-5 LOINC Body Temperature Value=98.0 Units=?? F 09/04/2023 8867-4 LOINC Heart rate Value=59.0 Units=/min 07/2023 60023-5 [facility] O2 % BldC Oximetry Value=95.0 Units= % 09/04/2023 46101-6 [facility] Weight Yoxju=183.5 Units=Lbs 05/2023 8302-2 [facility] Height Value=63.0 Units=Inches 09/02/2023
--- OUTSIDE RECORDS SUMMARY | 2024-09-13 11:43 | XMS_ITS | Patient Health Record ---
Author Organization [facility] Address [address] [place] [address] Care Team Providers Care Escrow Representative Name Role Phone Doug Santos MD Primary Care Provider Brett Freeman Unavailable [phone] Allergies Allergen (clinical drug ingredient) Drug/Non Drug [...] Problem Status W/U Status Risk Notes Problem 452656468 Encounter for screening for malignant neoplasm of colon (Z12.11) Active confirmed Problem 223907308 Irritable bowel syndrome with diarrhea (K58.0) Active confirmed Problem 328184540 Gastroesophageal reflux disease without esophagitis (K21.9) Active confirmed Problem 682081086889461 Preprocedural examination (Z01.818) Active confirmed Problem Diverticulosis of colon (085428923) Diverticulosis of colon (K57.30) Active confirmed Plan Of Treatment Pending Test Test Name Order Date Pathology 08/12/2021 Future Test Test Name Order Date COLONOSCOPY 06/19/2021 Insurance Providers Payer Name Payer Address Payer Phone Subscriber Number Group Number Insured Name Patient Relationship to Insured Coverage Start Date Coverage End Date MEDICARE OF [place] [address] [place] [address] [id number] GISELLE TALBOT Self - patient is the insured [facility] [address] [place] [address] [id number] GISELLE TALBOT Self - patient is the insured Medical (General) History Medical History History ICD Code COVID-pneumonia 04/2021 Fibromyalgia Hypothyroidism IBS-doing well on dicyclomin e as of the 06/2021 office visit-normal dudoenal biopsies without celiac disease in EGD GERD-EGD 2009-neg. for [place] tt's or esophagitis, small hiatal hernia was noted Denies [place],DM,CVA,Lung disease,renal dise ase Colonoscopy 2009--negative for polyps, I BD, microscopic colitis Surgical History Surgery Date(Month/Year)
== END 2024-09-13 11:30 | disposition home or self-care (01) ==
LOC: HO.HOS 10:33
PROVIDERS: PCP Internal Medicine; Visit Provider Orthopaedic Surgery
DX: M65.4 Radial styloid tenosynovitis [de Quervain] (principal)
CPT/HCPCS: 20550; 99213

== ENCOUNTER → 2024-09-13 10:32 | Outpatient (BNVA) | payer MEDICARE, OTHER, SELFPAY | PROVIDERS: PCP Internal Medicine; Visit Provider Orthopaedic Surgery | DX: M65.4 Radial styloid tenosynovitis [de Quervain] (principal) | CPT/HCPCS: 20550; 99212; J1100; J2003 ==

== ENCOUNTER 2024-10-25 08:16 | Outpatient (AMB) | payer MEDICARE, OTHER, SELFPAY ==
--- NOTE | 2024-10-25 08:46 | AM.OFFWIN_ITS ---
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 - The lump has been present for two days , noticed upon waking, and is tender. - She reports a recent cough and runny n ose, denies fever, and notes the lump may have decreased in size a small amt. - Recently hospitalized for streptococca l bacteremia; exact timing is unclear. - she denies any trouble swallowing or b reathing. Physical Exam General: Cooperative, healthy appearing, comfortable, no acute distress and well developed Orientation: Patient oriented x3 Limitations: No limitations Head: normal to inspection Ears: Hearing grossly normal bilaterally Nose: Normal External nose present Face and sinus: Normal facial exam Eyes: Appearance normal, both eyes and all related structures Neck: Full ROM, 3cm oval, firm lump posterior/inferior left ear, TTP, no skin changes Respiratory: Normal respiratory effort and able to speak in complete sentences. Skin: No rashes or lesions noted Neuro: Patient oriented x3 Extremities: Normal to inspection [facility] Medical History Sepsis Elevated troponin Gram-positive cocci bacteremia Cellulitis of left leg Altered mental status Smoker Arthritis Asthma Low back pain Osteoporosis GERD (gastroesophageal reflux disease) Irritable bowel syndrome (IBS) Hypothyroidism Fibromyalgia Personal history of COVID-19 Surgical History (Reviewed 09/13/24 @ 10:53 by Daylin Begum [facility] History of Hx of colonoscopy History of esophagogastroduodenoscopy (EGD) Social History Household Members: Significant Other Housing: House Are you a primary adult care manager to a significant other at home: No Do you presently have visiting nurse or other home services: No Patient Tobacco Use Status: Current everyday Tobacco user Tobacco use type: Cigarette Cigarette Packs Per Day: 0.5 Cigarettes Per Day: 10.0 e-Cigarette/Vaping Use: Never Used Substance Use Type: Marijuana service: No Review of Systems Const All systems reviewed & are unremarkable except as noted in HPI and below Physical Exam Vital Signs: Last Vital Signs Temp 98.4 F 10/25/24 08:48 Pulse 94 10/25/24 08:48 BP 128/84 10/25/24 08:48 Pulse Ox 92 10/25/24 08:48 Oxygen Delivery Method Room Air 10/25/24 08:48 BMI result Body Mass Index 30.9 Assessment & Plan Assessment & Plan (1) Lump in neck: Code(s): R22.1 - Localized swelling, mass and lump, neck Plan: Had colleague, Jaki Cooper PA-C assess lump, she agreed that this lump needs further evaluation, could be cyst, abscess, or less likely, reactive lymph node. Lump in neck needs to be assessed with imaging, sent patient to ED. Called [facility] ED with expect. Patient was informed and verbally consented to the use of an ambient scribe for clinic note documentation during this visit. Coding Level of Care Code New Pt Level 5 (93974) Diagnoses Lump in neck R22.1
[2024-10-25 08:48] VITALS: BP 128/84; PULSE 94; TEMP 36.9; O2SAT 92; BMI 30.9
== END 2024-10-25 09:49 | disposition home or self-care (01) ==
PROVIDERS: PCP Internal Medicine; Visit Provider Physician Assistant
DX: R22.1 Localized swelling, mass and lump, neck (principal)

== ENCOUNTER → 2024-10-25 08:16 | Outpatient (BNVA) | payer MEDICARE, OTHER, SELFPAY | PROVIDERS: PCP Internal Medicine; Visit Provider Physician Assistant | DX: R22.1 Localized swelling, mass and lump, neck (principal) | CPT/HCPCS: 99202 ==

== ENCOUNTER 2024-10-25 09:53 | Emergency (ER) | payer MEDICARE, OTHER, SELFPAY ==
--- NOTE | ~2024-10-25 | CT_ITS ---
EXAMINATION: CT SOFT TISSUE NECK WITH CONTRAST CLINICAL INFORMATION: Left neck mass, tender, noticed x2 days. Sent in to the ED by primary practitioner. Reason cough and runny nose. COMPARISON: None available. TECHNIQUE: Following the intravenous administration of 60 mL of Omnipaque 350 intravenous contrast, helical imaging was performed in the axial plane with generation of coronal and sagittal reformatted images. This CT examination was performed using dose optimization techniques as appropriate, variously including the following: *Automated exposure control *Adjustment of mA and/or kV according to patient size (this includes techniques or standardized protocols for targeted exams where dose is matched to indication/reason for exam; i.e. extremities or head) *Use of iterative reconstruction technique FINDINGS: There is a vague mass within the left posterior neck, just deep to the sternocleidomastoid muscle, just posteroinferior to the left mastoid, infiltrating appearance with obscuration of abutting fat planes suggesting inflammatory abnormality. This mass measures approximately 3.4 cm in AP, water 1.9 cm in transverse, 2.5 cm in craniocaudal dimensions (series 2, image 34; series 7, image 37). There are small abutting numerous small lymph nodes and mild abutting fat plane inflammatory changes in this region, extending both inferior and superior to the primary mass like abnormality. There is no pathologic lymphadenopathy present. No organized fluid collection or abscess. No abnormal cystic finding. No mucosal space abnormalities. Retropharyngeal course of the right ICA is incidentally noted. The hypopharynx, larynx, and subglottic trachea appear normal. Imaged lung apices are clear bilaterally. There are numerous old right and left rib fracture deformities. Superior mediastinal structures appear normal. Globes and orbital contents appear normal. Imaged intracranial contents demonstrate no mass effect, edema, or abnormal enhancement. Dural venous sinuses appear patent. Moderate mucosal thickening is seen in the left maxillary sinus, and near complete opacification of the right maxillary sinus is present. Remainder of the paranasal sinuses, mastoids, and tympanic spaces are normally pneumatized. CT/CT soft tissue neck w IV con IMPRESSION: 1. Inflammatory appearing, infiltrative masslike abnormality within the left posterior neck just inferior to the left mastoid, measuring approximately 3.4 x 1.9 x 2.5 cm (AP, TRV, CC) (Lies within level 5A evon location). This is surrounded by small lymph nodes and fat plane infiltrative changes. Exact etiology is unclear although is most certainly inflammatory and/or infectious. There is no associated organized fluid collection, cyst, or abscess. Neoplasm is felt unlikely given appearance. 2. No abnormal pathologic lymphadenopathy or additional mass within the neck. 3. Complete opacification right maxillary sinus, and partial opacification left maxillary sinus. Electronically signed by: Augustin Lim MD 10/25/2024 01:09 PM EDT RP
[2024-10-25 10:00] VITALS: BP 139/87; PULSE 92; RESP 16; TEMP 36.9; O2SAT 95; BMI 30.4
[2024-10-25 10:19] LABS: MANUAL DIFF FLAG NO
[2024-10-25 10:20] LABS: Basophils Percent Auto 0.4 % (0-2); Eosinophils Absolute Auto 0.1 X10*3/uL (0.0-0.4); Eosinophils Percent Auto 1.4 % (0-4); Hematocrit 38.3 % (37.0-47.0); Hemoglobin 12.5 g/dl (12.0-16.0); Imm Gran Abs Auto 0.03 X10*3/uL (0.00-0.03); Imm Gran Pct Auto 0.4 % (0.0-0.4); Lymphocytes Absolute Auto 1.7 X10*3/uL (1.2-4.9); Mean Corpuscular HGB Conc 32.6 g/dl (31.0-35.0); Mean Corpuscular Hemoglobin 28.7 pg (27.0-33.0); Mean Corpuscular Volume 87.8 fL (80.0-98.0); Mean Platelet Volume 9.4 fL (9.4-12.3); Monocytes Absolute Auto 0.6 X10*3/uL (0.1-1.2); Neutrophils Percent Auto 70.8 % (45-73); Platelet Count 206 X10*3/uL (160-400); Red Blood Count 4.36 X10*6/uL (4.20-5.50); Red Cell Distribution Width 14.1 % (11.0-16.0); White Blood Count 8.4 X10*3/uL (4.8-10.8)
[2024-10-25 10:32] LABS: Anion Gap 11 (12-20); Blood Urea Nitrogen 7 mg/dL (9-16); Calcium 9.2 mg/dL (8.4-10.2); Carbon Dioxide 32 mmol/L (22-29); Chloride 101 mmol/L (96-108); Estimated Glomerular Filt Rate > 60; Glucose Random 95 mg/dL (60-115); Potassium 3.8 mmol/L (3.3-5.1); Sodium 140 mmol/L (135-145)
[2024-10-25 10:58] LABS: Influenza A PCR NEGATIVE (Negative); Influenza B PCR NEGATIVE (Negative); Resp Syncy Virus RNA Qual PCR NEGATIVE (Negative); SARS COV2 PCR INHOUSE NEGATIVE (Negative)
--- OUTSIDE RECORDS SUMMARY | 2024-10-25 11:20 | XMS_ITS | Patient Health Record ---
Author Organization [facility] Address [address] [place] [address] Care Team Providers Care Community Outreach Worker Name Role Phone Doug Santos MD Primary Care Provider Unavailab Reyes Junior Unavailable [phone] Reason For Referral No Information Medications Medication SIG (Take, Route, Frequency, Duration) Notes Start Date End Date Status Levothyroxine Sodium 50 MCG 1 tablet on an empty stomach in the morning Orally Once a day for 30 day(s) Active oxyCODONE HCl 5 MG 1 tablet as needed O rally every 6 hrs Active Baclofen 10 MG/5ML as directed Intrathecal Active Dicyclomine HCl 10 MG/ML 2 ml Intramuscu lar Four times a day for 30 day(s) Active OxyCONTIN 10 MG 1 tablet Orally ever y 12 hrs Active ProAir HFA 108 (90 Base) MCG/ACT 2 puffs as needed Inhalation every 4 hrs Active Problems Problem Type SNOMED Code ICD Code Onset Dates Problem Status W/U Status Risk Notes Problem Verruca plantaris (19823404) Verruca Plantaris (078.19) Active confirmed Plan Of Treatment No Information Insurance Providers Payer Name Payer Address Payer Phone Subscriber Number Group Number Insured Name Patient Relationship to Insured Coverage Start Date Coverage End Date [facility] [address] [place] [address] [phone] [id number] Jeter Self - patient is the insured Medical (General) History Medical History History ICD Code Arthritis asthma back, hip, knee pain fibromyalgia neuropathy thyroid disorder warts chicken pox
--- NOTE | 2024-10-25 11:26 | ED.NECK ---
HPI - Neck Pain/Injury General Chief Complaint: Neck Pain/Injury Stated Complaint: lump on neck Time Seen by Provider: 10/25/24 11:08 Source: patient Mode of arrival: ambulatory Limitations: no limitations History of Present Illness ED Provider: CHELSEA RUGGIERO PA-C HPI Narrative: 54 year old female with pmhx significant for IBS, GERD, osteoporosis, fibromyalgia, peripheral neuropathy, asthma, COPD, and spinal stenosis presents to the ED today for evaluation left sided neck mass x2 days. Reports the area is painful and tender to palpation. Pain is worse with movement of the neck. Pain is localized to left neck around the base of her skull. No radiation. No trauma/ injury. She presented to urgent care this morning for evaluation and was sent here to rule out abscess. Reports chronic sinus pain and reports multiple treatments for sinusitis in the past few months. Denies history of DM. Denies fever, chills, sore throat, difficulty swallowing or breathing, ear pain, headache. Related Data Home Medications ?Medication ?Instructions ?Recorded ?Confirmed albuterol sulfate 90 mcg/actuation 2 puff inhalation Q6H PRN 08/06/21 05/31/24 aerosol inhaler Shortness Of Breath Or Wheezing omeprazole 20 mg tablet,delayed 20 mg PO DAILY@0630 08/06/21 05/31/24 release alendronate 70 mg tablet 70 mg PO FR 08/23/23 05/31/24 escitalopram oxalate 10 mg tablet 10 mg PO DAILY 08/23/23 05/31/24 escitalopram oxalate 20 mg tablet 20 mg PO DAILY 08/23/23 05/31/24 levothyroxine 50 mcg tablet 50 mcg PO DAILY@0600 08/23/23 05/31/24 gabapentin 600 mg tablet 600 mg PO TID 05/31/24 05/31/24 Previous Rx's ?Medication ?Instructions ?Recorded amlodipine 5 mg tablet 5 mg PO DAILY #1 tab 09/01/23 atorvastatin 40 mg tablet 40 mg PO BEDTIME #1 tab 09/01/23 cefuroxime axetil 500 mg tablet 500 mg PO Q12H #10 tabs 06/02/24 doxycycline hyclate 100 mg capsule 100 mg PO BID #10 caps 06/02/24 amoxicillin 875 mg-potassium 1 tab PO Q12H 7 days #14 tabs 10/25/24 clavulanate 125 mg tablet doxycycline hyclate 100 mg tablet 100 mg PO BID 7 days #14 tabs 10/25/24 Allergies Allergy/AdvReac Type Severity Reaction Status Date / Time No Known Allergies (No Known Allergy Verified 10/25/24 10:05 Allergies*) Review of Systems Review of Systems: Constitutional: No fever, chills, fatigue, night sweats, weight changes ENT/Mouth: No ear pain, hearing loss, nasal congestion, sinus pain, rhinorrhea, sore throat Eyes: No eye pain, swelling, redness, vision changes, discharge Cardio: No chest pain, palpitations, WALTER, orthopnea, peripheral edema Pulm: No SOB, cough, sputum, wheezing, dyspnea, hemoptysis GI: No nausea, vomiting, hematemesis, abdominal pain, diarrhea, constipation, hematochezia, melena : No irregular bleeding, dysuria, frequency, urgency, hesitancy, hematuria, flank pain, urinary flow changes, urinary incontinence or retention MSK: No back pain, neck pain, joint pain, myalgias Skin: No lesions, rashes, +neck mass Neuro: No weakness, numbness, paresthesias, LOC, dizziness, headache Psych: No anxiety/panic, depression, SI/HI, AH/VH All other systems reviewed and are negative. [facility] Past Medical History Attestation statement: The following information was validated with the patient. Source: old records reviewed and nursing notes reviewed Medical History Pneumonia Hypoxia Acute hypoxic respiratory failure Sepsis Elevated troponin Gram-positive cocci bacteremia Cellulitis of left leg Altered mental status Smoker Arthritis Asthma Low back pain Osteoporosis GERD (gastroesophageal reflux disease) Irritable bowel syndrome (IBS) Hypothyroidism Fibromyalgia Personal history of COVID-19 Surgical History History of Hx of colonoscopy History of esophagogastroduodenoscopy (EGD) Social History Social History Household Members: Significant Other Housing: House Are you a primary career technical education instructor to a significant other at home: No Do you presently have visiting nurse or other home services: No Patient Tobacco Use Status: Current everyday Tobacco user Tobacco use type: Cigarette Cigarette Packs Per Day: 0.5 Cigarettes Per Day: 10.0 e-Cigarette/Vaping Use: Never Used Substance Use Type: Marijuana service: No Physical Exam Vital Signs: Vital Signs: Last Vital Signs Temp 97.2 F 10/25/24 14:43 Pulse 83 10/25/24 14:43 Resp 16 10/25/24 14:43 BP 125/58 L 10/25/24 14:43 Pulse Ox 92 10/25/24 14:43 O2 Del Method Room Air 10/25/24 14:01 BMI result Body Mass Index 30.4 Vital signs stable, afebrile General: well appearing, in no acute distress. Skin: Warm, dry, intact. No rashes or lesions. Head: Normocephalic, atraumatic. EENT: Hearing is intact b/l. Conjunctiva clear. Sclera is anicteric. PERRLA. EOM intact. no mastoid tenderness, bogginess. No protrusion of the auricle. Left EAC and TM wnl. Posterior oropharynx without erythema or edema. No peritonsillar masses. No tonsillar exudates. Uvula midline. Controlling secretions and speaking complete sentences. Neck: +firm mass measuring approximately 3 cm x4 cm localized to left posterior neck just inferior to left mastoid around left skull base. ttp. no overlying erythema or ecchymosis. no crepitus or fluctuance. Cardiac: Chest wall symmetric. RRR Lungs: Normal respiratory effort without accessory muscle use. CTA bilaterally. Ext: Upper and lower extremities atraumatic, without tenderness, deformity, swelling or erythema Neuro: AOx3. Normal speech. Ambulating with steady gait. Course Course Course Narrative: CBC without leukocytosis or left shift. No anemia. H&H stable. ESR mildly elevated to 32. CRP mildly elevated to .80. Chemistry without acute electrolyte abnormality requiring intervention. No ARMAND. CT scan soft tissues neck showing inflammatory appearing infiltrative masslike abnormality within the left posterior neck just inferior to the left mastoid measuring approximately 3.4 x 1.9 x 2.5 cm, surrounded by small lymph nodes and fat plane infiltrative changes. Exact etiology is unclear although is most certainly inflammatory and/or infectious, no associated organized fluid collection, cyst, abscess. Neoplasm less likely given appearance. > unsure what to make of CT findings. I did discuss results with my attending dr. miranda who has also evaluated patient at bedside. The rest of her workup is quite unremarkable and she is a very well-appearing. She has been no other symptoms. Dr. Miranda recommending coverage with Augmentin and doxycycline with prompt PCP follow up. Patient follows with a primary care provider Dr. Chavarria. Advised to contact his office tomorrow to follow up within the next few days. She feels this is reasonable and is agreeable to discharge home on antibiotics. Patient has remained stable throughout ED visit today. Discussed worrisome signs and symptoms and when to return to the ED. All questions answered at this time. Patient is agreeable with disposition and stable for discharge. Medications Administered Discontinued Medications Generic Name Dose Route Start Last Admin Trade Name Freq PRN Reason Stop Dose Admin Iohexol 100 ml 10/25/24 12:26 10/25/24 12:27 Iohexol 350 Mg/Ml 100 Ml Infus..Btl IV 10/25/24 12:27 60 ml ONCE ONE Administration Ketorolac Tromethamine 15 mg 10/25/24 11:46 10/25/24 12:05 Ketorolac Tromethamine 15 Mg/Ml Vial IVPUSH 10/25/24 11:47 15 mg ONCE ONE Administration Medical Decision Making Medical Decision Making [facility] Narrative: 54 year old female with pmhx significant for IBS, GERD, osteoporosis, fibromyalgia, peripheral neuropathy, asthma, COPD, and spinal stenosis presents to the ED today for evaluation left sided neck mass x2 days. Vital signs stable. Afebrile. She is well-appearing and in no acute distress. On exam, there is a firm mass measuring approximately 3 cm x4 cm localized to left posterior neck just inferior to left mastoid around left skull base. ttp. no overlying erythema or ecchymosis. no crepitus or fluctuance. no mastoid tenderness, bogginess. No protrusion of the auricle. Left EAC and TM wnl. Posterior oropharynx without erythema or edema. No peritonsillar masses. No tonsillar exudates. Uvula midline. Controlling secretions and speaking complete sentences. Differential diagnosis includes enlarged lymph node, mastoiditis, abscess, soft tissue mass, lipoma Unlikely strep throat, mono. Plan for basic labs, CT, pain control and re-evaluation. Differential Diagnosis Differential Diagnoses: The differential diagnosis associated with the presentation includes As above Admission/Observation Not indicated Lab Data [facility] Lab Attestation statement: I reviewed the patient's lab results. As above 10/25/24 10:14 10/25/24 10:14 Labs: Lab Results 10/25/24 Range/Units 10:14 WBC 8.4 (4.8-10.8) X10*3/uL RBC 4.36 (4.20-5.50) X10*6/uL Hgb 12.5 (12.0-16.0) g/dl Hct 38.3 (37.0-47.0) % MCV 87.8 (80.0-98.0) fL MCH 28.7 (27.0-33.0) pg MCHC 32.6 (31.0-35.0) g/dl RDW 14.1 (11.0-16.0) % Plt Count 206 (160-400) X10*3/uL MPV 9.4 (9.4-12.3) fL Immature Gran % (Auto) 0.4 (0.0-0.4) % Neut % (Auto) 70.8 (45-73) % Lymph % (Auto) 20.0 (20-40) % Travis % (Auto) 7.0 (2-11) % Eos % (Auto) 1.4 (0-4) % Baso % (Auto) 0.4 (0-2) % Lymph # (Auto) 1.7 (1.2-4.9) X10*3/uL Travis # (Auto) 0.6 (0.1-1.2) X10*3/uL Eos # (Auto) 0.1 (0.0-0.4) X10*3/uL Baso # (Auto) 0.0 (0.0-0.2) X10*3/uL Abs Immat Gran (auto) 0.03 (0.00-0.03) X10*3/uL Absolute Neuts (auto) 6.0 (2.0-8.3) x10*3/uL Absolute Nucleated RBC 0.000 (0.0-0.012) X10*3/uL Nucleated RBC % (auto) 0.0 (0.0-0.2) /100WBC ESR 32 H (0-20) MM/HR Sodium 140 (135-145) mmol/L Potassium 3.8 (3.3-5.1) mmol/L Chloride 101 (96-108) mmol/L Carbon Dioxide 32 H (22-29) mmol/L Anion Gap 11 L (12-20) BUN 7 L (9-16) mg/dL Creatinine 0.53 (0.5-1.4) mg/dL Estim Creat Clear Calc 104.0 Estimated GFR > 60 Random Glucose 95 (60-115) mg/dL Calcium 9.2 (8.4-10.2) mg/dL C-Reactive Protein 0.80 H (< or = 0.50) mg/dL Influenza Type A (PCR) NEGATIVE (Negative) Influenza Type B (PCR) NEGATIVE (Negative) RSV RNA Qual (PCR) NEGATIVE (Negative) SARS-CoV-2 RNA (RT-PCR) NEGATIVE (Negative) Independent Interpretation I performed an independent interpretation of an: CT Scan Interpretation: CT neck showing mass just inferior to left mastoid Radiology Impression Discussion of test interpretation with radiology: I have reviewed the radiologist's reading. Radiologist Impression: Date of Service: 10/25/24 Procedure(s): CT soft tissue neck w IV con Accession Number(s): [id number] cc: Doug Santos MD; Chelsea Ruggiero~ Report Number: [id number]: Total DLP = 365.00 mGy-cm EXAMINATION: CT SOFT TISSUE NECK WITH CONTRAST CLINICAL INFORMATION: Left neck mass, tender, noticed x2 days. Sent in to the ED by primary practitioner. Reason cough and runny nose. COMPARISON: None available. TECHNIQUE: Following the intravenous administration of 60 mL of Omnipaque 350 intravenous contrast, helical imaging was performed in the axial plane with generation of coronal and sagittal reformatted images. This CT examination was performed using dose optimization techniques as appropriate, variously including the following: *Automated exposure control *Adjustment of mA and/or kV according to patient size (this includes techniques or standardized protocols for targeted exams where dose is matched to indication/reason for exam; i.e. extremities or head) *Use of iterative reconstruction technique FINDINGS: There is a vague mass within the left posterior neck, just deep to the sternocleidomastoid muscle, just posteroinferior to the left mastoid, infiltrating appearance with obscuration of abutting fat planes suggesting inflammatory abnormality. This mass measures approximately 3.4 cm in AP, water 1.9 cm in transverse, 2.5 cm in craniocaudal dimensions (series 2, image 34; series 7, image 37). There are small abutting numerous small lymph nodes and mild abutting fat plane inflammatory changes in this region, extending both inferior and superior to the primary mass like abnormality. There is no pathologic lymphadenopathy present. No organized fluid collection or abscess. No abnormal cystic finding. No mucosal space abnormalities. Retropharyngeal course of the right ICA is incidentally noted. The hypopharynx, larynx, and subglottic trachea appear normal. Imaged lung apices are clear bilaterally. There are numerous old right and left rib fracture deformities. Superior mediastinal structures appear normal. Globes and orbital contents appear normal. Imaged intracranial contents demonstrate no mass effect, edema, or abnormal enhancement. Dural venous sinuses appear patent. Moderate mucosal thickening is seen in the left maxillary sinus, and near complete opacification of the right maxillary sinus is present. Remainder of the paranasal sinuses, mastoids, and tympanic spaces are normally pneumatized. CT/CT soft tissue neck w IV con IMPRESSION: 1. Inflammatory appearing, infiltrative masslike abnormality within the left posterior neck just inferior to the left mastoid, measuring approximately 3.4 x 1.9 x 2.5 cm (AP, TRV, CC) (Lies within level 5A evon location). This is surrounded by small lymph nodes and fat plane infiltrative changes. Exact etiology is unclear although is most certainly inflammatory and/or infectious. There is no associated organized fluid collection, cyst, or abscess. Neoplasm is felt unlikely given appearance. 2. No abnormal pathologic lymphadenopathy or additional mass within the neck. 3. Complete opacification right maxillary sinus, and partial opacification left maxillary sinus. Electronically signed by: Augustin Lim MD 10/25/2024 01:09 PM EDT External Record Review External record reviewed: Inpatient record Prescription Management I considered prescription management with: Antibiotic (Doxycycline, Augmentin) Social Determinants Patient?s care significantly limited by Social Determinants of Health including: Other Social Determinant of Health Critical Care Time Critical Care Time Critical Care Time: No Discharge Plan Discharge Clinical Impression: Neck mass Patient Disposition: Home, Self-Care Additional Instructions: You were evaluated in the ED today for a mass to the left side of your neck. Your blood work is reassuring. The CT scan of your neck shows findings concerning for an inflammatory/infectious process in this area. At this time it is not clear what this mass is. We are treating you with 2 different antibiotics. Augmentin and doxycycline have been sent to your pharmacy. Take these as prescribed. Take the entire course. On Augmentin, softer bowel movements are to be expected. Call your provider if you move your bowels more than 4 times a day, your bowel movements are almost all liquid, or you get a rash.? On doxycycline, do not take pills immediately before going to bed and swallow pills with plenty of water. Avoid direct sunlight, iron, antacids, and Pepto Bismol. Call your provider if you develop new ringing in your ears, new problems hearing, dizziness, difficulty swallowing, rash, abdominal discomfort, nausea, or diarrhea. As discussed, we want you to follow up with Dr. Santos in 2-3 days for further evaluation. Please return with any new or worsening symptoms. In the case of an emergency call 911. Prescriptions: New amoxicillin-pot clavulanate 875-125 mg tablet 1 tab PO Q12H 7 Days Qty: 14 0RF doxycycline hyclate 100 mg tablet 100 mg PO BID 7 Days Qty: 14 0RF No Action omeprazole 20 mg Tablet,Delayed Release (Dr/Ec) 20 mg PO DAILY@0630 albuterol sulfate 90 mcg/actuation Hfa Aerosol Inhaler 2 puff INHALATION Q6H PRN (Reason: Shortness Of Breath Or Wheezing) gabapentin 600 mg tablet 600 mg PO TID cefuroxime axetil 500 mg tablet 500 mg PO Q12H Qty: 10 0RF doxycycline hyclate 100 mg capsule 100 mg PO BID Qty: 10 0RF alendronate 70 mg tablet 70 mg PO FR levothyroxine 50 mcg tablet 50 mcg PO DAILY@0600 escitalopram oxalate 10 mg tablet 10 mg PO DAILY Rx Instructions: with 20mg; tdd 30 mg escitalopram oxalate 20 mg tablet 20 mg PO DAILY Rx Instructions: with 10mg; tdd 30 mg atorvastatin 40 mg Tablet 40 mg PO BEDTIME Qty: 1 0RF amlodipine 5 mg Tablet 5 mg PO DAILY Qty: 1 0RF Protocol: Hold for SBP< HOLD for SBP < : 90 Referrals: Doug Santos MD [Primary Care Provider, Internal Medicine] Referral Note: Inflammatory/infectious neck mass Interventions: ED Discharge Assessment Last Done: 10/25/24 14:43 Discharge Date/Time: 10/25/24 14:44 Print Language: Chinese
[2024-10-25] MEDS: Ketorolac Tromethamine 15 MG/ML VIAL IVPUSH (12:05)
[2024-10-25] MEDS: iohexoL 350 MG/ML 100 ML INFUS..BTL IV (12:27)
[2024-10-25 14:01] VITALS: BP 125/58; PULSE 83; RESP 16; TEMP 36.2; O2SAT 92
[2024-10-25 14:43] VITALS: BP 125/58; PULSE 83; RESP 16; TEMP 36.2; O2SAT 92
[2024-10-25 15:23] LABS: Erythrocyte Sedimentation Rate 32 MM/HR (0-20)
== END 2024-10-25 14:44 | disposition home or self-care (01) ==
PROVIDERS: Emergency Provider Emergency Medicine; PCP Internal Medicine
DX: R22.1 Localized swelling, mass and lump, neck (principal); Z03.818 Encounter for observation for suspected exposure to other biological agents ruled out; J45.909 Unspecified asthma, uncomplicated
CPT/HCPCS: 0241U; 36415; 70491; 80048; 85025; 85652; 86140; 96374; 99283; 99284; J1885; Q9967

== ENCOUNTER → 2024-10-25 11:46 | Outpatient (BNV) | payer MEDICARE, OTHER, SELFPAY | PROVIDERS: Emergency Provider Emergency Medicine; PCP Internal Medicine; Visit Provider Radiology Diagnostic Radiology | DX: R22.1 Localized swelling, mass and lump, neck (principal) | CPT/HCPCS: 70491 ==

== ENCOUNTER 2024-10-31 14:35 | Outpatient (AMB) | payer MEDICARE, OTHER, SELFPAY ==
--- NOTE | 2024-10-31 14:39 | MHC.PC.OV ---
Vital Signs 10/31/24 14:49 Height 5 ft Weight 160 lb BMI 31.2 BP 136/94 H Blood Pressure Location Rt brachial Position Sitting Respiration 17 Pulse 100 Pulse Source Pulse Oximeter Temp 97.7 F Temp Source Temporal Artery Scan Pulse Oximetry (%) 95 Oxygen Delivery Method Room Air Intake Visit Reasons: Establish Care Operation Manager Required: No Accompanied by: Self / Same As Patient Allergies No Known Allergies (No Known Allergies*) Allergy (Verified 10/31/24 15:35) Medication List - Last Reconciled 10/31/24 by Sera Greenberg PA-C albuterol sulfate 90 mcg/actuation 2 puffs inhalation Q6H PRN alendronate 70 mg PO FR amlodipine 5 mg See Protocol PO DAILY amoxicillin-pot clavulanate 875-125 mg 1 tab PO Q12H 7 days atorvastatin 40 mg PO BEDTIME doxycycline hyclate 100 mg PO BID 7 days escitalopram oxalate 20 mg PO DAILY gabapentin 600 mg PO TID levothyroxine 50 mcg PO DAILY@0600 omeprazole 20 mg PO DAILY@0630 Tobacco use date assessed: 10/31/24 Dental Screening Dental Screen Date: 10/31/24 Did you have a dental visit in the last 12 months?: Yes Did you have a dental problem in the last 6 months where you did not have access to dental care?: No Was dental information given to patient?: Patient has dentist HPI Establish Care HPI Details The patient is a 54-year-old female presenting with the management of multiple chronic conditions and evaluation of a neck infection. The patient has a history of asthma, for which she is currently using albuterol. She also has osteoporosis and is taking alendronate for bone health. Hypertension is managed with amlodipine, and hyperlipidemia is treated with atorvastatin. The patient also reports a history of anxiety and depression, for which she is on escitalopram, recently adjusted to 40 mg daily, although there was a discussion about the appropriate dosing due to potential risks. The patient recently visited the emergency room due to a neck infection, which was identified through a CT scan showing inflammation and a mass-like abnormality in the left posterior neck. The infection is being treated with antibiotics, including Augmentin and doxycycline, and the condition is improving. The patient has a history of anemia and spinal stenosis, which affects her mobility. She uses a walker due to difficulty walking and has experienced falls, which have exacerbated her wrist condition. Social History - Family Status: The patient is involved in caring for her mother, who is terminally ill. - Functional Status: The patient uses a walker due to mobility issues and has experienced falls. [facility] Medical History (Updated 10/31/24 @ 15:41 by Sera Greenberg PA-C) Spinal stenosis Anemia Anxiety and depression Hyperlipidemia Infection of skin of neck Hypertension Establishing care with new doctor, encounter for Left wrist pain Left hand pain Fall Pneumonia Hypoxia Acute hypoxic respiratory failure Sepsis Elevated troponin Gram-positive cocci bacteremia Cellulitis of left leg Altered mental status Smoker Arthritis Asthma Low back pain Osteoporosis GERD (gastroesophageal reflux disease) Irritable bowel syndrome (IBS) Hypothyroidism Fibromyalgia Personal history of COVID-19 Surgical History History of Hx of colonoscopy History of esophagogastroduodenoscopy (EGD) Family History Father No problems noted. Mother Multiple sclerosis Social History Household Members: Significant Other Housing: House Are you a primary animal care attendant to a significant other at home: No Do you presently have visiting nurse or other home services: No Alcohol intake: current Alcohol intake frequency: does not drink Patient Tobacco Use Status: Current everyday Tobacco user Tobacco use type: Cigarette Cigarette Packs Per Day: 0.5 Cigarettes Per Day: 10.0 e-Cigarette/Vaping Use: Never Used Substance Use Type: Marijuana service: No Current occupational status: disabled Cognitive needs: Yes (walker and cane) Hearing needs: No Vision needs: Yes (rx glasses) Questionnaire PHQ-9 Over the last 2 weeks, how often have you been bothered by any of the following problems? 1. Little interest or pleasure in doing things: not at all 2. Feeling down, depressed, or hopeless: not at all 3. Trouble falling or staying asleep, or sleeping too much: not at all 4. Feeling tired or having little energy: not at all 5. Poor appetite or overeating: not at all 6. Feeling bad about yourself - or that you are a failure or have let yourself or your family down: not at all 7. Trouble concentrating on things, such as reading the newspaper or watching television: not at all 8. Moving or speaking so slowly that other people could have noticed. Or the opposite - being so fidgety or restless that you have been moving around a lot more than usual: not at all 9. Thoughts that you would be better off or of hurting yourself in some way: not at all Total score: 0 Depression Screening Interpretation: Negative Depression Screening Done: Yes 76535 - PHQ-9 Billing: Yes Source: Developed by Drs. Brett Griffin, Maya Sanchez, Mg Brown and colleagues, with an educational mago from [employer]. Thrive Questionnaire Date Thrive assessed: 10/31/24 I am a: Patient What is your living situation today?: I have a steady place to live Within the past 12 months, did the food you bought not last and you didn't have the money to get more?: Never true Within the past 12 months, did you worry whether your food would run out before you got money to buy more?: Never true Do you have trouble paying for medicines?: No Do you have trouble getting transportation to medical appointments?: No Do you have trouble paying your heating and electricity bill?: No Do you have trouble taking care of your child, family member or friend?: No Do you have trouble with day-to-day activities such as bathing, preparing meals, shopping, managing finances, etc.?: No Are you currently unemployed and looking for a job?: No Are you interested in more education?: No Please select the resources that you would like help with: None Currently or been in a relationship where the following occur: No concerns reported THRIVE Score: 0 AUDIT C Alcohol Use Questionnaire (AUDIT-C) 1. How often do you have a drink containing alcohol?: Never 3. How often do you have six or more drinks on one occasion?: Never Total Score: 0 Score Reviewed/Action Taken: No GOLDEN-7 AMB Questionnaire GOLDEN-7 Date GOLDEN - 7 assessed: 10/31/24 Feeling nervous, anxious, or on edge: 0 = Not at all Not being able to stop or control worryin = Not at all Worrying too much about different things: 0 = Not at all Trouble relaxin = Not at all Being so restless that it is hard to sit still: 0 = Not at all Becoming easily annoyed or irritable: 0 = Not at all Feeling afraid as if something awful might happen: 0 = Not at all Total GOLDEN-7 score (0-4 normal; 5-9 mild; 10-14 moderate; 15-21 severe): 0 Source: Developed by Drs. Brett Griffin, Maya Sanchez, Mg Brown and colleagues, with an educational mago from [employer]. GOLDEN-7 Assessment Billing GOLDEN-7 Assessment Tool: GOLDEN-7 Assessment 36315 Review of Systems Const Details: - Respiratory: Reports asthma, uses albuterol. - Musculoskeletal: Reports spinal stenosis, uses a walker, experiences falls. - Neurological: Reports numbness in the right side of the back and buttock. - Psychiatric: Reports anxiety and depression, on escitalopram. Physical exam (Primary Care) Vital Signs: Last Vital Signs Temp 97.7 F 10/31/24 14:49 Pulse 100 10/31/24 14:49 Resp 4 L 10/31/24 14:49 BP 136/94 H 10/31/24 14:49 Pulse Ox 95 10/31/24 14:49 Oxygen Delivery Method Room Air 10/31/24 14:49 Care Plan Goal for BP management: <140/90 at Goal BMI result Body Mass Index 31.2 BMI Assessment/Plan discussion: High BMI High, discussed plan: lifestyle, weight reduction, dietary, physical activity and alcohol moderation Tobacco/Smoking Status: Tobacco use Status Tobacco use date assessed 10/31/24 10/31/24 14:48 Patient Tobacco Use Status Current everyday Tobacco 10/31/24 14:48 Tobacco use type Cigarette 10/31/24 14:48 e-Cigarette/Vaping Use Never Used 10/31/24 14:48 PHQ-9: PHQ-9 Score PHQ-9: Total score 0 10/31/24 14:48 Depression Screening Interpretation: Negative Thrive Assessment: Date of Thrive Assessment Date Thrive assessed 10/31/24 10/31/24 14:48 Currently or been in a relationship where the following occur: No concerns reported Const Other: Appearance: Alert. Oriented X3. No acute distress. Head: Normal external exam. Normocephalic. Atraumatic. Eyes: Pupils are equal, round, and reactive to light. Extraocular movements intact. Conjunctiva and sclera normal. Eyelids normal. Throat: Pharynx normal. Uvula midline. Moist mucous membranes. Neck: Normal inspection. Neck supple. Full range of motion. No adenopathy. Thyroid Normal. No meningeal signs. Inflammation appearing inferior, infiltrative mass-like abnormality within the left posterior neck, just inferior to the left mastoid measuring approximately 3.4 x 1.9 x 2.5 cm, lies within level 5A. No abnormal pathologic lymphonopathy or additional mass within the neck. Cardiovascular: Normal heart rate and rhythm. Heart sound normal. No murmurs noted. Pulses normal throughout. Respiratory: No respiratory distress. Painless inspiration. Breath sounds normal. No wheezes/rales/rhonchi noted. Chest nontender. No accessory muscle usage noted or decreased air movement noted. Abdomen: Soft and nontender. Back: No costovertebral angle tenderness. Full range of motion noted. Skin: Skin warm and dry. Normal skin color. Normal skin turgor. No rashes/lesions/lacerations noted. Wrist and hand inflamed and purple, black and blue. Extremities: No lower extremity edema. Patient with mild tenderness palpation to the left thumb/wrist at the radial aspect with soft tissue swelling and bruising noted. No obvious ligamentous or tendon injury or abnormalities noted. Otherwise all other extremities exhibit normal range of motion nontender. Neuro: Oriented X 3. Walking with a walker with back brace hunched over. Results Reviewed Results Reviewed: - Imaging: CT scan of the neck showed inflammation and mass-like abnormality in the left posterior neck. - Labs: Normal white blood cell count, normal platelets, elevated ESR at 32, normal kidney function, CRP at 0.80. Coding Level of Care Code New Pt Level 5 (10146) Complex EM visit Add On G2211 Diagnoses Establishing care with new doctor, encounter for Z76.89 Asthma J45.909 Osteoporosis M81.0 Hypertension I10 Infection of skin of neck L08.9 Hyperlipidemia E78.5 Anxiety and depression F41.9; F32.A Anemia D64.9 Spinal stenosis M48.00 Additional Codes PHQ-9 - 72791 - PHQ-9 Billing: Yes ([id number]) GOLDEN-7 Assessment Billing - GOLDEN-7 Assessment Tool: GOLDEN-7 Assessment 31351 ([id number]) Assessment & Plan Assessment & Plan (1) Establishing care with new doctor, encounter for: Code(s): Z76.89 - Persons encountering health services in other specified circumstances Category: Medical (2) Asthma: Code(s): J45.909 - Unspecified asthma, uncomplicated Category: Medical Plan: The patient is currently using albuterol for asthma management. No changes to the current regimen were discussed during the visit. Condition is chronic and stable will continue to monitor. (3) Osteoporosis: Code(s): M81.0 - Age-related osteoporosis without current pathological fracture Category: Medical Plan: The patient is taking alendronate for osteoporosis. Continued monitoring and adherence to the medication were emphasized. Condition is chronic and stable continue to monitor. (4) Hypertension: Code(s): I10 - Essential (primary) hypertension Category: Medical Plan: Hypertension is managed with amlodipine. No changes to the current treatment plan were discussed. Condition is chronic and stable continue to monitor. (5) Infection of skin of neck: Code(s): L08.9 - Local infection of the skin and subcutaneous tissue, unspecified Category: Medical Plan: The neck infection is being treated with antibiotics, including Augmentin and doxycycline. The condition is improving, and continued monitoring is advised. Condition is chronic and stable continue to monitor. (6) Hyperlipidemia: Code(s): E78.5 - Hyperlipidemia, unspecified Category: Medical Plan: The patient is on atorvastatin for hyperlipidemia management. No changes to the current regimen were discussed. Condition is chronic and stable continue to monitor. (7) Anxiety and depression: Code(s): F41.9 - Anxiety disorder, unspecified; F32.A - Depression, unspecified Category: Medical Plan: The patient is on escitalopram for anxiety and depression. A referral to a psychiatrist was discussed to evaluate the need for additional medication or adjustment of the current dose due to potential risks associated with higher doses. Condition is chronic and stable continue to monitor. (8) Anemia: Code(s): D64.9 - Anemia, unspecified Category: Medical Plan: The patient has a history of anemia. No specific treatment plan was discussed during this visit. Condition is chronic and stable continue to monitor. (9) Spinal stenosis: Code(s): M48.00 - Spinal stenosis, site unspecified Category: Medical Plan: The patient experiences mobility issues due to spinal stenosis and uses a walker. A referral for physical therapy was considered but deferred until the wrist condition improves. Condition is chronic and stable continue to monitor. Plan Plan Patient was informed and verbally consented to the use of an ambient scribe for clinic note documentation during this visit. 1. Asthma The patient is currently using albuterol for asthma management. No changes to the current regimen were discussed during the visit. 2. Osteoporosis The patient is taking alendronate for osteoporosis. Continued monitoring and adherence to the medication were emphasized. 3. Hypertension Hypertension is managed with amlodipine. No changes to the current treatment plan were discussed. 4. Infection Of The Neck The neck infection is being treated with antibiotics, including Augmentin and doxycycline. The condition is improving, and continued monitoring is advised. 5. Hyperlipidemia The patient is on atorvastatin for hyperlipidemia management. No changes to the current regimen were discussed. 6. Anxiety And Depression The patient is on escitalopram for anxiety and depression. A referral to a psychiatrist was discussed to evaluate the need for additional medication or adjustment of the current dose due to potential risks associated with higher doses. 7. Anemia The patient has a history of anemia. No specific treatment plan was discussed during this visit. 8. Spinal Stenosis The patient experiences mobility issues due to spinal stenosis and uses a walker. A referral for physical therapy was considered but deferred until the wrist condition improves. During the visit, we discussed the management of the patient's neck infection, which is being treated with antibiotics. We also reviewed her current medications for chronic conditions such as asthma, hypertension, and hyperlipidemia. The patient was advised on the potential risks of high doses of escitalopram, and a referral to a psychiatrist was recommended to evaluate her mental health treatment plan. We also considered a referral for physical therapy for her spinal stenosis, but this was deferred until her wrist condition improves. Orders: Orders XR wrist LT min 3V Today M25.532 - Pain in left wrist, M79.642 - Pain in left hand, W19.XXXA - Unspecified fall, initial encounter XR hand LT min 3V Today M25.532 - Pain in left wrist, M79.642 - Pain in left hand, W19.XXXA - Unspecified fall, initial encounter Referrals Psychiatry Outpatient Consultation Service F41.9 - Anxiety disorder, unspecified Patient Instructions: - Continue taking prescribed medications as directed. - Monitor the neck infection and report any worsening symptoms. - Follow up with the psychiatrist as recommended for mental health evaluation. - Await further instructions regarding physical therapy once the wrist condition improves.
[2024-10-31 14:49] VITALS: BP 136/94; PULSE 100; RESP 17; TEMP 36.5; O2SAT 95; BMI 31.2
--- OUTSIDE RECORDS SUMMARY | 2024-10-31 15:04 | XMS_ITS | Patient Health Record ---
Author Organization [facility] Address [address] [place] [address] Care Team Providers Care Joint Finisher Name Role Phone Doug Santos MD Primary Care Provider Brett Freeman Unavailable [phone] Allergies Allergen (clinical drug ingredient) Drug/Non Drug [...] Problem Status W/U Status Risk Notes Problem [id number] Encounter for screening for malignant neoplasm of colon (Z12.11) Active confirmed Problem 037606229 Irritable bowel syndrome with diarrhea (K58.0) Active confirmed Problem 603934479 Gastroesophageal reflux disease without esophagitis (K21.9) Active confirmed Problem [id number] Preprocedural examination (Z01.818) Active confirmed Problem Diverticulosis of colon (151386095) Diverticulosis of colon (K57.30) Active confirmed Plan Of Treatment Pending Test Test Name Order Date Pathology 08/12/2021 Future Test Test Name Order Date COLONOSCOPY 06/19/2021 Insurance Providers Payer Name Payer Address Payer Phone Subscriber Number Group Number Insured Name Patient Relationship to Insured Coverage Start Date Coverage End Date MEDICARE OF [place] [address] [place] [address] [phone] [id number] GISELLE TALBOT Self - patient is the insured [facility] [address] [place] [address] [id number] GISELLE TALBOT Self - patient is the insured Medical (General) History Medical History History ICD Code COVID-pneumonia 04/2021 Fibromyalgia Hypothyroidism IBS-doing well on dicyclomin e as of the 06/2021 office visit-normal dudoenal biopsies without celiac disease in EGD GERD-EGD 2009-neg. for Calvin tt's or esophagitis, small hiatal hernia was noted Denies [place],DM,CVA,Lung disease,renal dise ase Colonoscopy 2009--negative for polyps, I BD, microscopic colitis Surgical History Surgery Date(Month/Year)
--- OUTSIDE RECORDS SUMMARY | 2024-10-31 15:04 | XMS_ITS | Patient Health Record ---
Author Organization [facility] Address [address] [place] [address] Care Team Providers Care Blind Hooker Name Role Phone Doug Santos MD Primary Care Provider Unavailab Reyes Junior Unavailable [phone] Reason For Referral No Information Medications Medication SIG (Take, Route, Frequency, Duration) Notes Start Date End Date Status Levothyroxine Sodium 50 MCG 1 tablet on an empty stomach in the morning Orally Once a day; Duration: 30 day(s) Active oxyCODONE HCl 5 MG 1 tablet as needed O rally every 6 hrs Active Baclofen 10 MG/5ML as directed Intrathecal Active Dicyclomine HCl 10 MG/ML 2 ml Intramuscu lar Four times a day; Duration: 30 day(s) Active OxyCONTIN 10 MG 1 tablet Orally ever y 12 hrs Active ProAir HFA 108 (90 Base) MCG/ACT 2 puffs as needed Inhalation every 4 hrs Active Problems Problem Type SNOMED Code ICD Code Onset Dates Problem Status W/U Status Risk Notes Problem Verruca Plantaris (078.19) Active confirmed Plan Of Treatment No Information Insurance Providers Payer Name Payer Address Payer Phone Subscriber Number Group Number Insured Name Patient Relationship to Insured Coverage Start Date Coverage End Date [facility] [address] [place] [address] [phone] [id number] Antoinette Jeter Self - patient is the insured Medical (General) History Medical History History ICD Code Arthritis asthma back, hip, knee pain fibromyalgia neuropathy thyroid disorder warts chicken pox
== END 2024-10-31 16:16 | disposition home or self-care (01) ==
LOC: HO.HMCSH 14:35
PROVIDERS: PCP Internal Medicine; Visit Provider Physician Assistant Medical
DX: J45.909 Unspecified asthma, uncomplicated (principal); M81.0 Age-related osteoporosis without current pathological fracture; I10 Essential (primary) hypertension; Z76.89 Persons encountering health services in other specified circumstances; E78.5 Hyperlipidemia, unspecified; L08.9 Local infection of the skin and subcutaneous tissue, unspecified; F41.9 Anxiety disorder, unspecified; F32.A Depression, unspecified; D64.9 Anemia, unspecified; M48.00 Spinal stenosis, site unspecified

== ENCOUNTER → 2024-10-31 14:35 | Outpatient (BNVA) | payer MEDICARE, OTHER, SELFPAY | PROVIDERS: PCP Internal Medicine; Visit Provider Physician Assistant Medical | DX: Z76.89 Persons encountering health services in other specified circumstances (principal); J45.909 Unspecified asthma, uncomplicated; M81.0 Age-related osteoporosis without current pathological fracture; I10 Essential (primary) hypertension; L08.9 Local infection of the skin and subcutaneous tissue, unspecified; E78.5 Hyperlipidemia, unspecified; F41.9 Anxiety disorder, unspecified; F32.A Depression, unspecified; D64.9 Anemia, unspecified; M48.00 Spinal stenosis, site unspecified | CPT/HCPCS: 96127; 99202 ==

== ENCOUNTER 2024-11-01 08:57 | Outpatient (REF) | payer MEDICARE, OTHER, SELFPAY ==
--- NOTE | ~2024-11-01 | XR_ITS ---
EXAMINATION: XR WRIST 3 OR MORE VIEWS LEFT, XR HAND 3 OR MORE VIEWS LEFT HISTORY: M79.642 - Pain in left hand COMPARISON: Comparison is made with the prior examination dated 08/27/2023. FINDINGS: Six views of the left hand and wrist are submitted. The bones are osteopenic. There is no fracture or dislocation. The joint spaces are preserved. There is widening of the scapholunate joint, consistent with chronic ligamentous injury. There is mild soft tissue swelling. XR/XR hand LT min 3V IMPRESSION: Mild soft tissue swelling. Osteopenia. Widening of the scapholunate joint, consistent with chronic ligamentous injury. Electronically signed by: Brett Clay MD 11/01/2024 09:23 AM EDT
--- NOTE | ~2024-11-01 | XR_ITS ---
EXAMINATION: XR WRIST 3 OR MORE VIEWS LEFT, XR HAND 3 OR MORE VIEWS LEFT HISTORY: M79.642 - Pain in left hand COMPARISON: Comparison is made with the prior examination dated 08/27/2023. FINDINGS: Six views of the left hand and wrist are submitted. The bones are osteopenic. There is no fracture or dislocation. The joint spaces are preserved. There is widening of the scapholunate joint, consistent with chronic ligamentous injury. There is mild soft tissue swelling. XR/XR wrist LT min 3V IMPRESSION: Mild soft tissue swelling. Osteopenia. Widening of the scapholunate joint, consistent with chronic ligamentous injury. Electronically signed by: Brett Clay MD 11/01/2024 09:23 AM EDT
--- OUTSIDE RECORDS SUMMARY | 2024-11-01 09:21 | XMS_ITS | Patient Health Record ---
Author Organization [facility] Address [address] [place] [address] Care Team Providers Care Cnc Maintenance Mechanic Name Role Phone Doug Santos MD Primary Care Provider Unavailab Reyes Junior Unavailable [phone] Reason For Referral No Information Medications Medication [...] Insured Coverage Start Date Coverage End Date [facility] [address] [place] [address] [phone] [id number] Antoinette Jeter Self - patient is the insured Medical (General) History Medical History History ICD Code Arthritis asthma back, hip, knee pain fibromyalgia neuropathy thyroid disorder warts chicken pox
--- OUTSIDE RECORDS SUMMARY | 2024-11-01 09:22 | XMS_ITS | Patient Health Record ---
Author Organization [facility] Address [address] [place] [address] Care Team Providers Care Sugar Mill Worker Name Role Phone Doug Santos MD Primary Care Provider Brett Freeman Unavailable [phone] Allergies Allergen (clinical drug ingredient) Drug/Non Drug [...] Problem Status W/U Status Risk Notes Problem [id number] Encounter for screening for malignant neoplasm of colon (Z12.11) Active confirmed Problem 990119844 Irritable bowel syndrome with diarrhea (K58.0) Active confirmed Problem 193235119 Gastroesophageal reflux disease without esophagitis (K21.9) Active confirmed Problem [id number] Preprocedural examination (Z01.818) Active confirmed Problem Diverticulosis of colon (670792407) Diverticulosis of colon (K57.30) Active confirmed Plan Of Treatment Pending Test Test Name Order Date Pathology 08/12/2021 Future Test Test Name Order Date COLONOSCOPY 06/19/2021 Insurance Providers Payer Name Payer Address Payer Phone Subscriber Number Group Number Insured Name Patient Relationship to Insured Coverage Start Date Coverage End Date MEDICARE OF [place] [address] [place] [address] [id number] GISELLE TALBOT Self - patient is the insured [facility] [address] [place] [address] [id number] GISELLE TALBOT Self - patient is the insured Medical (General) History Medical History History ICD Code COVID-pneumonia 04/2021 Fibromyalgia Hypothyroidism IBS-doing well on dicyclomin e as of the 06/2021 office visit-normal dudoenal biopsies without celiac disease in EGD GERD-EGD 2009-neg. for [place] tt's or esophagitis, small hiatal hernia was noted Denies [place],DM,CVA,Lung disease,renal dise ase Colonoscopy 2009--negative for polyps, I BD, microscopic colitis Surgical History Surgery Date(Month/Year)
== END 2024-11-01 08:58 | disposition home or self-care (01) ==
LOC: HO.HMGCX 08:57
PROVIDERS: PCP Physician Assistant Medical; Visit Provider Physician Assistant Medical
DX: M25.532 Pain in left wrist (principal); M79.642 Pain in left hand; W19.XXXA Unspecified fall, initial encounter; Y93.9 Activity, unspecified; Y92.9 Unspecified place or not applicable; Y99.9 Unspecified external cause status
CPT/HCPCS: 73110; 73130

== ENCOUNTER → 2024-11-01 09:00 | Outpatient (BNV) | payer MEDICARE, OTHER, SELFPAY | PROVIDERS: PCP Physician Assistant Medical; Visit Provider Radiology Diagnostic Radiology | DX: R22.32 Localized swelling, mass and lump, left upper limb (principal) | CPT/HCPCS: 73110; 73130 ==

== ENCOUNTER 2024-11-02 15:45 | Outpatient (REF) | payer MEDICARE, OTHER, SELFPAY ==
--- NOTE | ~2024-11-02 | XR_ITS ---
EXAMINATION: XR HAND, LEFT CLINICAL INFORMATION: M79.642 - Pain in left hand COMPARISON: None available. TECHNIQUE: PA, lateral, and oblique views of the left hand. FINDINGS: There is intra-articular fracture involving the base of first metacarpal. Fracture line extends from the central articular surface to the ulnar metaphysis. There is ulnar minus variance. No other abnormalities. XR/XR hand LT min 3V IMPRESSION: Intra-articular fracture involving the base of the first metacarpal ([place] fracture). Electronically signed by: Chavez Parks MD 11/02/2024 04:05 PM EDT
--- NOTE | ~2024-11-02 | XR_ITS ---
EXAMINATION: XR WRIST, LEFT CLINICAL INFORMATION: M79.642 - Pain in left hand COMPARISON: None available. TECHNIQUE: PA, lateral, navicular, oblique views of the left wrist. FINDINGS: There is 6 mm ulnar minus variance. There is mild widening of the scapholunate joint interval. No other abnormalities are evident. XR/XR wrist LT min 3V IMPRESSION: Ulnar minus variance, correlate for signs symptoms of ulnar impingement syndrome. Suspected scapholunate ligament tear. Electronically signed by: Chavez Parks MD 11/02/2024 04:02 PM EDT
--- OUTSIDE RECORDS SUMMARY | 2024-11-02 15:50 | XMS_ITS | Patient Health Record ---
Author Organization [facility] Address [address] [place] [address] Care Team Providers Care Ux Researcher Name Role Phone Doug Santos MD Primary Care Provider Unavailab Reyes Junior Unavailable [phone] Reason For Referral No Information Medications Medication [...] Insured Coverage Start Date Coverage End Date [facility] [address] [place] [address] [phone] [id number] Antoinette Jeter Self - patient is the insured Medical (General) History Medical History History ICD Code Arthritis asthma back, hip, knee pain fibromyalgia neuropathy thyroid disorder warts chicken pox
--- OUTSIDE RECORDS SUMMARY | 2024-11-02 15:50 | XMS_ITS | Patient Health Record ---
Author Organization [facility] Address [address] [place] [address] Care Team Providers Care Marine Biologist Name Role Phone Doug Santos MD Primary Care Provider Brett Freeman Unavailable [phone] Allergies Allergen (clinical drug ingredient) Drug/Non Drug [...] Problem Status W/U Status Risk Notes Problem [id number] Encounter for screening for malignant neoplasm of colon (Z12.11) Active confirmed Problem 553432497 Irritable bowel syndrome with diarrhea (K58.0) Active confirmed Problem 319387870 Gastroesophageal reflux disease without esophagitis (K21.9) Active confirmed Problem [id number] Preprocedural examination (Z01.818) Active confirmed Problem Diverticulosis of colon (282527220) Diverticulosis of colon (K57.30) Active confirmed Plan Of Treatment Pending Test Test Name Order Date Pathology 08/12/2021 Future Test Test Name Order Date COLONOSCOPY 06/19/2021 Insurance Providers Payer Name Payer Address Payer Phone Subscriber Number Group Number Insured Name Patient Relationship to Insured Coverage Start Date Coverage End Date MEDICARE OF [place] [address] [place] [address] [id number] GISELLE TALBOT Self - patient is the insured [facility] [address] [place] [address] [id number] GISELLE TALBOT Self - patient is the insured Medical (General) History Medical History History ICD Code COVID-pneumonia 04/2021 Fibromyalgia Hypothyroidism IBS-doing well on dicyclomin e as of the 06/2021 office visit-normal dudoenal biopsies without celiac disease in EGD GERD-EGD 2009-neg. for [place] tt's or esophagitis, small hiatal hernia was noted Denies [place],DM,CVA,Lung disease,renal dise ase Colonoscopy 2009--negative for polyps, I BD, microscopic colitis Surgical History Surgery Date(Month/Year)
== END 2024-11-02 15:46 | disposition home or self-care (01) ==
LOC: HO.HMGCX 15:45
PROVIDERS: PCP Physician Assistant Medical; Visit Provider Physician Assistant Medical
DX: M25.532 Pain in left wrist (principal); M79.642 Pain in left hand; W19.XXXA Unspecified fall, initial encounter
CPT/HCPCS: 73110; 73130

== ENCOUNTER → 2024-11-02 15:47 | Outpatient (BNV) | payer MEDICARE, OTHER, SELFPAY | PROVIDERS: PCP Physician Assistant Medical; Visit Provider Radiology Diagnostic Radiology | DX: S62.212A Bennett's fracture, left hand, initial encounter for closed fracture (principal); M24.832 Other specific joint derangements of left wrist, not elsewhere classified | CPT/HCPCS: 73110; 73130 ==

== ENCOUNTER 2024-11-03 09:46 | Outpatient (AMB) | payer MEDICARE, OTHER, SELFPAY ==
--- NOTE | 2024-11-03 09:43 | MHC.PC.OV ---
Intake Visit Reasons: Xray results Allergies No Known Allergies (No Known Allergies*) Allergy (Verified 11/03/24 10:04) Medication List - Last Reconciled 11/03/24 by Sera Greenberg PA-C albuterol sulfate 90 mcg/actuation 2 puffs inhalation Q6H PRN alendronate 70 mg PO FR amlodipine 5 mg See Protocol PO DAILY amoxicillin-pot clavulanate 875-125 mg 1 tab PO Q12H 7 days arm brace please provide thumb spica for left wrist atorvastatin 40 mg PO BEDTIME doxycycline hyclate 100 mg PO BID 7 days escitalopram oxalate 20 mg PO DAILY gabapentin 600 mg PO TID levothyroxine 50 mcg PO DAILY@0600 omeprazole 20 mg PO DAILY@0630 Tobacco use date assessed: 10/31/24 Dental Screening Dental Screen Date: 10/31/24 HPI Xray results HPI Details The patient is a 54-year-old female presenting with a Arzate fracture of the base of the first metacarpal and recurrent falls. The patient reported falling in the kitchen early in the morning, which was witnessed by her . She has experienced multiple falls, with a recent fall resulting in a fracture at the base of the thumb, known as a Arzate fracture. The initial x-ray showed mild soft tissue swelling and osteopenia, while a subsequent x-ray revealed the fracture. The patient has a history of hitting her head but denies recent head trauma or loss of consciousness. She expressed concern about needing an MRI due to past head injuries. The patient also has a chronic ligamentous injury and ulnar impingement syndrome, which may cause numbness in the thumb and index finger. She reports back pain and plans to discuss this with her swine extension field specialist. 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 Recurrent falls General weakness Multiple falls Arzate fracture Scapholunate instability History of mammogram (~07/26/24) Spinal stenosis Anemia Anxiety and depression Hyperlipidemia Infection of skin of neck Hypertension Establishing care with new doctor, encounter for Left wrist pain Left hand pain Fall Pneumonia Hypoxia Acute hypoxic respiratory failure Sepsis Elevated troponin Gram-positive cocci bacteremia Cellulitis of left leg Altered mental status Smoker Arthritis Asthma Low back pain Osteoporosis GERD (gastroesophageal reflux disease) Irritable bowel syndrome (IBS) Hypothyroidism Fibromyalgia Personal history of COVID-19 Surgical History History of Hx of colonoscopy (~08/12/21) History of esophagogastroduodenoscopy (EGD) Family History Father No problems noted. Mother Multiple sclerosis Social History Household Members: Significant Other Housing: House Are you a primary child caregiver private home to a significant other at home: No Do you presently have visiting nurse or other home services: No Alcohol intake: current Alcohol intake frequency: does not drink Patient Tobacco Use Status: Current everyday Tobacco user Tobacco use type: Cigarette Cigarette Packs Per Day: 0.5 Cigarettes Per Day: 10.0 e-Cigarette/Vaping Use: Never Used Substance Use Type: Marijuana service: No Current occupational status: disabled Cognitive needs: Yes (walker and cane) Hearing needs: No Vision needs: Yes (rx glasses) Questionnaire Thrive Questionnaire Date Thrive assessed: 10/31/24 GOLDEN-7 AMB Questionnaire GOLDEN-7 Date GOLDEN - 7 assessed: 10/31/24 Source: Developed by Drs. Brett Griffin, Maya Sanchez, Mg Brown and colleagues, with an educational mago from [employer]. Review of Systems Const Details: - Neurological: Denies loss of consciousness. Reports history of head trauma without recent incidents. - Musculoskeletal: Reports recurrent falls and back pain. Denies recent head trauma. - Extremities: Reports numbness in thumb and index finger. All systems reviewed & are unremarkable except as noted in HPI and below Physical exam (Primary Care) Tobacco/Smoking Status: Tobacco use Status Tobacco use date assessed 10/31/24 11/03/24 09:44 Patient Tobacco Use Status Current everyday Tobacco 11/03/24 09:44 Tobacco use type Cigarette 11/03/24 09:44 e-Cigarette/Vaping Use Never Used 11/03/24 09:44 Thrive Assessment: Date of Thrive Assessment Date Thrive assessed 10/31/24 11/03/24 09:44 Telehealth Telehealth Telehealth Platform: Telephone Location of provider rendering services: practice address Location of patient: address on file Patient Identification confirmed using: Name, : Yes Telehealth method: voice only Patient verbally consented to treatment: Yes Patient verbally consented to billing insurance company: Yes Patient informed of any privacy concerns related to visit: Yes Minutes spent on Phone/Video with Pt.: 25 Results Reviewed Results Reviewed: X-ray results reviewed with the patient from November 01 and from November 02. It appears the November 01 x-ray patient did not have a fracture although it appeared she had a chronic ligamentous injury. Repeat x-ray after the 2nd fall on November 02 revealed Arzate fracture to left hand/wrist. 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 Orthopedic follow-up is scheduled, and a message has been sent to the orthopedic team regarding the recent fall and fracture. (2) Recurrent falls: Code(s): R29.6 - Repeated falls Category: Medical Plan: The patient will be scheduled for an MRI of brain and lumbar spine to evaluate recurrent falls and general weakness. She is advised to discuss back pain with her swine extension field specialist during the upcoming appointment. 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 Further evaluation and management will be coordinated with the orthopedic team. (4) Osteopenia: Code(s): M85.80 - Other specified disorders of bone density and structure, unspecified site Category: Medical Plan: The patient is advised to maintain bone health and follow up with her healthcare provider for ongoing management of osteopenia. Condition is chronic and stable continue to monitor. Plan Plan Patient was informed and verbally consented to the use of an ambient scribe for clinic note documentation during this visit. 1. Arzate Fracture Of The Base Of The First Metacarpal The patient is advised to visit urgent care for a thumb spica splint due to the Arzate fracture of the base of the first metacarpal. Orthopedic follow-up is scheduled, and a message has been sent to the orthopedic team regarding the recent fall and fracture. 2. Recurrent Falls The patient will be scheduled for an MRI to evaluate recurrent falls and general weakness. She is advised to discuss back pain with her swine extension field specialist during the upcoming appointment. 3. Ulnar Impingement Syndrome The patient may experience numbness in the thumb and index finger due to ulnar impingement syndrome. Further evaluation and management will be coordinated with the orthopedic team. 4. Osteopenia The patient is advised to maintain bone health and follow up with her healthcare provider for ongoing management of osteopenia. During the telehealth appointment, I discussed the patient's recent fall and the resulting Arzate fracture of the base of the first metacarpal. I advised her to visit urgent care for a thumb spica splint and informed her that I had communicated with the orthopedic team regarding her condition. We also discussed scheduling an MRI to evaluate her recurrent falls and general weakness, and I recommended she address her back pain with her swine extension field specialist. 25 minutes in total on patient care, including history review, assessment, plan and counseling Patient Instructions: - Visit urgent care for a thumb spica splint for your wrist fracture. - Follow up with your swine extension field specialist as scheduled. - Schedule an MRI for recurrent falls and general weakness. - Discuss back pain with your swine extension field specialist during your next appointment. - Take ibuprofen 800 mg or Tylenol for pain management as needed.
--- OUTSIDE RECORDS SUMMARY | 2024-11-03 10:16 | XMS_ITS | Patient Health Record ---
Author Organization [facility] Address [address] [place] [address] Care Team Providers Care Gold Stamper Name Role Phone Doug Santos MD Primary Care Provider Brett Freeman Unavailable [phone] Allergies Allergen (clinical drug ingredient) Drug/Non Drug [...] Problem Status W/U Status Risk Notes Problem 236941782 Encounter for screening for malignant neoplasm of colon (Z12.11) Active confirmed Problem 732616781 Irritable bowel syndrome with diarrhea (K58.0) Active confirmed Problem 413617294 Gastroesophageal reflux disease without esophagitis (K21.9) Active confirmed Problem 255641709705843 Preprocedural examination (Z01.818) Active confirmed Problem Diverticulosis of colon (883569545) Diverticulosis of colon (K57.30) Active confirmed Plan Of Treatment Pending Test Test Name Order Date Pathology 08/12/2021 Future Test Test Name Order Date COLONOSCOPY 06/19/2021 Insurance Providers Payer Name Payer Address Payer Phone Subscriber Number Group Number Insured Name Patient Relationship to Insured Coverage Start Date Coverage End Date MEDICARE OF [place] [address] [place] [id number] GISELLE TALBOT Self - patient is the insured [facility] [address] [place] [address] [id number] GISELLE TALBOT Self - patient is the insured Medical (General) History Medical History History ICD Code COVID-pneumonia 04/2021 Fibromyalgia Hypothyroidism IBS-doing well on dicyclomin e as of the 06/2021 office visit-normal dudoenal biopsies without celiac disease in EGD GERD-EGD 2009-neg. for [place] tt's or esophagitis, small hiatal hernia was noted Denies [place],DM,CVA,Lung disease,renal dise ase Colonoscopy 2009--negative for polyps, I BD, microscopic colitis Surgical History Surgery Date(Month/Year)
== END 2024-11-03 11:15 | disposition home or self-care (01) ==
LOC: HO.HMCSH 09:46
PROVIDERS: PCP Physician Assistant Medical; Visit Provider Physician Assistant Medical
DX: S62.213A Bennett's fracture, unspecified hand, initial encounter for closed fracture (principal); R29.6 Repeated falls; M25.832 Other specified joint disorders, left wrist; M85.80 Other specified disorders of bone density and structure, unspecified site

== ENCOUNTER → 2024-11-03 09:46 | Outpatient (BNVA) | payer MEDICARE, OTHER, SELFPAY | PROVIDERS: PCP Physician Assistant Medical; Visit Provider Physician Assistant Medical | DX: S62.212D Bennett's fracture, left hand, subsequent encounter for fracture with routine healing (principal); R29.6 Repeated falls; M25.832 Other specified joint disorders, left wrist; M85.80 Other specified disorders of bone density and structure, unspecified site | CPT/HCPCS: 99212 ==

== ENCOUNTER 2024-11-03 10:51 | Outpatient (AMB) | payer MEDICARE, OTHER, SELFPAY ==
--- NOTE | 2024-11-03 10:52 | MHC.OFFVIS ---
Vital Signs 11/03/24 11:04 Height 5 ft Weight 155 lb BMI 30.3 Handedness Left Intake Visit Reasons: FC- LT wrist arzate fx s/p fall DOI: 11/02/24 Intake Note: Antoinette is a 54 year old left hand dominant female who presents today for a fracture care visit of her left wrist fx, DOI 11/02/24. Patient reports she had a fall in her kitchen when she was helping her make some coffee. She states that her pain is around her wrist and she if feeling numbness in her thumb. Patient expresses that they informed her that she has a pinched nurve abd didnt notice that it was numb untill her visit today. Allergies No Known Allergies (No Known Allergies*) Allergy (Verified 11/03/24 11:05) HPI HPI FC- LT wrist arzate fx s/p fall DOI: 11/02/24: Details: Antoinette is a 54 year old left hand dominant female who presents today for a fracture care visit of her left wrist fx, DOI 11/02/24. Patient reports she had a fall in her kitchen when she was helping her make some coffee. Was previously evaluated by her primary care provider, who ordered an x-ray that revealed a nondisplaced Arzate fracture of the left wrist and thumb. She states that her pain is around her wrist and she if feeling numbness in her thumb. Patient expresses that they informed her that she has a pinched nurve abd didnt notice that it was numb untill her visit today. 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 Recurrent falls General weakness Multiple falls Arzate fracture Scapholunate instability History of mammogram (~07/26/24) Spinal stenosis Anemia Anxiety and depression Hyperlipidemia Infection of skin of neck Hypertension Establishing care with new doctor, encounter for Left wrist pain Left hand pain Fall Pneumonia Hypoxia Acute hypoxic respiratory failure Sepsis Elevated troponin Gram-positive cocci bacteremia Cellulitis of left leg Altered mental status Smoker Arthritis Asthma Low back pain Osteoporosis GERD (gastroesophageal reflux disease) Irritable bowel syndrome (IBS) Hypothyroidism Fibromyalgia Personal history of COVID-19 Surgical History History of Hx of colonoscopy (~04/11/22) History of esophagogastroduodenoscopy (EGD) Family History Father No problems noted. Mother Multiple sclerosis Social History Household Members: Significant Other Housing: House Are you a primary body care manager to a significant other at home: No Do you presently have visiting nurse or other home services: No Alcohol intake: current Alcohol intake frequency: does not drink Patient Tobacco Use Status: Current everyday Tobacco user Tobacco use type: Cigarette Cigarette Packs Per Day: 0.5 Cigarettes Per Day: 10.0 e-Cigarette/Vaping Use: Never Used Substance Use Type: Marijuana service: No Current occupational status: disabled Cognitive needs: Yes (walker and cane) Hearing needs: No Vision needs: Yes (rx glasses) Review of Systems Const All systems reviewed & are unremarkable except as noted in HPI and below Physical Exam Vital Signs: BMI result Body Mass Index 30.3 Const General: no acute distress and alert Orientation/consciousness: patient oriented x3 Neuro General: patient oriented x3 Extrem Other: Evaluation of Left Upper Extremity: The patient is alert, oriented, and in no acute distress She ambulates with a walker. She looks very tired today, and like she is just not doing very well. Neuro: Median, Ulnar, Radial nerves motor and sensory intact and sensation is normal to the tips of all digits Vascular: Cap refill brisk Tenderness at the base of the left thumb in the area of the fracture Patient reports that the vast majority of her current pain is at the base of the thumb moving into the 1st webspace Psych Appearance: grossly normal Affect: normal affect Attitude: cooperative Results Reviewed Results Reviewed: X-rays obtained in the office today and independently reviewed by me, Jimy Mercado PA-C, demonstrate nondisplaced Arzate fracture of the left wrist. Assessment & Plan Assessment & Plan (1) Arzate fracture of left thumb: Code(s): S62.212A - Arzate's fracture, left hand, initial encounter for closed fracture Category: Medical Plan 1. Arzate fracture of the left wrist Date of injury 11/02/2024 Patient is educated about this injury Patient is educated about the typical recovery course At this time, patient is placed into a thumb spica splint for immobilization Patient is also referred to see Dr. Shankar next week to determine if there is need for further intervention, namely surgery Patient states understanding of this and is amenable to this plan Follow-up next week with Dr. Shankar, repeat x-rays at that time, sooner with any acute concerns Coding Level of Care Code Est Pt Level 3 (19950) Diagnoses Arzate fracture of left thumb S62.212A
[2024-11-03 11:04] VITALS: BMI 30.3
--- OUTSIDE RECORDS SUMMARY | 2024-11-03 11:39 | XMS_ITS | Patient Health Record ---
Author Organization [facility] Address [address] [place] [address] Care Team Providers Care Security Infrastructure Engineer Name Role Phone Doug Santos MD Primary Care Provider Unavailab Reyes Junior Unavailable [phone] Reason For Referral No Information Medications Medication [...] Insured Coverage Start Date Coverage End Date [facility] [address] [place] [address] [phone] [id number] Antoinette Jeter Self - patient is the insured Medical (General) History Medical History History ICD Code Arthritis asthma back, hip, knee pain fibromyalgia neuropathy thyroid disorder warts chicken pox
== END 2024-11-03 11:15 | disposition home or self-care (01) ==
LOC: HO.HOS 10:51
PROVIDERS: PCP Physician Assistant Medical
DX: S62.212A Bennett's fracture, left hand, initial encounter for closed fracture (principal)
CPT/HCPCS: 99213

== ENCOUNTER 2024-11-08 10:26 | Outpatient (REF) | payer MEDICARE, OTHER, SELFPAY ==
--- NOTE | ~2024-11-08 | XR_ITS ---
EXAMINATION: XR HAND, LEFT CLINICAL INFORMATION: M79.642 - Pain in left hand COMPARISON: November 02, 2024. TECHNIQUE: PA, lateral, and oblique views of the left hand. FINDINGS: Displaced intra-articular fracture at the ulnar aspect of the base first metacarpal without callus formation. Degenerative changes in the proximal and distal interphalangeal joints of the digits. XR/XR hand LT min 3V IMPRESSION: No change. Nonunion fracture, base of the first metacarpal. Electronically signed by: Matthew Camargo MD 11/08/2024 02:01 PM EDT
--- OUTSIDE RECORDS SUMMARY | 2024-11-09 11:18 | XMS_ITS | Patient Health Record ---
Author Organization [facility] Address [address] [place] [address] Care Team Providers Care It Consulting Manager Name Role Phone Doug Santos MD Primary Care Provider Unavailab Reyes Junior Unavailable [phone] Reason For Referral No Information Medications Medication [...] Insured Coverage Start Date Coverage End Date [facility] [address] [place] [address] [phone] [id number] 301 Antoinette Jeter Self - patient is the insured Medical (General) History Medical History History ICD Code Arthritis asthma back, hip, knee pain fibromyalgia neuropathy thyroid disorder warts chicken pox
--- OUTSIDE RECORDS SUMMARY | 2024-11-09 11:19 | XMS_ITS | Patient Health Record ---
Author Organization [facility] Address [address] [place] [address] Care Team Providers Care Yarder Puncher Name Role Phone Doug Santos MD Primary Care Provider Brett Freeman Unavailable [phone] Allergies Allergen (clinical drug ingredient) Drug/Non Drug [...] Problem Status W/U Status Risk Notes Problem 495371822 Encounter for screening for malignant neoplasm of colon (Z12.11) Active confirmed Problem 693243325 Irritable bowel syndrome with diarrhea (K58.0) Active confirmed Problem 642366606 Gastroesophageal reflux disease without esophagitis (K21.9) Active confirmed Problem 137555361255177 Preprocedural examination (Z01.818) Active confirmed Problem Diverticulosis of colon (844064219) Diverticulosis of colon (K57.30) Active confirmed Plan Of Treatment Pending Test Test Name Order Date Pathology 08/12/2021 Future Test Test Name Order Date COLONOSCOPY 06/19/2021 Insurance Providers Payer Name Payer Address Payer Phone Subscriber Number Group Number Insured Name Patient Relationship to Insured Coverage Start Date Coverage End Date MEDICARE OF [place] [address] [place] [address] [id number] GISELLE TALBOT Self - patient is the insured [facility] [address] [place] [address] [id number] GISELLE TALBOT Self - patient is the insured Medical (General) History Medical History History ICD Code COVID-pneumonia 04/2021 Fibromyalgia Hypothyroidism IBS-doing well on dicyclomin e as of the 06/2021 office visit-normal dudoenal biopsies without celiac disease in EGD GERD-EGD 2009-neg. for [place] tt's or esophagitis, small hiatal hernia was noted Denies [place],DM,CVA,Lung disease,renal dise ase Colonoscopy 2009--negative for polyps, I BD, microscopic colitis Surgical History Surgery Date(Month/Year)
== END 2024-11-08 10:27 | disposition home or self-care (01) ==
LOC: HO.HOSX 10:26
PROVIDERS: Visit Provider Orthopaedic Surgery
DX: S62.212A Bennett's fracture, left hand, initial encounter for closed fracture (principal); M48.00 Spinal stenosis, site unspecified; W18.30XA Fall on same level, unspecified, initial encounter; Y92.000 Kitchen of unspecified non-institutional (private) residence as the place of occurrence of the external cause
CPT/HCPCS: 73130; 99212

== ENCOUNTER 2024-11-08 13:39 | Outpatient (AMB) | payer MEDICARE, OTHER, SELFPAY ==
--- OUTSIDE RECORDS SUMMARY | 2024-11-06 23:59 | XMS_ITS | Continuity of Care Document ---
Author Organization [facility] Address [address] [place] [address]- Care Team Providers Care Credit Underwriter Name Role Phone Tom MARIE, Doug Hopkins Primary Care Physician Encounter [facility] NBR [id number] Date(s): 10/07/24 - 11/06/24 [facility] [address] [place] [address]- Attending Physician: Jack Henriquez Admitting Physician: Jack Henriquez Referring Physician: Jack Henriquez Encounter Type: Triage Allergies, Adverse Reactions, Alerts No Known Medication Allergies Medications alendronate 70 mg oral tablet 1 tablet = 70 mg, By Mouth, Every week, # 4 tablet, 0 Refills, Maintenance, 12/02/21 11:44:00 AM EDT,Tablet, Partial fill upon patient request if the prescription is for a schedule II opioid drug. Start Date: 12/02/21 Status: Ordered Quantity: 4.0 Unit: tablet Repeat number: 1 Celexa = 30 mg, By Mouth, Daily in AM, 0 Refills, Maintenance, 12/02/21 11:41:00 AM EDT, Partial fill upon patient request if the prescription is for a schedule II opioid drug. Start Date: 12/02/21 Status: Ordered Repeat number: 1 ibuprofen 800 mg oral tablet 800 mg, 1, tablet, By Mouth, 3 times a day, PRN, # 270 tablet, Refills 0, Maintenance, Pain , Mild,12/02/21 11:43:00 AM EDT, Partial fill upon patient request if the prescription is for a schedule II opioid drug. Start Date: 12/02/21 Status: Ordered Quantity: 270.0 Unit: tablet Repeat number: 1 Levothyroxine = 50 mcg, By Mouth, Daily in AM, 0 Refills, Maintenance, 05/09/14 4:21:29 PM EST Start Date: 05/09/14 Status: Ordered Repeat number: 1 Lyrica 200 mg oral capsule 1 capsule = 200 mg, By Mouth, 3 times a day, 0 Refills, Maintenance, 12/02/21 11:40:00 AM EDT, Capsule, Partial fill upon patient request if the prescription is for a schedule II opioid drug. Start Date: 12/02/21 Status: Ordered Repeat number: 1 omeprazole 20 mg oral enteric coated capsule 1 capsule = 20 mg, By Mouth, Daily at bedtime, # 30 capsule, 0 Refills, Maintenance, 12/02/21 11:42:00 AM EDT, EC Capsule, Partial fill upon patient request if the prescription is for a schedule II opioid drug. Start Date: 12/02/21 Status: Ordered Quantity: 30.0 Unit: capsule Repeat number: 1 ProAir HFA 90 mcg/inh inhalation aerosol with adapter 2 puffs, Inhalation, 4 times a day, PRN Wheezing/Shortness of Breath, 0 Refills, Maintenance, 05/09/14 4:21:03 PM EST Start Date: 05/09/14 Status: Ordered Repeat number: 1 Problem List Condition Confirmation Course Effective Dates Status Health St atus Informant Asthma with COPD Confirmed Active Back pain Confirmed Active Dyslipidemia Confirmed Active GERD (gastroesophageal reflux disease) Confirmed Active IBS (irritable bowel syndrome) Confirmed Active Obese class II Confirmed Active Peripheral neuropathy Confirmed Active Smoker Confirmed Active Social History Social History Type Response Smoking Status Current every day sm cheikher; Type: Cigarettes; Tobacco use times per day: 1/2 ppd; Number of years: 30; entered on: 05/09/14 Sex Sex Representation Female (finding) Radiology * Event Display: X-Ray Spine, Non- BH Authored Date: [id number] Patient Care team information Care Team Personnel Name: Tom MARIE, Doug Hopkins Position: Reference Physician Member Role: PCP Address: [address] [place] [address]- Telecom: Care Team Related Persons Name: ALIYA UGARTE Insurance Providers Guarantor name: GISELLE TALBOT Health Plan Information #: 1 Payer: MEDICARE B Payer Identifier: NA Member Number: [id number] Group Number: Subscriber Identifier: [id number] Relationship to Subscriber: self Coverage Type: NA Coverage Verification Date: NA Telecom: NA Address: Health Plan Information #: 2 Payer: [facility] FF NON BHP HMO P Payer Identifier: NA Member Number: [id number] Group Number: [id number] Subscriber Identifier: [id number] Relationship to Subscriber: Common Law Spouse Coverage Type: Other Private Insurance Coverage Verification Date: NA Telecom: NA Address: Health Plan Information #: 3 Payer: [facility] HMO [employer] HP Payer Identifier: NA Member Number: [id number] Group Number: [id number] Subscriber Identifier: [id number] Relationship to Subscriber: self Coverage Type: NA Coverage Verification Date: NA Telecom: NA Address: Health Plan Information #: 4 Payer: [facility] HMO POS Payer Identifier: NA Member Number: [id number] Group Number: Subscriber Identifier: [id number] Relationship to Subscriber: Spouse Coverage Type: Commercial Managed Care - HMO Coverage Verification Date: NA Telecom: NA Address:
[2024-11-08 13:57] VITALS: BMI 30.3
--- NOTE | 2024-11-08 13:57 | MHC.OFFVIS ---
Vital Signs 11/08/24 13:57 Height 5 ft Weight 155 lb BMI 30.3 Intake Visit Reasons: OV- LT wrist arzate fx s/p fall DOI: 11/02/24 Intake Note: Antoinette is a 54 year old left hand dominant female who presents today for her follow up visit of her left wrist arzate fx DOI 11/02/24. Patient reports she had a fall in her kitchen when she was helping her make some coffee. Last seen with Mary Ahn who placed patient in a splint. Patient is here for a re-evaluation with Dr Shankar to determine if there is need for further intervention. Currently patient mentioned she is having numbness in her hand. Allergies No Known Allergies (No Known Allergies*) Allergy (Verified 11/08/24 14:01) HPI HPI OV- LT wrist arzate fx s/p fall DOI: 11/02/24: Details: Antoinette is a 54 year old left hand dominant woman who presents for a left thumb fracture, S/P fall, DOI: 11/01/24 She complains of pain at the base of her left thumb. She has been wearing a splint as instructed. She has a Hx of multiple falls & spinal stenosis. She walks using a walker. 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 Recurrent falls General weakness Multiple falls Arzate fracture Scapholunate instability History of mammogram (~07/26/24) Spinal stenosis Anemia Anxiety and depression Hyperlipidemia Infection of skin of neck Hypertension Establishing care with new doctor, encounter for Left wrist pain Left hand pain Fall Pneumonia Hypoxia Acute hypoxic respiratory failure Sepsis Elevated troponin Gram-positive cocci bacteremia Cellulitis of left leg Altered mental status Smoker Arthritis Asthma Low back pain Osteoporosis GERD (gastroesophageal reflux disease) Irritable bowel syndrome (IBS) Hypothyroidism Fibromyalgia Personal history of COVID-19 Surgical History History of Hx of colonoscopy (~08/12/21) History of esophagogastroduodenoscopy (EGD) Family History Father No problems noted. Mother Multiple sclerosis Social History Household Members: Significant Other Housing: House Are you a primary child care coordinator to a significant other at home: No Do you presently have visiting nurse or other home services: No Alcohol intake: current Alcohol intake frequency: does not drink Patient Tobacco Use Status: Current everyday Tobacco user Tobacco use type: Cigarette Cigarette Packs Per Day: 0.5 Cigarettes Per Day: 10.0 e-Cigarette/Vaping Use: Never Used Substance Use Type: Marijuana service: No Current occupational status: disabled Cognitive needs: Yes (walker and cane) Hearing needs: No Vision needs: Yes (rx glasses) Review of Systems Const All systems reviewed & are unremarkable except as noted in HPI and below Physical Exam Vital Signs: BMI result Body Mass Index 30.3 Const General: cooperative, healthy appearing and no acute distress Orientation/consciousness: patient oriented x3 HEENT Head: Yes normocephalic and Yes atraumatic Eyes EOM: EOMs intact bilaterally Resp Effort & Inspection: normal respiratory effort and able to speak in complete sentences Cardio Jugular venous distension: no JVD Skin General skin exam: turgor normal Rashes: no rashes Neuro General: patient oriented x3 Extrem Other: Evaluation of Left Upper Extremity: The patient is alert, oriented, and in no acute distress Neuro: Median, Ulnar, Radial nerves motor and sensory intact and sensation is normal to the tips of all digits Vascular: Cap refill brisk ROM: She can make a fist and extend all of her digits. Skin: No lacerations or abrasions or evidence of open fracture General: Resolving ecchymosis & swelling No Erythema or evidence of infection. Most tender over the 1st metacarpal base. She has some mild swelling at the CMC joint. Radiographs: 3 views of the left hand were taken and viewed by me today in clinic. They show a 1st metacarpal base fracture, intra-articular, with some displacement. She is also significantly ular minus, and appears to have some scapholunate widening Psych Appearance: grossly normal Affect: normal affect Attitude: cooperative Assessment & Plan Assessment & Plan (1) Arzate fracture of left thumb: Code(s): S62.212A - Arzate's fracture, left hand, initial encounter for closed fracture Category: Medical (2) Spinal stenosis: Code(s): M48.00 - Spinal stenosis, site unspecified Category: Medical Plan Assessment & Plan: 1. Left 1st metacarpal base (Arzate's) fracture S/P fall, DOI: ~11/01/24 Hx of multiple falls, and a reported history of spinal stenosis I educated her about this condition I discussed operative and non-operative treatment options The patient would like to proceed with surgery The risks and benefits of operative treatment were discussed with the patient and the patient wishes to proceed with surgery. These risks include, but are not limited to risk of damage to blood vessels, nerves, tendons, infection, recurrence, incomplete relief of preoperative symptoms, persistent pain, possible need for further surgery and the risks associated with regional blocks and anesthesia. The plan is to take the patient to the operating room sometime on 11/10/24 for the following procedures: 1. Left 1st metacarpal CRPP vs ORIF, under general All of the preoperative paperwork including the consent was reviewed today. All the patient's questions were answered. The patient understands that they will be contacted by our surgery technician soon to schedule this procedure She denies Diabetes, blood thinners, heart, kidney issues She has COPD & asthma. She has a Hx of a left side neck infection, which has been treated with PO Doxycycline and she says this has resolved. She ambulates using a walker due to spinal stenosis. 2. Spinal stenosis, and history of falls She has low back pain & difficulty with ambulation without an assistive walker I referred her to Dr. Ji for assessment of her back pain and history of falls, and to see if perhaps she might benefit from a referral to our spine surgeons. Scribed for Yady Shankar MD by Gold Urbina, medical surgery nurse, on 11/08/24 at 2:00 PM, EST. Orders: Orders XR hand LT min 3V Today M79.642 - Pain in left hand Coding Level of Care Code Est Pt Level 4 (34607) Diagnoses Arzate fracture of left thumb S62.212A Spinal stenosis M48.00
--- OUTSIDE RECORDS SUMMARY | 2024-11-08 14:26 | XMS_ITS | Patient Health Record ---
Author Organization [facility] Address [address] [place] [address] Care Team Providers Care Environmental Laboratory Technician Name Role Phone Doug Santos MD Primary Care Provider Brett Freeman Unavailable [phone] Allergies Allergen (clinical drug ingredient) Drug/Non Drug [...] levoFLOXacin 500 MG TAKE 1 TABLET BY BHANVA TH EVERY DAY Oral for 5 Not-Taking [...] Problem Status W/U Status Risk Notes Problem 240394410 Encounter for screening for malignant neoplasm of colon (Z12.11) Active confirmed Problem 604880918 Irritable bowel syndrome with diarrhea (K58.0) Active confirmed Problem 894185183 Gastroesophageal reflux disease without esophagitis (K21.9) Active confirmed Problem 926590971145898 Preprocedural examination (Z01.818) Active confirmed Problem Diverticulosis of colon (590682869) Diverticulosis of colon (K57.30) Active confirmed Plan Of Treatment Pending Test Test Name Order Date Pathology 08/12/2021 Future Test Test Name Order Date COLONOSCOPY 06/19/2021 Insurance Providers Payer Name Payer Address Payer Phone Subscriber Number Group Number Insured Name Patient Relationship to Insured Coverage Start Date Coverage End Date MEDICARE OF [place] [address] [place] [address] [id number] GISELLE TALBOT Self - patient is the insured [facility] [address] [place] [address] [id number] GISELLE TALBOT Self - patient is the insured Medical (General) History Medical History History ICD Code COVID-pneumonia 04/2021 Fibromyalgia Hypothyroidism IBS-doing well on dicyclomin e as of the 06/2021 office visit-normal dudoenal biopsies without celiac disease in EGD GERD-EGD 2009-neg. for [place] tt's or esophagitis, small hiatal hernia was noted Denies [place],DM,CVA,Lung disease,renal dise ase Colonoscopy 2009--negative for polyps, I BD, microscopic colitis Surgical History Surgery Date(Month/Year)
--- OUTSIDE RECORDS SUMMARY | 2024-11-08 14:26 | XMS_ITS | Patient Health Record ---
Author Organization [facility] Address [address] [place] [address] Care Team Providers Care Sky Cap Name Role Phone Doug Santos MD Primary Care Provider Unavailab Reyes Junior Unavailable [phone] Reason For Referral No Information Medications Medication [...] Insured Coverage Start Date Coverage End Date [facility] [address] [place] [address] [phone] [id number] 301 Antoinette Jeter Self - patient is the insured Medical (General) History Medical History History ICD Code Arthritis asthma back, hip, knee pain fibromyalgia neuropathy thyroid disorder warts chicken pox
== END 2024-11-08 14:48 | disposition home or self-care (01) ==
LOC: HO.HOS 13:40
PROVIDERS: PCP Physician Assistant Medical; Visit Provider Orthopaedic Surgery
DX: S62.212A Bennett's fracture, left hand, initial encounter for closed fracture (principal); M48.00 Spinal stenosis, site unspecified
CPT/HCPCS: 99214

== ENCOUNTER → 2024-11-08 13:43 | Outpatient (BNV) | payer MEDICARE, OTHER, SELFPAY | PROVIDERS: Visit Provider Radiology Diagnostic Radiology | DX: S62.232 Other displaced fracture of base of first metacarpal bone, left hand (principal) | CPT/HCPCS: 73130 ==

== ENCOUNTER 2024-11-11 08:48 | Outpatient (REF) | payer MEDICARE, OTHER, SELFPAY ==
--- NOTE | ~2024-11-11 | XR_ITS ---
EXAMINATION: XR RIBS, LEFT CLINICAL INFORMATION: W19.XXXA - Unspecified fall, initial encounter COMPARISON: 08/18/2024, 05/23/2024. TECHNIQUE: PA view of the chest, and 3 views of the left ribs were obtained. FINDINGS: Lungs are clear. No consolidation, pneumothorax, or pleural effusion. There is cardiac enlargement. Mediastinal and hilar contours appear normal. Ribs demonstrate numerous bilateral healed/old rib fractures. No definite acute rib fracture or suspicious bone lesion identified. XR/XR ribs LT min 3V w CXR1V IMPRESSION: 1. Cardiomegaly. No active pulmonary disease. 2. There are numerous bilateral old healed rib fractures present. There is no definite acute fracture or focal rib lesion seen. Electronically signed by: Augustin Lim MD 11/11/2024 09:24 AM EDT
--- OUTSIDE RECORDS SUMMARY | 2024-11-11 08:57 | XMS_ITS | Patient Health Record ---
Author Organization [facility] Address [address] [place] [address] Care Team Providers Care Stain Maker Name Role Phone Doug Santos MD Primary Care Provider Brett Freeman Unavailable [phone] Allergies Allergen (clinical drug ingredient) Drug/Non Drug [...] Problem Status W/U Status Risk Notes Problem 264939202 Encounter for screening for malignant neoplasm of colon (Z12.11) Active confirmed Problem 761629396 Irritable bowel syndrome with diarrhea (K58.0) Active confirmed Problem 354839637 Gastroesophageal reflux disease without esophagitis (K21.9) Active confirmed Problem 238955476671093 Preprocedural examination (Z01.818) Active confirmed Problem Diverticulosis of colon (041294850) Diverticulosis of colon (K57.30) Active confirmed Plan Of Treatment Pending Test Test Name Order Date Pathology 08/12/2021 Future Test Test Name Order Date COLONOSCOPY 06/19/2021 Insurance Providers Payer Name Payer Address Payer Phone Subscriber Number Group Number Insured Name Patient Relationship to Insured Coverage Start Date Coverage End Date MEDICARE OF [place] [address] [place] [address] [id number] GISELLE TALBOT Self - patient is the insured [facility] [address] [place] [address] [id number] GISELLE TALBOT Self - patient is the insured Medical (General) History Medical History History ICD Code COVID-pneumonia 04/2021 Fibromyalgia Hypothyroidism IBS-doing well on dicyclomin e as of the 06/2021 office visit-normal dudoenal biopsies without celiac disease in EGD GERD-EGD 2009-neg. for [place] tt's or esophagitis, small hiatal hernia was noted Denies [place],DM,CVA,Lung disease,renal dise ase Colonoscopy 2009--negative for polyps, I BD, microscopic colitis Surgical History Surgery Date(Month/Year)
--- OUTSIDE RECORDS SUMMARY | 2024-11-11 08:57 | XMS_ITS | Patient Health Record ---
Author Organization [facility] Address [address] [place] [address] Care Team Providers Care Merchandise Planning Manager Name Role Phone Doug Santos MD Primary Care Provider Unavailab Reyes Junior Unavailable [phone] Reason For Referral No Information Medications Medication [...] Insured Coverage Start Date Coverage End Date [facility] [address] [place] [address] [phone] [id number] Antoinette Jeter Self - patient is the insured Medical (General) History Medical History History ICD Code Arthritis asthma back, hip, knee pain fibromyalgia neuropathy thyroid disorder warts chicken pox
== END 2024-11-11 08:49 | disposition home or self-care (01) ==
LOC: HO.HMGCX 08:48
PROVIDERS: PCP Physician Assistant Medical; Visit Provider Physician Assistant Medical
DX: R07.81 Pleurodynia (principal); S23.41XD Sprain of ribs, subsequent encounter; W19.XXXD Unspecified fall, subsequent encounter; I51.7 Cardiomegaly; M25.532 Pain in left wrist
CPT/HCPCS: 71101; 96127

== ENCOUNTER → 2024-11-11 08:56 | Outpatient (BNV) | payer MEDICARE, OTHER, SELFPAY | PROVIDERS: PCP Physician Assistant Medical; Visit Provider Radiology Diagnostic Radiology | DX: R07.89 Other chest pain (principal) | CPT/HCPCS: 71101 ==

== ENCOUNTER 2024-11-11 10:03 | Outpatient (AMB) | payer MEDICARE, OTHER, SELFPAY ==
--- NOTE | 2024-11-11 09:44 | A.OFFPC_ITS ---
Intake Visit Reasons: x-ray results Seat Cover Maker Required: No Patient : No Allergies No Known Allergies (No Known Allergies*) Allergy (Verified 11/11/24 10:30) Medication List - Last Reconciled 11/11/24 by Sera Greenberg PA-C acetaminophen ER (Tylenol Arthritis Pain) 1,300 mg (2 x 650 mg) PO Q12H albuterol sulfate 90 mcg/actuation 2 puffs inhalation Q6H PRN alendronate 70 mg PO FR amlodipine 5 mg See Protocol PO DAILY arm brace please provide thumb spica for left wrist atorvastatin 40 mg PO BEDTIME cyclobenzaprine 10 mg PO Q8H escitalopram oxalate 20 mg PO DAILY gabapentin 600 mg PO TID levothyroxine 50 mcg PO DAILY@0600 meloxicam 15 mg PO DAILY PRN 20 days omeprazole 20 mg PO DAILY@0630 Tobacco use date assessed: 10/31/24 Dental Screening Dental Screen Date: 10/31/24 HPI x-ray results HPI Details The patient is a 54-year-old female presenting with rib pain following a fall. She fell around midnight while mopping the floor, tripping over her own feet and landing on an antique wooden chair, impacting her rib cage. She did not lose consciousness but was unable to get up for several hours due to pain. The patient has a history of rib fractures on the opposite side, which were less painful than the current injury. X-rays revealed numerous bilateral old healed rib fractures with no definite acute fracture, though the patient reports significant pain on the left side. The patient also has a mildly enlarged heart, a chronic condition likely due to hypertension. She has been informed that this condition is not new and is related to her heart working hard over time. 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 Recurrent falls General weakness Multiple falls Arzate fracture Scapholunate instability History of mammogram (~07/26/24) Spinal stenosis Anemia Anxiety and depression Hyperlipidemia Infection of skin of neck Hypertension Establishing care with new doctor, encounter for Left wrist pain Left hand pain Fall Pneumonia Hypoxia Acute hypoxic respiratory failure Sepsis Elevated troponin Gram-positive cocci bacteremia Cellulitis of left leg Altered mental status Smoker Arthritis Asthma Low back pain Osteoporosis GERD (gastroesophageal reflux disease) Irritable bowel syndrome (IBS) Hypothyroidism Fibromyalgia Personal history of COVID-19 Surgical History History of Hx of colonoscopy (~08/12/21) History of esophagogastroduodenoscopy (EGD) Family History Father No problems noted. Mother Multiple sclerosis Social History Household Members: Significant Other Housing: House Are you a primary career services assistant to a significant other at home: No Do you presently have visiting nurse or other home services: No Alcohol intake: current Alcohol intake frequency: does not drink Patient Tobacco Use Status: Current everyday Tobacco user Tobacco use type: Cigarette Cigarette Packs Per Day: 0.5 Cigarettes Per Day: 10.0 e-Cigarette/Vaping Use: Never Used Substance Use Type: Marijuana service: No Current occupational status: disabled Cognitive needs: Yes (walker and cane) Hearing needs: No Vision needs: Yes (rx glasses) Questionnaire PHQ-9 Over the last 2 weeks, how often have you been bothered by any of the following problems? 1. Little interest or pleasure in doing things: not at all 2. Feeling down, depressed, or hopeless: not at all 3. Trouble falling or staying asleep, or sleeping too much: not at all 4. Feeling tired or having little energy: not at all 5. Poor appetite or overeating: not at all 6. Feeling bad about yourself - or that you are a failure or have let yourself or your family down: not at all 7. Trouble concentrating on things, such as reading the newspaper or watching television: not at all 8. Moving or speaking so slowly that other people could have noticed. Or the opposite - being so fidgety or restless that you have been moving around a lot more than usual: not at all 9. Thoughts that you would be better off or of hurting yourself in some way: not at all Total score: 0 Depression Screening Interpretation: Negative Depression Screening Done: Yes 27149 - PHQ-9 Billing: Yes Source: Developed by Drs. Brett Griffin, Mg Robles and colleagues, with an educational mago from [employer]. Thrive Questionnaire Date Thrive assessed: 10/31/24 I am a: Patient What is your living situation today?: I have a steady place to live Within the past 12 months, did the food you bought not last and you didn't have the money to get more?: Never true Within the past 12 months, did you worry whether your food would run out before you got money to buy more?: Never true Do you have trouble paying for medicines?: No Do you have trouble getting transportation to medical appointments?: No Do you have trouble paying your heating and electricity bill?: No Do you have trouble taking care of your child, family member or friend?: No Do you have trouble with day-to-day activities such as bathing, preparing meals, shopping, managing finances, etc.?: No Are you currently unemployed and looking for a job?: No Are you interested in more education?: No Please select the resources that you would like help with: None Currently or been in a relationship where the following occur: No concerns reported THRIVE Score: 0 AUDIT C Alcohol Use Questionnaire (AUDIT-C) 1. How often do you have a drink containing alcohol?: Never 3. How often do you have six or more drinks on one occasion?: Never Total Score: 0 Score Reviewed/Action Taken: No GOLDEN-7 AMB Questionnaire GOLDEN-7 Date GOLDEN - 7 assessed: 10/31/24 Feeling nervous, anxious, or on edge: 0 = Not at all Not being able to stop or control worryin = Not at all Worrying too much about different things: 0 = Not at all Trouble relaxin = Not at all Being so restless that it is hard to sit still: 0 = Not at all Becoming easily annoyed or irritable: 0 = Not at all Feeling afraid as if something awful might happen: 0 = Not at all Total GOLDEN-7 score (0-4 normal; 5-9 mild; 10-14 moderate; 15-21 severe): 0 Source: Developed by Drs. Brett Griffin, Mg Robles and colleagues, with an educational mago from [employer]. GOLDEN-7 Assessment Billing GOLDEN-7 Assessment Tool: GOLDEN-7 Assessment 92268 Review of Systems Const Details: - Musculoskeletal: Reports severe rib pain following a fall, denies loss of consciousness. - Cardiovascular: Denies chest pain, reports chronic mildly enlarged heart due to hypertension. Physical exam (Primary Care) Tobacco/Smoking Status: Tobacco use Status Tobacco use date assessed 10/31/24 11/11/24 09:52 Patient Tobacco Use Status Current everyday Tobacco 11/11/24 09:52 Tobacco use type Cigarette 11/11/24 09:52 e-Cigarette/Vaping Use Never Used 11/11/24 09:52 PHQ-9: PHQ-9 Score PHQ-9: Total score 0 11/11/24 09:52 Depression Screening Interpretation: Negative Thrive Assessment: Date of Thrive Assessment Date Thrive assessed 10/31/24 11/11/24 09:52 Currently or been in a relationship where the following occur: No concerns reported Telehealth Telehealth Telehealth Platform: Telephone Location of provider rendering services: practice address Location of patient: address on file Patient Identification confirmed using: Name, : Yes Telehealth method: voice only Patient verbally consented to treatment: Yes Patient verbally consented to billing insurance company: Yes Patient informed of any privacy concerns related to visit: Yes Minutes spent on Phone/Video with Pt.: 20 Results Reviewed Results Reviewed: Ordering Physician: Sera Greenberg PA-C Date of Service: 11/11/24 Procedure(s): XR ribs LT min 3V w CXR1V Accession Number(s): [id number] cc: Sera Greenberg PA-C~ EXAMINATION: XR RIBS, LEFT CLINICAL INFORMATION: W19.XXXA - Unspecified fall, initial encounter COMPARISON: 08/18/2024, 05/23/2024. TECHNIQUE: PA view of the chest, and 3 views of the left ribs were obtained. FINDINGS: Lungs are clear. No consolidation, pneumothorax, or pleural effusion. There is cardiac enlargement. Mediastinal and hilar contours appear normal. Ribs demonstrate numerous bilateral healed/old rib fractures. No definite acute rib fracture or suspicious bone lesion identified. XR/XR ribs LT min 3V w CXR1V IMPRESSION: 1. Cardiomegaly. No active pulmonary disease. 2. There are numerous bilateral old healed rib fractures present. There is no definite acute fracture or focal rib lesion seen. Electronically signed by: Augustin Lim MD 11/11/2024 09:24 AM EDT RP Coding Level of Care Code Tele Est Pt Level 4 (22583) Complex EM visit Add On G2211 Diagnoses Fall W19.XXXA Rib sprain S23.41XA Cardiomegaly I51.7 Left wrist pain M25.532 Additional Codes GOLDEN-7 Assessment Billing - GOLDEN-7 Assessment Tool: GOLDEN-7 Assessment 60427 ([id number]) PHQ-9 - 12533 - PHQ-9 Billing: Yes ([id number]) Assessment & Plan Assessment & Plan (1) Fall: Code(s): W19.XXXA - Unspecified fall, initial encounter Category: Medical Plan: Patient is status post fall outpatient rib chest x-ray ordered yesterday by myself. Results reviewed today given to patient by telehealth visit. Patient understands agrees with plan instructed to go to the ER if she continues to have pain for CT imaging. (2) Rib sprain: Code(s): S23.41XA - Sprain of ribs, initial encounter Category: Medical Plan: The patient was advised to consider a CT scan to differentiate between old and new fractures due to significant pain, despite x-rays showing only old fractures. Pain management includes meloxicam, with the addition of a muscle relaxant and extra strength Tylenol for better pain control. (3) Cardiomegaly: Code(s): I51.7 - Cardiomegaly Category: Medical Plan: The patient's mildly enlarged heart is considered a chronic condition likely due to hypertension, with no immediate need for cardiology referral unless symptoms such as chest pain develop. (4) Left wrist pain: Code(s): M25.532 - Pain in left wrist Category: Medical Plan: The patient's hypertension is acknowledged as a contributing factor to her cardiomegaly, with ongoing management implied but not explicitly discussed in the conversation. Plan Plan Patient was informed and verbally consented to the use of an ambient scribe for clinic note documentation during this visit. 1. Rib Fractures The patient was advised to consider a CT scan to differentiate between old and new fractures due to significant pain, despite x-rays showing only old fractures. Pain management includes meloxicam, with the addition of a muscle relaxant and extra strength Tylenol for better pain control. 2. Cardiomegaly The patient's mildly enlarged heart is considered a chronic condition likely due to hypertension, with no immediate need for cardiology referral unless symptoms such as chest pain develop. 3. Hypertension The patient's hypertension is acknowledged as a contributing factor to her cardiomegaly, with ongoing management implied but not explicitly discussed in the conversation. I discussed with the patient the findings of her x-rays, which showed numerous old rib fractures and a mildly enlarged heart. We talked about the possibility of a CT scan to confirm if there are any new fractures due to her significant pain. I explained that her heart condition is chronic and likely related to her hypertension, and that a cardiology referral is not necessary unless she experiences chest pain. We also reviewed her pain management plan, including the use of meloxicam, a muscle relaxant, and extra strength Tylenol. Medications: New acetaminophen ER (Tylenol Arthritis Pain) 1,300 mg (2 x 650 mg) PO Q12H 30 tabs 0RF cyclobenzaprine 10 mg PO Q8H 30 tabs 0RF Patient Instructions: - Consider going to the ER for a CT scan if pain worsens or persists. - Take meloxicam, muscle relaxant, and extra strength Tylenol as prescribed for pain management. - Monitor for any new symptoms such as chest pain and seek medical attention if they occur.
== END 2024-11-11 10:37 | disposition home or self-care (01) ==
LOC: HO.HMCSH 10:03
PROVIDERS: PCP Physician Assistant Medical; Visit Provider Physician Assistant Medical
DX: S23.41XA Sprain of ribs, initial encounter (principal); W19.XXXA Unspecified fall, initial encounter; I51.7 Cardiomegaly; M25.532 Pain in left wrist

== ENCOUNTER 2024-12-29 10:04 | Outpatient (AMB) | payer MEDICARE, OTHER, SELFPAY ==
--- NOTE | 2024-12-29 10:09 | MHC.OFFVIS ---
Vital Signs 12/29/24 10:17 Height 5 ft Weight 145 lb BMI 28.3 Intake Visit Reasons: New Prob- back pain fall DOI: 11/02/24 Intake Note: Antoinette is a 54 year old female who presents today as a new problem for her back pain, fall DOI: 11/02/24. Patient was referred by AR 11/08/24. At today's visit she states she just had another fall about 3 weeks ago and she reports that she tripped an fell again 12/28/24. Patient states that she was supposed to have surgery on 11/10/24 but she fell at home and canceled her appointment with AR. She states that about a year ago 08/25 she was admitted to [facility] due to her left foot becoming septic and ever since then her legs give out on her causing the multiple falls. She reported that she is now using a walker to help with her ROM. Allergies No Known Allergies (No Known Allergies*) Allergy (Verified 12/29/24 10:17) Medication List - Last Reconciled 12/29/24 by Luanne Lora MD acetaminophen ER (Tylenol Arthritis Pain) 1,300 mg (2 x 650 mg) PO Q12H albuterol sulfate 90 mcg/actuation 2 puffs inhalation Q6H PRN alendronate 70 mg PO FR amlodipine 5 mg See Protocol PO DAILY arm brace please provide thumb spica for left wrist atorvastatin 40 mg PO BEDTIME cyclobenzaprine 10 mg PO Q8H escitalopram oxalate 20 mg PO DAILY gabapentin 600 mg PO TID levothyroxine 50 mcg PO DAILY@0600 meloxicam 15 mg PO DAILY PRN omeprazole 20 mg PO DAILY@0630 HPI Comments Details: PMH mood disorder, fibromyalgia, htn, osteoporosis, gerd, IBS, hypothryoid, copd/mild intermittent asthma, peripheral neuropathy, osteoporosis, spinal stenosis.. Last hospitalization at [place] in May for IV antibiotics, IV fluids and IV steroids for her pneumonia and COPD. She is following with hand surgery for left wrist arzate fx, DOI 11/02/24. Last visit to ER in [place] 10/25/[address] scan of neck suspected inflammatory/infectious process. Patient treated with antibiotics. Last visit to PCP reviewed, multiple falls, old rib fractures. Last rib x-rays 11/11/2024 did not report any acute fractures. The first/last time rib fracture was documented on xray was back in 2022. Her main concern was lower back pain. She says 1 year ago, treated/hospitalized for left foot infection. Since then, needed walker or cane. She tends to bend forward when standing/walking. Right upper and lower back and buttocks feel numb. She can't lift her right leg/hip to get into bed. Right now she thinks right foot is numb. She was told in the past to have neuropathy but unknown etiology. I noticed that she is really hunched over and she says it was only since August 2023. Had mid back injury when younger, early 20s. She does admit to chronic recurrent back pain attributed to work. Major issue also is the multiple falls and unstable gait. 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 Recurrent falls General weakness Multiple falls Arzate fracture Scapholunate instability History of mammogram (~07/26/24) Spinal stenosis Anemia Anxiety and depression Hyperlipidemia Infection of skin of neck Hypertension Establishing care with new doctor, encounter for Left wrist pain Left hand pain Fall Pneumonia Hypoxia Acute hypoxic respiratory failure Sepsis Elevated troponin Gram-positive cocci bacteremia Cellulitis of left leg Altered mental status Smoker Arthritis Asthma Low back pain Osteoporosis GERD (gastroesophageal reflux disease) Irritable bowel syndrome (IBS) Hypothyroidism Fibromyalgia Personal history of COVID-19 Surgical History History of Hx of colonoscopy (~08/12/21) History of esophagogastroduodenoscopy (EGD) Family History Father No problems noted. Mother Multiple sclerosis Social History Household Members: Significant Other Housing: House Are you a primary medicare coordinator to a significant other at home: No Do you presently have visiting nurse or other home services: No Alcohol intake: current Alcohol intake frequency: does not drink Patient Tobacco Use Status: Current everyday Tobacco user Tobacco use type: Cigarette Cigarette Packs Per Day: 0.5 Cigarettes Per Day: 10.0 e-Cigarette/Vaping Use: Never Used Second Hand Smoke Exposure: Yes Substance Use Type: Marijuana service: No Current occupational status: disabled Current occupational exposures/hazards: No Cognitive needs: Yes (walker and cane) Hearing needs: No Vision needs: Yes (rx glasses) Review of Systems Const All systems reviewed & are unremarkable except as noted in HPI and below Physical Exam Exam Exam: Notable convexity on lower thoracic/upper lumbar, more right-sided. She is definitely hunch forward when she stands or walk. Poor standing stability. Give-way weakness on right lower extremity. Vital Signs: BMI result Body Mass Index 28.3 Results Reviewed Results Reviewed: Ordering Physician: Sera Greenberg PA-C Date of Service: 11/11/24 Procedure(s): XR ribs LT min 3V w CXR1V Accession Number(s): [id number] cc: Sera Greenberg PA-C~ EXAMINATION: XR RIBS, LEFT CLINICAL INFORMATION: W19.XXXA - Unspecified fall, initial encounter COMPARISON: 08/18/2024, 05/23/2024. TECHNIQUE: PA view of the chest, and 3 views of the left ribs were obtained. FINDINGS: Lungs are clear. No consolidation, pneumothorax, or pleural effusion. There is cardiac enlargement. Mediastinal and hilar contours appear normal. Ribs demonstrate numerous bilateral healed/old rib fractures. No definite acute rib fracture or suspicious bone lesion identified. XR/XR ribs LT min 3V w CXR1V IMPRESSION: 1. Cardiomegaly. No active pulmonary disease. 2. There are numerous bilateral old healed rib fractures present. There is no definite acute fracture or focal rib lesion seen. Electronically signed by: Augustin Lim MD 11/11/2024 09:24 AM EDT RP Ordering Physician: Doug Santos MD Date of Service: 07/15/24 Procedure(s): XR lumbar spine 2-3V Accession Number(s): [id number] cc: Doug Santos MD~ EXAMINATION: XR LUMBAR SPINE 2-3 VIEWS HISTORY: LOW BACK PAIN COMPARISON: Comparison is made with the prior examination dated 06/13/2017. FINDINGS: AP, lateral, and coned down views of the lumbar spine are submitted. Osseous mineralization is normal. There is mild to moderate dextroscoliosis which is new from the prior study. The vertebral bodies maintain normal height without evidence of fracture or listhesis. There is moderate degenerative disc disease at the L1-2 level with disc space narrowing and osteophyte formation. Milder degenerative changes are noted at the remaining levels. The posterior elements are intact. There is calcification of the abdominal aorta. XR/XR lumbar spine 2-3V IMPRESSION: There are mild to moderate dextroscoliosis. Moderate degenerative disc disease at L1-2 with milder changes at the remaining levels. Electronically signed by: Brett Clay MD 07/15/2024 02:31 PM EDT RP Ordering Physician: Doug Santos MD Date of Service: 07/30/22 Procedure(s): XR ribs RT min 3V w CXR1V Accession Number(s): [id number] cc: Doug Santos MD~ EXAMINATION: XR RIBS, RIGHT CLINICAL INFORMATION: Fall on Thursday. Right rib pain. COMPARISON: None available. TECHNIQUE: 3 views of the right ribs were obtained. FINDINGS: Chest: The lungs are well-expanded and clear. The heart size and pulmonary vascularity is normal. No gross bony abnormality seen. Multiple views of right ribs reveal mild deformity involving right posterior fifth, sixth and seventh ribs suspicious for nondisplaced fractures. XR/XR ribs RT min 3V w CXR1V IMPRESSION: 1. Unremarkable chest exam. 2. Suspect nondisplaced fractures involving right posterior fifth, sixth and seventh ribs. I reviewed records from the following: PCP - explained that her heart condition is chronic and likely related to her hypertension, and that a cardiology referral is not necessary unless she experiences chest pain. Assessment & Plan Assessment & Plan (1) Scoliosis: Code(s): M41.9 - Scoliosis, unspecified Category: Medical Qualifiers: Scoliosis type: unspecified scoliosis Spinal region: thoracolumbar Qualified Code(s): M41.9 - Scoliosis, unspecified (2) Fall: Code(s): W19.XXXA - Unspecified fall, initial encounter Category: Medical Qualifiers: Encounter type: initial encounter Qualified Code(s): W19.XXXA - Unspecified fall, initial encounter (3) Lumbar spinal stenosis: Code(s): M48.061 - Spinal stenosis, lumbar region without neurogenic claudication Category: Medical Qualifiers: Neurogenic claudication status: with neurogenic claudication Qualified Code(s): M48.062 - Spinal stenosis, lumbar region with neurogenic claudication Plan Multiple past medical history, poor gait stability and multiple falls in the past year, told to have history of lumbar spinal stenosis but no recent imaging for me to review, notable convexity on right lower thoracic/upper lumbar. Questions scoliosis versus vertebral compression fracture that did not heal well. Higher suspicion for the former. No new fractures on most recent rib x-rays. Her main complaint is lower back pain. We will get scoliosis series x-rays to measure degree of scoliosis/curvature. Thoracic spine x-ray to rule out vertebral fracture chronic. Hip x-rays to look for any hip DJD. Lumbar spine MRI to evaluate for lumbar spinal stenosis. Assessment and plan discussed with patient, and patient was agreeable. All questions were answered thoroughly. Follow up 1 month or after all these diagnostics been done. Luanne Lora MD, KAMERON Board Certified, [place] [employer] and [employer] (ABPMR) Board Certified, [place] [employer] (ABEM) Orders: Orders XR thoracic spine 2V Today M54.9 - Dorsalgia, unspecified, W19.XXXA - Unspecified fall, initial encounter XR scoliosis survey Today M41.9 - Scoliosis, unspecified, W19.XXXA - Unspecified fall, initial encounter MR lumbar spine wo con Today M48.061 - Spinal stenosis, lumbar region without neurogenic claudication XR hips FLOR[place]INO min 3V Today M25.559 - Pain in unspecified hip Coding Level of Care Code New Pt Level 4 (41487) Complex EM visit Add On G2211 Diagnoses Scoliosis of thoracolumbar spine, unspecified scoliosis type M41.9 Scoliosis type: unspecified scoliosis Spinal region: thoracolumbar Fall, initial encounter W19.XXXA Encounter type: initial encounter Spinal stenosis of lumbar region with neurogenic claudication M48.062 Neurogenic claudication status: with neurogenic claudication
[2024-12-29 10:17] VITALS: BMI 28.3
--- OUTSIDE RECORDS SUMMARY | 2024-12-29 11:21 | XMS_ITS | Patient Health Record ---
Author Organization [facility] Address [address] [place] [address] Care Team Providers Care Superintendent Stations Name Role Phone Tom (RETIRED) Doug MARIE Primary Care Provider Unavailable Brett Baker Unavailable [phone] Allergies Allergen (clinical drug ingredient) Drug/Non Drug [...] Problem Status W/U Status Risk Notes Problem [id number] Encounter for screening for malignant neoplasm of colon (Z12.11) Active confirmed Problem 777172518 Irritable bowel syndrome with diarrhea (K58.0) Active confirmed Problem 456315517 Gastroesophageal reflux disease without esophagitis (K21.9) Active confirmed Problem [id number] Preprocedural examination (Z01.818) Active confirmed Problem Diverticulosis of colon (779628391) Diverticulosis of colon (K57.30) Active confirmed Plan Of Treatment Pending Test Test Name Order Date Pathology 08/12/2021 Future Test Test Name Order Date COLONOSCOPY 06/19/2021 Insurance Providers Payer Name Payer Address Payer Phone Subscriber Number Group Number Insured Name Patient Relationship to Insured Coverage Start Date Coverage End Date MEDICARE OF [place] [address] [place] [address] [id number] GISELLE TALBOT Self - patient is the insured [facility] [address] [place] [address] [id number] GISELLE TALBOT Self - patient is the insured Medical (General) History Medical History History ICD Code COVID-pneumonia 04/2021 Fibromyalgia Hypothyroidism IBS-doing well on dicyclomin e as of the 06/2021 office visit-normal dudoenal biopsies without celiac disease in EGD GERD-EGD 2009-neg. for [place] tt's or esophagitis, small hiatal hernia was noted Denies [place],DM,CVA,Lung disease,renal dise ase Colonoscopy 2009--negative for polyps, I BD, microscopic colitis Surgical History Surgery Date(Month/Year)
--- OUTSIDE RECORDS SUMMARY | 2024-12-29 11:21 | XMS_ITS | Patient Health Record ---
Author Organization [facility] Address [address] [place] [address] Care Team Providers Care Certified Nursing Assistant Name Role Phone Doug Santos MD Primary Care Provider Unavailab Reyes Junior Unavailable [phone] Reason For Referral No Information Medications Medication [...] Insured Coverage Start Date Coverage End Date [facility] [address] [place] [address] [phone] [id number] 301 Antoinette Jeter Self - patient is the insured Medical (General) History Medical History History ICD Code Arthritis asthma back, hip, knee pain fibromyalgia neuropathy thyroid disorder warts chicken pox
== END 2024-12-29 10:55 | disposition home or self-care (01) ==
LOC: HO.HOS 10:05
PROVIDERS: PCP Physician Assistant Medical; Visit Provider Physical Medicine & Rehabilitation
DX: M41.9 Scoliosis, unspecified (principal); W19.XXXA Unspecified fall, initial encounter; M48.062 Spinal stenosis, lumbar region with neurogenic claudication
CPT/HCPCS: 99204; G2211

== ENCOUNTER 2024-12-29 10:04 | Outpatient (REF) | payer MEDICARE, OTHER, SELFPAY ==
--- NOTE | ~2024-12-29 | XR_ITS ---
EXAM: CR Xr Scoliosis Survey TECHNIQUE: AP and lateral views of the cervical, thoracic, and lumbar spine. There was stitching of the AP views. INDICATION: Scoliosis PRIOR: None FINDINGS: Coronal balance: Negative. The geometric center of C7 projected 6 cm cm left of the center of S1. Curvature: There is 5 degrees convex left curvature of the thoracic spine. There is 20 degrees dextroscoliosis of the thoracolumbar junction. There are multiple chronic rib fractures involving posterior lateral chest bilaterally. [place] Risser Stage: 5: Completely ossified iliac crest apophysis and closed physis. XR/XR scoliosis survey IMPRESSION: Mild dextro scoliosis of the lumbar spine and negative coronal balance. Numerous chronic rib fractures. Electronically signed by: Chavez Parks MD 12/29/2024 12:51 PM EDT
--- NOTE | ~2024-12-29 | XR_ITS ---
EXAMINATION: XR THORACIC SPINE CLINICAL INFORMATION: M54.9 - Dorsalgia, unspecified COMPARISON: None available. TECHNIQUE: 3 views of the thoracic spine were obtained. FINDINGS: There is subtle convex left curvature of the thoracic spine. There is mild disc space narrowing with small anterior osteophytes noted throughout the thoracic spine. Multiple chronic rib fractures are present in the visualized portion of the left chest with possible subacute fracture involving posterior left seventh rib with evidence of periosteal new bone formation. XR/XR thoracic spine 2V IMPRESSION: Mild multilevel degenerative disc disease. Suspect a subacute fracture of the posterior left seventh rib. Electronically signed by: Chavez Parks MD 12/29/2024 12:53 PM EDT RP
--- NOTE | ~2024-12-29 | XR_ITS ---
EXAMINATION: XR BILATERAL HIPS WITH AP PELVIS CLINICAL INFORMATION: M25.559 - Pain in unspecified hip COMPARISON: None available. TECHNIQUE: AP view of the pelvis and frog-leg lateral views of each hip were obtained. FINDINGS: Left hip: There is subtle axial joint space narrowing. Degenerative cyst is noted in the anterior femoral head. No marginal osteophytes are evident. Right hip: There is subtle axial joint space narrowing. There is a very small reactive osteophyte. No abnormalities are evident. XR/XR hips [place] min 3V IMPRESSION: Subtle left hip joint space narrowing and nonspecific degenerative cystic change in the anterior femoral head. Subtle right hip joint space narrowing and minimal acetabular roof osteophyte. Electronically signed by: Chavez Parks MD 12/29/2024 12:56 PM EDT
== END 2024-12-29 10:05 | disposition home or self-care (01) ==
LOC: HO.XRAY 10:04
PROVIDERS: PCP Physician Assistant Medical; Visit Provider Physical Medicine & Rehabilitation
DX: M48.062 Spinal stenosis, lumbar region with neurogenic claudication (principal); M41.9 Scoliosis, unspecified; M54.9 Dorsalgia, unspecified; Z79.899 Other long term (current) drug therapy; W19.XXXA Unspecified fall, initial encounter
CPT/HCPCS: 72070; 72082; 73522; 99202

== ENCOUNTER → 2024-12-29 11:15 | Outpatient (BNV) | payer MEDICARE, OTHER, SELFPAY | PROVIDERS: PCP Physician Assistant Medical; Visit Provider Radiology Diagnostic Radiology | DX: M41.9 Scoliosis, unspecified (principal); M16.12 Unilateral primary osteoarthritis, left hip; M25.851 Other specified joint disorders, right hip; M54.6 Pain in thoracic spine | CPT/HCPCS: 72070; 72082; 73522 ==

== ENCOUNTER 2025-01-25 13:13 | Outpatient (AMB) | payer MEDICARE, OTHER, SELFPAY ==
--- NOTE | 2025-01-25 14:09 | MHC.OFFVIS ---
Intake Visit Reasons: OV- LT wrist arzate fx s/p fall DOI: 11/02/24 Intake Note: Antoinette is a 54 year old left hand dominant female who presents today for a follow up of her Left [place] Fracture 11/02/24. Patient reports that she took a fall the night before her surgery. She states that she fell onto her ribs and was seen at urgent care. They did not offer any treatments. The patient was called to be seen in the office and follow up. Currently she reports that her hand is feeling worse, her pain is felt through her whole hand and radiates up her arm all the way to her shoulder blade. She has been wearing her neoprene brace with no relief. She is taking Ibuprofen and alternates with with Tylenol which she states does not help her at all. She would like to have an injection today but would also like to discuss surgery. Allergies No Known Allergies (No Known Allergies*) Allergy (Verified 01/25/25 14:14) HPI HPI OV- LT wrist arzate fx s/p fall DOI: 11/02/24: Details: Antoinette is a 54 year old left hand dominant woman who returns for her left [place] fracture, S/P fall, DOI: 11/01/24 She complains of pain at the base of her left thumb. She says she cannot lift anything heavy with her hand and any other use of her hand causes her pain. She was scheduled for surgery on 11/10/24 but cancelled this and did not follow up until now.. She says she fell the night prior to her surgery and could not show up to surgery. She has a Hx of multiple falls,right hip pain, and spinal stenosis. She walks using a walker. She says that she recently had some spine x-rays, I supposed to get an MRI and follow up with Dr. Ji within the next week. She reports difficulty moving around and with activities such as lifting her legs into bed. She smokes Tobacco & Marijuana. She says she does not work and spends her days caring for her adult daughter, who has special needs. 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 Recurrent falls General weakness Multiple falls Arzate fracture Scapholunate instability History of mammogram (~07/26/24) Spinal stenosis Anemia Anxiety and depression Hyperlipidemia Infection of skin of neck Hypertension Establishing care with new doctor, encounter for Left wrist pain Left hand pain Fall Pneumonia Hypoxia Acute hypoxic respiratory failure Sepsis Elevated troponin Gram-positive cocci bacteremia Cellulitis of left leg Altered mental status Smoker Arthritis Asthma Low back pain Osteoporosis GERD (gastroesophageal reflux disease) Irritable bowel syndrome (IBS) Hypothyroidism Fibromyalgia Personal history of COVID-19 Surgical History History of Hx of colonoscopy (~08/12/21) History of esophagogastroduodenoscopy (EGD) Family History Father No problems noted. Mother Multiple sclerosis Social History Household Members: Significant Other Housing: House Are you a primary childbirth and infant care teacher to a significant other at home: No Do you presently have visiting nurse or other home services: No Alcohol intake: current Alcohol intake frequency: does not drink Patient Tobacco Use Status: Current everyday Tobacco user Tobacco use type: Cigarette Cigarette Packs Per Day: 0.5 Cigarettes Per Day: 10.0 e-Cigarette/Vaping Use: Never Used Second Hand Smoke Exposure: Yes Substance Use Type: Marijuana service: No Current occupational status: disabled Current occupational exposures/hazards: No Cognitive needs: Yes (walker and cane) Hearing needs: No Vision needs: Yes (rx glasses) Physical Exam Extrem Other: Evaluation of Left Upper Extremity: The patient is alert, oriented, and in no acute distress Neuro: Median, Ulnar, Radial nerves motor and sensory intact and sensation is normal to the tips of all digits Vascular: Cap refill brisk ROM: She can make a fist and extend all of her digits. She can oppose her thumb to all digits General: No ecchymosis No Erythema or evidence of infection. Mildly tender over the 1st metacarpal base. No appreciable swelling Patient reports that she gets pain at the base of her thumb with heavy gripping and pinching. Not particularly painful at this time. Radiographs: 3 views of the left hand were taken and viewed by me today in clinic. They show a 1st metacarpal base fracture (Arzate's fracture) non-union with proximal migration of the 1st metacarpal base. 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 At some point she may benefit from either a takedown of the nonunion and an ORIF, versus perhaps an LRTI or tight rope procedure. She is also not a great surgical candidate at this time given her comorbidities and limited mobility. She is very much reliant on her walker for even getting around very small distances. Additionally she smokes cigarettes & marijuana daily , making the risks of difficulties in healing a significant concern. I explained the effects of smoking on wound/bone healing, and recommend they stop smoking prior to surgery & while healing. This includes vaping, Marijuana, and other Nicotine products including patches used to help quit. They expressed understanding. I discussed activity modification, they should limit or avoid any heavy or repetitive pinching or gripping activities or heavy lifting activities She was fitted for a comfort cool brace to wear with daily activity She should work on ROM exercises, and avoid any gripping or strengthening activities I discussed the use of assistive devices for daily activity At this time I recommend she continue to follow with Dr. Ji for her spine and mobility issues & repetitive falls She will follow up in 2-3 months to see how she is doing 2. Spinal stenosis, and history of falls She is following with Dr. Ji for this 3. Left [place] tenosynovitis, S/P injections Date of injections: 09/13/24, 05/03/24, with relief 03/15/24 without improvement Please note that greater than 40 minutes was spent with this patient going over the history, evaluating the patient and radiographs, formulating possible treatment options, discussing them with the patient, and documenting the visit. Scribed for Yady Shankar, MD by Gold Urbina, chief medical officer, on 01/25/25 at 2:30 PM, EST. 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
--- OUTSIDE RECORDS SUMMARY | 2025-01-25 15:36 | XMS_ITS | Patient Health Record ---
Author Organization [facility] Address [address] [place] [address] Care Team Providers Care Volunteer Services Assistant Name Role Phone Doug Santos MD Primary Care Provider Unavailab Reyes Junior Unavailable [phone] Reason For Referral No Information Medications Medication [...] W/U Status Risk Notes Problem Verruca plantaris ([id number]) Verruca Plantaris (078.19) Active confirmed Plan Of Treatment No Information Insurance Providers Payer Name Payer Address Payer Phone Subscriber Number Group Number Insured Name Patient Relationship to Insured Coverage Start Date Coverage End Date [facility] [address] [place] [address] [phone] [id number] Antoinette Jeter Self - patient is the insured Medical (General) History Medical History History ICD Code Arthritis asthma back, hip, knee pain fibromyalgia neuropathy thyroid disorder warts chicken pox
--- OUTSIDE RECORDS SUMMARY | 2025-01-25 15:37 | XMS_ITS | Patient Health Record ---
Author Organization [facility] Address [address] [place] [address] Care Team Providers Care Croze Cutter Helper Name Role Phone Tom (RETIRED) Doug MARIE Primary Care Provider Unavailable Brett Baker Unavailable [phone] Allergies Allergen (clinical drug ingredient) Drug/Non Drug [...] Problem Status W/U Status Risk Notes Problem [id number] Encounter for screening for malignant neoplasm of colon (Z12.11) Active confirmed Problem 906050749 Irritable bowel syndrome with diarrhea (K58.0) Active confirmed Problem 117582876 Gastroesophageal reflux disease without esophagitis (K21.9) Active confirmed Problem 047789481246475 Preprocedural examination (Z01.818) Active confirmed Problem Diverticulosis of colon (456033577) Diverticulosis of colon (K57.30) Active confirmed Plan Of Treatment Pending Test Test Name Order Date Pathology 08/12/2021 Future Test Test Name Order Date COLONOSCOPY 06/19/2021 Insurance Providers Payer Name Payer Address Payer Phone Subscriber Number Group Number Insured Name Patient Relationship to Insured Coverage Start Date Coverage End Date MED[place]ARE OF [place] [address] [place] [address] [id number] GISELLE TALBOT Self - patient is the insured [facility] [address] [place] [address] [id number] GISELLE TALBOT Self - patient is the insured Medical (General) History Medical History History ICD Code COVID-pneumonia 04/2021 Fibromyalgia Hypothyroidism IBS-doing well on dicyclomin e as of the 06/2021 office visit-normal dudoenal biopsies without celiac disease in EGD GERD-EGD 2009-neg. for [place] tt's or esophagitis, small hiatal hernia was noted Denies [place],DM,CVA,Lung disease,renal dise ase Colonoscopy 2009--negative for polyps, I BD, microscopic colitis Surgical History Surgery Date(Month/Year)
== END 2025-01-25 14:59 | disposition home or self-care (01) ==
LOC: HO.HOS 13:14
PROVIDERS: PCP Physician Assistant Medical; Visit Provider Orthopaedic Surgery
DX: S00-T88 Injury, poisoning and certain other consequences of external causes (principal); M48.00 Spinal stenosis, site unspecified
CPT/HCPCS: 99214

== ENCOUNTER → 2025-01-25 13:13 | Outpatient (BNVA) | payer MEDICARE, OTHER, SELFPAY | PROVIDERS: PCP Physician Assistant Medical; Visit Provider Orthopaedic Surgery | DX: S00-T88 Injury, poisoning and certain other consequences of external causes (principal); M48.00 Spinal stenosis, site unspecified; F17.210 Nicotine dependence, cigarettes, uncomplicated | CPT/HCPCS: 99212 ==

== ENCOUNTER → 2025-01-25 13:54 | Outpatient (BNV) | payer MEDICARE, OTHER, SELFPAY | PROVIDERS: Visit Provider Radiology Diagnostic Radiology | DX: S62.232A Other displaced fracture of base of first metacarpal bone, left hand, initial encounter for closed fracture (principal) | CPT/HCPCS: 73130 ==

== ENCOUNTER 2025-01-26 12:02 | Outpatient (REF) | payer MEDICARE, OTHER, SELFPAY ==
--- NOTE | ~2025-01-26 | XR_ITS ---
EXAMINATION: XR HAND, LEFT CLINICAL INFORMATION: M79.642 - Pain in left hand COMPARISON: None available. TECHNIQUE: PA, lateral, and oblique views of the left hand. FINDINGS: Redemonstration of comminuted intra-articular fracture at the base of the first metacarpal. Fracture lines are still well defined although have become slightly more sclerotic indicating some degree of healing. No gross bridging bone callus although there is subtle periosteal new bone formation. No change in alignment. No additional fracture or dislocation. Mild prominence of the scapholunate interval. There is grossly normal alignment. Negative ulnar variance again noted. No soft tissue abnormalities. XR/XR hand LT min 3V IMPRESSION: 1. Comminuted intra-articular fracture base of the first metacarpal with early evidence of healing. Electronically signed by: Augustin Lim MD 01/25/2025 02:35 PM EDT
--- OUTSIDE RECORDS SUMMARY | 2025-01-27 13:47 | XMS_ITS | Patient Health Record ---
Author Organization [facility] Address [address] [place] [address] Care Team Providers Care Pressure Welder Name Role Phone Tom (RETIRED) Doug MARIE Primary Care Provider Unavailable Brett Baker Unavailable [phone] Allergies Allergen (clinical drug ingredient) Drug/Non Drug [...] Problem Status W/U Status Risk Notes Problem 231476904 Encounter for screening for malignant neoplasm of colon (Z12.11) Active confirmed Problem 142892912 Irritable bowel syndrome with diarrhea (K58.0) Active confirmed Problem 106745836 Gastroesophageal reflux disease without esophagitis (K21.9) Active confirmed Problem 643518142696540 Preprocedural examination (Z01.818) Active confirmed Problem Diverticulosis of colon (223136927) Diverticulosis of colon (K57.30) Active confirmed Plan Of Treatment Pending Test Test Name Order Date Pathology 08/12/2021 Future Test Test Name Order Date COLONOSCOPY 06/19/2021 Insurance Providers Payer Name Payer Address Payer Phone Subscriber Number Group Number Insured Name Patient Relationship to Insured Coverage Start Date Coverage End Date MED[place]ARE OF [place] [address] [place] [address] [id number] GISELLE TALBOT Self - patient is the insured [facility] [address] [place] [address] [id number] GISELLE TALBOT Self - patient is the insured Medical (General) History Medical History History ICD Code COVID-pneumonia 04/2021 Fibromyalgia Hypothyroidism IBS-doing well on dicyclomin e as of the 06/2021 office visit-normal dudoenal biopsies without celiac disease in EGD GERD-EGD 2009-neg. for [place] tt's or esophagitis, small hiatal hernia was noted Denies [place],DM,CVA,Lung disease,renal dise ase Colonoscopy 2009--negative for polyps, I BD, microscopic colitis Surgical History Surgery Date(Month/Year)
--- OUTSIDE RECORDS SUMMARY | 2025-01-27 13:47 | XMS_ITS | Patient Health Record ---
Author Organization [facility] Address [address] [place] [address] Care Team Providers Care Digital Media Designer Name Role Phone Doug Santos MD Primary Care Provider Unavailab Reyes Junior Unavailable [phone] Reason For Referral No Information Medications Medication [...] W/U Status Risk Notes Problem Verruca plantaris ([id number]) Verruca Plantaris (078.19) Active confirmed Plan Of Treatment No Information Insurance Providers Payer Name Payer Address Payer Phone Subscriber Number Group Number Insured Name Patient Relationship to Insured Coverage Start Date Coverage End Date [facility] [address] [place] [address] [phone] [id number] Antoinette Jeter Self - patient is the insured Medical (General) History Medical History History ICD Code Arthritis asthma back, hip, knee pain fibromyalgia neuropathy thyroid disorder warts chicken pox
== END 2025-01-26 12:03 | disposition home or self-care (01) ==
LOC: HO.HOSX 12:02
PROVIDERS: Visit Provider Orthopaedic Surgery
DX: M79.642 Pain in left hand (principal)
CPT/HCPCS: 73130

== ENCOUNTER 2025-02-03 10:06 | Outpatient (AMB) | payer MEDICARE, OTHER, SELFPAY ==
--- NOTE | 2025-02-03 10:06 | MHC.OFFVIS ---
Intake Visit Reasons: OV- MRI Review Intake Note: Antoinette is a 54 year old female who presents today VIA Telehealth for her Lumbar MRI Review. Allergies No Known Allergies (No Known Allergies*) Allergy (Verified 02/03/25 10:08) Medication List - Last Reconciled 02/03/25 by Luanne Lora MD acetaminophen ER (Tylenol Arthritis Pain) 1,300 mg (2 x 650 mg) PO Q12H albuterol sulfate 90 mcg/actuation 2 puffs inhalation Q6H PRN alendronate 70 mg PO FR amlodipine 5 mg See Protocol PO DAILY arm brace please provide thumb spica for left wrist atorvastatin 40 mg PO BEDTIME cyclobenzaprine 10 mg PO Q8H escitalopram oxalate 20 mg PO DAILY gabapentin 600 mg PO TID levothyroxine 50 mcg PO DAILY@0600 meloxicam 15 mg PO DAILY PRN 90 days omeprazole 20 mg PO DAILY@0630 HPI Comments Details: PMH mood disorder, fibromyalgia, htn, osteoporosis, gerd, IBS, hypothryoid, copd/mild intermittent asthma, peripheral neuropathy, osteoporosis, spinal stenosis.. Last hospitalization at [facility] in May for IV antibiotics, IV fluids and IV steroids for her pneumonia and COPD. She is following with hand surgery for left wrist arzate fx, DOI 11/02/24. Last visit to ER in [place] 10/25/[address] scan of neck suspected inflammatory/infectious process. Patient treated with antibiotics. Last visit to PCP reviewed, multiple falls, old rib fractures. Last rib x-rays 11/11/2024 did not report any acute fractures. The first/last time rib fracture was documented on xray was back in 2022. Her main concern was lower back pain. She says 1 year ago, treated/hospitalized for left foot infection. Since then, needed walker or cane. She tends to bend forward when standing/walking. Right upper and lower back and buttocks feel numb. She can't lift her right leg/hip to get into bed. Right now she thinks right foot is numb. She was told in the past to have neuropathy but unknown etiology. I noticed that she is really hunched over and she says it was only since August 2023. Had mid back injury when younger, early 20s. She does admit to chronic recurrent back pain attributed to work. Major issue also is the multiple falls and unstable gait. 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 Recurrent falls General weakness Multiple falls Arzate fracture Scapholunate instability History of mammogram (~07/26/24) Spinal stenosis Anemia Anxiety and depression Hyperlipidemia Infection of skin of neck Hypertension Establishing care with new doctor, encounter for Left wrist pain Left hand pain Fall Pneumonia Hypoxia Acute hypoxic respiratory failure Sepsis Elevated troponin Gram-positive cocci bacteremia Cellulitis of left leg Altered mental status Smoker Arthritis Asthma Low back pain Osteoporosis GERD (gastroesophageal reflux disease) Irritable bowel syndrome (IBS) Hypothyroidism Fibromyalgia Personal history of COVID-19 Surgical History History of Hx of colonoscopy (~08/12/21) History of esophagogastroduodenoscopy (EGD) Family History Father No problems noted. Mother Multiple sclerosis Social History Household Members: Significant Other Housing: House Are you a primary day care supervisor to a significant other at home: No Do you presently have visiting nurse or other home services: No Alcohol intake: current Alcohol intake frequency: does not drink Patient Tobacco Use Status: Current everyday Tobacco user Tobacco use type: Cigarette Cigarette Packs Per Day: 0.5 Cigarettes Per Day: 10.0 e-Cigarette/Vaping Use: Never Used Second Hand Smoke Exposure: Yes Substance Use Type: Marijuana service: No Current occupational status: disabled Current occupational exposures/hazards: No Cognitive needs: Yes (walker and cane) Hearing needs: No Vision needs: Yes (rx glasses) Telehealth Telehealth Telehealth Platform: Telephone Location of provider rendering services: practice address Location of patient: address on file Patient Identification confirmed using: Name, : Yes Telehealth method: voice only Patient verbally consented to treatment: Yes Patient verbally consented to billing insurance company: Yes Patient informed of any privacy concerns related to visit: Yes Minutes spent on Phone/Video with Pt.: 15 Results Reviewed Results Reviewed: Ordering Physician: Luanne Ji Date of Service: 12/29/24 Procedure(s): XR hips FLORENTINO min 3V Accession Number(s): [id number] cc: Sera Greenberg PA-C; Luanne Estrada EXAMINATION: XR BILATERAL HIPS WITH AP PELVIS CLINICAL INFORMATION: M25.559 - Pain in unspecified hip COMPARISON: None available. TECHNIQUE: AP view of the pelvis and frog-leg lateral views of each hip were obtained. FINDINGS: Left hip: There is subtle axial joint space narrowing. Degenerative cyst is noted in the anterior femoral head. No marginal osteophytes are evident. Right hip: There is subtle axial joint space narrowing. There is a very small reactive osteophyte. No abnormalities are evident. XR/XR hips [place] min 3V IMPRESSION: Subtle left hip joint space narrowing and nonspecific degenerative cystic change in the anterior femoral head. Subtle right hip joint space narrowing and minimal acetabular roof osteophyte. Electronically signed by: Chavez Parks MD 12/29/2024 12:56 PM EDT RP Assessment & Plan Assessment & Plan (1) Trochanteric bursitis, right hip: Code(s): M70.61 - Trochanteric bursitis, right hip Category: Medical (2) Lumbar degenerative disc disease: Code(s): M51.369 - Other intervertebral disc degeneration, lumbar region without mention of lumbar back pain or lower extremity pain Category: Medical Qualifiers: Disc-related pain type: discogenic back pain only Qualified Code(s): M51.360 - Other intervertebral disc degeneration, lumbar region with discogenic back pain only (3) Compression fracture of lumbar vertebra with routine healing: Comment: Old compression fracture seen on MRI, unchanged since 2017 Code(s): S32.000D - Wedge compression fracture of unspecified lumbar vertebra, subsequent encounter for fracture with routine healing Category: Medical Qualifiers: Lumbar vertebra fracture level: L3 Qualified Code(s): S32.030D - Wedge compression fracture of third lumbar vertebra, subsequent encounter for fracture with routine healing Plan Discussed MRI report, MRI done at [facility]. Reported disc bulge left-sided L1-L2 and L3-4, without significant spinal stenosis or neural foraminal narrowing. Mild chronic compression deformity L3, unchanged since 2017. Patient is complaining of right-sided leg pain, lateral hip, to the point that she is not able to put on her socks. She denies groin pain. Possibly trochanteric bursitis? We will have her come in for in-person visit, consider bursitis injection. Assessment and plan discussed with patient, and patient was agreeable. All questions were answered thoroughly. Luanne Lora MD, KAMERON Board Certified, [place] Board [employer] and Rehabilitation (ABPMR) Board Certified, [place] Board [employer] Electrodiagnostic Medicine (ABEM) Coding Level of Care Code Est Pt Level 3 (18976) Diagnoses Trochanteric bursitis, right hip M70.61 Degeneration of intervertebral disc of lumbar region with discogenic back pain M51.360 Disc-related pain type: discogenic back pain only Compression fracture of L3 vertebra with routine healing, subsequent encounter S32.030D Lumbar vertebra fracture level: L3
--- OUTSIDE RECORDS SUMMARY | 2025-02-03 10:55 | XMS_ITS | Patient Health Record ---
Author Organization [facility] Address [address] [address] Care Team Providers Care Braided Rug Maker Name Role Phone Doug Santos MD Primary Care Provider Unavailab Reyes Junior Unavailable [phone] Reason For Referral No Information Medications Medication [...] W/U Status Risk Notes Problem Verruca plantaris ([id number]) Verruca Plantaris (078.19) Active confirmed Plan Of Treatment No Information Insurance Providers Payer Name Payer Address Payer Phone Subscriber Number Group Number Insured Name Patient Relationship to Insured Coverage Start Date Coverage End Date [facility] [address] [place] [address] [phone] [id number] Antoinette Jeter Self - patient is the insured Medical (General) History Medical History History ICD Code Arthritis asthma back, hip, knee pain fibromyalgia neuropathy thyroid disorder warts chicken pox
--- OUTSIDE RECORDS SUMMARY | 2025-02-03 10:55 | XMS_ITS | Patient Health Record ---
Author Organization [facility] Address [address] [place] [address] Care Team Providers Care Data Administrator Name Role Phone Tom (RETIRED) Doug MARIE Primary Care Provider Unavailable Brett Baker Unavailable [phone] Allergies Allergen (clinical drug ingredient) Drug/Non Drug [...] Problem Status W/U Status Risk Notes Problem [id number] Encounter for screening for malignant neoplasm of colon (Z12.11) Active confirmed Problem [id number] Irritable bowel syndrome with diarrhea (K58.0) Active confirmed Problem 531078212 Gastroesophageal reflux disease without esophagitis (K21.9) Active confirmed Problem [id number] Preprocedural examination (Z01.818) Active confirmed Problem Diverticulosis of colon (996724682) Diverticulosis of colon (K57.30) Active confirmed Plan Of Treatment Pending Test Test Name Order Date Pathology 08/12/2021 Future Test Test Name Order Date COLONOSCOPY 06/19/2021 Insurance Providers Payer Name Payer Address Payer Phone Subscriber Number Group Number Insured Name Patient Relationship to Insured Coverage Start Date Coverage End Date MEDICARE OF [place] [address] [place] [address] [id number] GISELLE TALBOT Self - patient is the insured [facility] [address] [place] [address] [id number] GISELLE TALBOT Self - patient is the insured Medical (General) History Medical History History ICD Code COVID-pneumonia 04/2021 Fibromyalgia Hypothyroidism IBS-doing well on dicyclomin e as of the 06/2021 office visit-normal dudoenal biopsies without celiac disease in EGD GERD-EGD 2009-neg. for [place] tt's or esophagitis, small hiatal hernia was noted Denies [place],DM,CVA,Lung disease,renal dise ase Colonoscopy 2009--negative for polyps, I BD, microscopic colitis Surgical History Surgery Date(Month/Year)
== END 2025-02-03 10:22 | disposition home or self-care (01) ==
LOC: HO.HOS 10:06
PROVIDERS: Visit Provider Physical Medicine & Rehabilitation
DX: M70.61 Trochanteric bursitis, right hip (principal); M51.360 Other intervertebral disc degeneration, lumbar region with discogenic back pain only; S32.030D Wedge compression fracture of third lumbar vertebra, subsequent encounter for fracture with routine healing
CPT/HCPCS: 99213

== ENCOUNTER → 2025-02-03 10:06 | Outpatient (BNVA) | payer MEDICARE, OTHER, SELFPAY | PROVIDERS: Visit Provider Physical Medicine & Rehabilitation | DX: M70.61 Trochanteric bursitis, right hip (principal); M51.360 Other intervertebral disc degeneration, lumbar region with discogenic back pain only; S32.030D Wedge compression fracture of third lumbar vertebra, subsequent encounter for fracture with routine healing | CPT/HCPCS: 99212 ==

== ENCOUNTER 2025-02-10 14:35 | Outpatient (AMB) | payer MEDICARE, OTHER, SELFPAY ==
--- NOTE | 2025-02-10 14:33 | MHC.PC.OV ---
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 Accompanied by: Self / Same As Patient Allergies No Known Allergies (No Known Allergies*) Allergy (Verified 02/10/25 16:54) Medication List - Last Reconciled 02/10/25 by Sera Greenberg PA-C acetaminophen ER (Tylenol Arthritis Pain) 1,300 mg (2 x 650 mg) PO Q12H albuterol sulfate 90 mcg/actuation 2 puffs inhalation Q6H PRN alendronate 70 mg PO FR amlodipine 5 mg See Protocol PO DAILY amoxicillin-pot clavulanate 875-125 mg 1 tab PO BID 10 days arm brace please provide thumb spica for left wrist atorvastatin 40 mg PO BEDTIME codeine-guaifenesin 10-100 mg/5 mL 5 mL PO Q6H PRN cyclobenzaprine 10 mg PO Q8H escitalopram oxalate 20 mg PO DAILY gabapentin 600 mg PO TID levothyroxine 50 mcg PO DAILY@0600 meloxicam 15 mg PO DAILY PRN 90 days mupirocin 2% 1 appl topical BID omeprazole 20 mg PO DAILY@0630 prednisone 40 mg (2 x 20 mg) PO DAILY 5 days Tobacco use date assessed: 02/10/25 Dental Screening Dental Screen Date: 02/10/25 Did you have a dental visit in the last 12 months?: Yes Did you have a dental problem in the last 6 months where you did not have access to dental care?: Yes Was dental information given to patient?: Patient has dentist HPI Cough and wheezing HPI Details The patient is a 54-year-old female presenting with respiratory symptoms and a skin infection. The patient reports a dry facial skin condition, which upon examination appears to be a staphylococcal infection, possibly due to scratching. The patient has been experiencing these skin issues intermittently, with no pus but clear fluid discharge, causing discomfort. The respiratory symptoms began two days ago, with significant coughing and congestion noted last night. The patient denies fever but reports wheezing and mucus production. 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 Recurrent falls General weakness Multiple falls Arzate fracture Scapholunate instability History of mammogram (~07/26/24) Spinal stenosis Anemia Anxiety and depression Hyperlipidemia Infection of skin of neck Hypertension Establishing care with new doctor, encounter for Left wrist pain Left hand pain Fall Pneumonia Hypoxia Acute hypoxic respiratory failure Sepsis Elevated troponin Gram-positive cocci bacteremia Cellulitis of left leg Altered mental status Smoker Arthritis Asthma Low back pain Osteoporosis GERD (gastroesophageal reflux disease) Irritable bowel syndrome (IBS) Hypothyroidism Fibromyalgia Personal history of COVID-19 Surgical History History of Hx of colonoscopy (~08/12/21) History of esophagogastroduodenoscopy (EGD) Family History Father No problems noted. Mother Multiple sclerosis Social History Household Members: Significant Other Housing: House Are you a primary direct care supervisor to a significant other at home: No Do you presently have visiting nurse or other home services: No Alcohol intake: current Alcohol intake frequency: does not drink Patient Tobacco Use Status: Current everyday Tobacco user Tobacco use type: Cigarette Cigarette Packs Per Day: 0.5 Cigarettes Per Day: 10.0 e-Cigarette/Vaping Use: Never Used Second Hand Smoke Exposure: Yes Substance Use Type: Marijuana service: No Current occupational status: disabled Current occupational exposures/hazards: No Cognitive needs: Yes (walker and cane) Hearing needs: No Vision needs: Yes (rx glasses) Questionnaire Thrive Questionnaire Date Thrive assessed: 10/31/24 GOLDEN-7 AMB Questionnaire GOLDEN-7 Date GOLDEN - 7 assessed: 10/31/24 Source: Developed by Drs. Brett Griffin, Maya Sanchez, Mg Brown and colleagues, with an educational mago from [employer]. Review of Systems Const Details: - Dermatological: Reports dry skin on face with clear fluid discharge, denies pus formation - Respiratory: Reports cough and congestion for two days, denies fever, reports wheezing and mucus production All systems reviewed & are unremarkable except as noted in HPI and below Physical exam (Primary Care) Vital Signs: Last Vital Signs Temp 97.2 F 02/10/25 14:34 Pulse 92 02/10/25 14:34 Resp 16 02/10/25 14:34 BP 143/70 H 02/10/25 14:34 Pulse Ox 95 02/10/25 14:34 Oxygen Delivery Method Room Air 02/10/25 14:34 Care Plan Goal for BP management: <140/90 patient does not feel good today will reassess at next visit BMI Assessment/Plan discussion: High BMI High, discussed plan: lifestyle, weight reduction, dietary, physical activity, alcohol moderation and other Tobacco/Smoking Status: Tobacco use Status Tobacco use date assessed 02/10/25 02/10/25 14:35 Patient Tobacco Use Status Current everyday Tobacco 02/10/25 14:35 Tobacco use type Cigarette 02/10/25 14:35 e-Cigarette/Vaping Use Never Used 02/10/25 14:35 Thrive Assessment: Date of Thrive Assessment Date Thrive assessed 10/31/24 02/10/25 14:35 Const Other: Appearance: Alert. Oriented X3. No acute distress. Head: Normal external exam. Normocephalic. Atraumatic. Eyes: Pupils are equal, round, and reactive to light. Extraocular movements intact. Conjunctiva and sclera normal. Eyelids normal. Ears: External auditory canal normal. Tympanic membranes normal. Both ears look clear with no wax. Throat: Pharynx normal. Uvula midline. Moist mucous membranes. Throat looks clear and does not hurt. Neck: Normal inspection. Neck supple. Full range of motion. No adenopathy. Thyroid Normal. No meningeal signs. No neck mass noted. Cardiovascular: Normal heart rate and rhythm. Heart sound normal. No murmurs noted. Pulses normal throughout. Respiratory: No respiratory distress. Painless inspiration. Breath sounds normal. Slight wheezing noted. No rales/rhonchi noted. Chest nontender. No accessory muscle usage noted or decreased air movement noted. Back: Full range of motion noted. Skin: Skin warm and dry. Normal skin color. Normal skin turgor. No rashes/lesions/lacerations noted. Possible staph infection noted on the face. Extremities: Extremities exhibit normal range of motion. Neuro: Oriented X 3. No motor deficit. No sensory deficit. Reflexes normal. Coding Level of Care Code Est Pt Level 4 (11463) Complex EM visit Add On G2211 Diagnoses Skin infection L08.9 Acute bacterial bronchitis J20.8; B96.89 Assessment & Plan Assessment & Plan (1) Skin infection: Code(s): L08.9 - Local infection of the skin and subcutaneous tissue, unspecified Category: Medical Plan: The patient will be treated with Bactroban, a topical antibiotic, to address the staphylococcal skin infection. (2) Acute bacterial bronchitis: Code(s): J20.8 - Acute bronchitis due to other specified organisms; B96.89 - Other specified bacterial agents as the cause of diseases classified elsewhere Category: Medical Plan: The patient will receive Augmentin and Robitussin with Codeine to manage respiratory symptoms, with a recommendation to complete a 10-day course of antibiotics and take probiotics to prevent diarrhea. Prednisone will be administered for five days to reduce inflammation, and the patient is advised to avoid alcohol and operating machinery while on medication. Plan Plan Patient was informed and verbally consented to the use of an ambient scribe for clinic note documentation during this visit. 1. Staphylococcal Skin Infection The patient will be treated with Bactroban, a topical antibiotic, to address the staphylococcal skin infection. 2. Possible Bronchitis Or Pneumonia The patient will receive Augmentin and Robitussin with Codeine to manage respiratory symptoms, with a recommendation to complete a 10-day course of antibiotics and take probiotics to prevent diarrhea. Prednisone will be administered for five days to reduce inflammation, and the patient is advised to avoid alcohol and operating machinery while on medication. I discussed with the patient the likely diagnosis of a staphylococcal skin infection and possible bronchitis or pneumonia. We reviewed the treatment plan, including the use of Bactroban for the skin infection and Augmentin, Robitussin with Codeine, and Prednisone for respiratory symptoms. I advised the patient to complete the full course of antibiotics, take probiotics to prevent diarrhea, and avoid alcohol and operating machinery while on medication. Medications: New codeine-guaifenesin 10-100 mg/5 mL 5 mL PO Q6H PRN 120 mL 0RF cough mupirocin 2% 1 appl topical BID 22 grams 3RF amoxicillin-pot clavulanate 875-125 mg 1 tab PO BID 20 tabs 0RF 10 days prednisone 40 mg (2 x 20 mg) PO DAILY 10 tabs 0RF 5 days Patient Instructions: - Apply Bactroban to the affected skin area as directed. - Take Augmentin and Robitussin with Codeine as prescribed, complete the full course. - Take Prednisone for five days as directed. - Take probiotics to prevent diarrhea. - Avoid alcohol and operating machinery while on medication. - Contact the clinic if symptoms worsen or do not improve.
[2025-02-10 14:34] VITALS: BP 143/70; PULSE 92; RESP 16; TEMP 36.2; O2SAT 95
== END 2025-02-10 15:06 | disposition home or self-care (01) ==
LOC: HO.HMCSH 14:35
PROVIDERS: Visit Provider Physician Assistant Medical
DX: L08.9 Local infection of the skin and subcutaneous tissue, unspecified (principal); J20.8 Acute bronchitis due to other specified organisms; B96.89 Other specified bacterial agents as the cause of diseases classified elsewhere

== ENCOUNTER → 2025-02-10 14:35 | Outpatient (BNVA) | payer MEDICARE, OTHER, SELFPAY | PROVIDERS: Visit Provider Physician Assistant Medical | DX: K21.9 Gastro-esophageal reflux disease without esophagitis (principal); R05.9 Cough, unspecified; J20.8 Acute bronchitis due to other specified organisms; B96.89 Other specified bacterial agents as the cause of diseases classified elsewhere; L08.9 Local infection of the skin and subcutaneous tissue, unspecified | CPT/HCPCS: 99212 ==

== ENCOUNTER 2025-02-14 14:36 | Outpatient (REF) | payer MEDICARE, OTHER, SELFPAY ==
--- NOTE | ~2025-02-14 | XR_ITS ---
EXAMINATION: XR CHEST 2 VIEWS HISTORY: R05.9 - Cough, unspecified COMPARISON: Comparison is made with the prior examination dated 11/11/2024. FINDINGS: PA and lateral views of the chest are submitted. The lungs are expanded and clear. There is no pleural effusion, pneumothorax, or pulmonary vascular congestion. The heart is enlarged. There are multiple old healed fractures of the bilateral ribs. XR/XR chest 2V IMPRESSION: Cardiomegaly. No acute cardiopulmonary abnormality. Electronically signed by: Brett Clay MD 02/14/2025 03:10 PM EDT
[2025-02-14 16:33] LABS: Appearance Urine Clear; Glucose Urine UA Negative (Negative); PH 7.5 (5.0-9.0); Specific Gravity - Urine <= 1.005 (1.005-1.025); UMIC TRIGGER UACC YES
[2025-02-14 16:34] LABS: Hematocrit 42.1 % (37.0-47.0); Hemoglobin 13.3 g/dl (12.0-16.0); Mean Corpuscular HGB Conc 31.6 g/dl (31.0-35.0); Mean Corpuscular Hemoglobin 28.4 pg (27.0-33.0); Mean Corpuscular Volume 90.0 fL (80.0-98.0); NRBC Abs Auto 0.000 X10*3/uL (0.0-0.012); NRBC Pct Auto 0.0 /100WBC (0.0-0.2); Platelet Count 233 X10*3/uL (160-400); Red Blood Count 4.68 X10*6/uL (4.20-5.50); White Blood Count 6.4 X10*3/uL (4.8-10.8)
[2025-02-14 16:42] LABS: Anion Gap 12 (12-20); Blood Urea Nitrogen 8 mg/dL (9-16); Calcium 9.4 mg/dL (8.4-10.2); Carbon Dioxide 33 mmol/L (22-29); Chloride 101 mmol/L (96-108); Estimated Glomerular Filt Rate > 60; Potassium 4.3 mmol/L (3.3-5.1); Sodium 142 mmol/L (135-145)
[2025-02-14 17:01] LABS: NT Pro B Type Natriuretic Pept 265.5 pg/mL (<300)
--- OUTSIDE RECORDS SUMMARY | 2025-02-14 17:29 | XMS_ITS | Patient Health Record ---
Author Organization [facility] Address [address] [place] [address] Care Team Providers Care Mass Spectrometry Specialist Name Role Phone Tom (RETIRED) Doug MARIE Primary Care Provider Unavailable Brett Baker Unavailable [phone] Allergies Allergen (clinical drug ingredient) Drug/Non Drug [...] BY BHAVNA TH THREE TIMES A DAY Oral; Duration: 30 Active Omeprazole 20 MG TAKE 1 CAPSULE BY MOUTH EVERY DAY Oral; Duration: 90 Active Pregabalin 200 MG TAKE 1 CAPSULE BY MOUTH 3 TIMES A DAY Oral; Duration: 30 Active Levothyroxine Sodium 50 MCG TAKE 1 TABLET BY MOUTH EVERY DAY Oral; Duration: 90 Active levoFLOXacin 500 MG TAKE 1 TABLET BY BHAVNA TH EVERY DAY Oral; Duration: 5 Not-Taking Immunizations Vaccine Route Administration Date [...] Problem Status W/U Status Risk Notes Problem Screening for malignant neoplasm of colon (101048413) Encounter for screening for malignant neoplasm of colon (Z12.11) Active confirmed Problem Irritable bowel syndrome with diarrhea (625624351) Irritable bowel syndrome with diarrhea (K58.0) Active confirmed Problem Gastroesophageal reflux disease without esophagitis (964297802) Gastroesophageal reflux disease without esophagitis (K21.9) Active confirmed Problem Preprocedural examination (452126874358575) Preprocedural examination (Z01.818) Active confirmed Problem Diverticulosis of colon (211342915) Diverticulosis of colon (K57.30) Active confirmed Plan Of Treatment Pending Test Test Name Order Date Pathology 08/12/2021 Future Test Test Name Order Date COLONOSCOPY 06/19/2021 Insurance Providers Payer Name Payer Address Payer Phone Subscriber Number Group Number Insured Name Patient Relationship to Insured Coverage Start Date Coverage End Date MEDICARE OF [place] [address] [place] [address] [id number] GISELLE TALBOT Self - patient is the insured [facility] [address] [place] [address] [id number] GISELLE TALBOT Self - patient is the insured Medical (General) History Medical History History ICD Code COVID-pneumonia 04/2021 Fibromyalgia Hypothyroidism IBS-doing well on dicyclomin e as of the 06/2021 office visit-normal dudoenal biopsies without celiac disease in EGD GERD-EGD 2009-neg. for [place] tt's or esophagitis, small hiatal hernia was noted Denies [place],DM,CVA,Lung disease,renal dise ase Colonoscopy 2009--negative for polyps, I BD, microscopic colitis Surgical History Surgery Date(Month/Year)
--- OUTSIDE RECORDS SUMMARY | 2025-02-14 17:29 | XMS_ITS | Patient Health Record ---
Author Organization [facility] Address [address] [place] [address] Care Team Providers Care Drain Tile Press Operator Name Role Phone Doug Santos MD Primary Care Provider Unavailab Reyes Junior Unavailable [phone] Reason For Referral No Information Medications Medication [...] W/U Status Risk Notes Problem Verruca plantaris ([id number]) Verruca Plantaris (078.19) Active confirmed Plan Of Treatment No Information Insurance Providers Payer Name Payer Address Payer Phone Subscriber Number Group Number Insured Name Patient Relationship to Insured Coverage Start Date Coverage End Date [facility] [address] [place] [address] [phone] [id number] Antoinette Jeter Self - patient is the insured Medical (General) History Medical History History ICD Code Arthritis asthma back, hip, knee pain fibromyalgia neuropathy thyroid disorder warts chicken pox
== END 2025-02-14 14:37 | disposition home or self-care (01) ==
LOC: HO.HMGCX 14:36
PROVIDERS: PCP Physician Assistant Medical; Visit Provider Physician Assistant Medical
DX: Z00.00 Encounter for general adult medical examination without abnormal findings (principal); R05.9 Cough, unspecified
CPT/HCPCS: 36415; 71046; 80048; 81001; 83880; 85027

== ENCOUNTER → 2025-02-14 14:52 | Outpatient (BNV) | payer MEDICARE, OTHER, SELFPAY | PROVIDERS: PCP Physician Assistant Medical; Visit Provider Radiology Diagnostic Radiology | DX: I51.7 Cardiomegaly (principal) | CPT/HCPCS: 71046 ==

== ENCOUNTER 2025-02-23 08:08 | Outpatient (AMB) | payer MEDICARE, OTHER, SELFPAY ==
[2025-02-23 08:14] VITALS: BMI 28.3
--- NOTE | 2025-02-23 08:14 | A.OFFVIS_ITS ---
Vital Signs 02/23/25 08:14 Height 5 ft Weight 145 lb BMI 28.3 Intake Visit Reasons: INJ- right hip trochanter injection Intake Note: Antoinette is a 54 year old female who presents today for a Right Greater Trochanteric Bursa Injection. Patient reports that she is having significant pain in the hip. Allergies No Known Allergies (No Known Allergies*) Allergy (Verified 02/23/25 08:17) Medication List - Last Reconciled 02/23/25 by Luanne Lora MD acetaminophen ER (Tylenol Arthritis Pain) 1,300 mg (2 x 650 mg) PO Q12H albuterol sulfate 90 mcg/actuation 2 puffs inhalation Q6H PRN alendronate 70 mg PO FR amlodipine 5 mg See Protocol PO DAILY arm brace please provide thumb spica for left wrist atorvastatin 40 mg PO BEDTIME codeine-guaifenesin 10-100 mg/5 mL 5 mL PO Q6H PRN cyclobenzaprine 10 mg PO Q8H escitalopram oxalate 20 mg PO DAILY gabapentin 600 mg PO TID levofloxacin 750 mg PO DAILY 5 days levothyroxine 50 mcg PO DAILY@0600 meloxicam 15 mg PO DAILY PRN 90 days mupirocin 2% 1 appl topical BID omeprazole 20 mg PO DAILY@0630 HPI Comments Details: Scheduled today to trial right trochanteric bursitis injection, as discussed from last visit. Last hip x-ray was December 2024. Patient denies any new falls or injuries. However she did have pneumonia that was treated with antibiotics last week, and 5 days of oral prednisone. She has completed the course. Denies any fever. She said she was cleared from pneumonia. She understands possible side effects or complications of getting steroid injection today and wanted to proceed. She also wanted me to do, in addition, a trigger point injection to gluteus muscle where she has 8. 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 Recurrent falls General weakness Multiple falls Arzate fracture Scapholunate instability History of mammogram (~07/26/24) Spinal stenosis Anemia Anxiety and depression Hyperlipidemia Infection of skin of neck Hypertension Establishing care with new doctor, encounter for Left wrist pain Left hand pain Fall Pneumonia Hypoxia Acute hypoxic respiratory failure Sepsis Elevated troponin Gram-positive cocci bacteremia Cellulitis of left leg Altered mental status Smoker Arthritis Asthma Low back pain Osteoporosis GERD (gastroesophageal reflux disease) Irritable bowel syndrome (IBS) Hypothyroidism Fibromyalgia Personal history of COVID-19 Surgical History History of Hx of colonoscopy (~08/12/21) History of esophagogastroduodenoscopy (EGD) Family History Father No problems noted. Mother Multiple sclerosis Social History Household Members: Significant Other Housing: House Are you a primary healthcare project manager to a significant other at home: No Do you presently have visiting nurse or other home services: No Alcohol intake: current Alcohol intake frequency: does not drink Patient Tobacco Use Status: Current everyday Tobacco user Tobacco use type: Cigarette Cigarette Packs Per Day: 0.5 Cigarettes Per Day: 10.0 e-Cigarette/Vaping Use: Never Used Second Hand Smoke Exposure: Yes Substance Use Type: Marijuana service: No Current occupational status: disabled Current occupational exposures/hazards: No Cognitive needs: Yes (walker and cane) Hearing needs: No Vision needs: Yes (rx glasses) Physical Exam Vital Signs: BMI result Body Mass Index 28.3 Office Procedures AMB Joint Injection/Aspiration Joint Injection/Aspiration Details: Consent obtained. Patient lies on left unaffected side with lower leg flexed and upper leg extended. Tender area over the right greater trochanter is identified and marked. Area is cleansed with betadine solution. Using a 27 gauge needle, 2 mL of 2% lidocaine is injected, with the needle perpendicular to center of tender area. Then, using a spinal needle, 40 mg Kenalog is injected perpendicularly at center of tender area and slightly touching bone of greater trochanter. Patient tolerated procedure well without complications. Post-injection instructions given. Injected: 40 mg of and Kenalog Procedure: The patient tolerated the procedure well Coding 42717 - Large joint Procedure code (CPT) selection complete Therapeutic Injection Therapeutic Injection Details: Trigger point injection, right gluteus medius. Consent obtained. One trigger point palpated on right gluteus medius. Area cleansed with Betadine. Needling performed with gauge 27 needle, subsequently injecting 1 ml of 2% Lidocaine on each site, total of 1 mL. Patient tolerated procedure well. Post-injection instructions given. 67654-Ppympmc Point Injection 1 or 2 sites All charges added?: Procedure code (CPT) selection complete Office Meds lidocaine (PF) 10 mg/mL (1 %) injection solution Performing Provider: Luanne Lora MD [place] [facility] Documented (not given) by: Luanne Lora MD on 02/23/25 08:53 Dose Route Admin Location Dispensed Lot Number Expiration Date [facility] Auriculotherapist 2 mL subcut mL Total Dispensed Waste n/a n/a Kenalog 40 mg/mL suspension for injection Performing Provider: Luanne Lora MD [place] [facility] Documented (not given) by: Luanne Lora MD on 02/23/25 08:53 Dose Route Admin Location Dispensed Lot Number Expiration Date [facility] Auriculotherapist 40 mg intrabursal mL Total Dispensed Waste n/a n/a lidocaine (PF) 20 mg/mL (2 %) injection solution Performing Provider: Luanne Lora MD Performing Location[place] [facility] Documented (not given) by: Luanne Lora MD on 02/23/25 08:54 Dose Route Admin Location Dispensed Lot Number Expiration Date [place] Auriculotherapist 20 mg subcut mL Total Dispensed Waste n/a n/a Assessment & Plan Assessment & Plan (1) Trochanteric bursitis, right hip: Code(s): M70.61 - Trochanteric bursitis, right hip Category: Medical (2) Myofascial pain: Code(s): M79.18 - Myalgia, other site Category: Medical Plan Patient tolerated procedure well. Assessment and plan discussed with patient, and patient was agreeable. All questions were answered thoroughly. Follow up 1 month. Luanne Lora MD, KAMERON Board Certified, [place] [employer] and [employer] (ABPMR) Board Certified, [place] [employer] Electrodiagnostic [employer] (ABEM) Orders: Orders AMB Joint Injection/Aspiration Today M70.61 - Trochanteric bursitis, right hip AMB Trigger Point Injection Today M79.18 - Myalgia, other site Medications: New Kenalog (triamcinolone acetonide) 40 mg intrabursal ONCE 1 mL 0RF NS M70.61 - Trochanteric bursitis, right hip lidocaine (PF) 2 mL subcut ONCE 2 mL 0RF M70.61 - Trochanteric bursitis, right hip lidocaine (PF) 20 mg subcut ONCE 1 mL 0RF M79.18 - Myalgia, other site Coding Level of Care Code Procedure Only Diagnoses Trochanteric bursitis, right hip M70.61 Myofascial pain M79.18 CPT Codes Coding - 14239 Large joint: 51604 - Large joint ([id number]) Therapeutic Injection - Ther Injection 1: [id number]-[id number] Point Injection 1 or 2 sites ([id number])
== END 2025-02-23 08:50 | disposition home or self-care (01) ==
LOC: HO.HOS 08:09
PROVIDERS: Visit Provider Physical Medicine & Rehabilitation
DX: M70.61 Trochanteric bursitis, right hip (principal); M79.18 Myalgia, other site
CPT/HCPCS: 20552; 20610

== ENCOUNTER → 2025-02-23 08:08 | Outpatient (BNVA) | payer MEDICARE, OTHER, SELFPAY | PROVIDERS: Visit Provider Physical Medicine & Rehabilitation | DX: M70.61 Trochanteric bursitis, right hip (principal); M79.18 Myalgia, other site | CPT/HCPCS: 20552; 20610; J2003; J3301 ==

== ENCOUNTER 2025-03-29 09:18 | Outpatient (AMB) | payer MEDICARE, OTHER, SELFPAY ==
[2025-03-29 09:21] VITALS: BP 142/71; PULSE 96; RESP 16; TEMP 36.4; O2SAT 93; BMI 31.6
--- NOTE | 2025-03-29 09:21 | A.OFFPC_ITS ---
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 Required: No Accompanied by: Self / Same As Patient Allergies No Known Allergies (No Known Allergies*) Allergy (Verified 03/29/25 10:19) Medication List - Last Reconciled 03/29/25 by Sera Greenberg PA-C acetaminophen ER (Tylenol Arthritis Pain) 1,300 mg (2 x 650 mg) PO Q12H albuterol sulfate 90 mcg/actuation (Ventolin HFA) 1 inh inhalation QID PRN alendronate 70 mg PO FR amlodipine 5 mg See Protocol PO DAILY arm brace please provide thumb spica for left wrist atorvastatin 40 mg PO BEDTIME codeine-guaifenesin 10-100 mg/5 mL 5 mL PO Q6H PRN cyclobenzaprine 10 mg PO Q8H doxycycline monohydrate 100 mg PO BID 10 days escitalopram oxalate 20 mg PO DAILY gabapentin 600 mg PO TID 90 days gentamicin 0.1% 1 appl topical TID ipratropium-albuterol 0.5 mg-3 mg(2.5 mg base)/3 mL 3 mL inhalation Q20M PRN levothyroxine 50 mcg PO DAILY@0600 meloxicam 15 mg PO DAILY PRN 90 days mupirocin 2% 1 appl topical BID omeprazole 20 mg PO DAILY prednisone 40 mg (2 x 20 mg) PO DAILY 5 days Tobacco use date assessed: 02/10/25 Dental Screening Dental Screen Date: 02/10/25 HPI HPI Comments History of Present Illness Details History of Present Illness The patient is a 54 year old individual presenting with a painful, non-healing wound on the left great toe and a cough. The patient reports that approximately two years ago, the patient sustained a cut on the bone of the left great toe while managing calluses. This injury led to sepsis, requiring a 10-day hospitalization. The patient states the wound has never completely resolved and has a callus over it, which recently came off in a piece and has become more sensitive and painful. The patient recalls being extremely sick during the septic episode, with no memory of the first four days and experiencing confusion and urinary incontinence. The patient has a history of COPD and now presents with a cough. The patient has an albuterol inhaler at home and has also used a nebulizer. The patient also reports worsening urinary problems over the past couple of years and is scheduled to see a urogynecologist in May. The patient requests a referral for a skin check due to the patient's mother's history of skin issues. Social History - Functional Status: The patient uses a cane and reports associated body pain. 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 Recurrent falls General weakness Multiple falls Arzate fracture Scapholunate instability History of mammogram (~07/26/24) Spinal stenosis Anemia Anxiety and depression Hyperlipidemia Infection of skin of neck Hypertension Establishing care with new doctor, encounter for Left wrist pain Left hand pain Fall Pneumonia Hypoxia Acute hypoxic respiratory failure Sepsis Elevated troponin Gram-positive cocci bacteremia Cellulitis of left leg Altered mental status Smoker Arthritis Asthma Low back pain Osteoporosis GERD (gastroesophageal reflux disease) Irritable bowel syndrome (IBS) Hypothyroidism Fibromyalgia Personal history of COVID-19 Surgical History History of Hx of colonoscopy (~08/12/21) History of esophagogastroduodenoscopy (EGD) Family History Father No problems noted. Mother Multiple sclerosis Social History Household Members: Significant Other Housing: House Are you a primary care technician to a significant other at home: No Do you presently have visiting nurse or other home services: No Alcohol intake: current Alcohol intake frequency: does not drink Patient Tobacco Use Status: Current everyday Tobacco user Tobacco use type: Cigarette Cigarette Packs Per Day: 0.5 Cigarettes Per Day: 10.0 e-Cigarette/Vaping Use: Never Used Second Hand Smoke Exposure: Yes Substance Use Type: Marijuana service: No Current occupational status: disabled Current occupational exposures/hazards: No Cognitive needs: Yes (walker and cane) Hearing needs: No Vision needs: Yes (rx glasses) Questionnaire PHQ-9 Over the last 2 weeks, how often have you been bothered by any of the following problems? 1. Little interest or pleasure in doing things: not at all 2. Feeling down, depressed, or hopeless: not at all 3. Trouble falling or staying asleep, or sleeping too much: not at all 4. Feeling tired or having little energy: not at all 5. Poor appetite or overeating: not at all 6. Feeling bad about yourself - or that you are a failure or have let yourself or your family down: not at all 7. Trouble concentrating on things, such as reading the newspaper or watching television: not at all 8. Moving or speaking so slowly that other people could have noticed. Or the opposite - being so fidgety or restless that you have been moving around a lot more than usual: not at all 9. Thoughts that you would be better off or of hurting yourself in some way: not at all Total score: 0 Depression Screening Interpretation: Negative Depression Screening Done: Yes 22082 - PHQ-9 Billing: Yes Source: Developed by Drs. Brett Griffin, Maya Sanchez, Mg Brown and colleagues, with an educational mago from [employer]. Thrive Questionnaire Date Thrive assessed: 10/31/24 I am a: Patient What is your living situation today?: I have a steady place to live Within the past 12 months, did the food you bought not last and you didn't have the money to get more?: Never true Within the past 12 months, did you worry whether your food would run out before you got money to buy more?: Never true Do you have trouble paying for medicines?: No Do you have trouble getting transportation to medical appointments?: No Do you have trouble paying your heating and electricity bill?: No Do you have trouble taking care of your child, family member or friend?: No Do you have trouble with day-to-day activities such as bathing, preparing meals, shopping, managing finances, etc.?: No Are you currently unemployed and looking for a job?: No Are you interested in more education?: No Please select the resources that you would like help with: None Currently or been in a relationship where the following occur: No concerns reported THRIVE Score: 0 AUDIT C Alcohol Use Questionnaire (AUDIT-C) 1. How often do you have a drink containing alcohol?: Never 3. How often do you have six or more drinks on one occasion?: Never Total Score: 0 Score Reviewed/Action Taken: No GOLDEN-7 AMB Questionnaire GOLDEN-7 Date GOLDEN - 7 assessed: 10/31/24 Feeling nervous, anxious, or on edge: 0 = Not at all Not being able to stop or control worryin = Not at all Worrying too much about different things: 0 = Not at all Trouble relaxin = Not at all Being so restless that it is hard to sit still: 0 = Not at all Becoming easily annoyed or irritable: 0 = Not at all Feeling afraid as if something awful might happen: 0 = Not at all Total GOLDEN-7 score (0-4 normal; 5-9 mild; 10-14 moderate; 15-21 severe): 0 Source: Developed by Drs. Brett Griffin, Maya Sanchez, Mg Brown and colleagues, with an educational mago from [employer]. GOLDEN-7 Assessment Billing GOLDEN-7 Assessment Tool: GOLDEN-7 Assessment 07697 Review of Systems Narrative Review of Systems - Constitutional: Denies fever. - Integumentary: Reports a sensitive, painful, non-healing wound on the left great toe. - Respiratory: Reports cough. - Genitourinary: Reports chronic, worsening urinary problems. - Musculoskeletal: Reports body pain from using a cane. - Neurological: Reports feeling overwhelmed. Const All systems reviewed & are unremarkable except as noted in HPI and below Physical exam (Primary Care) Vital Signs: Last Vital Signs Temp 97.5 F 03/29/25 09:21 Pulse 96 03/29/25 09:21 Resp 16 03/29/25 09:21 BP 142/71 H 03/29/25 09:21 Pulse Ox 93 03/29/25 09:21 Oxygen Delivery Method Room Air 03/29/25 09:21 Care Plan Goal for BP management: <140/90 at Goal BMI result Body Mass Index 31.6 BMI Assessment/Plan discussion: High BMI High, discussed plan: lifestyle, weight reduction, dietary, physical activity, alcohol moderation and other Tobacco/Smoking Status: Tobacco use Status Tobacco use date assessed 02/10/25 03/29/25 09:29 Patient Tobacco Use Status Current everyday Tobacco 03/29/25 09:29 Tobacco use type Cigarette 03/29/25 09:29 e-Cigarette/Vaping Use Never Used 03/29/25 09:29 PHQ-9: PHQ-9 Score PHQ-9: Total score 0 03/29/25 09:29 Depression Screening Interpretation: Negative Thrive Assessment: Date of Thrive Assessment Date Thrive assessed 10/31/24 03/29/25 09:29 Currently or been in a relationship where the following occur: No concerns reported Narrative Physical Exam Appearance: Alert. Oriented X3. No acute distress. Head: Normal external exam. Normocephalic. Atraumatic. Eyes: Pupils are equal, round, and reactive to light. Extraocular movements intact. Conjunctiva and sclera normal. Eyelids normal. Throat: Pharynx normal. Uvula midline. Moist mucous membranes. Neck: Normal inspection. Neck supple. Full range of motion. Cardiovascular: Normal heart rate and rhythm. Heart sound normal. No murmurs noted. Pulses normal throughout. Respiratory: No respiratory distress. Painless inspiration. Breath sounds diminished. No wheezes/rales/rhonchi noted. Chest nontender. No accessory muscle usage noted or decreased air movement noted. Back: Full range of motion noted. Skin: Skin warm and dry. Normal skin color. Normal skin turgor. Skin lesions and freckles noted. Extremities: No lower extremity edema. Extremities exhibit normal range of motion. Left great toe with callus and sensitivity noted. No streaking, induration, fluctuance, purulent drainage, foul odor noted. Mild erythema consistent with mild cellulitis infection. Neuro: Oriented X 3. No motor deficit. No sensory deficit. Reflexes normal. Results Reviewed Results Reviewed: Results - Labs: A urinalysis performed yesterday shows a trace of white blood cells. Coding Level of Care Code Est Pt Level 4 (55795) Complex visit Add On G2211 Diagnoses Pain of left great toe M79.675 Bronchitis J40 Skin cancer screening Z12.83 Additional Codes GOLDEN-7 Assessment Billing - GOLDEN-7 Assessment Tool: GOLDEN-7 Assessment 57121 ([id number]) PHQ-9 - 71231 - PHQ-9 Billing: Yes ([id number]) Assessment & Plan Assessment & Plan (1) Pain of left great toe: Code(s): M79.675 - Pain in left toe(s) Category: Medical Plan: The patient presents with a chronic, non-healing wound on the left great toe which is now more painful and feels warm. An X-ray of the left toe will be ordered to rule out bone involvement. A referral will be made to podiatry for further evaluation and management. Topical gentamycin will be prescribed to soften the area until the podiatry appointment. The patient will also be started on doxycycline, which will provide coverage for this as well as the concurrent respiratory infection. (2) Bronchitis: Code(s): J40 - Bronchitis, not specified as acute or chronic Category: Medical Plan: Given the patient's history of COPD, current cough, and diminished breath sounds on exam, there is concern for acute bronchitis or a COPD exacerbation. A chest X-ray will be ordered. The patient will be prescribed doxycycline 100 mg twice a day for 10 days, prednisone, a Ventolin inhaler, and nebulizer tubing. (3) Skin cancer screening: Code(s): Z12.83 - Encounter for screening for malignant neoplasm of skin Category: Medical Plan: The patient requested a dermatology consultation for a skin check due to family history and the presence of skin lesions and freckles. A referral will be placed to [facility]. Plan Plan Patient was informed and verbally consented to the use of an ambient scribe for clinic note documentation during this visit. 1. Non-Healing Wound, Left Great Toe The patient presents with a chronic, non-healing wound on the left great toe which is now more painful and feels warm. An X-ray of the left toe will be ordered to rule out bone involvement. A referral will be made to podiatry for further evaluation and management. Topical gentamycin will be prescribed to soften the area until the podiatry appointment. The patient will also be started on doxycycline, which will provide coverage for this as well as the concurrent respiratory infection. 2. Acute Bronchitis Given the patient's history of COPD, current cough, and diminished breath sounds on exam, there is concern for acute bronchitis or a COPD exacerbation. A chest X-ray will be ordered. The patient will be prescribed doxycycline 100 mg twice a day for 10 days, prednisone, a Ventolin inhaler, and nebulizer tubing. 3. Preventative Care: Skin Cancer Screening The patient requested a dermatology consultation for a skin check due to family history and the presence of skin lesions and freckles. A referral will be placed to [facility]. 4. Urinary Tract Symptoms The patient has chronic, worsening urinary symptoms and is under the care of a urogynecologist. A recent urinalysis ordered by that specialist showed a trace of white blood cells. The patient was advised to follow up with the urogynecologist for management, as an appointment is already scheduled for May. Discussion Notes I discussed the plan for the patient's left great toe, which includes an X-ray to check for bone involvement, a referral to podiatry for expert management, and a prescription for topical gentamycin to soften the callus. I also explained the patient's respiratory symptoms and exam findings are concerning for bronchitis, especially with a history of COPD. Therefore, I ordered a chest X-ray and prescribed a course of doxycycline to cover both the potential chest and toe infections, along with prednisone, a Ventolin inhaler, and nebulizer tubing. I provided the patient with referral information for both podiatry and dermatology, and instructed the patient to call to schedule appointments. We reviewed the recent urinalysis result, and I advised the patient to contact the ordering urogynecologist for further guidance. I confirmed that the patient has a follow-up appointment scheduled. Orders: Orders XR toe LT min 2V Today L84 - Corns and callosities, M79.675 - Pain in left toe(s) Referrals Dermatology Referral L81.2 - Freckles, L98.9 - Disorder of the skin and subcutaneous tissue, unspecified Podiatry Referral L84 - Corns and callosities, M79.675 - Pain in left toe(s) Medications: New gentamicin 0.1% 1 appl topical TID 30 grams 3RF doxycycline monohydrate 100 mg PO BID 20 tabs 0RF 10 days prednisone 40 mg (2 x 20 mg) PO DAILY 10 tabs 0RF 5 days ipratropium-albuterol 0.5 mg-3 mg(2.5 mg base)/3 mL for 3 doses 3 mL inhalation Q20M PRN 90 mL 3RF shortness of breath or wheezing albuterol sulfate 90 mcg/actuation (Ventolin HFA) 1 inh inhalation QID PRN 8.5 grams 6RF shortness of breath or wheezing Patient Instructions: Patient Instructions - Go for an X-ray of your left toe and your chest. - Take all medications as prescribed, including Doxycycline 100 mg twice a day for 10 days, Prednisone, and topical Gentamycin for your toe. - Use your new Ventolin inhaler and nebulizer supplies as needed for breathing difficulties. - Call the podiatry and dermatology offices to schedule your referral appointments. - Follow up with your urogynecologist regarding your recent urine test results. - Let us know if your toe pain or breathing gets any worse. - Keep your scheduled follow-up appointment.
--- OUTSIDE RECORDS SUMMARY | 2025-03-29 10:17 | XMS_ITS | Patient Health Record ---
Author Organization [facility] Address [address] [place] [id number] Care Team Providers Care Assurance Auditor Name Role Phone Tom (RETIRED) Doug MARIE Primary Care Provider Unavailable Brett Bkaer Unavailable [phone] Allergies Allergen (clinical drug ingredient) Drug/Non Drug Allergy documented on EMR Reaction Allergy Type Onset Date Status NyQuil Unknown Drug Allergy Active Reason For Referral No Information Medications Medication SIG (Take, Route, Frequency, Duration) Notes Start Date End Date Status Dicyclomine HCl 20 MG Tablet TAKE 1 CAPSULE BY MOUTH FOUR TIMES A DAY Orally Four times a day Active Ibuprofen 800 MG Tablet TAKE 1 TABLET BY MOUTH THREE TIMES A DAY Oral; Duration: 30 Active Omeprazole 20 MG Capsule Delayed Release TAKE 1 CAPSULE BY MOUTH EVERY DAY Oral; Duration: 90 Active Pregabalin 200 MG Capsule TAKE 1 CAPSULE BY MOUTH 3 TIMES A DAY Oral; Duration: 30 Active Levothyroxine Sodium 50 MCG Tablet TAKE 1 TABLET BY MOUTH EVERY DAY Oral; Duration: 90 Active levoFLOXacin 500 MG Tablet TAKE 1 TABLET BY MOUTH EVERY DAY Oral; Duration: 5 Not-Taking/PRN Immunizations Vaccine Route Administration Date Status Comme nts Influenza Unknown 06/19/2021 Refused Social History Tobacco Use: Social History Observation Description Date Details (start date - stop date) Current Smoker NA - NA Social History Drugs/Alcohol: Social Info Question Answer Notes Alcohol Screen Did you have a drink containing alcohol in the past year? No Points 0 Interpretation Negative Tobacco Use: Social Info Question Answer Notes Tobacco Use/Smoking Patient is a current smoker How often do you smoke cigarettes? every day How many cigarettes a day do you smoke? 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 Section Notes: Smoker 1/2 ppd; no sig alcoh ol Problems Problem Type SNOMED Code ICD Code Onset Dates Problem Status W/U Status Risk Notes Problem Screening for malignant neoplasm of colon (336820258) Encounter for screening for malignant neoplasm of colon (Z12.11) Active confirmed Problem Irritable bowel syndrome with diarrhea (200464871) Irritable bowel syndrome with diarrhea (K58.0) Active confirmed Problem Gastroesophageal reflux disease without esophagitis (394050247) Gastroesophageal reflux disease without esophagitis (K21.9) Active confirmed Problem Preprocedural examination (243986050970344) Preprocedural examination (Z01.818) Active confirmed Problem Diverticulosis of colon (909211479) Diverticulosis of colon (K57.30) Active confirmed Plan Of Treatment Pending Test Test Name Order Date Pathology 08/12/2021 Future Test Test Name Order Date COLONOSCOPY 06/19/2021 Insurance Providers Payer Name Payer Address Payer Phone Subscriber Number Group Number Insured Name Patient Relationship to Insured Coverage Start Date Coverage End Date MEDICARE OF [place] [address] [place] [address] [id number] GISELLE TALBOT Self - patient is the insured [facility] [address] [place] [phone] [id number] GISELLE TALBOT Self - patient is the insured Medical (General) History Medical History History ICD Code COVID-pneumonia 04/2021 Fibromyalgia Hypothyroidism IBS-doing well on dicyclomin e as of the 06/2021 office visit-normal dudoenal biopsies without celiac disease in EGD GERD-EGD 2009-neg. for [place] tt's or esophagitis, small hiatal hernia was noted Denies MO,DM,CVA,Lung disease,renal dise ase Colonoscopy 2009--negative for polyps, I BD, microscopic colitis Surgical History Surgery Date(Month/Year)
--- OUTSIDE RECORDS SUMMARY | 2025-03-29 10:17 | XMS_ITS | Patient Health Record ---
Author Organization [facility] Address [address] [address] Care Team Providers Care Swimming Pool Maintenance Name Role Phone Doug Santos MD Primary Care Provider Unavailab Reyes Junior Unavailable [phone] Reason For Referral No Information Medications Medication [...] W/U Status Risk Notes Problem Verruca plantaris ([id number]) Verruca Plantaris (078.19) Active confirmed Plan Of Treatment No Information Insurance Providers Payer Name Payer Address Payer Phone Subscriber Number Group Number Insured Name Patient Relationship to Insured Coverage Start Date Coverage End Date [facility] [address] [place] [address] [phone] [id number] Atnoinette Jeter Self - patient is the insured Medical (General) History Medical History History ICD Code Arthritis asthma back, hip, knee pain fibromyalgia neuropathy thyroid disorder warts chicken pox
[2025-03-29 10:19] VITALS: BP 127/77
== END 2025-03-29 09:56 | disposition home or self-care (01) ==
LOC: HO.HMCSH 09:18
PROVIDERS: PCP Physician Assistant Medical; Visit Provider Physician Assistant Medical
DX: M79.675 Pain in left toe(s) (principal); J40 Bronchitis, not specified as acute or chronic; Z12.83 Encounter for screening for malignant neoplasm of skin

== ENCOUNTER → 2025-03-29 09:18 | Outpatient (BNVA) | payer MEDICARE, OTHER, SELFPAY | PROVIDERS: PCP Physician Assistant Medical; Visit Provider Physician Assistant Medical | DX: M79.675 Pain in left toe(s) (principal); J40 Bronchitis, not specified as acute or chronic; Z86.19 Personal history of other infectious and parasitic diseases; J44.9 Chronic obstructive pulmonary disease, unspecified; Z13.31 Encounter for screening for depression | CPT/HCPCS: 96127; 99212 ==

== ENCOUNTER 2025-04-12 11:36 | Outpatient (AMB) | payer MEDICARE, OTHER, SELFPAY ==
[2025-04-12 11:46] VITALS: BMI 31.6
--- NOTE | 2025-04-12 11:46 | A.OFFVIS_ITS ---
Vital Signs 04/12/25 11:46 Height 5 ft Weight 162 lb BMI 31.6 Intake Visit Reasons: OV- LT wrist arzate fx s/p fall DOI: 11/02/24 Intake Note: Antoinette is a 54 year old left hand dominant female who presents today for a follow up of her Left [place] Fracture 11/02/24. At her last visit with Dr Shankar, she was fitted for a comfort cool brace to wear with daily activity, she should work on ROM exercises, and avoid any gripping or strengthening activities. Patient is aware she is not a great surgical candidate. Today patient states her pain has not changes even though she is wearing her brace. Xrays updated in office. Allergies No Known Allergies (No Known Allergies*) Allergy (Verified 04/12/25 11:49) HPI HPI OV- LT wrist arzate fx s/p fall DOI: 11/02/24: Details: Antoinette is a 54 year old left hand dominant woman who returns for her left 1st metacarpal base (Arzate's) fracture non-union, S/P fall, DOI: 11/01/24 She complains of pain at the base of her left thumb, unchanged from prior. She has been wearing a splint when symptomatic as instructed. She has a Hx of multiple falls & spinal stenosis. She walks using a walker but says she does have a cane she can use. She is a daily smoker and is not a good surgical candidate. She says she has been trying to reduce her smoking habits. [facility] Medical History (Updated 04/12/25 @ 12:13 by Gold Urbina) Skin cancer screening Bronchitis Freckles Skin lesion Pain of left great toe Callus Cough Acute bacterial bronchitis Skin infection Cardiomegaly Rib sprain Rib pain on left side Osteopenia Ulnar impingement syndrome of left upper extremity Recurrent falls General weakness Multiple falls Arzate fracture Scapholunate instability History of mammogram (~07/26/24) Spinal stenosis Anemia Anxiety and depression Hyperlipidemia Infection of skin of neck Hypertension Establishing care with new doctor, encounter for Left wrist pain Left hand pain Fall Pneumonia Hypoxia Acute hypoxic respiratory failure Sepsis Elevated troponin Gram-positive cocci bacteremia Cellulitis of left leg Altered mental status Smoker Arthritis Asthma Low back pain Osteoporosis GERD (gastroesophageal reflux disease) Irritable bowel syndrome (IBS) Hypothyroidism Fibromyalgia Personal history of COVID-19 Surgical History History of Hx of colonoscopy (~08/12/21) History of esophagogastroduodenoscopy (EGD) Family History Father No problems noted. Mother Multiple sclerosis Social History Household Members: Significant Other Housing: House Are you a primary caregivers non medical to a significant other at home: No Do you presently have visiting nurse or other home services: No Alcohol intake: current Alcohol intake frequency: does not drink Patient Tobacco Use Status: Current everyday Tobacco user Tobacco use type: Cigarette Cigarette Packs Per Day: 0.5 Cigarettes Per Day: 10.0 e-Cigarette/Vaping Use: Never Used Second Hand Smoke Exposure: Yes Substance Use Type: Marijuana service: No Current occupational status: disabled Current occupational exposures/hazards: No Cognitive needs: Yes (walker and cane) Hearing needs: No Vision needs: Yes (rx glasses) Review of Systems Const All systems reviewed & are unremarkable except as noted in HPI and below Physical Exam Vital Signs: BMI result Body Mass Index 31.6 Const General: no acute distress and alert Orientation/consciousness: patient oriented x3 Neuro General: patient oriented x3 Extrem Other: Evaluation of Left Upper Extremity: The patient is alert, oriented, and in no acute distress She ambulates with a walker and a cane. Neuro: Median, Ulnar, Radial nerves motor and sensory intact and sensation is normal to the tips of all digits Vascular: Cap refill brisk ROM: She can make a fist and extend all of her digits. She can oppose her thumb to all digits Mildly tender over the 1st metacarpal base. Mild tenderness over the basal joint No appreciable swelling Patient reports that she gets pain at the base of her thumb with heavy gripping and pinching. Not particularly painful at this time. Radiographs: 3 views of the left hand were taken and viewed by me today in clinic. They show a 1st metacarpal base fracture (Arzate's fracture) non-union with proximal migration of the 1st metacarpal base. 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 At some point she may benefit from perhaps an LRTI or tight rope procedure. She is also not a great surgical candidate at this time given her comorbidities and limited mobility. She is very much reliant on her walker for even getting around very small distances. Additionally she smokes cigarettes & marijuana daily, making the risks of difficulties in healing a significant concern. She now denies smoking Marijuana and says she has been trying tor educe her cigarette use. She may benefit from a basal joint steroid injection, using the mini C-arm for needle guidance. She is in agreement I explained the effects of smoking on wound/bone healing, and recommend they stop smoking prior to surgery & while healing. This includes vaping, Marijuana, and other Nicotine products including patches used to help quit. They expressed understanding. I discussed activity modification, they should limit or avoid any heavy or repetitive pinching or gripping activities or heavy lifting activities She will continue to wear her comfort cool brace with daily activities She should work on ROM exercises, and avoid any gripping or strengthening activities I discussed the use of assistive devices for daily activity At this time I recommend she continue to follow with Dr. Ji for her spine and mobility issues & repetitive falls She will follow up in 4-6 weeks for a mini C-arm injection for her left thumb basal joint. This should be a 30 minute appointment 2. Spinal stenosis, and history of falls She is following with Dr. Ji for this 3. Left [place] tenosynovitis, S/P injections Date of injections: 09/13/24, 05/03/24, with relief 03/15/24 without improvement Scribed for Yady Shankar, MD by Gold Urbina, medical reimbursement specialist, on 04/12/25 at 12:10 PM, EST. 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
== END 2025-04-12 12:31 | disposition home or self-care (01) ==
LOC: HO.HOS 11:36
PROVIDERS: PCP Physician Assistant Medical; Visit Provider Orthopaedic Surgery
DX: S00-T88 Injury, poisoning and certain other consequences of external causes (principal); M48.00 Spinal stenosis, site unspecified; F17.200 Nicotine dependence, unspecified, uncomplicated
CPT/HCPCS: 99214

== ENCOUNTER → 2025-04-12 11:36 | Outpatient (BNVA) | payer MEDICARE, OTHER, SELFPAY | PROVIDERS: PCP Physician Assistant Medical; Visit Provider Orthopaedic Surgery | DX: M79.642 Pain in left hand (principal); S00-T88 Injury, poisoning and certain other consequences of external causes; W18.30XD Fall on same level, unspecified, subsequent encounter; M48.00 Spinal stenosis, site unspecified; F17.210 Nicotine dependence, cigarettes, uncomplicated | CPT/HCPCS: 99212 ==

== ENCOUNTER → 2025-04-12 11:37 | Outpatient (BNV) | payer MEDICARE, OTHER, SELFPAY | PROVIDERS: Visit Provider Radiology Diagnostic Radiology | DX: M79.642 Pain in left hand (principal) | CPT/HCPCS: 73130 ==

== ENCOUNTER 2025-04-13 08:44 | Outpatient (REF) | payer MEDICARE, OTHER, SELFPAY ==
--- NOTE | ~2025-04-13 | XR_ITS ---
EXAMINATION: XR HAND, LEFT CLINICAL INFORMATION: M79.642 - Pain in left hand, follow-up fracture COMPARISON: 01/25/2025 TECHNIQUE: PA, lateral, and oblique views of the left hand. FINDINGS: Again seen is fracture involving the ulnar base of the first metacarpal extending to the articular surface There has been progressive proximal migration of the first metacarpal with persistent lucency across the fracture line with increasingly sclerotic margins. There is a round ossifying fragment just distal to the fracture. Otherwise stable exam. There is persistent widening of the scapholunate joint space. There is mild dorsal tilt of lunate. The scapholunate angle is increased and measures 72 degrees and the radiolunate angle is also increased and measures 28 degrees. The capital lunate angle is borderline measuring 30 degrees. There is ulnar minus variance measuring 5-6 mm. XR/XR hand LT min 3V IMPRESSION: Arzate fracture with possible nonunion. There is proximal migration of the first metacarpal relative to the ulnar fragment and increasingly sclerotic margins along the fracture. Scapholunate ligament tear with mild DISI deformity Electronically signed by: Chavez Parks MD 04/12/2025 11:57 AM SPENSER
== END 2025-04-13 08:45 | disposition home or self-care (01) ==
LOC: HO.HOSX 08:44
PROVIDERS: Visit Provider Orthopaedic Surgery
DX: M79.642 Pain in left hand (principal)
CPT/HCPCS: 73130

== ENCOUNTER 2025-04-14 08:33 | Outpatient (REF) | payer MEDICARE, OTHER, SELFPAY ==
--- NOTE | ~2025-04-14 | XR_ITS ---
EXAMINATION: XR HIP, RIGHT CLINICAL INFORMATION: M25.551 - Pain in right hip COMPARISON: December 29, 2024 TECHNIQUE: AP and oblique views of the right hip. FINDINGS: Joint space narrowing, asymmetric at the right coxofemoral joint. Sclerosis at the sacroiliac joint. Subchondral cyst formation in the greater trochanter of the right femur. No acute fracture or dislocation. No lytic or blastic lesions. Multilevel spondylosis, lower lumbar spine. XR/XR hip RT min 2V IMPRESSION: Mild osteoarthrosis/osteoarthritis, right hip. Probable right-sided sacroiliitis. Electronically signed by: Matthew Camargo MD 04/14/2025 09:27 AM SPENSER
== END 2025-04-14 08:34 | disposition home or self-care (01) ==
LOC: HO.HOSX 08:33
PROVIDERS: Visit Provider Physical Medicine & Rehabilitation
DX: L84 Corns and callosities (principal); E55.9 Vitamin D deficiency, unspecified; J42 Unspecified chronic bronchitis; F17.210 Nicotine dependence, cigarettes, uncomplicated; L97.528 Non-pressure chronic ulcer of other part of left foot with other specified severity; Z13.31 Encounter for screening for depression; Z13.39 Encounter for screening examination for other mental health and behavioral disorders; M70.61 Trochanteric bursitis, right hip; S32.000D Wedge compression fracture of unspecified lumbar vertebra, subsequent encounter for fracture with routine healing; M51.360 Other intervertebral disc degeneration, lumbar region with discogenic back pain only
CPT/HCPCS: 73502; 96127; 99212

== ENCOUNTER 2025-04-14 08:33 | Outpatient (AMB) | payer MEDICARE, OTHER, SELFPAY ==
--- NOTE | 2025-04-14 08:38 | A.OFFVIS_ITS ---
Intake Visit Reasons: OV- right hip trochanter FU Intake Note: Atnoinette is a 54 year old female who presents today as a follow up from her injection in her right hip. At today's visit she states that the injection did not help and that she will never get that injection again . Patient states that the right hip pain is still radiating into the buttocks. Patient would like to discuss being referred to Spine. Pain scale- Hip pain 7 Allergies No Known Allergies (No Known Allergies*) Allergy (Verified 04/12/25 11:49) Medication List - Last Reconciled 04/14/25 by Luanne Lora MD acetaminophen ER (Tylenol Arthritis Pain) 1,300 mg (2 x 650 mg) PO Q12H albuterol sulfate 90 mcg/actuation (Ventolin HFA) 1 inh inhalation QID PRN alendronate 70 mg PO FR amlodipine 5 mg PO DAILY arm brace please provide thumb spica for left wrist atorvastatin 40 mg PO BEDTIME codeine-guaifenesin 10-100 mg/5 mL 5 mL PO Q6H PRN cyclobenzaprine 10 mg PO Q8H doxycycline monohydrate 100 mg PO BID 10 days escitalopram oxalate 20 mg PO DAILY gabapentin 600 mg PO TID 90 days gentamicin 0.1% 1 appl topical TID ipratropium-albuterol 0.5 mg-3 mg(2.5 mg base)/3 mL 3 mL inhalation Q20M PRN levothyroxine 50 mcg PO DAILY@0600 meloxicam 15 mg PO DAILY PRN 90 days mupirocin 2% 1 appl topical BID omeprazole 20 mg PO DAILY prednisone 40 mg (2 x 20 mg) PO DAILY 5 days HPI Comments Details: PMH mood disorder, fibromyalgia, htn, osteoporosis, gerd, IBS, hypothryoid, copd/mild intermittent asthma, peripheral neuropathy, osteoporosis, spinal stenosis. She is following with hand surgery for left wrist arzate fx, DOI 11/02/24, deemed nonsurgical candidate by Dr. Shankar. Her main concern was lower back pain. She says 1 year ago, treated/hospitalized for left foot infection. Since then, needed walker or cane. She tends to bend forward when standing/walking. Right upper and lower back and buttocks feel numb. She can't lift her right leg/hip to get into bed. Right now she thinks right foot is numb. She was told in the past to have neuropathy but unknown etiology. I noticed that she is really hunched over and she says it was only since August 2023. Had mid back injury when younger, early 20s. She does admit to chronic recurrent back pain attributed to work. Major issue also is the multiple falls and unstable gait. Last visit with PCP reviewed. She has a painful non-healing wound on the left great toe, chronic UTI and continues to suffer from bronchitis. I do not see any recent ER visit or hospitalization. She has multiple pain areas but on last visit she had requested a right trochanteric bursitis injection and trigger point injection to the piriformis. Procedure performed, 02/23/2025. She says it was painful, been horrible, but didn't have any infection or signs of inflammation. 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 Recurrent falls General weakness Multiple falls Arzate fracture Scapholunate instability History of mammogram (~07/26/24) Spinal stenosis Anemia Anxiety and depression Hyperlipidemia Infection of skin of neck Hypertension Establishing care with new doctor, encounter for Left wrist pain Left hand pain Fall Pneumonia Hypoxia Acute hypoxic respiratory failure Sepsis Elevated troponin Gram-positive cocci bacteremia Cellulitis of left leg Altered mental status Smoker Arthritis Asthma Low back pain Osteoporosis GERD (gastroesophageal reflux disease) Irritable bowel syndrome (IBS) Hypothyroidism Fibromyalgia Personal history of COVID-19 Surgical History History of Hx of colonoscopy (~08/12/21) History of esophagogastroduodenoscopy (EGD) Family History Father No problems noted. Mother Multiple sclerosis Social History Household Members: Significant Other Housing: House Are you a primary md do resident urgent care to a significant other at home: No Do you presently have visiting nurse or other home services: No Alcohol intake: current Alcohol intake frequency: does not drink Patient Tobacco Use Status: Current everyday Tobacco user Tobacco use type: Cigarette Cigarette Packs Per Day: 0.5 Cigarettes Per Day: 10.0 e-Cigarette/Vaping Use: Never Used Second Hand Smoke Exposure: Yes Substance Use Type: Marijuana service: No Current occupational status: disabled Current occupational exposures/hazards: No Cognitive needs: Yes (walker and cane) Hearing needs: No Vision needs: Yes (rx glasses) Physical Exam Exam Exam: Alert, cooperative, hunched forward posture. Uses walker. Extrem Other: The patient was alert oriented and in no acute distress. She was somewhat sleepy today however. She ambulates with a walker. When asked to demonstrate where she has the most pain, she pointed to the dorsal aspect of the left thumb MCP joint. On exam she could make a fist and extend all of her digits with no locking or catching. Sensation was intact to the tips of all digits and she had good cap refill. She was tender in several areas. She was not particularly tender over the MCP joint of the thumb. She had some tenderness over the dorsal aspect of the DRUJ and just distal to the DRUJ in the dorsal ulnar aspect of the wrist joint. She also had some tenderness, which she felt was more tender, over the left 1st dorsal compartment. She had a negative Eliel test on the right. She had difficulty doing a Eliel test on the left, and said she could not do it. Results Reviewed Results Reviewed: Have previously discussed MRI done at [facility]. Reported disc bulge left-sided L1-L2 and L3-4, without significant spinal stenosis or neural foraminal narrowing. Mild chronic compression deformity L3, unchanged since 2017. Ordering Physician: Luanne Ji Date of Service: 12/29/24 Procedure(s): XR hips FLORENTINO min 3V Accession Number(s): [id number] cc: Sera Greenberg PA-C; Luanne Ji~ EXAMINATION: XR BILATERAL HIPS WITH AP PELVIS CLINICAL INFORMATION: M25.559 - Pain in unspecified hip COMPARISON: None available. TECHNIQUE: AP view of the pelvis and frog-leg lateral views of each hip were obtained. FINDINGS: Left hip: There is subtle axial joint space narrowing. Degenerative cyst is noted in the anterior femoral head. No marginal osteophytes are evident. Right hip: There is subtle axial joint space narrowing. There is a very small reactive osteophyte. No abnormalities are evident. XR/XR hips [place] min 3V IMPRESSION: Subtle left hip joint space narrowing and nonspecific degenerative cystic change in the anterior femoral head. Subtle right hip joint space narrowing and minimal acetabular roof osteophyte. Electronically signed by: Chavez Parks MD 12/29/2024 12:56 PM EDT RP Assessment & Plan Assessment & Plan (1) Trochanteric bursitis, right hip: Code(s): M70.61 - Trochanteric bursitis, right hip Category: Medical (2) Lumbar degenerative disc disease: Code(s): M51.369 - Other intervertebral disc degeneration, lumbar region without mention of lumbar back pain or lower extremity pain Category: Medical Qualifiers: Disc-related pain type: discogenic back pain only Qualified Code(s): M51.360 - Other intervertebral disc degeneration, lumbar region with discogenic back pain only (3) Compression fracture of lumbar vertebra with routine healing: Comment: Old compression fracture seen on MRI, unchanged since 2016 Code(s): S32.000D - Wedge compression fracture of unspecified lumbar vertebra, subsequent encounter for fracture with routine healing Category: Medical Qualifiers: Lumbar vertebra fracture level: L3 Qualified Code(s): S32.030D - Wedge compression fracture of third lumbar vertebra, subsequent encounter for fracture with routine healing Plan Discussed that the MRI done at [facility] reported mild chronic compression deformity L3, unchanged since 2016, which means she had that vertebral fracture even before 2016. She still wants to see someone who can do intervention for it. Trial of right GT injection last February was unfortunately unsuccessful. Patient complaining that she had more pain. We will repeat right hip x-rays today just to make sure no significant interval change. At the time of writing this note, x-ray images reviewed, I do not see any fracture or soft tissue signal. Await final reading. Referral to pain management. Assessment and plan discussed with patient, and patient was agreeable. All questions were answered thoroughly. Luanne Lora MD, KAMERON Board Certified, [place] Board [employer] and Rehabilitation (ABPMR) Board Certified, [place] Board [employer] Electrodiagnostic [employer] (ABEM) Orders: Orders XR hip RT min 2V Today M25.551 - Pain in right hip Referrals Pain Management Referral M51.360 - Other intervertebral disc degeneration, lumbar region with discogenic back pain only, S32.030D - Wedge compression fracture of third lumbar vertebra, subsequent encounter for fracture with routine healing Coding Level of Care Code Est Pt Level 4 (02400) Diagnoses Trochanteric bursitis, right hip M70.61 Degeneration of intervertebral disc of lumbar region with discogenic back pain M51.360 Disc-related pain type: discogenic back pain only Compression fracture of L3 vertebra with routine healing, subsequent encounter S32.030D Lumbar vertebra fracture level: L3
== END 2025-04-14 09:28 | disposition home or self-care (01) ==
LOC: HO.HOS 08:34
PROVIDERS: Visit Provider Physical Medicine & Rehabilitation
DX: M70.61 Trochanteric bursitis, right hip (principal); M51.360 Other intervertebral disc degeneration, lumbar region with discogenic back pain only; S32.030D Wedge compression fracture of third lumbar vertebra, subsequent encounter for fracture with routine healing
CPT/HCPCS: 99214

== ENCOUNTER → 2025-04-14 09:05 | Outpatient (BNV) | payer MEDICARE, OTHER, SELFPAY | PROVIDERS: Visit Provider Radiology Diagnostic Radiology | DX: M16.11 Unilateral primary osteoarthritis, right hip (principal) | CPT/HCPCS: 73502 ==

== ENCOUNTER 2025-04-14 14:02 | Outpatient (AMB) | payer MEDICARE, OTHER, SELFPAY ==
[2025-04-14 14:06] VITALS: BP 121/62; PULSE 94; RESP 16; TEMP 36.4; O2SAT 93; BMI 32.4
--- NOTE | 2025-04-14 14:06 | A.OFFPC_ITS ---
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 Accompanied by: Self / Same As Patient Allergies No Known Allergies (No Known Allergies*) Allergy (Verified 04/14/25 14:46) Medication List - Last Reconciled 04/14/25 by Sera Greenberg PA-C acetaminophen ER (Tylenol Arthritis Pain) 1,300 mg (2 x 650 mg) PO Q12H albuterol sulfate 90 mcg/actuation (Ventolin HFA) 1 inh inhalation QID PRN alendronate 70 mg PO FR amlodipine 5 mg PO DAILY arm brace please provide thumb spica for left wrist atorvastatin 40 mg PO BEDTIME calcium citrate 500 mg (2 x 250 mg calcium) PO DAILY 90 days cholecalciferol (vitamin D3) 50 mcg PO DAILY codeine-guaifenesin 10-100 mg/5 mL 5 mL PO Q6H PRN escitalopram oxalate 20 mg PO DAILY fluticasone furoate 200 mcg/actuation (Arnuity Ellipta) 1 inh inhalation DAILY gabapentin 600 mg PO TID 90 days gentamicin 0.1% 1 appl topical TID ibuprofen 800 mg PO Q8H PRN ipratropium-albuterol 0.5 mg-3 mg(2.5 mg base)/3 mL 3 mL inhalation Q20M PRN levothyroxine 50 mcg PO DAILY@0600 meloxicam 15 mg PO DAILY PRN 90 days mupirocin 2% 1 appl topical BID omeprazole 20 mg PO DAILY prednisone 40 mg (2 x 20 mg) PO DAILY 5 days Tobacco use date assessed: 02/10/25 Dental Screening Dental Screen Date: 02/10/25 HPI HPI Comments History of Present Illness Details History of Present Illness The patient is a 54 year old female presenting for follow-up on her bronchitis, to discuss referrals, and for management of her chronic conditions. She has a history of a chronic non-healing wound on her left great toe, for which an x-ray was ordered but not yet completed. She has been trimming the callus on the toe herself because it was catching on her socks. Regarding her respiratory history, she was seen two weeks ago for bronchitis and reports sounding and feeling better, though she notes her cough has started to return. She has a history of COPD and has been taking prednisone as needed when she feels she is unable to breathe. She has a nebulizer machine at home. The patient reports a smoking history of approximately 40 years, having started in the third grade. She is aware of scarring in her lower left lung. The patient also has a history of a wedge compression fracture of the third lumbar vertebra. She is being sent to pain management for injections as surgery is not an option due to the fractures being older. She reports past issues with her back, hip, and skin. The patient has been advised by a previous doctor to take Vitamin D and calcium for her bones but has not been taking them. She notes she is not outside in the sun often anymore. Referrals were previously made to dermatology and podiatry; the dermatology referral was successful, but the podiatry office stated they did not receive the referral. Social History - Tobacco Use: The patient reports a smo lindsay history of approximately 40 years. [facility] Medical History (Updated 04/14/25 @ 14:50 by Sera Greenberg PA-C) Pain management Callus of foot Vitamin D deficiency COPD (chronic obstructive pulmonary disease) Skin cancer screening Bronchitis Freckles Skin lesion Pain of left great toe Callus Cough Acute bacterial bronchitis Skin infection Cardiomegaly Rib sprain Rib pain on left side Osteopenia Ulnar impingement syndrome of left upper extremity Recurrent falls General weakness Multiple falls Arzate fracture Scapholunate instability History of mammogram (~07/26/24) Spinal stenosis Anemia Anxiety and depression Hyperlipidemia Infection of skin of neck Hypertension Establishing care with new doctor, encounter for Left wrist pain Left hand pain Fall Pneumonia Hypoxia Acute hypoxic respiratory failure Sepsis Elevated troponin Gram-positive cocci bacteremia Cellulitis of left leg Altered mental status Smoker Arthritis Asthma Low back pain Osteoporosis GERD (gastroesophageal reflux disease) Irritable bowel syndrome (IBS) Hypothyroidism Fibromyalgia Personal history of COVID-19 Surgical History History of Hx of colonoscopy (~08/12/21) History of esophagogastroduodenoscopy (EGD) Family History Father No problems noted. Mother Multiple sclerosis Social History Household Members: Significant Other Housing: House Are you a primary managed care director to a significant other at home: No Do you presently have visiting nurse or other home services: No Alcohol intake: current Alcohol intake frequency: does not drink Patient Tobacco Use Status: Current everyday Tobacco user Tobacco use type: Cigarette Cigarette Packs Per Day: 0.5 Cigarettes Per Day: 10.0 e-Cigarette/Vaping Use: Never Used Second Hand Smoke Exposure: Yes Substance Use Type: Marijuana service: No Current occupational status: disabled Current occupational exposures/hazards: No Cognitive needs: Yes (walker and cane) Hearing needs: No Vision needs: Yes (rx glasses) Questionnaire PHQ-9 Over the last 2 weeks, how often have you been bothered by any of the following problems? 1. Little interest or pleasure in doing things: not at all 2. Feeling down, depressed, or hopeless: not at all 3. Trouble falling or staying asleep, or sleeping too much: not at all 4. Feeling tired or having little energy: not at all 5. Poor appetite or overeating: not at all 6. Feeling bad about yourself - or that you are a failure or have let yourself or your family down: not at all 7. Trouble concentrating on things, such as reading the newspaper or watching television: not at all 8. Moving or speaking so slowly that other people could have noticed. Or the opposite - being so fidgety or restless that you have been moving around a lot more than usual: not at all 9. Thoughts that you would be better off or of hurting yourself in some way: not at all Total score: 0 Depression Screening Interpretation: Negative Depression Screening Done: Yes 73315 - PHQ-9 Billing: Yes Source: Developed by Drs. Brett Griffin, Maya Sanchez, Mg Brown and colleagues, with an educational mago from [employer]. Thrive Questionnaire Date Thrive assessed: 10/31/24 I am a: Patient What is your living situation today?: I have a steady place to live Within the past 12 months, did the food you bought not last and you didn't have the money to get more?: Never true Within the past 12 months, did you worry whether your food would run out before you got money to buy more?: Never true Do you have trouble paying for medicines?: No Do you have trouble getting transportation to medical appointments?: No Do you have trouble paying your heating and electricity bill?: No Do you have trouble taking care of your child, family member or friend?: No Do you have trouble with day-to-day activities such as bathing, preparing meals, shopping, managing finances, etc.?: No Are you currently unemployed and looking for a job?: No Are you interested in more education?: No Please select the resources that you would like help with: None Currently or been in a relationship where the following occur: No concerns reported THRIVE Score: 0 AUDIT C Alcohol Use Questionnaire (AUDIT-C) 1. How often do you have a drink containing alcohol?: Never 3. How often do you have six or more drinks on one occasion?: Never Total Score: 0 Score Reviewed/Action Taken: No GOLDEN-7 AMB Questionnaire GOLDEN-7 Date GOLDEN - 7 assessed: 10/31/24 Feeling nervous, anxious, or on edge: 0 = Not at all Not being able to stop or control worryin = Not at all Worrying too much about different things: 0 = Not at all Trouble relaxin = Not at all Being so restless that it is hard to sit still: 0 = Not at all Becoming easily annoyed or irritable: 0 = Not at all Feeling afraid as if something awful might happen: 0 = Not at all Total GOLDEN-7 score (0-4 normal; 5-9 mild; 10-14 moderate; 15-21 severe): 0 Source: Developed by Drs. Brett Griffin, Maya Sanchez, Mg Brown and colleagues, with an educational mago from [employer]. GOLDEN-7 Assessment Billing GOLDEN-7 Assessment Tool: GOLDEN-7 Assessment 30642 Review of Systems Narrative Review of Systems - General: Reports feeling better than at her last visit. - Respiratory: Reports a recurrence of her cough and occasional difficulty breathing. - Musculoskeletal: Reports issues with her back and hip. - Integumentary/Extremities: Reports a non-healing wound and callus on her left great toe which was catching on her socks. Const All systems reviewed & are unremarkable except as noted in HPI and below Physical exam (Primary Care) Vital Signs: Last Vital Signs Temp 97.5 F 04/14/25 14:06 Pulse 94 04/14/25 14:06 Resp 16 04/14/25 14:06 BP 121/62 04/14/25 14:06 Pulse Ox 93 04/14/25 14:06 Oxygen Delivery Method Room Air 04/14/25 14:06 Care Plan Goal for BP management: <140/90 at Goal BMI result Body Mass Index 32.4 BMI Assessment/Plan discussion: High BMI High, discussed plan: lifestyle, weight reduction, dietary, physical activity, alcohol moderation and other Tobacco/Smoking Status: Tobacco use Status Tobacco use date assessed 02/10/25 04/14/25 14:14 Patient Tobacco Use Status Current everyday Tobacco 04/14/25 14:14 Tobacco use type Cigarette 04/14/25 14:14 e-Cigarette/Vaping Use Never Used 04/14/25 14:14 PHQ-9: PHQ-9 Score PHQ-9: Total score 0 04/14/25 14:14 Depression Screening Interpretation: Negative Thrive Assessment: Date of Thrive Assessment Date Thrive assessed 10/31/24 04/14/25 14:14 Currently or been in a relationship where the following occur: No concerns reported Narrative Physical Exam Appearance: Alert. Oriented X3. No acute distress. Head: Normal external exam. Normocephalic. Atraumatic. Eyes: Pupils are equal, round, and reactive to light. Extraocular movements intact. Conjunctiva and sclera normal. Eyelids normal. Throat: Pharynx normal. Uvula midline. Moist mucous membranes. Neck: Normal inspection. Neck supple. Full range of motion. Cardiovascular: Normal heart rate and rhythm. Respiratory: No respiratory distress. Painless inspiration. Back: Full range of motion noted. Skin: Skin warm and dry. Normal skin color. Normal skin turgor. No rashes/lesions/lacerations noted. Extremities: Extremities exhibit normal range of motion. Callus noted to left great toe. No signs of acute infection. Results Reviewed Results Reviewed: - Prior Imaging: Patient reports scarring in her lower left lung was seen on a previous imaging study. Coding Level of Care Code Est Pt Level 4 (68313) Add On Problem Visit Only Diagnoses Callus of foot L84 COPD (chronic obstructive pulmonary disease) J44.9 Bronchitis J40 Vitamin D deficiency E55.9 Pain management R52 Additional Codes GOLDEN-7 Assessment Billing - GOLDEN-7 Assessment Tool: GOLDEN-7 Assessment 04536 ([id number]) PHQ-9 - 67343 - PHQ-9 Billing: Yes ([id number]) Time Spent (min) 60 Assessment & Plan Assessment & Plan (1) Callus of foot: Code(s): L84 - Corns and callosities Category: Medical Plan: The callus on the patient's left great toe was debrided in the office. The patient will continue using the prescribed ointment Bactroban. An x-ray of the toe, which was previously ordered, should be completed. The referral to podiatry will be followed up on, as their office claimed not to have received it; a message was sent to the practice physician to facilitate scheduling. They will call the patient to schedule the patient. (2) COPD (chronic obstructive pulmonary disease): Code(s): J44.9 - Chronic obstructive pulmonary disease, unspecified Category: Medical Plan: A prescription for Ellipta was provided for daily use to manage COPD. A referral for lung cancer screening via a low-dose CT scan will be placed. A referral to pulmonology at [facility] will also be placed for consultation. (3) Bronchitis: Code(s): J40 - Bronchitis, not specified as acute or chronic Category: Medical Plan: A prescription for prednisone 40 mg for five days with six refills was provided for the patient to use as needed when she feels she is having difficulty breathing. The patient was advised to get a chest x-ray that was previously ordered. (4) Vitamin D deficiency: Code(s): E55.9 - Vitamin D deficiency, unspecified Category: Medical Plan: A prescription for high-dose vitamin D (2000 units daily) and calcium citrate 500 mg daily (two 250 mg tablets) was sent to the pharmacy to protect her bones. (5) Pain management: Code(s): R52 - Pain, unspecified Category: Medical Plan: A prescription for ibuprofen 800 mg was provided with multiple refills for pain. The patient was advised to alternate ibuprofen with Tylenol. The patient will follow up with pain management for injections for her lumbar wedge compression fracture. Plan Plan Patient was informed and verbally consented to the use of an ambient scribe for clinic note documentation during this visit. 1. Chronic Non-Healing Wound Of Left Great Toe The callus on the patient's left great toe was debrided in the office. The patient will continue using the prescribed ointment with vitamin D. An x-ray of the toe, which was previously ordered, should be completed. The referral to podiatry will be followed up on, as their office claimed not to have received it; a message was sent to the practice physician to facilitate scheduling. 2. Chronic Obstructive Pulmonary Disease A prescription for Ellipta was provided for daily use to manage COPD. A referral for lung cancer screening via a low-dose CT scan will be placed. A referral to pulmonology at [facility] will also be placed for consultation. 3. Chronic Bronchitis A prescription for prednisone 40 mg for five days with six refills was provided for the patient to use as needed when she feels she is having difficulty breathing. The patient was advised to get a chest x-ray that was previously ordered. 4. Vitamin D Deficiency And Osteoporosis Management A prescription for high-dose vitamin D (2000 units daily) and calcium citrate 500 mg daily (two 250 mg tablets) was sent to the pharmacy to protect her bones. 5. Pain Management A prescription for ibuprofen 800 mg was provided with multiple refills for pain. The patient was advised to alternate ibuprofen with Tylenol. The patient will follow up with pain management for injections for her lumbar wedge compression fracture. Discussion Notes I followed up with the patient on several issues, including her recent bronchitis, for which she reports improvement. We discussed the chronic wound on her left great toe, and I performed an in-office debridement of the callus. I advised her not to trim it herself due to the risk of infection. I addressed the issue with the podiatry referral by contacting the chief fundraising officer directly to ensure she gets scheduled. Given her history of COPD and a 40-year smoking history, I prescribed a daily maintenance inhaler (Ellipta) and initiated referrals for both lung cancer screening with a low-dose CT and a pulmonology consultation. I also provided a prescription for prednisone with refills for her to initiate at the onset of breathing difficulties, empowering her to manage exacerbations promptly. I advised her that if the prednisone is not effective, she should seek emergency care. We discussed bone health, and I prescribed high-dose vitamin D and calcium supplements to prevent further bone density loss. I refilled her ibuprofen 800 mg for pain management, reminding her to alternate with Tylenol. We scheduled a follow-up appointment in one month to review the progress on these new treatments and referrals. Orders: Referrals Lung Cancer Screening Referral F17.200 - Nicotine dependence, unspecified, uncomplicated, J44.9 - Chronic obstructive pulmonary disease, unspecified Pulmonology Referral F17.200 - Nicotine dependence, unspecified, uncomplicated, J44.9 - Chronic obstructive pulmonary disease, unspecified Medications: New ibuprofen 800 mg PO Q8H PRN 90 tabs 3RF pain fluticasone furoate 200 mcg/actuation (Arnuity Ellipta) 1 inh inhalation DAILY 30 ea 6RF J44.9 - Chronic obstructive pulmonary disease, unspecified cholecalciferol (vitamin D3) 50 mcg PO DAILY 90 caps 3RF E55.9 - Vitamin D def iciency, unspecified calcium citrate 500 mg (2 x 250 mg calcium) PO DAILY 180 tabs 3RF 90 days Refilled prednisone 40 mg (2 x 20 mg) PO DAILY 10 tabs 6RF 5 days Patient Instructions: Patient Instructions - Please go and get the x-ray of your chest and toe that was ordered previously. - Do not trim the callus on your toe yourself to avoid infection. - Take one puff of your new inhaler, Ellipta, every morning for your COPD. - You have a prescription for prednisone. Take it as directed for 5 days if you start to have trouble breathing. If it doesn't help, you need to go to the Emergency Room. - Take one tablet of Vitamin D 2000 units and two tablets of Calcium Citrate 250 mg once daily for your bone health. - You may take Ibuprofen 800mg for pain. It is best to alternate it with Tylenol. - Referrals have been placed for a lung cancer screening and to see a lung specialist ([facility]). Their offices will call you to schedule an appointment. - The regulation supervisor's office will be calling you to schedule your foot appointment. - Follow up in the clinic in one month.
--- OUTSIDE RECORDS SUMMARY | 2025-04-14 19:25 | XMS_ITS | Patient Health Record ---
Author Organization [facility] Address [address] [place] [address] Care Team Providers Care Curtain Inspector Name Role Phone Doug Santos MD Primary Care Provider Unavailab Reyes Junior Unavailable [phone] Reason For Referral No Information Medications Medication [...] W/U Status Risk Notes Problem Verruca plantaris ([id number]) Verruca Plantaris (078.19) Active confirmed Plan Of Treatment No Information Insurance Providers Payer Name Payer Address Payer Phone Subscriber Number Group Number Insured Name Patient Relationship to Insured Coverage Start Date Coverage End Date [facility] [address] [place] [address] [phone] [id number] Antoinette Jeter Self - patient is the insured Medical (General) History Medical History History ICD Code Arthritis asthma back, hip, knee pain fibromyalgia neuropathy thyroid disorder warts chicken pox
--- OUTSIDE RECORDS SUMMARY | 2025-04-14 19:25 | XMS_ITS | Patient Health Record ---
Author Organization 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 Section Notes: Smoker 1/2 ppd; no sig alcoh ol Problems Problem Type SNOMED Code ICD Code Onset Dates Problem Status W/U Status Risk Notes Problem Screening for malignant neoplasm of colon (866691462) Encounter for screening for malignant neoplasm of colon (Z12.11) Active confirmed Problem Irritable bowel syndrome with diarrhea (607226037) Irritable bowel syndrome with diarrhea (K58.0) Active confirmed Problem Gastroesophageal reflux disease without esophagitis (760861151) Gastroesophageal reflux disease without esophagitis (K21.9) Active confirmed Problem Preprocedural examination ([id number]) Preprocedural examination (Z01.818) Active confirmed Problem Diverticulosis of colon (466768360) Diverticulosis of colon (K57.30) Active confirmed Plan Of Treatment Pending Test Test Name Order Date Pathology 08/12/2021 Future Test Test Name Order Date COLONOSCOPY 06/19/2021 Insurance Providers Payer Name Payer Address Payer Phone Subscriber Number Group Number Insured Name Patient Relationship to Insured Coverage Start Date Coverage End Date MEDICARE OF [place] [address] [place] [address] [id number] GISELLE TALBOT Self - patient is the insured [facility] [address] [place] [phone] [id number] GISELLE TALBOT Self - patient is the insured Medical (General) History Medical History History ICD Code COVID-pneumonia 04/2021 Fibromyalgia Hypothyroidism IBS-doing well on dicyclomin e as of the 06/2021 office visit-normal dudoenal biopsies without celiac disease in EGD GERD-EGD 2009-neg. for Kersey tt's or esophagitis, small hiatal hernia was noted Denies TX,DM,CVA,Lung disease,renal dise ase Colonoscopy 2009--negative for polyps, I BD, microscopic colitis Surgical History Surgery Date(Month/Year)
== END 2025-04-14 14:44 | disposition home or self-care (01) ==
LOC: HO.HMCSH 14:02
PROVIDERS: PCP Physician Assistant Medical; Visit Provider Physician Assistant Medical
DX: L84 Corns and callosities (principal); J44.9 Chronic obstructive pulmonary disease, unspecified; J40 Bronchitis, not specified as acute or chronic; E55.9 Vitamin D deficiency, unspecified; R52 Pain, unspecified

== ENCOUNTER 2025-05-02 10:42 | Outpatient (AMB) | payer MEDICARE, OTHER, SELFPAY ==
--- NOTE | 2025-05-02 10:43 | A.OFFVIS_ITS ---
Vital Signs 05/02/25 10:48 Height 5 ft Weight 166 lb BMI 32.4 BP 138/74 Blood Pressure Location Lt brachial Position Sitting Pulse 108 H Pulse Source Pulse Oximeter Pulse Oximetry (%) 96 Oxygen Delivery Method Room Air Intake Visit Reasons: Wedge compression fracture third lumbar vertebra Intake Note: Pain today 02/10 Ladle Puller Required: No Accompanied by: Self / Same As Patient Allergies No Known Allergies (No Known Allergies*) Allergy (Verified 04/14/25 14:46) HPI Comments Details: The patient is a 54 year old female presenting for evaluation and management of chronic back pain. She has a history of L3 compression fracture, scoliosis, and arthritis. Her back problems originated around age 14 or 15 when she injured her back working at [employer], resulting in bulging discs. 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 Two years ago in August, she was hospitalized for sepsis secondary to a cut on her toe. Following this illness, she experienced significant deconditioning, lost 50 pounds, and had to relearn how to walk. Her foot wound is now mostly healed but remains sensitive. She reports a history of frequent falls due to her back giving out, which led to multiple bilateral rib fractures. After these falls, she began using a cane for safety. The patient has a diagnosis of osteoporosis and takes alendronate once a week, and recently started calcium citrate and vitamin D3. She has not had a bone density scan in a while. She also has a history of right-sided sacroiliitis and mild arthritis of the right hip, for which she received a painful cortisone inj ection that was administered into the lateral hip area, which consistent with GTB injection. She has had no prior spine surgeries or injections. Physical therapy and hot water provide temporary pain relief. She alternates Tylenol and ibuprofen for pain and occasionally uses prednisone, which she finds helpful. Pain Description - Location: The patient's primary pain is in her lower back, although she also reports pain on the left side of her back and right-sided hip pain. - Quality: The pain is described as sharp, stabbing, and associated with tightness. - Associated Symptoms: She experiences numbness and tingling along the entire right side of her body. - Exacerbating Factors: Pain is worsened by walking, with a tolerance of about 5-10 minutes before needing to sit down, and by bending backward. - Relieving Factors: Pain is temporarily relieved by hot water, physical therapy, and prednisone. - Functional Interference: Daily activities such as grocery shopping are difficult without support, like using a shopping cart. Pain Management - Affect: The patient expresses significant frustration with her chronic pain, stating she is so tired of this. - Analgesia: The patient alternates Tylenol and ibuprofen for pain management and also has prednisone to take as needed, which she reports is helpful. - Activities of Daily Living: Her ability to walk is limited to 5-10 minutes at a time before needing to rest, and she uses a cart for support while shopping. - Adverse Effects: No adverse effects from current medications were discussed. - Aberrant Drug Related Behaviors: No aberrant drug-related behaviors were discussed. [facility] Medical History Pain management Callus of foot Vitamin D deficiency COPD (chronic obstructive pulmonary disease) Skin cancer screening Bronchitis Freckles Skin lesion Pain of left great toe Callus Cough Acute bacterial bronchitis Skin infection Cardiomegaly Rib sprain Rib pain on left side Osteopenia Ulnar impingement syndrome of left upper extremity Recurrent falls General weakness Multiple falls Arzate fracture Scapholunate instability History of mammogram (~07/26/24) Spinal stenosis Anemia Anxiety and depression Hyperlipidemia Infection of skin of neck Hypertension Establishing care with new doctor, encounter for Left wrist pain Left hand pain Fall Pneumonia Hypoxia Acute hypoxic respiratory failure Sepsis Elevated troponin Gram-positive cocci bacteremia Cellulitis of left leg Altered mental status Smoker Arthritis Asthma Low back pain Osteoporosis GERD (gastroesophageal reflux disease) Irritable bowel syndrome (IBS) Hypothyroidism Fibromyalgia Personal history of COVID-19 Surgical History History of Hx of colonoscopy (~08/12/21) History of esophagogastroduodenoscopy (EGD) Family History Father No problems noted. Mother Multiple sclerosis Social History Household Members: Significant Other Housing: House Are you a primary career orientation teacher to a significant other at home: No Do you presently have visiting nurse or other home services: No Alcohol intake: current Alcohol intake frequency: does not drink Patient Tobacco Use Status: Current everyday Tobacco user Tobacco use type: Cigarette Cigarette Packs Per Day: 0.5 Cigarettes Per Day: 10.0 e-Cigarette/Vaping Use: Never Used Second Hand Smoke Exposure: Yes Substance Use Type: Marijuana service: No Current occupational status: disabled Current occupational exposures/hazards: No Cognitive needs: Yes (walker and cane) Hearing needs: No Vision needs: Yes (rx glasses) Review of Systems Narrative - Constitutional: Reports history of 50-pound weight loss approximately two years ago. - Musculoskeletal: Reports chronic lower back pain characterized as sharp and stabbing with tightness. - Also reports right hip pain. - Reports history of frequent falls. - Neurological: Reports numbness and tingling affecting the entire right side of her body. Denies bladder or bowel dysfunction. - Integumentary: Reports a mostly healed wound on her left toe that is still sensitive. Physical Exam Exam Exam: - General: Patient observed to have a hunched posture. - Lower Extremities: Discoloration and swelling noted in the legs. - Inspection of the left foot reveals a mostly healed wound with a small scab, and a deformity of the great toe. - Back: Inspection reveals significant scoliosis and kyphosis. - Range of motion is limited; forward bending causes tightness, and backward bending is painful and restricted. - Musculoskeletal: Right-sided BEN test is positive, eliciting pain in the hip and back. Vital Signs: Last Vital Signs Pulse 108 H 05/02/25 10:48 BP 138/74 05/02/25 10:48 Pulse Ox 96 05/02/25 10:48 Oxygen Delivery Method Room Air 05/02/25 10:48 BMI result Body Mass Index 32.4 Results Reviewed Results Reviewed: XR THORACIC SPINE 12/29/24 CLINICAL INFORMATION: M54.9 - Dorsalgia, unspecified COMPARISON: None available. TECHNIQUE: 3 views of the thoracic spine were obtained. FINDINGS: There is subtle convex left curvature of the thoracic spine. There is mild disc space narrowing with small anterior osteophytes noted throughout the thoracic spine. Multiple chronic rib fractures are present in the visualized portion of the left chest with possible subacute fracture involving posterior left seventh rib with evidence of periosteal new bone formation. IMPRESSION: Mild multilevel degenerative disc disease. Suspect a subacute fracture of the posterior left seventh rib. XR LUMBAR SPINE 2-3 VIEWS 07/15/24 HISTORY: LOW BACK PAIN COMPARISON: Comparison is made with the prior examination dated 06/13/2017. FINDINGS: AP, lateral, and coned down views of the lumbar spine are submitted. Osseous mineralization is normal. There is mild to moderate dextroscoliosis which is new from the prior study. The vertebral bodies maintain normal height without evidence of fracture or listhesis. There is moderate degenerative disc disease at the L1-2 level with disc space narrowing and osteophyte formation. Milder degenerative changes are noted at the remaining levels. The posterior elements are intact. There is calcification of the abdominal aorta. IMPRESSION: There are mild to moderate dextroscoliosis. Moderate degenerative disc disease at L1-2 with milder changes at the remaining levels. XR RIBS, LEFT 11/11/24 CLINICAL INFORMATION: W19.XXXA - Unspecified fall, initial encounter COMPARISON: 08/18/2024, 05/23/2024. TECHNIQUE: PA view of the chest, and 3 views of the left ribs were obtained. FINDINGS: Lungs are clear. No consolidation, pneumothorax, or pleural effusion. There is cardiac enlargement. Mediastinal and hilar contours appear normal. Ribs demonstrate numerous bilateral healed/old rib fractures. No definite acute rib fracture or suspicious bone lesion identified. IMPRESSION: 1. Cardiomegaly. No active pulmonary disease. 2. There are numerous bilateral old healed rib fractures present. There is no definite acute fracture or focal rib lesion seen. XR HIP, RIGHT 04/14/25 CLINICAL INFORMATION: M25.551 - Pain in right hip COMPARISON: December 29, 2024 TECHNIQUE: AP and oblique views of the right hip. FINDINGS: Joint space narrowing, asymmetric at the right coxofemoral joint. Sclerosis at the sacroiliac joint. Subchondral cyst formation in the greater trochanter of the right femur. No acute fracture or dislocation. No lytic or blastic lesions. Multilevel spondylosis, lower lumbar spine. IMPRESSION: Mild osteoarthrosis/osteoarthritis, right hip. Probable right-sided sacroiliitis. XR scoliosis survey 12/29/24 Mild dextro scoliosis of the lumbar spine and negative coronal balance. Numerous chronic rib fractures. Assessment & Plan Assessment & Plan (1) Osteoporosis: Code(s): M81.0 - Age-related osteoporosis without current pathological fracture Category: Medical (2) Compression fracture of lumbar vertebra with routine healing: Comment: Old compression fracture seen on MRI, unchanged since 2017 Code(s): S32.000D - Wedge compression fracture of unspecified lumbar vertebra, subsequent encounter for fracture with routine healing Category: Medical Qualifiers: Lumbar vertebra fracture level: L3 Qualified Code(s): S32.030D - Wedge compression fracture of third lumbar vertebra, subsequent encounter for fracture with routine healing (3) Scoliosis: Code(s): M41.9 - Scoliosis, unspecified Category: Medical Qualifiers: Scoliosis type: unspecified scoliosis Spinal region: thoracolumbar Qualified Code(s): M41.9 - Scoliosis, unspecified (4) Lumbar degenerative disc disease: Code(s): M51.369 - Other intervertebral disc degeneration, lumbar region without mention of lumbar back pain or lower extremity pain Category: Medical Qualifiers: Disc-related pain type: discogenic back pain only Qualified Code(s): M51.360 - Other intervertebral disc degeneration, lumbar region with discogenic back pain only (5) Chronic pain syndrome: Code(s): G89.4 - Chronic pain syndrome Category: Medical (6) Lumbosacral spondylosis: Code(s): M47.817 - Spondylosis without myelopathy or radiculopathy, lumbosacral region Category: Medical Plan A bone density scan will be ordered to assess the current status of the patient's osteoporosis and evaluate her candidacy for potential therapeutic right hip and sacroiliac joint injections. For her chronic lower back pain, the patient will be scheduled for diagnostic bilateral L3, L4, and L5 medial branch blocks with local anesthetic under fluoroscopic guidance to confirm predominantly axial and facet mediated low back pain. If she has a positive response to the blocks, she will be considered a candidate for either peripheral nerve stimulation or radiofrequency ablation (RFA), with RFA being the preferred option per patient for longer-term pain relief. The patient will continue her current regimen of alendronate, calcium with vitamin D3 for osteoporosis per her prescribing provider, and may continue to use Tylenol, ibuprofen as needed for pain. All questions and concerns have been answered and patient agreed with the treatment plan. Follow up after injections and sooner as needed. Patient was informed and verbally consented to the use of an ambient scribe for clinic note documentation during this visit. Orders: Orders 2 XR DEXA axial skeleton Today M81.0 - Age-related osteoporosis without current pathological fracture, S32.030D - Wedge compression fracture of third lumbar vertebra, subsequent encounter for fracture with routine healing Coding Level of Care Code New Pt Level 4 (59366) Diagnoses Osteoporosis M81.0 Compression fracture of L3 vertebra with routine healing, subsequent encounter S32.030D Lumbar vertebra fracture level: L3 Scoliosis of thoracolumbar spine, unspecified scoliosis type M41.9 Scoliosis type: unspecified scoliosis Spinal region: thoracolumbar Degeneration of intervertebral disc of lumbar region with discogenic back pain M51.360 Disc-related pain type: discogenic back pain only Chronic pain syndrome G89.4 Lumbosacral spondylosis M47.817
[2025-05-02 10:48] VITALS: BP 138/74; PULSE 108; O2SAT 96; BMI 32.4
--- OUTSIDE RECORDS SUMMARY | 2025-05-02 14:20 | XMS_ITS | Patient Health Record ---
Author Organization [facility] Address [address] [place] [address] Care Team Providers Care Resist Coater Developer Name Role Phone Doug Santos MD Primary Care Provider Unavailab Reyes Junior Unavailable [phone] Reason For Referral No Information Medications Medication [...] W/U Status Risk Notes Problem Verruca plantaris ([id number]) Verruca Plantaris (078.19) Active confirmed Plan Of Treatment No Information Insurance Providers Payer Name Payer Address Payer Phone Subscriber Number Group Number Insured Name Patient Relationship to Insured Coverage Start Date Coverage End Date [facility] [address] [place] [address] [phone] [id number] Antoinette Jeter Self - patient is the insured Medical (General) History Medical History History ICD Code Arthritis asthma back, hip, knee pain fibromyalgia neuropathy thyroid disorder warts chicken pox
--- OUTSIDE RECORDS SUMMARY | 2025-05-02 14:20 | XMS_ITS | Patient Health Record ---
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 Section Notes: Smoker 1/2 ppd; no sig alcoh ol Problems Problem Type SNOMED Code ICD Code Onset Dates Problem Status W/U Status Risk Notes Problem Screening for malignant neoplasm of colon (683006397) Encounter for screening for malignant neoplasm of colon (Z12.11) Active confirmed Problem Irritable bowel syndrome with diarrhea (920093248) Irritable bowel syndrome with diarrhea (K58.0) Active confirmed Problem Gastroesophageal reflux disease without esophagitis (092060240) Gastroesophageal reflux disease without esophagitis (K21.9) Active confirmed Problem Preprocedural examination (855053129536362) Preprocedural examination (Z01.818) Active confirmed Problem Diverticulosis of colon (977121330) Diverticulosis of colon (K57.30) Active confirmed Plan Of Treatment Pending Test Test Name Order Date Pathology 08/12/2021 Future Test Test Name Order Date COLONOSCOPY 06/19/2021 Insurance Providers Payer Name Payer Address Payer Phone Subscriber Number Group Number Insured Name Patient Relationship to Insured Coverage Start Date Coverage End Date MED[employer]ARE OF [place] [address] [place] [address] [id number] GISELLE TALBOT Self - patient is the insured [facility] [address] [place] [phone] [id number] GISELLE TALBOT Self - patient is the insured Medical (General) History Medical History History ICD Code COVID-pneumonia 04/2021 Fibromyalgia Hypothyroidism IBS-doing well on dicyclomin e as of the 06/2021 office visit-normal dudoenal biopsies without celiac disease in EGD GERD-EGD 2009-neg. for [place] tt's or esophagitis, small hiatal hernia was noted Denies UT,DM,CVA,Lung disease,renal dise ase Colonoscopy 2009--negative for polyps, I BD, microscopic colitis Surgical History Surgery Date(Month/Year)
== END 2025-05-02 11:21 | disposition home or self-care (01) ==
LOC: HO.PMC 10:42
PROVIDERS: Visit Provider Nurse Practitioner Family
DX: M81.0 Age-related osteoporosis without current pathological fracture (principal); S32.030D Wedge compression fracture of third lumbar vertebra, subsequent encounter for fracture with routine healing; M41.9 Scoliosis, unspecified; M51.360 Other intervertebral disc degeneration, lumbar region with discogenic back pain only; G89.4 Chronic pain syndrome; M47.817 Spondylosis without myelopathy or radiculopathy, lumbosacral region
CPT/HCPCS: 99204

== ENCOUNTER → 2025-05-02 10:42 | Outpatient (BNVA) | payer MEDICARE, OTHER, SELFPAY | PROVIDERS: Visit Provider Nurse Practitioner Family | DX: M81.0 Age-related osteoporosis without current pathological fracture (principal); S32.030D Wedge compression fracture of third lumbar vertebra, subsequent encounter for fracture with routine healing; W19.XXXD Unspecified fall, subsequent encounter; M41.9 Scoliosis, unspecified; M51.360 Other intervertebral disc degeneration, lumbar region with discogenic back pain only; G89.4 Chronic pain syndrome; M47.817 Spondylosis without myelopathy or radiculopathy, lumbosacral region | CPT/HCPCS: 99202 ==